=== PATIENT | female | born 1975 | race Two or more races ===

== ENCOUNTER → 2020-02-01 11:55 | Outpatient (BNVA) | payer MEDICAID, SELFPAY | PROVIDERS: PCP Internal Medicine; Referring Provider Internal Medicine; Visit Provider Internal Medicine | DX: Z76.89 Persons encountering health services in other specified circumstances (principal) ==

== ENCOUNTER 2020-04-05 08:50 | Outpatient (REF) | payer MEDICAID, SELFPAY ==
--- NOTE | 2020-04-05 11:15 | ECG_ITS ---
Test Reason : SOB Blood Pressure : / mmHG Vent. Rate : 084 BPM Atrial Rate : 084 BPM P-R Int : 128 ms QRS Dur : 084 ms QT Int : 362 ms P-R-T Axes : 035 043 059 degrees QTc Int : 427 ms Normal sinus rhythm Normal ECG No previous ECGs available Referred By: Karol Brandt Electronically Signed By:GISELE CONNELL
--- NOTE | 2020-04-05 11:30 | XR_ITS ---
EXAMINATION: XR CHEST CLINICAL INFORMATION: Shortness of breath. COMPARISON: None TECHNIQUE: 2 views of the chest were obtained. FINDINGS: No significant abnormality is noted involving the heart, lungs, mediastinum, bony thorax or soft tissues. XR/XR chest 2V IMPRESSION: No acute cardiopulmonary process.
[2020-04-05 12:08] LABS: MANUAL DIFF FLAG NO
[2020-04-05 12:22] LABS: Basophils Percent Auto 0.4 % (0-2); Eosinophils Absolute Auto 0.1 X10*3/uL (0.0-0.4); Hematocrit 40.4 % (37-47); Hemoglobin 13.6 g/dl (12.0-16.0); Imm Gran Abs Auto 0.03 X10*3/uL (0.00-0.03); Imm Gran Pct Auto 0.4 % (0.0-0.4); Lymphocytes Absolute Auto 2.4 X10*3/uL (1.2-4.9); Lymphocytes Percent Auto 33.7 % (20-40); Mean Corpuscular HGB Conc 33.7 g/dl (31.0-35.0); Mean Corpuscular Hemoglobin 29.3 pg (27.0-33.0); Mean Corpuscular Volume 87.1 fL (80-98); Mean Platelet Volume 11.6 fL (9.4-12.3); Monocytes Absolute Auto 0.6 X10*3/uL (0.1-1.2); Monocytes Percent Auto 8.5 % (2-11); Neutrophils Absolute Auto 3.9 X10*3/uL (2.0-8.3); Platelet Count 308 X10*3/uL (160-400); Red Blood Count 4.64 X10*6/uL (4.20-5.50); Red Cell Distribution Width 12.5 % (11.0-16.0)
[2020-04-05 12:50] LABS: Alanine Aminotransferase 23 U/L (0-31); Albumin Level 3.9 g/dL (3.5-5.0); Alkaline Phosphatase 208 U/L (39-117); Anion Gap 13 (12-20); Aspartate Amino Transferase 16 U/L (5-31); Bilirubin Total 0.2 mg/dL (0.0-1.0); Blood Urea Nitrogen 12 mg/dL (9-16); C Reactive Protein 1.91 mg/dL (< or = 0.50); Calcium 8.8 mg/dL (8.4-10.2); Carbon Dioxide 30 mmol/L (22-29); Chloride 96 mmol/L (96-108); Cholesterol 196 mg/dL; Estimated Glomerular Filt Rate > 60; Glucose Fasting 337 mg/dL (60-99); HDL Cholesterol 52 mg/dL; Iron 78 mcg/dL (30-160); LDL Cholesterol Calculated 109 mg/dl; Percent Iron Saturation 23 % (15-50); Potassium 4.4 mmol/L (3.3-5.1); Sodium 135 mmol/L (135-145); Total Iron Binding Capacity 338 mcg/dL (228-428); Total Protein 6.9 g/dL (6.5-8.0); Triglycerides 178 mg/dL; Unsaturated Iron Binding 260 ug/dL
[2020-04-05 13:01] LABS: Vitamin B12 295 pg/mL (200-900)
[2020-04-05 13:10] LABS: Vitamin D 25-OH Total 23.6 ng/mL (>30)
[2020-04-06 06:27] LABS: Thyroglobulin Antibodies <1 IU/mL (< or = 1); Thyroid Peroxidase Antibodies <1 IU/mL (<9); Triiodothyronine T3 Total 103 ng/dL (76-181)
[2020-04-06 12:02] LABS: H Pylori Breath Test NOT DETECTED (NOT DETECTED)
[2020-04-06 13:13] LABS: PTHI 69 pg/mL (14-64)
[2020-04-09 04:27] LABS: Zinc 77 mcg/dL (60-130)
[2020-04-09 16:13] LABS: Vitamin A 39 mcg/dL (38-98)
[2020-04-10 10:17] LABS: Vitamin B1 9 nmol/L (8-30)
== END 2020-04-05 08:51 | disposition home or self-care (01) ==
LOC: HO.LAB 08:50
PROVIDERS: Internal Medicine; PCP Internal Medicine; Visit Provider Surgery
DX: Z01.818 Encounter for other preprocedural examination (principal); E66.9 Obesity, unspecified; Z68.38 Body mass index [BMI] 38.0-38.9, adult; R06.02 Shortness of breath
CPT/HCPCS: 36415; 71046; 80053; 80061; 82306; 82607; 83013; 83540; 83970; 84425; 84439; 84443; 84480; 84590; 84630; 85025; 86140; 86376; 86800; 93005; 99202; 99211

== ENCOUNTER → 2020-04-19 08:09 | Outpatient (BNVA) | payer MEDICAID, SELFPAY | PROVIDERS: PCP Internal Medicine; Visit Provider Surgery ==

== ENCOUNTER → 2020-05-03 08:11 | Outpatient (BNVA) | payer MEDICAID, SELFPAY | PROVIDERS: PCP Internal Medicine; Visit Provider Dietitian, Registered ==

== ENCOUNTER 2020-07-28 08:07 | Outpatient (REF) | payer MEDICAID, SELFPAY ==
--- NOTE | ~2020-07-28 | MM_ITS ---
EXAMINATION: MM SCREENING DIGITAL BREAST TOMOSYNTHESIS, BILATERAL CLINICAL INFORMATION: Screening. Asymptomatic. The lifetime risk of breast cancer based on the Tyrer-Cuzick Model is 7%. COMPARISON: Mammography: 02/12/2018, 08/10/2017, 02/02/2017, 01/16/2017 TECHNIQUE: Digital breast tomosynthesis is performed in both the craniocaudal and mediolateral oblique views along with computer-aided detection (CAD). Synthesized 2D images are generated from the tomosynthesis. Additional left MLO view is provided. FINDINGS: There are scattered areas of fibroglandular density (ACR BI-RADS breast composition Category b). There are no significant masses, abnormal calcifications, or other abnormalities. Small smooth nodular asymmetry outer left breast is stable from prior exams. The axilla and skin contours are unremarkable. No significant changes. MM/MM tomosynthesis screening BI IMPRESSION: No mammographic evidence of malignancy. ASSESSMENT: BI-RADS 2: Benign RECOMMENDATION: Routine annual mammography screening. This patient's information was entered into a reminder system with a target due date for their next mammogram.
--- NOTE | ~2020-07-28 | XR_ITS ---
EXAMINATION: XR knee LT 4V, XR knee RT 4V CLINICAL INFORMATION: Reason for Exam PAIN IN LT KNEE COMPARISON: None available at the time of this dictation. TECHNIQUE: frontal, lateral, tunnel and patella sunrise views FINDINGS: BONES: No fracture or dislocation is present. There is mild lateral tilt of the patella especially the left. JOINTS: Narrowing of joint spaces and developed osteophytes from the edges of articular surfaces suggest degenerative osteoarthritis. SOFT TISSUE: Normal XR/XR knee RT 4V IMPRESSION: Moderate tricompartment degenerative osteoarthritis involving lateral more than medial compartments. No significant knee joint effusion. Mild lateral tilt of the patella left more than right.
--- NOTE | ~2020-07-28 | XR_ITS ---
EXAMINATION: XR knee LT 4V, XR knee RT 4V CLINICAL INFORMATION: Reason for Exam PAIN IN LT KNEE COMPARISON: None available at the time of this dictation. TECHNIQUE: frontal, lateral, tunnel and patella sunrise views FINDINGS: BONES: No fracture or dislocation is present. There is mild lateral tilt of the patella especially the left. JOINTS: Narrowing of joint spaces and developed osteophytes from the edges of articular surfaces suggest degenerative osteoarthritis. SOFT TISSUE: Normal XR/XR knee LT 4V IMPRESSION: Moderate tricompartment degenerative osteoarthritis involving lateral more than medial compartments. No significant knee joint effusion. Mild lateral tilt of the patella left more than right.
== END 2020-07-28 08:08 | disposition home or self-care (01) ==
LOC: HO.MAMMO 08:07
PROVIDERS: PCP Internal Medicine; Visit Provider Internal Medicine
DX: Z12.31 Encounter for screening mammogram for malignant neoplasm of breast (principal); M25.561 Pain in right knee; M25.562 Pain in left knee
CPT/HCPCS: 73564; 77063; 77067

== ENCOUNTER → 2020-10-05 13:47 | Outpatient (BNVA) | payer MEDICAID, SELFPAY | PROVIDERS: Visit Provider Physician Assistant | DX: M17.0 Bilateral primary osteoarthritis of knee (principal); M25.561 Pain in right knee | CPT/HCPCS: 20610; 99202; J1040 ==

== ENCOUNTER 2020-10-26 18:50 | Outpatient (REF) | payer MEDICAID, SELFPAY ==
--- NOTE | ~2020-10-26 | MR_ITS ---
EXAMINATION: MR CERVICAL SPINE WITHOUT CONTRAST CLINICAL INFORMATION: Spinal enthesopathy. COMPARISON: Cervical spine MRI October 23, 2018. TECHNIQUE: MRI of the cervical spine was performed using routine sequences without contrast. FINDINGS: The cervical vertebral bodies maintain normal heights and alignment. There is moderate to severe disc height loss at C5-C6 and moderate disc height loss at C4-C5. No marrow edema is seen. The cervical cord signal appears normal. The imaged portions of the intracranial contents appear normal. The extraspinal soft tissues appear normal. SPINAL LEVELS: C2-C3: No posterior disc abnormality. No spinal canal or neural foraminal stenosis. C3-C4: No posterior disc abnormality. No spinal canal or neural foraminal stenosis. C4-C5: Disc osteophyte complex with uncovertebral hypertrophy results in mild spinal canal stenosis without change. Stable mild right more than left neural foraminal stenosis. C5-C6: Disc osteophyte complex with left more than right uncovertebral hypertrophy resulting in mild spinal canal stenosis and severe left and mild right neural foraminal stenosis, unchanged from prior. C6-C7: No posterior disc abnormality. No spinal canal or neural foraminal stenosis. C7-T1: No posterior disc abnormality. No spinal canal or neural foraminal stenosis. MR/MR cervical spine wo con IMPRESSION: Stable exam compared with 2019. At C5-C6 there is unchanged mild spinal canal stenosis and severe left neural foraminal stenosis. At C4-C5 there is unchanged mild spinal canal stenosis and mild right more than left neural foraminal stenosis.
== END 2020-10-26 18:51 | disposition home or self-care (01) ==
LOC: HO.MRI 18:50
PROVIDERS: PCP Internal Medicine; Visit Provider Internal Medicine
DX: M48.02 Spinal stenosis, cervical region (principal)
CPT/HCPCS: 72141

== ENCOUNTER → 2020-11-15 13:05 | Outpatient (BNVA) | payer MEDICAID, SELFPAY | PROVIDERS: PCP Internal Medicine; Visit Provider Nurse Practitioner Family | DX: M79.7 Fibromyalgia (principal) | CPT/HCPCS: 99212 ==

== ENCOUNTER 2020-12-05 09:27 | Outpatient (REF) | payer MEDICAID, SELFPAY ==
--- NOTE | 2020-12-05 09:32 | EMG_ITS ---
This is a 45-year-old woman with history of bilateral upper extremity electrical sensation, tingling, and involuntary movements with the left side being worse than the right. She has a 10-year history of well-controlled type 2 diabetes. PHYSICAL EXAMINATION: On examination, she is alert and oriented with normal intellectual functions. Cranial nerves II through XII are normal. Muscle tone and strength are normal in all 4 extremities. No Tinel or Phalen sign. IMPRESSION: Rule out carpal tunnel syndrome, rule out neuropathy. Nerve conduction EMG study: Early carpal tunnel syndrome bilaterally, slightly worse on the right. Normal EMG of the left C5-T1 innervated muscles. MD ABEL Langford/[facility] / [id number]
[2020-12-05 10:59] LABS: Alanine Aminotransferase 13 U/L (0-31); Albumin Level 3.5 g/dL (3.5-5.0); Alkaline Phosphatase 127 U/L (39-117); Anion Gap 10 (12-20); Aspartate Amino Transferase 9 U/L (5-31); Bilirubin Total 0.4 mg/dL (0.0-1.0); Blood Urea Nitrogen 12 mg/dL (9-16); Calcium 8.5 mg/dL (8.4-10.2); Carbon Dioxide 27 mmol/L (22-29); Chloride 102 mmol/L (96-108); Estimated Glomerular Filt Rate > 60; Glucose Random 190 mg/dL (60-115); Potassium 4.7 mmol/L (3.3-5.1); Sodium 134 mmol/L (135-145); Total Protein 6.1 g/dL (6.5-8.0)
[2020-12-05 11:13] LABS: Thyroid Stimulating Hormone 1.94 uIU/mL (0.32-4.0); Vitamin D 25-OH Total 15.5 ng/mL (>30)
== END 2020-12-05 09:28 | disposition home or self-care (01) ==
LOC: HO.NEURO 09:27
PROVIDERS: Internal Medicine; PCP Internal Medicine; Visit Provider Internal Medicine
DX: M17.0 Bilateral primary osteoarthritis of knee (principal); E04.2 Nontoxic multinodular goiter; E55.9 Vitamin D deficiency, unspecified; G56.03 Carpal tunnel syndrome, bilateral upper limbs
CPT/HCPCS: 36415; 80053; 82306; 84443; 95885; 95913

== ENCOUNTER → 2020-12-19 08:08 | Outpatient (BNVA) | payer MEDICAID, SELFPAY | PROVIDERS: PCP Internal Medicine; Visit Provider Internal Medicine ==

== ENCOUNTER 2021-02-11 12:46 | Outpatient (REF) | payer MEDICAID, SELFPAY | END 2021-02-11 12:47 | disposition home or self-care (01) | LOC: HO.LAB 12:46 | PROVIDERS: Visit Provider Internal Medicine | DX: Z20.822 Contact with and (suspected) exposure to COVID-19 (principal) | CPT/HCPCS: C9803; U0003; U0005 ==

== ENCOUNTER 2021-02-14 16:13 | Emergency (ER) | payer OTHER, MEDICAID, SELFPAY ==
--- NOTE | ~2021-02-14 | XR_ITS ---
Indication: Pain EXAMINATION: Thoracic and lumbar spine. Findings; 3 views of the lumbar spine AP and lateral compared to previous dated 09/24/2018. No acute finding. No listhesis or compression injury. No significant degeneration. Sacralization of the inferior most vertebrae. There is some mild loss of disc height and mild spurring in the endplates. Cannot rule out some early degenerative changes in the posterior elements in the lower lumbar region. 2 views of the thoracic spine. Long scoliosis convex left apex at D8. There is no listhesis or compression injury. Some mild early degenerative changes in the lower thoracic region. XR/XR lumbar spine 2-3V IMPRESSION: No acute finding. Some mild degenerative changes and mild scoliosis as noted.
--- NOTE | ~2021-02-14 | XR_ITS ---
Indication: Pain EXAMINATION: Thoracic and lumbar spine. Findings; 3 views of the lumbar spine AP and lateral compared to previous dated 09/24/2018. No acute finding. No listhesis or compression injury. No significant degeneration. Sacralization of the inferior most vertebrae. There is some mild loss of disc height and mild spurring in the endplates. Cannot rule out some early degenerative changes in the posterior elements in the lower lumbar region. 2 views of the thoracic spine. Long scoliosis convex left apex at D8. There is no listhesis or compression injury. Some mild early degenerative changes in the lower thoracic region. XR/XR thoracic spine 3V IMPRESSION: No acute finding. Some mild degenerative changes and mild scoliosis as noted.
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
[2021-02-14 16:19] VITALS: BP 164/98; PULSE 120; RESP 20; TEMP 36.3; O2SAT 99; BMI 39.1
[2021-02-14 19:04] VITALS: BP 146/93; PULSE 120; RESP 18; TEMP 36.6; O2SAT 97
[2021-02-14] MEDS: Cyclobenzaprine HCl 10 MG TABLET PO (19:39)
[2021-02-14] MEDS: oxyCODONE HCl Immed Release 5 MG TABLET PO (19:39)
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
[2021-02-14] MEDS: Ketorolac Tromethamine 60 MG/2 ML VIAL IM (20:54)
[2021-02-14 21:37] VITALS: BP 131/87; PULSE 113; RESP 17; O2SAT 98
== END 2021-02-14 22:10 | disposition home or self-care (01) ==
PROVIDERS: Emergency Provider Emergency Medicine; PCP Internal Medicine
DX: S13.4XXA Sprain of ligaments of cervical spine, initial encounter (principal); V43.52XA Car driver injured in collision with other type car in traffic accident, initial encounter; M54.9 Dorsalgia, unspecified; R00.0 Tachycardia, unspecified; I10 Essential (primary) hypertension; E11.9 Type 2 diabetes mellitus without complications; E78.00 Pure hypercholesterolemia, unspecified; Y93.89 Activity, other specified; Y92.414 Local residential or business street as the place of occurrence of the external cause; Y99.9 Unspecified external cause status
CPT/HCPCS: 70450; 72072; 72100; 72125; 96372; 99284; J1885

== ENCOUNTER → 2021-02-15 14:30 | Outpatient (BNVA) | payer MEDICAID, SELFPAY | PROVIDERS: PCP Internal Medicine; Visit Provider Physician Assistant | DX: M17.0 Bilateral primary osteoarthritis of knee (principal) | CPT/HCPCS: 20610; 99212; J1040 ==

== ENCOUNTER 2021-02-17 09:50 | Emergency (ER) | payer MEDICAID, SELFPAY ==
--- NOTE | ~2021-02-17 | XR_ITS ---
EXAMINATION: XR CHEST CLINICAL INFORMATION: Tingling and numbness and difficulty speaking. COMPARISON: Chest x-ray 04/05/2020 TECHNIQUE: Frontal view of the chest was obtained. FINDINGS: No significant abnormality is noted involving the heart, lungs, mediastinum, bony thorax or soft tissues. XR/XR chest 1V IMPRESSION: Unremarkable chest examination.
--- NOTE | ~2021-02-17 | CT_ITS ---
EXAMINATION: CT HEAD WITHOUT CONTRAST CLINICAL INFORMATION: Numbness. Difficulty speaking. COMPARISON: None TECHNIQUE: Contiguous axial imaging was performed from the skull base to vertex without intravenous administration of contrast. Coronal and sagittal reformatted images are performed at CT scanner This CT examination was performed using dose optimization techniques as appropriate, variously including the following: *Automated exposure control *Adjustment of mA and/or kV according to patient size (this includes techniques or standardized protocols for targeted exams where dose is matched to indication/reason for exam; i.e. extremities or head) *Use of iterative reconstruction technique DLP: 799 mGy-cm FINDINGS: There is no evidence of acute intracranial hemorrhage or territorial infarction. No abnormal mass effect or midline shift is seen. [place] to white matter differentiation is well preserved. No extra-axial fluid collections are identified. The ventricles are normal in size. There is no abnormal attenuation within the brain parenchyma. The osseous structures and soft tissues are normal. The mastoid air cells and visualized portions of the paranasal sinuses are well aerated. CT/CT head/brain wo con IMPRESSION: No acute intracranial pathology.
--- NOTE | ~2021-02-17 | MR_ITS ---
EXAMINATION: MR BRAIN WITHOUT CONTRAST CLINICAL INFORMATION: Numbness and tingling with difficulty speaking. COMPARISON: Head CT dated 02/14/2021. TECHNIQUE: Multiplanar, multisequence imaging of the brain was performed without contrast. Limited study with motion artifacts. FINDINGS: No diffusion abnormalities are identified to suggest an acute or subacute infarct. The ventricles are normal in size. No mass effect or midline shift is seen. No brain parenchymal signal abnormality is noted. No extra-axial fluid collections are seen. The brainstem and cerebellum are normal. The gradient refocused acquisition demonstrates no pathologic magnetic susceptibility artifact to indicate underlying acute or chronic blood products. The craniovertebral junction, marrow signal, and midline structures are normal. The major intracranial flow-voids at the level of the [place] are preserved. The dural venous sinus flow-voids are maintained. The mastoid air cells and paranasal sinuses are well aerated. There is an incompletely visualized 1 x 2 cm soft tissue lesion within the central portion of the superficial lobe of the left parotid gland which is isointense to slightly hyperintense and homogeneous in signal on T2-weighted imaging. MR/MR head/brain wo con IMPRESSION: Normal limited MRI of the brain without contrast with motion artifacts. Incompletely characterized and nonspecific 1 x 2 cm soft tissue lesion in the left parotid gland. Recommend followup ENT evaluation.
[2021-02-17 10:24] VITALS: BP 123/71; PULSE 90; RESP 20; TEMP 35.9; O2SAT 99; BMI 24.1
--- NOTE | 2021-02-17 14:41 | ED_ITS ---
HPI - Neuro Symptoms/Deficit General Chief Complaint: Neuro Symptoms/Deficit <Greta Salazar MD - Last Filed: 02/17/21 14:51> Stated Complaint: HIGH BP BODY FEELS NUMB <Greta Salazar MD - Last Filed: 02/17/21 14:51> Time Seen by Provider: 02/17/21 14:36 <Greta Salazar MD - Last Filed: 02/17/21 14:51> Source: patient <Greta Salazar MD - Last Filed: 02/17/21 14:51> Mode of arrival: ambulatory <Greta Salazar MD - Last Filed: 02/17/21 14:51> Limitations: no limitations <Greta Salazar MD - Last Filed: 02/17/21 14:51> History of Present Illness HPI Narrative: 45-year-old female came in for evaluation of numbness and tingling with difficulty speaking. Patient's symptoms started yesterday after she took her blood pressure medication, patient felt numbness and tingling in her whole entire body but right side more than the left side, patient also felt that her tongue is numb with difficulty to speak, patient felt palpitation and her heart rate was going on in the 140s, daughter checked her blood pressure patient reported as high. Patient will come this morning okay, patient is known poorly controlled diabetes. Patient otherwise declines chest pain or difficulty breathing, no fever, no chills. <Greta Salazar MD - Last Filed: 02/17/21 14:51> Related Data Home Medications: Home Medications Medication Instructions Recorded Confirmed baclofen 20 mg tablet 20 mg PO QID 02/01/20 12/19/20 cyclobenzaprine 10 mg tablet 10 mg PO BEDTIME 02/01/20 12/19/20 gabapentin 600 mg tablet 600 mg PO BID 02/01/20 12/19/20 gabapentin 800 mg tablet 800 mg PO BEDTIME 02/01/20 12/19/20 metformin 1,000 mg tablet 1,000 mg PO BID 02/01/20 12/19/20 atenolol 50 mg tablet 50 mg PO DAILY 04/05/20 12/19/20 lisinopril 10 mg tablet 10 mg PO DAILY 04/05/20 12/19/20 tramadol 50 mg tablet 50 mg PO Q8H PRN 04/05/20 12/19/20 Previous Rx's Medication Instructions Recorded cholecalciferol (vitamin D3) 1,250 1,250 mcg PO QWEEK 56 Days #8 cap 12/19/20 mcg (50,000 unit) capsule cholecalciferol (vitamin D3) 50 50 mcg PO DAILY 30 Days #30 cap 12/19/20 mcg (2,000 unit) capsule duloxetine 60 mg capsule,delayed 60 mg PO DAILY #90 cap 01/28/21 release celecoxib 200 mg capsule 200 mg PO BID 30 Days #60 cap 02/08/21 cyclobenzaprine 10 mg tablet 10 mg PO TID PRN #18 tab 02/14/21 oxycodone-acetaminophen 5 mg-325 1 tab PO TID PRN #9 tab 02/14/21 mg tablet (Percocet) <Greta Salazar MD - Last Filed: 02/17/21 14:51> Allergies/Adverse Reactions: Allergies Allergy/AdvReac Type Severity Reaction Status Date / Time seasonal allergies Allergy Mild Sneezing, Uncoded 12/19/20 08:41 itchy all over <Greta Salazar MD - Last Filed: 02/17/21 14:51> Review of Systems Review of Systems: All other systems are reviewed and are negative Constitutional: Reports as per HPI and Reports no additional constitutional complaints Eyes: Reports as per HPI and Reports no additional eye complaints Reports system reviewed and no additional complaints, except as documented Cardiovascular: Reports as per HPI and Reports no additional cardiovascular complaints Respiratory: Reports as per HPI and Reports no additional respiratory complaints Gastrointestinal: Reports as per HPI and Reports no additional gastrointestinal complaints Genitourinary: Reports no additional female genitourinary complaints Musculoskeletal: Reports no additional musculoskeletal complaints Skin/Breast: Reports system reviewed and no additional complaints, except as docu Psychiatric: Reports no additional psychiatric complaints Endocrine: Reports no additional endocrine complaints Hematologic/Lymphatic: Reports no additional hematologic/lymphatic complaints Allergic/Immunologic: Reports no additional allergic/immunologic complaints Reports system reviewed and no additional complaints, except as documented and Reports Abnormal speech present <Greta Salazar MD - Last Filed: 02/17/21 14:51> PMFSH Past Medical History Medical History: Medical History Arthritis Asthma Back pain Cervicalgia Fibromyalgia Gout HTN (hypertension) Hypercholesterolemia Multinodular thyroid Neuropathy Type 2 diabetes mellitus Vitamin D deficiency <Greta Salazar MD - Last Filed: 02/17/21 14:51> Surgical History: Surgical History History of cryosurgery Hx of section Hx of neck surgery Hx of tonsillectomy <Greta Salazar MD - Last Filed: 02/17/21 14:51> Family History Family History: Family History Father HIV (human immunodeficiency virus infection) Mother Osteoarthritis Osteoporosis Herniated disc H/O Spinal surgery Degloving injury of plantar surface of foot Knee problem Family history of thyroid problem Daughter Mildly obese Asthma Cranial cerebrospinal fluid leak, spontaneous Daughter Mildly obese ADHD Asthma Son ADHD Asthma <Greta Salazar MD - Last Filed: 02/17/21 14:51> Social History Social History: Social History Alcohol intake: never Patient Tobacco Use Status: Former Tobacco user Cigarettes Per Day: 4 Advance Directives: No Advance Directives Information Provided: No Current occupational status: unemployed Current occupation: rt handed <Greta Salazar MD - Last Filed: 02/17/21 14:51> Physical Exam Vital Signs: Vital Signs: Last Vital Signs Temp 97.8 F 02/17/21 18:09 Pulse 74 02/17/21 18:09 Resp 16 02/17/21 18:09 BP 98/54 L 02/17/21 18:09 Pulse Ox 99 02/17/21 18:09 BMI result Body Mass Index 24.1 Vital signs have been reviewed as appeared to be correct. Blood pressure normal. Heart rate normal. Respiration rate normal. Temperature normal. Oxygen saturation normal. <Greta Salazar MD - Last Filed: 02/17/21 14:51> Vital Signs: Last Vital Signs Temp 97.8 F 02/17/21 18:09 Pulse 74 02/17/21 18:09 Resp 16 02/17/21 18:09 BP 98/54 L 02/17/21 18:09 Pulse Ox 99 02/17/21 18:09 BMI result Body Mass Index 24.1 <Deisy Sprague MD - Last Filed: 02/17/21 19:02> Appearance: Alert. Oriented X3. No acute distress. Head: Normal external exam. Normocephalic. Atraumatic. No Cooper signs noted. No raccoon eyes noted Eyes: PERRLA. EOMI. Conjunctiva and sclera normal. Eyelids normal. ENT: TM's Normal. Pharynx normal. Uvula midline. Moist mucous membranes. No trismus noted. No drooling noted. No muffled voice noted. Neck: Normal inspection. Neck supple. FROM. No adenopathy. Thyroid Normal. No meningeal signs. No neck mass noted. CVS: Normal heart rate and rhythm. Heart sound normal. No murmurs noted. Pulses normal throughout. Respiratory: No respiratory distress. Painless inspiration. Breath sounds normal. No wheezes/rales/rhonchi noted. Chest nontender. No accessory muscle usage noted or decreased air movement noted. Abdomen: Soft and nontender. Bowel sounds normal in all 4 quadrants. No distention noted. No organomegaly noted. No visible injury noted. Back: No CVA tenderness. Full range of motion noted. Skin: Skin warm and dry. Normal skin color. Normal skin turgor. No rashe s/lesions/lacerations noted. Extremities: No lower extremity edema. Extremities exhibit normal range of motion. Extremities nontender. Neuro: Oriented X 3. Cranial nerve exam: II-XII are grossly intact No motor deficit. No sensory deficit. Reflexes normal. <Greta Salazar MD - Last Filed: 02/17/21 14:51> Course Course Course Narrative: Assessment and plan. 45-year-old female came in for evaluation of generalized numbness and palpitation and others symptoms that may indicate anxiety, patient has a normal neurological exam, NIH score is 0, head CT/MRI head is unremarkable, labs are unremarkable except for hyperglycemia in patient is known diabetic. Vital signs stable will reassure and discharged to follow-up with PCP. <Greta Salazar MD - Last Filed: 02/17/21 14:51> Assessment and plan. 45-year-old female came in for evaluation of generalized numbness and palpitatio n and others symptoms that may indicate anxiety, patient has a normal neurological exam, NIH score is 0, head CT/MRI head is unremarkable, labs are unremarkable except for hyperglycemia in patient is known diabetic. Vital signs stable will reassure and discharged to follow-up with PCP. I received sign-out from Dr. Salazar. Patient's MRI is negative for any acute findings. Patient is ambulatory, denies any numbness tingling, all of her symptoms have resolved. <Deisy Sprague MD - Last Filed: 02/17/21 19:02> MDM - Neuro Symptoms/Deficit Lab Data Result diagrams: : 02/17/21 15:19 02/17/21 15:19 <Greta Salazar MD - Last Filed: 02/17/21 14:51> Labs: Lab Results 02/17/21 02/17/21 02/17/21 Range/Units 15:19 15:19 15:19 WBC 8.5 (4.8-10.8) X10*3/uL RBC 3.89 L (4.20-5.50) X10*6/uL Hgb 11.7 L (12.0-16.0) g/dl Hct 34.8 L (37.0-47.0) % MCV 89.5 (80.0-98.0) fL MCH 30.1 (27.0-33.0) pg MCHC 33.6 (31.0-35.0) g/dl RDW 12.2 (11.0-16.0) % Plt Count 241 (160-400) X10*3/uL MPV 10.8 (9.4-12.3) fL Immature Gran % (Auto) 0.8 H (0.0-0.4) % Neut % (Auto) 58.1 (45-73) % Lymph % (Auto) 32.5 (20-40) % [place] % (Auto) 7.7 (2-11) % Eos % (Auto) 0.7 (0-4) % Baso % (Auto) 0.2 (0-2) % Lymph # (Auto) 2.8 (1.2-4.9) X10*3/uL [place] # (Auto) 0.7 (0.1-1.2) X10*3/uL Eos # (Auto) 0.1 (0.0-0.4) X10*3/uL Baso # (Auto) 0.0 (0.0-0.2) X10*3/uL Abs Immat Gran (auto) 0.07 H (0.00-0.03) X10*3/uL Absolute Neuts (auto) 4.9 (2.0-8.3) x10*3/uL Absolute Nucleated RBC 0.000 (0.0-0.012) X10*3/uL Nucleated RBC % (auto) 0.0 (0.0-0.2) /100WBC Sodium 138 (135-145) mmol/L Potassium 4.3 (3.3-5.1) mmol/L Chloride 100 (96-108) mmol/L Carbon Dioxide 30 H (22-29) mmol/L Anion Gap 12 (12-20) BUN 35 H (9-16) mg/dL Creatinine 1.11 (0.5-1.4) mg/dL Estim Creat Clear Calc 58.1 Estimated GFR 53 Random Glucose 245 H (60-115) mg/dL Calcium 8.5 (8.4-10.2) mg/dL Total Bilirubin 0.5 (0.0-1.0) mg/dL Direct Bilirubin 0.2 (0.0-0.5) mg/dL AST 10 (5-31) U/L ALT 12 (0-31) U/L Alkaline Phosphatase 135 H (39-117) U/L Troponin I High Sens < 3.5 (<3.5-17.0) ng/L B-Natriuretic Peptide (<100) pg/mL Total Protein 5.9 L (6.5-8.0) g/dL Albumin 3.4 L (3.5-5.0) g/dL Lipase 30 (8-78) U/L COVID-19 (FIOR) (Negative) COVID-19 Clin Com 02/17/21 02/17/21 Range/Units 15:19 17:23 WBC (4.8-10.8) X10*3/uL RBC (4.20-5.50) X10*6/uL Hgb (12.0-16.0) g/dl Hct (37.0-47.0) % MCV (80.0-98.0) fL MCH (27.0-33.0) pg MCHC (31.0-35.0) g/dl RDW (11.0-16.0) % Plt Count (160-400) X10*3/uL MPV (9.4-12.3) fL Immature Gran % (Auto) (0.0-0.4) % Neut % (Auto) (45-73) % Lymph % (Auto) (20-40) % [place] % (Auto) (2-11) % Eos % (Auto) (0-4) % Baso % (Auto) (0-2) % Lymph # (Auto) (1.2-4.9) X10*3/uL [place] # (Auto) (0.1-1.2) X10*3/uL Eos # (Auto) (0.0-0.4) X10*3/uL Baso # (Auto) (0.0-0.2) X10*3/uL Abs Immat Gran (auto) (0.00-0.03) X10*3/uL Absolute Neuts (auto) (2.0-8.3) x10*3/uL Absolute Nucleated RBC (0.0-0.012) X10*3/uL Nucleated RBC % (auto) (0.0-0.2) /100WBC Sodium (135-145) mmol/L Potassium (3.3-5.1) mmol/L Chloride (96-108) mmol/L Carbon Dioxide (22-29) mmol/L Anion Gap (12-20) BUN (9-16) mg/dL Creatinine (0.5-1.4) mg/dL Estim Creat Clear Calc Estimated GFR Random Glucose (60-115) mg/dL Calcium (8.4-10.2) mg/dL Total Bilirubin (0.0-1.0) mg/dL Direct Bilirubin (0.0-0.5) mg/dL AST (5-31) U/L ALT (0-31) U/L Alkaline Phosphatase (39-117) U/L Troponin I High Sens (<3.5-17.0) ng/L B-Natriuretic Peptide < 10 (<100) pg/mL Total Protein (6.5-8.0) g/dL Albumin (3.5-5.0) g/dL Lipase (8-78) U/L COVID-19 (FIOR) Negative (Negative) COVID-19 Clin Com See Note <Greta Salazar MD - Last Filed: 02/17/21 14:51> Lab Results 02/17/21 02/17/21 02/17/21 Range/Units 15:19 15:19 15:19 WBC 8.5 (4.8-10.8) X10*3/uL RBC 3.89 L (4.20-5.50) X10*6/uL Hgb 11.7 L (12.0-16.0) g/dl Hct 34.8 L (37.0-47.0) % MCV 89.5 (80.0-98.0) fL MCH 30.1 (27.0-33.0) pg MCHC 33.6 (31.0-35.0) g/dl RDW 12.2 (11.0-16.0) % Plt Count 241 (160-400) X10*3/uL MPV 10.8 (9.4-12.3) fL Immature Gran % (Auto) 0.8 H (0.0-0.4) % Neut % (Auto) 58.1 (45-73) % Lymph % (Auto) 32.5 (20-40) % [place] % (Auto) 7.7 (2-11) % Eos % (Auto) 0.7 (0-4) % Baso % (Auto) 0.2 (0-2) % Lymph # (Auto) 2.8 (1.2-4.9) X10*3/uL [place] # (Auto) 0.7 (0.1-1.2) X10*3/uL Eos # (Auto) 0.1 (0.0-0.4) X10*3/uL Baso # (Auto) 0.0 (0.0-0.2) X10*3/uL Abs Immat Gran (auto) 0.07 H (0.00-0.03) X10*3/uL Absolute Neuts (auto) 4.9 (2.0-8.3) x10*3/uL Absolute Nucleated RBC 0.000 (0.0-0.012) X10*3/uL Nucleated RBC % (auto) 0.0 (0.0-0.2) /100WBC Sodium 138 (135-145) mmol/L Potassium 4.3 (3.3-5.1) mmol/L Chloride 100 (96-108) mmol/L Carbon Dioxide 30 H (22-29) mmol/L Anion Gap 12 (12-20) BUN 35 H (9-16) mg/dL Creatinine 1.11 (0.5-1.4) mg/dL Estim Creat Clear Calc 58.1 Estimated GFR 53 Random Glucose 245 H (60-115) mg/dL Calcium 8.5 (8.4-10.2) mg/dL Total Bilirubin 0.5 (0.0-1.0) mg/dL Direct Bilirubin 0.2 (0.0-0.5) mg/dL AST 10 (5-31) U/L ALT 12 (0-31) U/L Alkaline Phosphatase 135 H (39-117) U/L Troponin I High Sens < 3.5 (<3.5-17.0) ng/L B-Natriuretic Peptide (<100) pg/mL Total Protein 5.9 L (6.5-8.0) g/dL Albumin 3.4 L (3.5-5.0) g/dL Lipase 30 (8-78) U/L COVID-19 (FIOR) (Negative) COVID-19 Clin Com 02/17/21 02/17/21 Range/Units 15:19 17:23 WBC (4.8-10.8) X10*3/uL RBC (4.20-5.50) X10*6/uL Hgb (12.0-16.0) g/dl Hct (37.0-47.0) % MCV (80.0-98.0) fL MCH (27.0-33.0) pg MCHC (31.0-35.0) g/dl RDW (11.0-16.0) % Plt Count (160-400) X10*3/uL MPV (9.4-12.3) fL Immature Gran % (Auto) (0.0-0.4) % Neut % (Auto) (45-73) % Lymph % (Auto) (20-40) % [place] % (Auto) (2-11) % Eos % (Auto) (0-4) % Baso % (Auto) (0-2) % Lymph # (Auto) (1.2-4.9) X10*3/uL [place] # (Auto) (0.1-1.2) X10*3/uL Eos # (Auto) (0.0-0.4) X10*3/uL Baso # (Auto) (0.0-0.2) X10*3/uL Abs Immat Gran (auto) (0.00-0.03) X10*3/uL Absolute Neuts (auto) (2.0-8.3) x10*3/uL Absolute Nucleated RBC (0.0-0.012) X10*3/uL Nucleated RBC % (auto) (0.0-0.2) /100WBC Sodium (135-145) mmol/L Potassium (3.3-5.1) mmol/L Chloride (96-108) mmol/L Carbon Dioxide (22-29) mmol/L Anion Gap (12-20) BUN (9-16) mg/dL Creatinine (0.5-1.4) mg/dL Estim Creat Clear Calc Estimated GFR Random Glucose (60-115) mg/dL Calcium (8.4-10.2) mg/dL Total Bilirubin (0.0-1.0) mg/dL Direct Bilirubin (0.0-0.5) mg/dL AST (5-31) U/L ALT (0-31) U/L Alkaline Phosphatase (39-117) U/L Troponin I High Sens (<3.5-17.0) ng/L B-Natriuretic Peptide < 10 (<100) pg/mL Total Protein (6.5-8.0) g/dL Albumin (3.5-5.0) g/dL Lipase (8-78) U/L COVID-19 (FIOR) Negative (Negative) COVID-19 Clin Com See Note <Deisy Sprague MD - Last Filed: 02/17/21 19:02> Imaging Data MRI - head: Radiologist's impression: FINDINGS: No diffusion abnormalities are identified to suggest an acute or subacute infarct. The ventricles are normal in size. No mass effect or midline shift is seen. No brain parenchymal signal abnormality is noted. No extra-axial fluid collections are seen. The brainstem and cerebellum are normal. The gradient refocused acquisition demonstrates no pathologic magnetic susceptibility artifact to indicate underlying acute or chronic blood products. The craniovertebral junction, marrow signal, and midline structures are normal. The major intracranial flow-voids at the level of the [place] are preserved. The dural venous sinus flow-voids are maintained. The mastoid air cells and paranasal sinuses are well aerated. There is an incompletely visualized 1 x 2 cm soft tissue lesion within the central portion of the superficial lobe of the left parotid gland which is isointense to slightly hyperintense and homogeneous in signal on T2-weighted imaging. MR/MR head/brain wo con IMPRESSION: Normal limited MRI of the brain without contrast with motion artifacts. ? Incompletely characterized and nonspecific 1 x 2 cm soft tissue lesion in the left parotid gland. Recommend followup ENT evaluation. <Deisy Sprague MD - Last Filed: 02/17/21 19:02> NIH Stroke Scale Level of Consciousness: Alert <Greta Salazar MD - Last Filed: 02/17/21 14:51> Level of Consciousness Questions: Answers both questions correctly <Greta Salazar MD - Last Filed: 02/17/21 14:51> Level of Consciousness Commands: Performs both tasks correctly <Greta Salazar MD - Last Filed: 02/17/21 14:51> Best Gaze: Normal <Greta Salazar MD - Last Filed: 02/17/21 14:51> Visual: No visual loss <Greta Salazar MD - Last Filed: 02/17/21 14:51> Facial Palsy: Normal <Greta Salazar MD - Last Filed: 02/17/21 14:51> Motor Arm (Right): No drift <Greta Salazar MD - Last Filed: 02/17/21 14:51> Motor Arm (Left): No drift <Greta Salazar MD - Last Filed: 02/17/21 14:51> Motor Leg (Right): No drift <Greta Salazar MD - Last Filed: 02/17/21 14:51> Motor Leg (Left): No drift <Greta Salazar MD - Last Filed: 02/17/21 14:51> Limb Ataxia: Absent <Greta Salazar MD - Last Filed: 02/17/21 14:51> Sensory: Normal <Greta Salazar MD - Last Filed: 02/17/21 14:51> Best Language: No aphasia <Greta Salazar MD - Last Filed: 02/17/21 14:51> Dysarthia: Normal <Greta Salazar MD - Last Filed: 02/17/21 14:51> Extinction and Inattention: No abnormality <Greta Salazar MD - Last Filed: 02/17/21 14:51> Score: 0 <Greta Salazar MD - Last Filed: 02/17/21 14:51> 0 <Deisy Sprague MD - Last Filed: 02/17/21 19:02> Discharge Plan Discharge Clinical Impression: Fibromyalgia, Anxiety <Greta Salazar MD - Last Filed: 02/17/21 14:51> Patient Disposition: Home, Self-Care <Greta Salazar MD - Last Filed: 02/17/21 14:51> Instructions: Anxiety (ED) <Greta Salazar MD - Last Filed: 02/17/21 14:51> Additional Instructions: Please follow-up with your primary care physician tomorrow. If you have any worsening or new symptoms, please return to the emergency room or call 911 <Greta Salazar MD - Last Filed: 02/17/21 14:51> Prescriptions: No Action duloxetine 60 mg capsule,delayed release(DR/EC) 60 mg PO DAILY Qty: 90 RF: 1 celecoxib 200 mg capsule 200 mg PO BID 30 Days Qty: 60 RF: 0 cyclobenzaprine 10 mg tablet 10 mg PO TID PRN (Reason: pain) Qty: 18 RF: 0 oxycodone-acetaminophen [Percocet] 5-325 mg tablet 1 tab PO TID PRN (Reason: pain) Qty: 9 RF: 0 gabapentin 600 mg tablet 600 mg PO BID RF: 0 gabapentin 800 mg tablet 800 mg PO BEDTIME RF: 0 baclofen 20 mg tablet 20 mg PO QID RF: 0 cyclobenzaprine 10 mg tablet 10 mg PO BEDTIME RF: 0 metformin 1,000 mg tablet 1,000 mg PO BID RF: 0 tramadol 50 mg tablet 50 mg PO Q8H PRNRF: 0 lisinopril 10 mg tablet 10 mg PO DAILY RF: 0 atenolol 50 mg tablet 50 mg PO DAILY RF: 0 cholecalciferol (vitamin D3) 1,250 mcg (50,000 unit) capsule 1,250 mcg PO QWEEK 56 Days Qty: 8 RF: 0 cholecalciferol (vitamin D3) 50 mcg (2,000 unit) capsule 50 mcg PO DAILY 30 Days Qty: 30 RF: 11 <Greta Salazar MD - Last Filed: 02/17/21 14:51> Referrals: Saima Rae MD [Primary Care Provider] - 2 days <Greta Salazar MD - Last Filed: 02/17/21 14:51>
--- NOTE | 2021-02-17 15:24 | PC.NURSE ---
patient to MRI at this time
[2021-02-17] MEDS: 0.9 % Sodium Chloride 1,000 ML 999 ML IVCONT (15:35)
[2021-02-17 15:43] LABS: Alanine Aminotransferase 12 U/L (0-31); Albumin Level 3.4 g/dL (3.5-5.0); Alkaline Phosphatase 135 U/L (39-117); Anion Gap 12 (12-20); Aspartate Amino Transferase 10 U/L (5-31); Bilirubin Direct 0.2 mg/dL (0.0-0.5); Bilirubin Total 0.5 mg/dL (0.0-1.0); Blood Urea Nitrogen 35 mg/dL (9-16); Calcium 8.5 mg/dL (8.4-10.2); Carbon Dioxide 30 mmol/L (22-29); Chloride 100 mmol/L (96-108); Creatinine Clr Calc Pharmacy 58.1; Estimated Glomerular Filt Rate 53; Glucose Random 245 mg/dL (60-115); Lipase 30 U/L (8-78); Potassium 4.3 mmol/L (3.3-5.1); Sodium 138 mmol/L (135-145); Total Protein 5.9 g/dL (6.5-8.0)
[2021-02-17 15:49] LABS: Troponin-I High Sensitivity < 3.5 ng/L (<3.5-17.0)
[2021-02-17 15:50] LABS: B Type Natriuretic Peptide < 10 pg/mL (<100)
[2021-02-17 17:00] VITALS: BP 98/52; PULSE 72; RESP 18; O2SAT 99
[2021-02-17 17:33] LABS: MANUAL DIFF FLAG NO
[2021-02-17 17:36] LABS: Basophils Percent Auto 0.2 % (0-2); Eosinophils Absolute Auto 0.1 X10*3/uL (0.0-0.4); Eosinophils Percent Auto 0.7 % (0-4); Hematocrit 34.8 % (37.0-47.0); Hemoglobin 11.7 g/dl (12.0-16.0); Imm Gran Abs Auto 0.07 X10*3/uL (0.00-0.03); Imm Gran Pct Auto 0.8 % (0.0-0.4); Lymphocytes Absolute Auto 2.8 X10*3/uL (1.2-4.9); Lymphocytes Percent Auto 32.5 % (20-40); Mean Corpuscular HGB Conc 33.6 g/dl (31.0-35.0); Mean Corpuscular Hemoglobin 30.1 pg (27.0-33.0); Mean Corpuscular Volume 89.5 fL (80.0-98.0); Mean Platelet Volume 10.8 fL (9.4-12.3); Monocytes Absolute Auto 0.7 X10*3/uL (0.1-1.2); Monocytes Percent Auto 7.7 % (2-11); Neutrophils Absolute Auto 4.9 x10*3/uL (2.0-8.3); Neutrophils Percent Auto 58.1 % (45-73); Platelet Count 241 X10*3/uL (160-400); Red Blood Count 3.89 X10*6/uL (4.20-5.50); Red Cell Distribution Width 12.2 % (11.0-16.0); White Blood Count 8.5 X10*3/uL (4.8-10.8)
[2021-02-17 17:53] LABS: COVID-19 Test Negative (Negative)
[2021-02-17 18:09] VITALS: BP 98/54; PULSE 74; RESP 16; TEMP 36.6; O2SAT 99
== END 2021-02-17 19:05 | disposition home or self-care (01) ==
PROVIDERS: Emergency Medicine; Emergency Provider Emergency Medicine; PCP Internal Medicine
DX: M79.7 Fibromyalgia (principal); F41.9 Anxiety disorder, unspecified; R00.2 Palpitations; Z20.822 Contact with and (suspected) exposure to COVID-19; E11.9 Type 2 diabetes mellitus without complications; I10 Essential (primary) hypertension
CPT/HCPCS: 36415; 70450; 70551; 71045; 80048; 80076; 83690; 83880; 84484; 85025; 87635; 96360; 99284; 99285

== ENCOUNTER → 2021-03-12 19:48 | Outpatient (REF) | payer MEDICAID, SELFPAY | LOC: HO.SL 19:48 | PROVIDERS: Visit Provider Internal Medicine | DX: R06.83 Snoring (principal) | CPT/HCPCS: 95811 ==

== ENCOUNTER 2021-04-18 12:51 | Outpatient (REF) | payer MEDICAID, SELFPAY ==
--- NOTE | ~2021-04-18 | US_ITS ---
EXAMINATION: US THYROID CLINICAL INFORMATION: Nontoxic multinodular goiter. COMPARISON: Ultrasound thyroid 09/30/2018. TECHNIQUE: Linear transducer bahena-scale and color Doppler examination with attention to the region of the thyroid. FINDINGS: SIZE: Measurements of the thyroid lobes and nodules are given in sagittal, anteroposterior and transverse dimensions respectively. Right Thyroid Lobe: 5.8 x 2.0 x 2.5 cm, volume 14.9 mL. Previously 4.9 x 1.8 x 2.0 cm, volume 9.5 mL. Parenchyma: The gland echotexture is homogeneous. Thyroid vascularity is normal. Left Thyroid Lobe: 5.8 x 1.6 x 2.0 cm, volume 9.6 mL. Previously 4.5 x 1.6 x 1.9 cm, volume 7.2 mL. Parenchyma: The gland echotexture is homogeneous. Thyroid vascularity is normal. Isthmus: 0.4 cm in maximum AP dimension. Previously 0.6 cm. Estimated total number of nodules greater than or equal to 1 cm: 2. [employer] Layer Helper nodules are described as follows: 1. Location: Right mid lateral/superior. Size: 1.1 x 0.6 x 1.0 cm, volume 0.4 mL. Previously: 0.8 x 0.5 x 0.7 cm, volume 0.15 mL. Nodule characteristics: Composition: Solid (2). Echogenicity: Isoechoic (1). Shape: Not taller than wide (0). Margins: Ill-defined (0). Echogenic Foci: None (0). ACR TI-RADS total points: 3 ACR TI-RADS category: 3 Significant change in size (>/= 20% in 2 dimensions and minimal increase of 2 mm or 50% or greater increase in volume): None. Change in features: None. Change in ACR TI-RADS risk category: Not applicable. 2. Location: Right mid. Size: 0.7 x 0.5 x 0.7 cm, volume 0.14 mL. Previously: 0.4 x 0.5 x 0.4 cm, volume 0.04 mL. Nodule characteristics: Composition: Solid (2). Echogenicity: Isoechoic (1). Shape: Not taller than wide (0). Margins: Smooth (0). Echogenic Foci: Peripheral calcifications (2). ACR TI-RADS total points: 5 ACR TI-RADS category: 4 Significant change in size (>/= 20% in 2 dimensions and minimal increase of 2 mm or 50% or greater increase in volume): None. Change in features: None. Change in ACR TI-RADS risk category: Not applicable. 3. Location: Right inferior. Size: 0.4 x 0.3 x 0.4 cm, volume 0.012 mL. Previously: Not seen on the previous study. Nodule characteristics: Composition: Solid (2). Echogenicity: Hypoechoic (2). Shape: Not taller than wide (0). Margins: Smooth (0). Echogenic Foci: None (0). ACR TI-RADS total points: 4 ACR TI-RADS category: 4 4. Location: Left inferior. Size: 1.1 x 1.0 x 1.3 cm, volume 0.75 mL. Previously: 1.2 x 0.9 x 1.1 cm, volume 0.62 mL. Nodule characteristics: Composition: Solid (2). Echogenicity: Hypoechoic (2). Shape: Not taller than wide (0). Margins: Smooth (0). Echogenic Foci: None (0). ACR TI-RADS total points: 4 ACR TI-RADS category: 4 Significant change in size (>/= 20% in 2 dimensions and minimal increase of 2 mm or 50% or greater increase in volume): None. Change in features: None. Change in ACR TI-RADS risk category: Not applicable. 5. Location: Right mid. Size: Not seen today. Previously: 0.5 x 0.4 x 0.4 cm, volume 0.04 mL NODES: No lymphadenopathy is seen in the tissue surrounding the thyroid gland. US/US thyroid IMPRESSION: Enlarged right thyroid lobe. There are several solid nodules seen in the right and left lobe, the largest nodules measure 1.1 cm with stable size. Recommend continued ultrasound followup. ACR TI-RADS RECOMMENDATION REFERENCE: Ultrasound-guided fine-needle aspiration, followup ultrasound, no further follow up. * TR1 (0 point) and TR 2 (2 points): No FNA or follow up * TR3 (3 points): FNA if more than or equal to 2.5 cm in maximum dimension, followup ultrasound in 1, 3 and 5 years if 1.5 to 2.4 cm in maximum dimension. * TR4 (4-6 points): FNA if more than or equal to 1.5 cm in maximum dimension, followup ultrasound in 1, 2, 3 and 5 years if 1 to 1.4 cm in maximum dimension. * TR5 (more than or equal to 7 points): FNA if more than or equal to 1 cm in maximum dimension, followup ultrasound every year for 5 years if 0.5 to 0.9 cm in maximum dimension. * TR3, TR4 or TR5 nodules that are below the size threshold for follow up receive no follow up.
== END 2021-04-18 12:52 | disposition home or self-care (01) ==
LOC: HO.US 12:51
PROVIDERS: Visit Provider Internal Medicine
DX: E04.2 Nontoxic multinodular goiter (principal); E55.9 Vitamin D deficiency, unspecified
CPT/HCPCS: 36415; 76536; 82306; 84439; 84443

== ENCOUNTER 2021-04-18 13:39 | Outpatient (REF) | payer MEDICAID, SELFPAY ==
[2021-04-18 15:05] LABS: Free T4 (Free Thyroxine) 0.92 ng/dL (0.71-1.85); Thyroid Stimulating Hormone 1.17 uIU/mL (0.32-4.0); Vitamin D 25-OH Total 24.3 ng/mL (>30)
== END 2021-04-18 13:40 | disposition home or self-care (01) ==
LOC: HO.LAB 13:39
PROVIDERS: PCP Internal Medicine; Visit Provider Internal Medicine
DX: E55.9 Vitamin D deficiency, unspecified (principal); E04.2 Nontoxic multinodular goiter
CPT/HCPCS: 36415; 82306; 84439; 84443

== ENCOUNTER 2021-05-13 08:19 | Outpatient (REF) | payer MEDICAID, SELFPAY ==
[2021-05-13 10:24] LABS: Alanine Aminotransferase 13 U/L (0-31); Albumin Level 3.7 g/dL (3.5-5.0); Alkaline Phosphatase 128 U/L (39-117); Anion Gap 13 (12-20); Aspartate Amino Transferase 11 U/L (5-31); Bilirubin Total 0.3 mg/dL (0.0-1.0); Blood Urea Nitrogen 14 mg/dL (9-16); Calcium 9.5 mg/dL (8.4-10.2); Carbon Dioxide 27 mmol/L (22-29); Chloride 101 mmol/L (96-108); Estimated Glomerular Filt Rate > 60; Glucose Random 196 mg/dL (60-115); Potassium 5.1 mmol/L (3.3-5.1); Sodium 136 mmol/L (135-145); Total Protein 6.4 g/dL (6.5-8.0)
[2021-05-13 10:46] LABS: Free T4 (Free Thyroxine) 0.85 ng/dL (0.71-1.85); Thyroid Stimulating Hormone 1.42 uIU/mL (0.32-4.0); Vitamin D 25-OH Total 20.6 ng/mL (>30)
[2021-05-14 14:31] LABS: Calcium (PTHI) 9.3 mg/dL (8.6-10.2); PTHI 21 pg/mL (16-77)
== END 2021-05-13 08:20 | disposition home or self-care (01) ==
LOC: HO.LAB 08:19
PROVIDERS: PCP Internal Medicine; Visit Provider Internal Medicine
DX: E04.2 Nontoxic multinodular goiter (principal); E55.9 Vitamin D deficiency, unspecified
CPT/HCPCS: 36415; 80053; 82306; 83970; 84100; 84439; 84443; 99212

== ENCOUNTER → 2021-05-16 14:57 | Outpatient (BNVA) | payer MEDICAID, SELFPAY | PROVIDERS: PCP Internal Medicine; Visit Provider Physician Assistant | DX: M22.2X1 Patellofemoral disorders, right knee (principal); M22.2X2 Patellofemoral disorders, left knee | CPT/HCPCS: 99212 ==

== ENCOUNTER → 2021-05-23 12:53 | Outpatient (BNVA) | payer MEDICAID, SELFPAY | PROVIDERS: PCP Internal Medicine; Visit Provider Nurse Practitioner Family | DX: G47.33 Obstructive sleep apnea (adult) (pediatric) (principal); R40.0 Somnolence | CPT/HCPCS: 99202 ==

== ENCOUNTER → 2021-06-26 13:20 | Outpatient (BNVA) | payer MEDICAID, SELFPAY | PROVIDERS: PCP Internal Medicine; Visit Provider Physician Assistant | DX: M17.0 Bilateral primary osteoarthritis of knee (principal) | CPT/HCPCS: 20610; J7318 ==

== ENCOUNTER 2021-09-26 10:35 | Outpatient (REF) | payer MEDICAID, SELFPAY ==
--- NOTE | 2021-09-26 11:21 | PM.OP ---
Brief Operative Note Date of Service: 09/26/21 Pre-op diagnosis: Multinodular Thyroid Procedure: This is doctor Tamica Leyva. This is an ultrasound-guided fine-needle aspiration report. Date of Examination: 09/26/2021 Indication: Multinodular Thyroid Porcedure: Procedure was explained to the patient. Alternatives, the risk and benefits were discussed. Written consent was obtained. A time-out was also obtained. After sterile preparation, fine-needle aspiration of a left lower pole 1.3 cm thyroid nodule was performed using direct ultrasound guidance to confirm accurate needle placement. Four aspirations were made using 27 gauge needles. Samples were submitted for cytology. 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 Our attention was then turned to the right mid pole. Fine-needle aspiration of a right mid pole 1.1 cm thyroid nodule was performed using direct ultrasound guidance to confirm accurate needle placement. Six aspirations were made using 27 gauge needles. Samples were submitted for cytology. 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 The patient tolerated the procedure well. Aftercare instructions were provided. Impression: Uncomplicated fine needle aspiration biopsy of a left lower pole 1.3 cm thyroid nodule and a right mid pole 1.1 cm thyroid nodule under ultrasound guidance. Surgeon: Tamica Leyva, DO Was an Epilepsy Physician used for this Procedure?: No Estimated blood loss (mL): 0
[2021-09-26] MEDS: Lidocaine HCl 1 % 20 ML VIAL 5 ML SUBCUT (11:48)
== END 2021-09-26 10:36 | disposition home or self-care (01) ==
LOC: HO.US 10:35
PROVIDERS: Visit Provider Internal Medicine
DX: E04.2 Nontoxic multinodular goiter (principal)
CPT/HCPCS: 10005; 10006; 88172; 88173; 88177; 88305

== ENCOUNTER → 2021-10-10 12:19 | Outpatient (BNVA) | payer MEDICAID, SELFPAY | PROVIDERS: PCP Internal Medicine; Visit Provider Internal Medicine | DX: E04.2 Nontoxic multinodular goiter (principal); E55.9 Vitamin D deficiency, unspecified | CPT/HCPCS: 99212 ==

== ENCOUNTER → 2021-11-13 12:26 | Outpatient (BNVA) | payer MEDICAID, SELFPAY | PROVIDERS: PCP Internal Medicine; Visit Provider Nurse Practitioner Family | DX: M79.7 Fibromyalgia (principal); M17.0 Bilateral primary osteoarthritis of knee; M79.641 Pain in right hand; M79.642 Pain in left hand; M25.511 Pain in right shoulder; M54.50 Low back pain, unspecified | CPT/HCPCS: 99212 ==

== ENCOUNTER 2022-11-12 13:45 | Outpatient (AMB) | payer MEDICAID, SELFPAY ==
--- NOTE | 2022-11-12 13:50 | MHC.OFFVIS ---
Intake Vital Signs 11/12/22 14:14 Height 5 ft 5 in Weight 217 lb BMI 36.1 Intake Visit Reasons: OV- B/L durolane injection Intake Note: Vazquez a 46 year old female who presents today for bilateral knee durolane injection. Allergies No Known Allergies Allergy (Verified 11/12/22 14:00) HPI OV- B/L durolane injection HPI Details 46-year-old female who returns to the office today for bilateral knee durolane gel injection. She had her last durolane injection on 06/26/22. She would like to repeat the injection. FORMERLY [facility], [facility]1983 Medical History (Updated 11/12/22 @ 14:32 by Sofia Toscano PA-C) GERD (gastroesophageal reflux disease) Sleep apnea with use of continuous positive airway pressure (CPAP) Hypercholesterolemia HTN (hypertension) Neuropathy Type 2 diabetes mellitus Back pain Cervicalgia Arthritis Gout Asthma Fibromyalgia Vitamin D deficiency Multinodular thyroid Surgical History Hx of biopsy Hx of neck surgery History of cryosurgery Hx of tonsillectomy Hx of section Family History Father HIV (human immunodeficiency virus infection) Mother Osteoarthritis Osteoporosis Herniated disc H/O Spinal surgery Degloving injury of plantar surface of foot Knee problem Family history of thyroid problem Daughter Mildly obese Asthma Cranial cerebrospinal fluid leak, spontaneous Daughter Mildly obese ADHD Asthma Son ADHD Asthma Social History Alcohol intake: never Patient Tobacco Use Status: Former Tobacco user Cigarettes Per Day: 4 Current occupational status: unemployed Current occupation: rt handed Review of Systems Const All systems reviewed & are unremarkable except as noted in HPI and below Physical Exam Vital Signs: BMI result Body Mass Index 36.1 Extrem Other: bilat knee normal to inspection. Full ROM with crepitus, pain along the lateral aspect oft he patella. Calf supple non tender. Office Procedures Joint Injection/Drain Joint Injection/Drain Details: 11/12/22 13:50 Hyaluronate Sodium, Stabilized [Durolane] 60 mg INTRAARTIC .STK-MED ONE 11/12/22 14:07 Hyaluronate Sodium, Stabilized [Durolane] 60 mg INTRAARTIC .STK-MED ONE Primary Site: right knee Secondary Site: left knee Prep: site was prepped using aseptic technique, ethochloride spray was applied and injection warnings given Injected: in the joint Approach Used: anterolateral Procedure: The patient tolerated the procedure well Coding 90693 - Glenohumeral/Tronchanteric Bursa/Intraarticular Procedure code (CPT) selection complete Results Reviewed Results Reviewed: 11/12/22 13:50 Hyaluronate Sodium, Stabilized [Durolane] 60 mg INTRAARTIC .STK-MED ONE 11/12/22 14:07 Hyaluronate Sodium, Stabilized [Durolane] 60 mg INTRAARTIC .STK-MED ONE Assessment & Plan Assessment & Plan (1) Osteoarthritis of knees, bilateral: Code(s): M17.0 - Bilateral primary osteoarthritis of knee Qualifiers: Osteoarthritis type: primary Qualified Code(s): M17.0 - Bilateral primary osteoarthritis of knee Plan We discussed options today which include durolane gel injection. They did consent to move forward with the bilateral knee durolane injection, which was tolerated well. I recommended rest, ice and elevation and OTC anti-inflammatories PRN for discomfort. If symptoms persist or worsens over the next 6-8 weeks, patient will contact the office, otherwise follow-up as needed. Patient Instructions: Scribed for Sofia Toscano PA-C, by Vito Yap medical and scientific illustrator, on 11/12/2022 at 1:45 PM EST. ISofia PA-C, have personally reviewed and agree with the information entered by the scribe. Coding Level of Care Code Procedure Only Diagnoses Primary osteoarthritis of both knees M17.0 Osteoarthritis type: primary CPT Codes Coding - Joint 7: 36706 - Glenohumeral/Tronchanteric Bursa/Intraarticular ([id number])
[2022-11-12 14:14] VITALS: BMI 36.1
== END 2022-11-12 14:30 | disposition home or self-care (01) ==
PROVIDERS: PCP Internal Medicine; Visit Provider Physician Assistant
DX: M17.0 Bilateral primary osteoarthritis of knee (principal)
CPT/HCPCS: 20610

== ENCOUNTER → 2022-11-12 13:45 | Outpatient (BNVA) | payer MEDICAID, SELFPAY | PROVIDERS: PCP Internal Medicine; Visit Provider Physician Assistant | DX: M17.0 Bilateral primary osteoarthritis of knee (principal) | CPT/HCPCS: 20610; J7318 ==

== ENCOUNTER 2023-04-07 12:01 | Outpatient (REF) | payer MEDICAID, SELFPAY ==
[2023-04-07 14:14] LABS: HCG Quantitative < 2 mIU/mL
== END 2023-04-07 12:02 | disposition home or self-care (01) ==
LOC: HO.HHCL 12:01
PROVIDERS: Visit Provider Internal Medicine
DX: N92.6 Irregular menstruation, unspecified (principal)
CPT/HCPCS: 36415; 84702

== ENCOUNTER 2023-04-13 12:04 | Outpatient (REF) | payer MEDICAID, SELFPAY ==
--- NOTE | ~2023-04-13 | MM_ITS ---
EXAMINATION: MM SCREENING DIGITAL BREAST TOMOSYNTHESIS, BILATERAL CLINICAL INFORMATION: Screening. Asymptomatic. COMPARISON: Mammography: This study is compared with prior exams dating back to 2018. TECHNIQUE: Digital breast tomosynthesis is performed in both the craniocaudal and mediolateral oblique views along with computer-aided detection (CAD). Synthesized 2D images are generated from the tomosynthesis. FINDINGS: There are scattered areas of fibroglandular density (ACR BI-RADS breast composition Category b). There is an asymmetry in the superior aspect of the left breast at a middle depth. Additional mammographic and targeted sonographic evaluation of this finding is advised. In the right breast, there are no significant masses, abnormal calcifications, or other abnormalities. MM/MM tomosynthesis screening BI IMPRESSION: Asymmetry of the left breast warrants additional mammographic and targeted sonographic imaging. No mammographic signs of malignancy right breast. ASSESSMENT: BI-RADS BI-RADS 0 - Incomplete: Needs additional Imaging. RECOMMENDATION: 1. Additional views of the left breast 2. Targeted ultrasound if warranted after review of the additional views. 3. Radiology department staff will contact the patient for additional imaging. Additional Imaging required This examination should not preclude the clinical evaluation of a suspicious palpable abnormality. This patient's information was entered into a reminder system with a target due date for their next mammogram.
== END 2023-04-13 12:05 | disposition home or self-care (01) ==
LOC: HO.MAMMO 12:04
PROVIDERS: Visit Provider Internal Medicine
DX: Z12.31 Encounter for screening mammogram for malignant neoplasm of breast (principal)
CPT/HCPCS: 77063; 77067

== ENCOUNTER → 2023-04-13 12:30 | Outpatient (BNV) | payer MEDICAID, SELFPAY | PROVIDERS: Visit Provider Radiology Diagnostic Radiology | DX: Z12.31 Encounter for screening mammogram for malignant neoplasm of breast (principal) | CPT/HCPCS: 77063; 77067 ==

== ENCOUNTER 2023-05-07 08:01 | Outpatient (REF) | payer MEDICAID, SELFPAY ==
--- NOTE | ~2023-05-07 | MM_ITS ---
EXAMINATION: MM DIAGNOSTIC DIGITAL BREAST TOMOSYNTHESIS, LEFT CLINICAL INFORMATION: Follow-up for one view asymmetry seen central slightly upper left breast on MLO view only. No definite CC correlate. COMPARISON: Mammography: 04/13/2023, 07/28/2020, 02/12/2018, 08/10/2017, 01/16/2017. TECHNIQUE: Digital breast tomosynthesis is performed. 2D images are generated from the tomosynthesis. The following views are obtained: Full-field digital 3-D left mediolateral view, as well as spot compression 3-D left MLO and left cc views x2. FINDINGS: There are scattered areas of fibroglandular density (ACR BI-RADS breast composition Category b). Additional views show no significant mass, architectural abnormality, or abnormal calcifications. No persistent abnormality in the region of concern. No correlate on the CC views. A smooth small nodule in the upper left breast is unchanged from multiple prior exams and benign. MM/MM tomosynthesis added views L IMPRESSION: No persistent findings suspicious for malignancy. Recommend the patient return to routine annual screening. ASSESSMENT: BI-RADS BI-RADS 2 - Benign Findings RECOMMENDATION: 1 year F/U Results were provided to the patient at time of visit by the technologist. This patient's information was entered into a reminder system with a target due date for their next mammogram.
== END 2023-05-07 08:02 | disposition home or self-care (01) ==
LOC: HO.MAMMO 08:01
PROVIDERS: PCP Internal Medicine; Visit Provider Internal Medicine
DX: N64.89 Other specified disorders of breast (principal)
CPT/HCPCS: 77061; 77065

== ENCOUNTER → 2023-05-07 08:30 | Outpatient (BNV) | payer MEDICAID, SELFPAY | PROVIDERS: PCP Internal Medicine; Visit Provider Radiology Diagnostic Radiology | DX: R92.322 Mammographic fibroglandular density, left breast (principal) | CPT/HCPCS: 77061; 77065 ==

== ENCOUNTER 2023-05-13 14:23 | Outpatient (REF) | payer MEDICAID, SELFPAY ==
--- NOTE | ~2023-05-13 | XR_ITS ---
EXAMINATION: XR KNEE, RIGHT XR KNEE, LEFT XR KNEE STANDING, BILATERAL CLINICAL INFORMATION: Pain in left knee, pain in unspecified knee. COMPARISON: 07/28/2020 TECHNIQUE: AP standing, lateral and sunrise views of bilateral knees. FINDINGS: RIGHT KNEE: Trace joint effusion. Moderate narrowing of the lateral compartment. Prominent lateral and posterior patellar osteophytes. LEFT KNEE: Ntrn-gh-[id number] medial compartment space narrowing. Prominent lateral and posterior patellar osteophytes. Redemonstration of mild lateral tilt of the patella. There is a 9 mm ossicle superior to the patella on the left which appears separate from the superior aspect of patella, not previously identified as a separate ossicle, possibly related to trauma of indeterminate age. Trace left pleural effusion. Correlation with clinical exam recommended to determine further management. XR/XR knee LT 2V IMPRESSION: 1. Moderate degenerative changes bilateral knees. 2. There is a 9 mm ossicle superior to the patella on the left which appears separate from the superior aspect of patella, not previously identified as a separate ossicle, possibly related to trauma of indeterminate age. Trace left pleural effusion. Correlation with clinical exam recommended to determine further management.
--- NOTE | ~2023-05-13 | XR_ITS ---
EXAMINATION: XR KNEE, RIGHT XR KNEE, LEFT XR KNEE STANDING, BILATERAL CLINICAL INFORMATION: Pain in left knee, pain in unspecified knee. COMPARISON: 07/28/2020 TECHNIQUE: AP standing, lateral and sunrise views of bilateral knees. FINDINGS: RIGHT KNEE: Trace joint effusion. Moderate narrowing of the lateral compartment. Prominent lateral and posterior patellar osteophytes. LEFT KNEE: Eyuv-ie-dwstgqlp medial compartment space narrowing. Prominent lateral and posterior patellar osteophytes. Redemonstration of mild lateral tilt of the patella. There is a 9 mm ossicle superior to the patella on the left which appears separate from the superior aspect of patella, not previously identified as a separate ossicle, possibly related to trauma of indeterminate age. Trace left pleural effusion. Correlation with clinical exam recommended to determine further management. XR/XR knee RT 2V IMPRESSION: 1. Moderate degenerative changes bilateral knees. 2. There is a 9 mm ossicle superior to the patella on the left which appears separate from the superior aspect of patella, not previously identified as a separate ossicle, possibly related to trauma of indeterminate age. Trace left pleural effusion. Correlation with clinical exam recommended to determine further management.
--- NOTE | ~2023-05-13 | XR_ITS ---
EXAMINATION: XR KNEE, RIGHT XR KNEE, LEFT XR KNEE STANDING, BILATERAL CLINICAL INFORMATION: Pain in left knee, pain in unspecified knee. COMPARISON: 07/28/2020 TECHNIQUE: AP standing, lateral and sunrise views of bilateral knees. FINDINGS: RIGHT KNEE: Trace joint effusion. Moderate narrowing of the lateral compartment. Prominent lateral and posterior patellar osteophytes. LEFT KNEE: Cibo-tl-cswywgju medial compartment space narrowing. Prominent lateral and posterior patellar osteophytes. Redemonstration of mild lateral tilt of the patella. There is a 9 mm ossicle superior to the patella on the left which appears separate from the superior aspect of patella, not previously identified as a separate ossicle, possibly related to trauma of indeterminate age. Trace left pleural effusion. Correlation with clinical exam recommended to determine further management. XR/XR knee standing BI IMPRESSION: 1. Moderate degenerative changes bilateral knees. 2. There is a 9 mm ossicle superior to the patella on the left which appears separate from the superior aspect of patella, not previously identified as a separate ossicle, possibly related to trauma of indeterminate age. Trace left pleural effusion. Correlation with clinical exam recommended to determine further management.
== END 2023-05-13 14:24 | disposition home or self-care (01) ==
LOC: HO.HOSX 14:23
PROVIDERS: PCP Internal Medicine; Visit Provider Physician Assistant
DX: M17.0 Bilateral primary osteoarthritis of knee (principal)
CPT/HCPCS: 20610; 73560; 73565; 99212; J1020

== ENCOUNTER 2023-05-13 14:23 | Outpatient (AMB) | payer MEDICAID, SELFPAY ==
--- NOTE | 2023-05-13 15:06 | A.OFFVIS_ITS ---
Intake Intake Visit Reasons: ov- bilateral knee OA Intake Note: Vazquez is a 47 year old female who presents today for a follow up for her bilateral knee OA, last durolane gel inj 11/12/22. Patient reports her last gel injections gave her 3 months of relief. She states that she would like the cortisone injections since they last longer and work faster than the gel. Patient would like an x ray of her knee, due to feeling her knee pain getting worse. Allergies No Known Allergies Allergy (Verified 05/13/23 15:11) HPI ov- bilateral knee OA HPI Details 47-year-old female who [facility] for a follow-up of bilateral knee pain. She states she has pain in her bilateral knees which has been progressively getting worse. She feels a severe pain along the lateral side of the right knee . She had her last Durolane injection on 11/12/22 which provided her relief for about 3 months. She would like to have a cortisone injection today. She has a history of diabetes. Her sugar levels are well controlled. [facility] Medical History (Updated 11/12/22 @ 14:32 by Sofia Toscano PA-C) GERD (gastroesophageal reflux disease) Sleep apnea with use of continuous positive airway pressure (CPAP) Hypercholesterolemia HTN (hypertension) Neuropathy Type 2 diabetes mellitus Back pain Cervicalgia Arthritis Gout Asthma Fibromyalgia Vitamin D deficiency Multinodular thyroid Surgical History Hx of biopsy Hx of neck surgery History of cryosurgery Hx of tonsillectomy Hx of section Family History Father HIV (human immunodeficiency virus infection) Mother Osteoarthritis Osteoporosis Herniated disc H/O Spinal surgery Degloving injury of plantar surface of foot Knee problem Family history of thyroid problem Daughter Mildly obese Asthma Cranial cerebrospinal fluid leak, spontaneous Daughter Mildly obese ADHD Asthma Son ADHD Asthma Social History Alcohol intake: never Patient Tobacco Use Status: Former Tobacco user Cigarettes Per Day: 4 Current occupational status: unemployed Current occupation: rt handed Review of Systems Const All systems reviewed & are unremarkable except as noted in HPI and below Physical Exam Extrem Other: Bilateral knee: Skin intact, no erythema or joint effusion. Tenderness along the medial and lateral joint line. Full ROM with crepitus. Negative Jose Eduardo?s on t he right knee. Significant tenderness along the lateral joint line with positive steinmans on the left knee. No ligamentous laxity. NVI. Office Procedures Joint Injection/Drain Joint Injection/Drain Primary Site: right knee Secondary Site: left knee Prep: site was prepped using aseptic technique, ethochloride spray was applied and injection warnings given Injected: 40 mg of, DepoMedrol, with 8 mL of, 1% plain lidocaine and in the joint Approach Used: anterolateral Procedure: The patient tolerated the procedure well and there was some relief with the local anesthesia Coding - Glenohumeral/Tronchanteric Bursa/Intraarticular Procedure code (CPT) selection complete Results Reviewed Results Reviewed: Xrays were obtained in the office today and personally reviewed by me of both knees show severe PF oa Assessment & Plan Assessment & Plan (1) Osteoarthritis of knees, bilateral: Code(s): M17.0 - Bilateral primary osteoarthritis of knee Qualifiers: Osteoarthritis type: primary Qualified Code(s): M17.0 - Bilateral primary osteoarthritis of knee Plan We discussed options today which include steroid injection. They did consent to move forward with the bilateral knee injection, which was tolerated well. I lisbeth mmended rest, ice and elevation and OTC anti-inflammatories PRN for discomfort. An MRI of the bilateral knees was also ordered in the office today. We also discussed their diabetes and the effect the steroid can have on their blood glucose levels; therefore, they will continue to monitor these very closely over the next 72 hours. If there are any concerns, they should report to the ED immediately. Orders: Orders MR knee RT wo con Today M17.11 - Unilateral primary osteoarthritis, right knee XR knee standing BI Today M25.561 - Pain in right knee, M25.562 - Pain in left knee XR knee RT 2V Today M25.569 - Pain in unspecified knee XR knee LT 2V Today M25.562 - Pain in left knee MR knee LT wo con Today M17.12 - Unilateral primary osteoarthritis, left knee Patient Instructions: Scribed for Sofia Toscano PA-C, by Vito Yap medical records coordinator, on 05/13/2023 at 3:00 PM EST. Sofia Zeng PA-C, have personally reviewed and agree with the information entered by the scribe. Coding Level of Care Code Est Pt Level 3 (37312) Diagnoses Primary osteoarthritis of both knees M17.0 Osteoarthritis type: primary CPT Codes Coding - Joint 7: 04738 - Glenohumeral/Tronchanteric Bursa/Intraarticular ([id number])
== END 2023-05-13 16:18 | disposition home or self-care (01) ==
PROVIDERS: PCP Internal Medicine; Visit Provider Physician Assistant
DX: M17.0 Bilateral primary osteoarthritis of knee (principal)
CPT/HCPCS: 20610; 99213

== ENCOUNTER 2023-05-22 07:42 | Outpatient (REF) | payer MEDICAID, SELFPAY | END 2023-05-22 07:43 | disposition home or self-care (01) | LOC: HO.HOSX 07:42 | PROVIDERS: Visit Provider Physician Assistant | DX: Z13.89 Encounter for screening for other disorder (principal) ==

== ENCOUNTER 2023-07-15 10:26 | Outpatient (REF) | payer MEDICAID, SELFPAY ==
[2023-07-16 02:07] LABS: CT PCR NOT DETECTED (Not Detect.); NG PCR NOT DETECTED (Not Detect.)
[2023-07-16 11:50] LABS: Bacterial Vaginosis PCR NEGATIVE (Negative); Candida Group PCR NOT DETECTED (Not Detect); Candida glab krusei PCR NOT DETECTED (Not Detect); Trichomonas vaginalis PCR NOT DETECTED (Not Detect)
[2023-07-21 12:49] LABS: HPV mRNA E6/E7 rflx Not Detected (Not Detected)
== END 2023-07-15 10:27 | disposition home or self-care (01) ==
LOC: HO.LAB 10:26
PROVIDERS: PCP Internal Medicine; Visit Provider Advanced Practice Midwife
DX: Z01.419 Encounter for gynecological examination (general) (routine) without abnormal findings (principal); I10 Essential (primary) hypertension; E66.9 Obesity, unspecified; E11.9 Type 2 diabetes mellitus without complications; N95.1 Menopausal and female climacteric states; Z87.898 Personal history of other specified conditions; Z98.51 Tubal ligation status; Z20.2 Contact with and (suspected) exposure to infections with a predominantly sexual mode of transmission
CPT/HCPCS: 0352U; 0353U; 87624; 88142; 99386

== ENCOUNTER 2023-07-15 10:26 | Outpatient (AMB) | payer MEDICAID, SELFPAY ==
[2023-07-15 10:37] VITALS: BP 122/70; BMI 38.3
--- NOTE | 2023-07-15 10:37 | MHC.OFFVIS ---
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: Recycling Manager Present Allergies No Known Allergies Allergy (Verified 07/15/23 10:38) Medication List - Last Reconciled 07/15/23 by Rebecca Bales CNM albuterol sulfate 90 mcg/actuation (Ventolin HFA) 2 puffs inhalation Q4-6H PRN canagliflozin (Invokana) 100 mg PO QAM celecoxib 200 mg PO Q12H cholecalciferol (vitamin D3) 50 mcg PO DAILY 30 days CPAP As directed cyclobenzaprine 10 mg PO TID PRN diclofenac sodium 1% grams topical BID docusate sodium 100 mg PO BID dulaglutide (Trulicity) 1.5 mg subcut QWEEK duloxetine 60 mg PO DAILY fluticasone propionate 110 mcg/actuation (Flovent HFA) 2 puffs inhalation BID gabapentin 800 mg PO BEDTIME gabapentin 600 mg PO BID glipizide 5 mg PO DAILY lancets (FreeStyle Lancets) As directed lidocaine 5% (Lidoderm) 1 patch topical DAILY metformin 1,000 mg PO montelukast 10 mg PO QPM omeprazole 40 mg PO DAILY oxycodone 5 mg PO TID PRN oxycodone-acetaminophen 5-325 mg 2 tabs PO Q12H PRN trazodone 150 mg PO BEDTIME Is last menstrual period known: Yes Last menstrual period: 06/24/23 Do you need a note to return to daycare/school/sports/work: No HPI 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 She has occasionally skippedperiods, But she did get them the last 2-3 months she is now on Ozempic and is losing some weight with that she is on several different meds for her diabetes and sensory diabetes is well-controlled. She is interested in retrieving her eggs and pursuing possibly with her daughter as surrogate she has been with her partner for 6 years and everything is very good. 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 [facility] infertility services at [facility], but there would be risks associated with her age and increased risk of Down syndrome and other anomalies as eggs get older. If she were interested having a conversation learning more about this she should seek a referral from her primary care provider so she can be seen [facility]. She is getting regular mammograms. PENDING SALE TO [facility] Medical History (Updated 07/15/23 @ 12:35 by Rebecca Bales CNM) GERD (gastroesophageal reflux disease) Sleep apnea with use of continuous positive airway pressure (CPAP) Hypercholesterolemia HTN (hypertension) Neuropathy Type 2 diabetes mellitus Back pain Cervicalgia Arthritis Gout Asthma Fibromyalgia Vitamin D deficiency Multinodular thyroid Surgical History Hx of biopsy Hx of neck surgery History of cryosurgery Hx of tonsillectomy Hx of section Family History Father HIV (human immunodeficiency virus infection) Mother Osteoarthritis Osteoporosis Herniated disc H/O Spinal surgery Degloving injury of plantar surface of foot Knee problem Family history of thyroid problem Daughter Mildly obese Asthma Cranial cerebrospinal fluid leak, spontaneous Daughter Mildly obese ADHD Asthma Son ADHD Asthma Social History Alcohol intake: never Patient Tobacco Use Status: Former Tobacco user Cigarettes Per Day: 4 Current occupational status: unemployed Current occupation: rt handed Female Reproductive History Menstrual Age of Menarche: 13 Date of last menstrual period: 06/24/23 control method: none Total pregnancies: 4 Full term: 3 Date of last pap smear: 03/31/19 (negative ,per patient) History of abnormal pap smear: No (abn.pap,2001) Date of Mammogram: 05/07/23 (BI-RADS BI-RADS 2,bening finding) Physical Exam Vital Signs: Last Vital Signs BP 122/70 07/15/23 10:37 BMI result Body Mass Index 38.3 Const General: healthy appearing, comfortable, no acute distress, well developed and alert Nutritional Appearance: average body habitus Orientation/consciousness: patient oriented x3 Limitations: no limitations HEENT Head: Yes normocephalic Neck Neck: Yes normal visual inspection Chest Chest palpation & inspection: normal inspection of the chest Breast/axilla inspection: normal inspection of the breasts and normal inspection of the axillae Breast/axilla palpation: normal palpation of the breasts and normal palpation of the axillae Resp Effort & Inspection: normal respiratory effort GI Inspection: Yes normal to inspection, No Abdominal wall edema and No distended Palpation (GI): Soft to palpation and nontender Other: Evidence of longstanding recurrences of folliculitis at shaved areas on mons pubis and perineum, in various stages of healing some on the left side were dark pink evidence of recent inflammation. Vagina pink and moist cervix somewhat flattened against vaginal wall possible slight atrophic changes cervix tightly closed status post LEEP or other procedure. Challenging to feel all pelvic anatomy secondary to adipose nontender, good tone with Kegel. General: Yes bladder normal to palpation External Female Exam: normal external appearance and normal appearance of the urethra Speculum Exam - Vagina: normal appearance of the vagina, normal palpation and normal vaginal discharge Speculum Exam - Cervix: normal appearance of the cervix, normal palpation and nontender Bimanual exam- vagina & uterus: normal bimanual exam, normal palpation, uterine size normal, bladder normal to palpation, consistency normal, normal palpation, uterine mobility normal, uterine shape normal, No Cervical tenderness present, non-tender and no cervical motion tenderness Bimanual Exam- Adnexa, other: normal adnexae, no masses, normal and No adnexal tenderness Neuro General: patient oriented x3 Assessment & Plan Assessment & Plan (1) HTN (hypertension): Code(s): I10 - Essential (primary) hypertension Category: Medical (2) Obesity: Code(s): E66.9 - Obesity, unspecified Category: Medical (3) Type 2 diabetes mellitus: Code(s): E11.9 - Type 2 diabetes mellitus without complications Category: Medical (4) Well woman exam with routine gynecological exam: Code(s): Z01.419 - Encounter for gynecological examination (general) (routine) without abnormal findings Category: Medical (5) Perimenopause: Code(s): N95.1 - Menopausal and female climacteric states Category: Medical (6) History of abnormal Pap smear: Code(s): Z87.898 - Personal history of other specified conditions Category: Medical (7) Hx of tubal ligation: Code(s): Z98.51 - Tubal ligation status Category: Surgical Plan 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 She has occasionally skippedperiods, But she did get them the last 2-3 months she is now on Ozempic and is losing some weight with that she is on several different meds for her diabetes and sensory diabetes is well-controlled. She is interested in retrieving her eggs and pursuing possibly with her daughter as surrogate she has been with her partner for 6 years and everything is very good. 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 [facility] infertility services at [facility] [employer] [facility], but there would be risks associated with her age and increased risk of Down syndrome and other anomalies as eggs get older. If she were interested having a conversation learning more about this she should seek a referral from her primary care provider so she can be seen [facility]. She is getting regular mammogram Pap was done testing for STIs during exam was done patient to seek a referral from her primary care provider I did review some of the risks as above. Reviewed the relationship between episodes of amenorrhea and possible section 2 perimenopause and also possible connection to her being more overweight and now starting to lose weight now that she is on the Ozempic. Orders: Orders CT NG by PCR Today Z01.419 - Encounter for gynecological examination (general) (routine) without abnormal findings Bacterial Vaginosis Panel Today Z20.2 - Contact with and (suspected) exposure to infections with a predominantly sexual mode of transmission Pap Smear Today Z01.419 - Encounter for gynecological examination (general) (routine) without abnormal findings Coding Level of Care Code New Pt Prev Care 40-64y(51507) Diagnoses HTN (hypertension) I10 Obesity E66.9 Type 2 diabetes mellitus E11.9 Well woman exam with routine gynecological exam Z01.419 Perimenopause N95.1 History of abnormal Pap smear Z87.898 Hx of tubal ligation Z98.51
== END 2023-07-15 11:56 | disposition home or self-care (01) ==
PROVIDERS: PCP Internal Medicine; Visit Provider Advanced Practice Midwife
DX: I10 Essential (primary) hypertension (principal); E66.9 Obesity, unspecified; E11.9 Type 2 diabetes mellitus without complications; Z01.419 Encounter for gynecological examination (general) (routine) without abnormal findings; N95.1 Menopausal and female climacteric states; Z87.898 Personal history of other specified conditions; Z98.51 Tubal ligation status
CPT/HCPCS: 99386

== ENCOUNTER 2023-10-16 13:30 | Outpatient (AMB) | payer MEDICAID, SELFPAY ==
--- NOTE | 2023-10-16 13:41 | A.OFFVIS_ITS ---
Intake Visit Reasons: B/L knee injection - Last Inj 05/13/23 Intake Note: Vazquez is a 47 year old female who presents today for a follow up of her bilateral knee pain, Last injections done 05/13/23. Patient reports that these injections were helpful. In april Sofia had put in MRI orders for bilateral knees but patient was unable to get the scans done due to work. She is hoping to have a new order placed for bilateral knee MRIs. She describes difficulty working due to pain in her knees. Standing, stairs, climbing and walking are all making her daily life difficult. Allergies No Known Allergies Allergy (Verified 07/15/23 10:38) HPI HPI B/L knee injection - Last Inj 05/13/23: Details: Vazquez is a 47 year old female who presents today for a follow up of her bilateral knee pain, Last injections done 05/13/23. Patient reports that these injections were helpful. In april Sofia had put in MRI orders for bilateral knees but patient was unable to get the scans done due to work. She is hoping to have a new order placed for bilateral knee MRIs [facility] Medical History (Updated 10/17/23 @ 07:42 by Juliocesar Simeon MD) GERD (gastroesophageal reflux disease) Sleep apnea with use of continuous positive airway pressure (CPAP) Hypercholesterolemia HTN (hypertension) Neuropathy Type 2 diabetes mellitus Back pain Cervicalgia Arthritis Gout Asthma Fibromyalgia Vitamin D deficiency Multinodular thyroid Surgical History Hx of biopsy Hx of neck surgery History of cryosurgery Hx of tonsillectomy Hx of section Family History Father HIV (human immunodeficiency virus infection) Mother Osteoarthritis Osteoporosis Herniated disc H/O Spinal surgery Degloving injury of plantar surface of foot Knee problem Family history of thyroid problem Daughter Mildly obese Asthma Cranial cerebrospinal fluid leak, spontaneous Daughter Mildly obese ADHD Asthma Son ADHD Asthma Social History Alcohol intake: never Patient Tobacco Use Status: Former Tobacco user Cigarettes Per Day: 4 Current occupational status: unemployed Current occupation: rt handed Female Reproductive History Menstrual Age of Menarche: 13 Physical Exam Extrem Other: bilateral PF crepitus with ROM and + PF grind with effusion mild R>L Office Procedures Joint Injection/Aspiration Joint Injection/Aspiration Details: Injected 1 mL of Decadron and 3 mL 1% lidocaine and 3 mL of 0.25% Marcaine. Site was prepped using aseptic technique. Patient tolerated the procedure well. Primary Site: right knee Secondary Site: left knee Approach Used: anterolateral Coding 06052 - Large joint 02164 - Glenohumeral/Tronchanteric Bursa/Intraarticular Procedure code (CPT) selection complete Results Reviewed Results Reviewed: I personally reviewed relevant radiographs. Severe PF OA R>L Assessment & Plan Assessment & Plan (1) Osteoarthritis of patellofemoral joints of both knees: Code(s): M17.0 - Bilateral primary osteoarthritis of knee Category: Medical Plan: This is a 47 yo F with moderately severe bilateral PF OA. I injected both her knees and recommend gel injections. She has a difficult problem given her age and I recommend she continue her job and work on weight loss and strengthening. Coding Level of Care Code Est Pt Level 4 (47534) Diagnoses Osteoarthritis of patellofemoral joints of both knees M17.0 CPT Codes Coding - 95002 Large joint: 94527 - Large joint ([id number]) Coding - Joint 7: 42624 - Glenohumeral/Tronchanteric Bursa/Intraarticular ([id number])
== END 2023-10-16 14:37 | disposition home or self-care (01) ==
PROVIDERS: Absent Provider Orthopaedic Surgery; PCP Internal Medicine; Referring Provider Internal Medicine; Visit Provider Orthopaedic Surgery
DX: M17.0 Bilateral primary osteoarthritis of knee (principal)
CPT/HCPCS: 20610; 99214

== ENCOUNTER → 2023-10-16 13:30 | Outpatient (BNVA) | payer MEDICAID, SELFPAY | PROVIDERS: Absent Provider Orthopaedic Surgery; PCP Internal Medicine; Visit Provider Physician Assistant | DX: M17.0 Bilateral primary osteoarthritis of knee (principal) | CPT/HCPCS: 20610; 99212; J0665; J1100 ==

== ENCOUNTER 2023-11-26 09:12 | Outpatient (AMB) | payer MEDICAID, SELFPAY ==
--- NOTE | 2023-11-26 09:37 | MHC.OFFVIS ---
Intake Visit Reasons: Bilateral Knee Durolane Intake Note: Vazquez is a 48 year old female who presents today for Bilateral Knee Durolane Injections Allergies No Known Allergies Allergy (Verified 11/26/23 09:37) HPI HPI Bilateral Knee Durolane: Details: Here for bilateral Durolane PFSH Medical History (Updated 10/17/23 @ 07:42 by Juliocesar Simeon MD) GERD (gastroesophageal reflux disease) Sleep apnea with use of continuous positive airway pressure (CPAP) Hypercholesterolemia HTN (hypertension) Neuropathy Type 2 diabetes mellitus Back pain Cervicalgia Arthritis Gout Asthma Fibromyalgia Vitamin D deficiency Multinodular thyroid Surgical History Hx of biopsy Hx of neck surgery History of cryosurgery Hx of tonsillectomy Hx of section Family History Father HIV (human immunodeficiency virus infection) Mother Osteoarthritis Osteoporosis Herniated disc H/O Spinal surgery Degloving injury of plantar surface of foot Knee problem Family history of thyroid problem Daughter Mildly obese Asthma Cranial cerebrospinal fluid leak, spontaneous Daughter Mildly obese ADHD Asthma Son ADHD Asthma Social History Alcohol intake: never Patient Tobacco Use Status: Former Tobacco user Cigarettes Per Day: 4 Current occupational status: unemployed Current occupation: rt handed Female Reproductive History Menstrual Age of Menarche: 13 Physical Exam Extrem Other: Skin clean dry and intact Office Procedures Joint Injection/Aspiration Joint Injection/Aspiration Details: Injected Durolane. Site was prepped using aseptic technique. Patient tolerated the procedure well. Primary Site: right knee Secondary Site: left knee Approach Used: anterolateral Coding 72451 - Large joint 31749 - Glenohumeral/Tronchanteric Bursa/Intraarticular Procedure code (CPT) selection complete Assessment & Plan Assessment & Plan (1) Osteoarthritis of patellofemoral joints of both knees: Code(s): M17.0 - Bilateral primary osteoarthritis of knee Category: Medical Plan: Bilateral drilling injected without complication. Follow up 3 months. Coding Level of Care Code Est Pt Level 2 (31826) Diagnoses Osteoarthritis of patellofemoral joints of both knees M17.0 CPT Codes Coding - 48652 Large joint: 02439 - Large joint ([id number]) Coding - Joint 7: 00113 - Glenohumeral/Tronchanteric Bursa/Intraarticular ([id number])
== END 2023-11-26 11:48 | disposition home or self-care (01) ==
LOC: HO.HOS 09:12
PROVIDERS: PCP Internal Medicine; Visit Provider Orthopaedic Surgery
DX: M17.0 Bilateral primary osteoarthritis of knee (principal)
CPT/HCPCS: 20610

== ENCOUNTER → 2023-11-26 09:12 | Outpatient (BNVA) | payer MEDICAID, SELFPAY | PROVIDERS: PCP Internal Medicine; Visit Provider Orthopaedic Surgery | DX: M17.0 Bilateral primary osteoarthritis of knee (principal) | CPT/HCPCS: 20610; J7318 ==

== ENCOUNTER 2024-01-07 16:41 | Outpatient (REF) | payer MEDICAID, SELFPAY ==
--- NOTE | ~2024-01-07 | XR_ITS ---
EXAMINATION: XR KNEE, LEFT CLINICAL INFORMATION: s/p fall 12/19/22 at work COMPARISON: 05/13/2023. TECHNIQUE: Three views of the left knee. FINDINGS: No fracture, dislocation, or suspicious bone lesion. There is normal alignment. [id number]-xaipbbbc tricompartmental osteoarthrosis is present, most significant medial compartment. There are small marginal osteophytes, and there is spurring of the tibial spines. There is enthesopathy of the superior patella. There is no evidence of joint effusion. Soft tissues appear normal. XR/XR knee LT 3V IMPRESSION: 1. No acute findings left knee. 2. Mild to moderate tricompartmental osteoarthrosis. No change. Electronically signed by: Moe Rivers MD 02/04/2024 10:01 AM [facility]
--- NOTE | ~2024-01-07 | XR_ITS ---
EXAMINATION: XR KNEE, RIGHT CLINICAL INFORMATION: s/p fall 12/19/22 at work COMPARISON: 05/13/2023. TECHNIQUE: Three views of the right knee. FINDINGS: No fracture, dislocation, or suspicious bone lesion. Normal alignment. Moderate to severe lateral compartment, and mild to moderate medial and patellofemoral compartment joint space narrowing with prominent marginal osteophytic spurring most prominent laterally. This results in mild valgus angulation of the joint. There is mild enthesopathy of the superior patella. There is no evidence of joint effusion. Soft tissues appear normal. XR/XR knee RT 3V IMPRESSION: 1. No acute findings right knee. 2. Moderate to severe lateral compartment, and mild to moderate medial and patellofemoral compartment osteoarthritis. Findings appear unchanged. Electronically signed by: Moe Rivers MD 02/04/2024 09:59 AM [facility]
== END 2024-01-07 16:42 | disposition home or self-care (01) ==
LOC: HO.XRAY 16:41
PROVIDERS: PCP Internal Medicine; Visit Provider Family Medicine
DX: M25.561 Pain in right knee (principal); M25.562 Pain in left knee
CPT/HCPCS: 73562

== ENCOUNTER → 2024-01-07 16:45 | Outpatient (BNV) | payer MEDICAID, SELFPAY | PROVIDERS: PCP Internal Medicine; Visit Provider Radiology Diagnostic Radiology | DX: M25.561 Pain in right knee (principal); M25.562 Pain in left knee | CPT/HCPCS: 73562 ==

== ENCOUNTER 2024-02-29 11:08 | Outpatient (REF) | payer OTHER, SELFPAY ==
[2024-02-29 13:10] LABS: MANUAL DIFF FLAG NO
[2024-02-29 13:23] LABS: Basophils Percent Auto 0.4 % (0-2); Eosinophils Absolute Auto 0.1 X10*3/uL (0.0-0.4); Eosinophils Percent Auto 1.6 % (0-4); Hematocrit 42.1 % (37.0-47.0); Hemoglobin 14.7 g/dl (12.0-16.0); Imm Gran Abs Auto 0.04 X10*3/uL (0.00-0.03); Imm Gran Pct Auto 0.6 % (0.0-0.4); Lymphocytes Absolute Auto 2.1 X10*3/uL (1.2-4.9); Lymphocytes Percent Auto 29.9 % (20-40); Mean Corpuscular HGB Conc 34.9 g/dl (31.0-35.0); Mean Corpuscular Hemoglobin 30.2 pg (27.0-33.0); Mean Corpuscular Volume 86.6 fL (80.0-98.0); Mean Platelet Volume 11.4 fL (9.4-12.3); Monocytes Absolute Auto 0.5 X10*3/uL (0.1-1.2); Monocytes Percent Auto 7.3 % (2-11); Neutrophils Absolute Auto 4.1 x10*3/uL (2.0-8.3); Neutrophils Percent Auto 60.2 % (45-73); Platelet Count 268 X10*3/uL (160-400); Red Blood Count 4.86 X10*6/uL (4.20-5.50); Red Cell Distribution Width 11.9 % (11.0-16.0); White Blood Count 6.9 X10*3/uL (4.8-10.8)
[2024-02-29 13:33] LABS: Rheumatoid Factor < 13.0 IU/mL (<15.0)
[2024-02-29 13:40] LABS: Cholesterol 195 mg/dL (<200); HDL Cholesterol 59 mg/dL (>40); LDL Cholesterol Calculated 88 mg/dL (<100); Triglycerides 243 mg/dL (<150)
[2024-02-29 13:57] LABS: TSH reflex Free T4 2.18 uIU/mL (0.32-4.0)
[2024-02-29 14:04] LABS: Creatinine Urine 125.12 mg/dL; Microalbum/Creatinine Ratio Ur 4.7 ug/mg cr (<30)
[2024-03-03 12:13] LABS: Anti Nuclear Antibody Screen NEGATIVE (NEGATIVE)
[2024-03-03 20:13] LABS: Anti DNA DS Antibody <1 IU/mL; SM/Ribonucleoprotein Ab <1.0 NEG AI (<1.0 NEG); Smith Protein <1.0 NEG AI (<1.0 NEG)
== END 2024-02-29 11:09 | disposition home or self-care (01) ==
LOC: HO.HHCL 11:08
PROVIDERS: Visit Provider Nurse Practitioner Primary Care
DX: R21 Rash and other nonspecific skin eruption (principal); E11.65 Type 2 diabetes mellitus with hyperglycemia; M25.50 Pain in unspecified joint
CPT/HCPCS: 36415; 80061; 82043; 82570; 84443; 85025; 86038; 86160; 86225; 86235; 86431

== ENCOUNTER 2024-03-07 14:50 | Outpatient (AMB) | payer OTHER, SELFPAY ==
--- NOTE | 2024-03-07 14:51 | MHC.OFFVIS ---
Vital Signs 03/07/24 14:52 Height 5 ft 5 in Weight 230 lb BMI 38.3 Intake Visit Reasons: B/L knee dicuss alt treatment/repeat cortisone inj Intake Note: Vazquez is a 48 year old female who presents today for a follow up of her bilateral knee OA. Bilateral Knee Durolane injections 11/26/23, Cortisone 10/16/23. Patient reports that she only had about 2 weeks of relief s/p gel injections. She presents today to discuss alternative treatment options. Allergies No Known Allergies Allergy (Verified 11/26/23 09:37) HPI HPI B/L knee dicuss alt treatment/repeat cortisone inj: Details: Vazquez is a 48 year old female who presents today for a follow up of her bilateral knee OA. Bilateral Knee Durolane injections 11/26/23, Cortisone 10/16/23. Patient reports that she only had about 2 weeks of relief s/p gel injections. She presents today to discuss alternative treatment options. [facility] Medical History (Updated 10/17/23 @ 07:42 by Juliocesar Simeon MD) GERD (gastroesophageal reflux disease) Sleep apnea with use of continuous positive airway pressure (CPAP) Hypercholesterolemia HTN (hypertension) Neuropathy Type 2 diabetes mellitus Back pain Cervicalgia Arthritis Gout Asthma Fibromyalgia Vitamin D deficiency Multinodular thyroid Surgical History Hx of biopsy Hx of neck surgery History of cryosurgery Hx of tonsillectomy Hx of section Family History Father HIV (human immunodeficiency virus infection) Mother Osteoarthritis Osteoporosis Herniated disc H/O Spinal surgery Degloving injury of plantar surface of foot Knee problem Family history of thyroid problem Daughter Mildly obese Asthma Cranial cerebrospinal fluid leak, spontaneous Daughter Mildly obese ADHD Asthma Son ADHD Asthma Social History Alcohol intake: never Patient Tobacco Use Status: Former Tobacco user Cigarettes Per Day: 4 Current occupational status: unemployed Current occupation: rt handed Female Reproductive History Menstrual Age of Menarche: 13 Physical Exam Vital Signs: BMI result Body Mass Index 38.3 Extrem Other: Medial ttp left > right antalgic gait varus alignement Office Procedures Joint Inj/Aspir; Non-Pain Clin Joint Injection/Drain Details: Injected 1 mL of Decadron and 3 mL 1% lidocaine and 3 mL of 0.25% Marcaine. Site was prepped using aseptic technique. Patient tolerated the procedure well. Shoulders, Hips, Knees, Knee Large Joint Injection 01735: Bilateral Knee Coding Procedure code (CPT) selection complete Assessment & Plan Assessment & Plan (1) Osteoarthritis of knees, bilateral: Code(s): M17.0 - Bilateral primary osteoarthritis of knee Category: Medical Qualifiers: Osteoarthritis type: primary Qualified Code(s): M17.0 - Bilateral primary osteoarthritis of knee Plan: Injected bilateral knees. May repeat in 3-4 months but should try to avoid if possible, Coding Level of Care Code Est Pt Level 3 (12615) Diagnoses Primary osteoarthritis of both knees M17.0 Osteoarthritis type: primary CPT Codes Shoulders, Hips, Knees, - Knee Large Joint Injection : Bilateral Knee ([id number])
[2024-03-07 14:52] VITALS: BMI 38.3
== END 2024-03-07 15:21 | disposition home or self-care (01) ==
PROVIDERS: PCP Internal Medicine; Visit Provider Orthopaedic Surgery
DX: M17.0 Bilateral primary osteoarthritis of knee (principal)
CPT/HCPCS: 20610; 99213

== ENCOUNTER → 2024-03-07 14:50 | Outpatient (BNVA) | payer OTHER, SELFPAY | PROVIDERS: PCP Internal Medicine; Visit Provider Orthopaedic Surgery | DX: M17.0 Bilateral primary osteoarthritis of knee (principal) | CPT/HCPCS: 20610; 99212; J0665; J1100; J2003 ==

== ENCOUNTER → 2024-05-05 17:45 | Outpatient (BNV) | payer OTHER, SELFPAY | PROVIDERS: PCP Internal Medicine; Visit Provider Radiology Diagnostic Radiology | DX: M54.2 Cervicalgia (principal); M54.50 Low back pain, unspecified | CPT/HCPCS: 72141; 72148 ==

== ENCOUNTER 2024-05-05 17:57 | Outpatient (REF) | payer OTHER, SELFPAY ==
--- NOTE | ~2024-05-05 | MR_ITS ---
EXAMINATION: MR LUMBAR SPINE WITHOUT CONTRAST CLINICAL INFORMATION: Worsening low back pain. COMPARISON: October 23, 2008 100 TECHNIQUE: MRI of the lumbar spine was obtained using routine sequences without contrast. FINDINGS: Last rib-bearing vertebra labeled T12. Castellvi type II sacralization labeled S1. No bone marrow STIR signal abnormality. Normal alignment. Conus medullaris ends at pedicle of L1 with normal signal. T12-L1: No disc herniation. No neuroforamina stenosis. L1-2: Broad-based disc bulging. No compression upon neural elements. No neuroforamina stenosis. L2-3: Broad-based disc bulging. No central spinal canal or neuroforamina stenosis. L3-4: Broad-based disc bulging. Facet joint hypertrophy. Reduced AP diameter of the thecal sac and the right and to a lesser extent left neuroforamina. L4-5: Broad-based disc bulging. Facet joint and ligamentum flavum hypertrophy. Reduced AP diameter of the thecal sac and the neural foramina. L5-S1: Broad-based disc bulging. Facet joint and ligamentum flavum hypertrophy. Reduced AP diameter of the thecal sac and the neural foramina. Sacralized vertebral body. No compression upon neural elements. No prevertebral compartment hematoma, mass or fluid collection. MR/MR lumbar spine wo con IMPRESSION: Castellvi type II sacralization. Mild to moderate multilevel lumbar spondylosis L3-4 to L5-S1 more conspicuous at L5-S1 likely encroaching the exiting nerve roots. Electronically signed by: Hiren Tyler MD 05/06/2024 07:13 AM [facility]
--- NOTE | ~2024-05-05 | MR_ITS ---
EXAMINATION: MR CERVICAL SPINE WITHOUT CONTRAST CLINICAL INFORMATION: Worsening neck pain . COMPARISON: October 23, 2018. TECHNIQUE: MRI of the cervical spine was obtained using routine sequences without contrast. FINDINGS: Paramagnetic field distortion secondary to intervertebral body disc spacer at C5-6. Craniocervical junction is intact. No bone marrow STIR signal abnormality. Reverse curvature apex at C4-5. Disc desiccation, C3-4, C4-5 and C6-7 levels. The alignment is normal. The cervical spinal cord signal is normal. C2-3: No central spinal canal or neuroforamina stenosis. C3-4: Broad-based disc osteophyte complex formation abutting the cord. Bilateral neuroforamina narrowing on a degenerative basis. C4-5: Broad-based disc osteophyte complex formation resulting in ventral spinal cord deformity without cord signal abnormality. There is a CSF in the dorsal aspect of the thecal sac. Bilateral neuroforamina narrowing on a degenerative basis. C5-6: Post surgical changes. Reduced AP diameter of the thecal sac. No cord signal abnormality. Left neuroforamina narrowing on a degenerative basis. C6-7: No compression upon neural elements. C7-T1: No compression upon neural elements. No prevertebral compartment hematoma, mass or fluid collection. Flow-void signal within the main vessels is normal. Right vertebral artery is slightly dominant. MR/MR cervical spine wo con IMPRESSION: Multilevel cervical spondylosis C3-4 to C5-6 without cord compression, cord edema and or myelopathy. Electronically signed by: Hiren Tyler MD 05/06/2024 07:40 AM EST
--- OUTSIDE RECORDS SUMMARY | 2024-05-05 19:44 | XMS_ITS | Encounter Summary ---
Author Organization [employer] Address [address] [place] [address] Care Team Providers Care Freight Checker Name Role Phone Saima Rae MD Primary Care Provide r Reason for Visit * Reason Onset Date Comments Med Refill 04/07/2024 Encounter Details Date Type Department Care Team (Late st Contact Info) Description 04/07/2024 Refill [facility] [address], [place] [phone] Saima Rae MD [address] [place] [address] Other chronic pain Social History Tobacco Use Types Packs/Day Years Used Date Smoking Tobacco: Former Cigarettes 0.5 0.2 S tarted: 2024 Passive Smoke Exposure: Past Smokeless Tobacco: Current Alcohol Use Standard Drinks/Week Comments Never 0 (1 standard drink = 0.6 oz pur e alcohol) Alcohol Answer Date Recorded Frequency of Alcohol Consumption Not on file 02/19/2023 Average Number of Drinks Not on file 023 Frequency of Binge Drinking Not on file 01/31 Score 0 02/19/2023 Depression Answer Date Recorded Patient Health Questionnaire-9 Score 17 03/30/2024 Patient Health Questionnaire-9 Score 17 03/30/2024 Last PHQ-9: Questionnaire Data Not on file 0 03/30/2024 Housing Stability Answer Date Recorded What is your housing situation today? I do not have housing (Staying with others, in a hotel, in a longterm, living outside on the street, on a beach, in a car, or in a park 03/11/[address] you li ve. Do you have problems with any of the following? None of the above 03/11/2024 Food Insecurity Answer Date Recorded Within the past 12 months, y ou worried that your food would run out before you got money to buy more: Often true 03/11/2024 Within the past 12 months,th e food you bought just didn't last and you didn't have enough money to get more: Often true 11/2024 Transportation Answer Date Recorded In the past 12 months, has l ack of transportation kept you from medical appts, meetings, work or from getting things needed for daily living? No 02/19/2023 Utilities Answer Date Recorded In the past 12 months, has t he electric, gas, oil or water company threatened to shut off services in your home? No 02/19/2023 Depression Answer Date Recorded Patient Health Questionnaire-2 Score 6 03/30/2024 Internet Access Answer Date Recorded Internet Access Q1 Yes 03/11/2024 Internet Access Q2 Not on file 03/11/2024 Comments Unknown Sex and Gender Information Value Date Recorded Sex Assigned at Female 12/30/2021 10:32 AM EDT Legal Sex Female 10:32 AM EDT Gender Identity Female 12/30/2021 10:32 AM EDT Sexual Orientation Straight 12/30/2021 10 :32 AM EDT documented as of this encounter Miscellaneous Notes * Telephone Encounter - Jessica Horn - 04/07/2024 10:28 AM EST Tc from pt requesting a new script for oxyCODONE-acetaminophen (Percocet) 5-325 MG tablet. [id number] - [place], [place] - [address] [place] [address] documented in this encounter Plan of Treatment Upcoming Encounters Date Type Department Care Team (Late st Contact Info) Description 05/11/2024 2:00 PM EDT Office Visit [facility] [address] [place] [address] Saima Rae MD [address], [place] [phone] 05/24/2024 11:00 AM EDT Office Visit [facility] [address] [place] [address] documented as of this encounter Visit Diagnoses Diagnosis Other chronic pain documented in this encounter Additional Health Concerns Assessment Noted Time PHQ-9 Depression Total Score: 17 025 1:24 PM EST documented as of this encounter Care Teams Freight Checker Relationship Specialty Start Date End Date Saima Rae MD [address] [place] [address] PCP - General Family Medicine 08/26/18 documented as of this encounter
--- OUTSIDE RECORDS SUMMARY | 2024-05-05 19:44 | XMS_ITS | Encounter Summary ---
Author Organization [employer] Address 75 [facility] 7t [place] [address] Care Team Providers Care Career Development Engineer Name Role Phone Saima Rae MD Primary Care Provide r Reason for Visit * Reason Onset Date Comments Med Refill 09/15/2023 Encounter Details Date Type Department Care Team ([facility] st Contact Info) Description 09/15/2023 Telephone [facility] [address] [place], [place] [phone] Saima Rae MD [address] [place] [address] Med Refill Social History Tobacco Use Types Packs/Day Years Used Date Smoking Tobacco: Some Days Cigarettes Alcohol Answer Date Recorded Frequency of Alcohol Consumption Not on file 02/19/2023 Average Number of Drinks Not on file 023 Frequency of Binge Drinking Not on file 01/31 Score 0 02/19/2023 Depression Answer Date Recorded Patient Health Questionnaire-9 Score 15 02/19/2023 Patient Health Questionnaire-9 Score 15 02/19/2023 Last PHQ-9: Questionnaire Data Not on file 1 04/22/2022 Housing Stability Answer Date Recorded What is your housing situation today? I have nicholas andre 02/19/[address] you li ve. Do you have problems with any of the following? None of the above 02/19/2023 Food Insecurity Answer Date Recorded Within the past 12 months, y ou worried that your food would run out before you got money to buy more: Never True 02/19/2023 Within the past 12 months,th e food you bought just didn't last and you didn't have enough money to get more: Never True Transportation Answer Date Recorded In the past [...] Answer Date Recorded Patient Health Questionnaire-2 Score 5 02/19/2023 Comments Unknown Sex and Gender Information Value Date Recorded Sex Assigned at Female 12/30/2021 10:32 AM EDT Legal Sex Female 10:32 AM EDT Gender Identity Female 12/30/2021 10:32 AM EDT Sexual Orientation Straight 12/30/2021 10 :32 AM EDT documented as of this encounter Miscellaneous Notes * Telephone Encounter - Alana Galarza - 09/15/2023 10:54 AM EDT TC from pt requesting medication refill. Medications needing refill : cyclobenzaprine (Flexeril) 10 MG tablet cholecalciferol (Vitamin D-3) 50 MCG (1999) capsule lidocaine (Lidoderm) 5 % patch To be sent to: [facility]/pharmacy #[id number] - [id number] documented in this encounter Plan of Treatment Upcoming Encounters Date Type Department Care Team (Late st Contact Info) Description 05/11/2024 2:00 PM EDT Office Visit [facility] [address] [place] [phone] Saima Rae MD [address] [place] [address] 05/24/2024 11:00 AM EDT Office Visit [facility] [address] [place] [address] documented as of this encounter Visit Diagnoses Not on filedocumented in this encounter Additional Health Concerns Assessment Noted Time PHQ-9 Depression Total Score: 15 023 3:30 PM EST documented as of this encounter Care Teams Career Development Engineer Relationship Specialty Start Date End Date Saima Rae MD [address] [place] [address] PCP - General Family Medicine 08/26/18 documented as of this encounter
--- OUTSIDE RECORDS SUMMARY | 2024-05-05 19:44 | XMS_ITS | Encounter Summary ---
Author Organization [employer] Address 75 [facility] 7t [place] [address] Care Team Providers Care Security Installer Name Role Phone Saima Rae MD Primary Care Provide r Reason for Visit * Reason Onset Date Comments Med Refill 10/22/2023 Encounter Details Date Type Department Care Team ([facility] st Contact Info) Description 10/22/2023 Telephone [facility] MEDICINE [address] [place], [place] [phone] Saima Rae MD [address] [place] [address] Med Refill Social History Tobacco Use Types [...] encounter Miscellaneous Notes * Telephone Encounter - Patricia Tai LPN - 10/22/2023 12:44 PM EDT Medication pended to PCP. * Telephone Encounter - Alana Galarza - 10/22/2023 12:26 PM EDT TC from pt requesting medication refill. Medications needing refill : cyclobenzaprine (Flexeril) 10 MG tablet Please o be sent to: [facility]/pharmacy #[id number] - [id number] documented in this encounter Plan of Treatment Upcoming Encounters Date Type Department Care Team (Late st Contact Info) Description 05/11/2024 2:00 PM EDT Office Visit [facility] [address] [place] [address] Saima Rae MD [address] [place] [address] 05/24/2024 11:00 AM EDT Office Visit [facility] [address] [place] [address] documented as of this encounter Visit Diagnoses Not on filedocumented in this encounter Additional Health Concerns Assessment Noted Time PHQ-9 Depression Total Score: 15 023 3:30 PM EST documented as of this encounter Care Teams Security Installer Relationship Specialty Start Date End Date Saima Rae MD [address] [place] [address] PCP - General Family Medicine 08/26/18 documented as of this encounter
--- OUTSIDE RECORDS SUMMARY | 2024-05-05 19:44 | XMS_ITS | Encounter Summary ---
Author Organization [employer] Address [address] [facility] [address] 7t [place] [address] Care Team Providers Care Lacing Operator Name Role Phone Saima Rae MD Primary Care Provide r Reason for Visit * Reason Comments Med Refill Encounter Details Date Type Department Care Team ([facility] st Contact Info) Description 11/29/2023 Refill [facility] MEDICINE [address] [place], [place] [phone] Saima Rae MD 230 [place], [place] [phone] Muscle spasm Social History Tobacco Use Types Packs/Day Years [...] your housing situation today? I have nicholas jes 02/19/[address] you li [...] AM EDT documented as of this encounter Plan of Treatment Upcoming Encounters Date Type Department Care Team (Late st Contact Info) Description 05/11/2024 2:00 PM EDT Office Visit [address] [address] Saima Rae MD [address] [place] [address] 05/24/2024 11:00 AM EDT Office Visit [address] [address] documented as of this encounter Visit Diagnoses Diagnosis Muscle spasm Spasm of muscle documented in this encounter Additional Health Concerns Assessment Noted Time PHQ-9 Depression Total Score: 15 023 3:30 PM EST documented as of this encounter Care Teams Lacing Operator Relationship Specialty Start Date End Date Saima Rae MD [address] [place] [address] PCP - General Family Medicine 08/26/18 documented as of this encounter
--- OUTSIDE RECORDS SUMMARY | 2024-05-05 19:45 | XMS_ITS | Encounter Summary ---
Author Organization [employer] Address 75 [facility] 7t [place] [address] Care Team Providers Care Free Lance Model Name Role Phone Saima Rae MD Primary Care Provide r Reason for Visit * Reason Comments Med Refill Encounter Details Date Type Department Care Team ([facility] st Contact Info) Description 04/19/2024 Refill [facility] MED[facility]INE 230 [place], [place] [phone] Saima Rae MD [address] [place], [place] [phone] Fibromyalgia; Muscle spasm Social History Tobacco Use Types [...] with others, in a hotel, in a usp, living outside on the street, on a beach, in a car, or in a park 04/18/[address] you li ve. Do you have problems with any of the following? Not on file 04/18/2024 Food Insecurity Answer Date Recorded Within the [...] Description 05/11/2024 2:00 PM EDT Office Visit [facility]INE [address] [place] [phone] Saima Rae MD [address] [place] [address] 05/24/2024 11:00 AM EDT Office Visit [facility] [address] [place] [address] documented as of this encounter Visit Diagnoses Diagnosis Fibromyalgia Unspecified myalgia and myositis Muscle spasm Spasm of muscle documented in this encounter Additional Health Concerns Assessment Noted Time PHQ-9 Depression Total Score: 17 025 1:24 PM EST documented as of this encounter Care Teams Free Lance Model Relationship Specialty Start Date End Date Saima Rae MD [address] [place] [address] PCP - General Family Medicine 08/26/18 documented as of this encounter
--- OUTSIDE RECORDS SUMMARY | 2024-05-05 19:45 | XMS_ITS | Encounter Summary ---
Author Organization [employer] Address 75 [facility] 7t [place] [address] Care Team Providers Care Maintenance Services Dispatcher Name Role Phone Saima Rae MD Primary Care Provide r Reason for Visit * Reason Comments Med Refill Encounter Details Date Type Department Care Team ([facility] st Contact Info) Description 03/25/2024 Refill [facility] MED[facility]INE 230 [place], [place] [phone] Bhavna Martinez MD 230 [place] [address] Fibromyalgia Social History Tobacco Use Types Packs/Day Years [...] Answer Date Recorded Patient Health Questionnaire-9 Score 19 02/08/2024 Patient Health Questionnaire-9 Score 19 02/08/2024 Last PHQ-9: Questionnaire Data Not on file 1 04/10/2023 Housing Stability Answer Date Recorded What is your housing situation today? I do not have housing (Staying with others, in a hotel, in a group home, living outside on the street, on a [...] Date Recorded Patient Health Questionnaire-2 Score 6 02/08/2024 Internet Access Answer Date Recorded Internet Access [...] Description 05/11/2024 2:00 PM EDT Office Visit [facility] [address] [place] [address] Saima Rae MD [address] [place] [address] 05/24/2024 11:00 AM EDT Office Visit [facility] [address] [place] [address] documented as of this encounter Visit Diagnoses Diagnosis Fibromyalgia Unspecified myalgia and myositis documented in this encounter Additional Health Concerns Assessment Noted Time PHQ-9 Depression Total Score: 19 024 2:18 PM EST documented as of this encounter Care Teams Maintenance Services Dispatcher Relationship Specialty Start Date End Date Saima aRe MD [address] [place] [address] [place] [address] PCP - General Family Medicine 08/26/18 documented as of this encounter
--- OUTSIDE RECORDS SUMMARY | 2024-05-05 19:45 | XMS_ITS | Encounter Summary ---
Author Organization [employer] Address [address] [facility] [address] 7t [place] [address] Care Team Providers Care Freight Car Builder Name Role Phone Saima Rae MD Primary Care Provide r Reason for Visit * Reason Comments Med Refill Encounter Details Date Type Department Care Team ([facility] st Contact Info) Description 08/04/2023 Refill [facility] MEDICINE 230 [place], [place] [phone] Saima Rae MD 230 [place], [place] [phone] Primary insomnia Social History Tobacco Use Types Packs/Day Years [...] is your housing situation today? I have nicholasalberto andre 02/19/[address] you [...] Description 05/11/2024 2:00 PM EDT Office Visit [facility] MED[facility]INE [address] [place] [address] Saima Rae MD [address] [place] [address] 05/24/2024 11:00 AM EDT Office Visit [address] [address] documented as of this encounter Visit Diagnoses Diagnosis Primary insomnia Persistent disorder of initiating or maintaining sleep documented in this encounter Additional Health Concerns Assessment Noted Time PHQ-9 Depression Total Score: 15 023 3:30 PM EST documented as of this encounter Care Teams Freight Car Builder Relationship Specialty Start Date End Date Saima Rae MD [address] [place] [address] PCP - General Family Medicine 08/26/18 documented as of this encounter
--- OUTSIDE RECORDS SUMMARY | 2024-05-05 19:45 | XMS_ITS | Encounter Summary ---
Author Organization [employer] Address 75 [facility] 7t [place] [address] Care Team Providers Care Stitching Department Supervisor Name Role Phone Saima Rae MD Primary Care Provide r Reason for Visit * Reason Onset Date Comments Appointment Request 03/12/2022 Encounter Details Date Type Department Care Team ([facility] Contact Info) Description 03/12/2022 Telephone [facility] [address] [place] [address] [phone] Saima Rae MD [address] [place] [address] Appointment Request Social History Tobacco Use Types Packs/Day Years Used Date Smoking Tobacco: Never Assessed Comments Unknown Sex and Gender Information Value Date Recorded Sex Assigned at Female 12/30/2021 10:32 AM EDT Legal Sex Female 10:32 AM EDT Gender Identity Female 12/30/2021 10:32 AM EDT Sexual Orientation Straight 12/30/2021 10 :32 AM EDT documented as of this encounter Miscellaneous Notes * Telephone Encounter - Jordy Messer - 03/12/2022 9:08 AM EST Tc from pt requesting a call from nurse regarding appt 02/19/22 11:30 Please contact pt at [phone] documented in this encounter Plan of Treatment Upcoming Encounters Date Type Department Care Team ([facility] Contact Info) Description 05/11/2024 2:00 PM EDT Office Visit [facility] [address] [place] [address] Saima Rae MD 230 [place] [address] 05/24/2024 11:00 AM EDT Office Visit [facility] [address] [place] [address] documented as of this encounter Visit Diagnoses Not on filedocumented in this encounter Care Teams Stitching Department Supervisor Relationship Specialty Start Date End Date Saima Rae MD [address] [place] [address] PCP - General Family Medicine 08/26/18 documented as of this encounter
--- OUTSIDE RECORDS SUMMARY | 2024-05-05 19:45 | XMS_ITS | Encounter Summary ---
Author Organization [employer] [facility] Address 75 [facility] 7t [place] [address] Care Team Providers Care Care Aide Name Role Phone Saima Rae MD Primary Care Provide r Reason for Visit * Reason Comments Med Refill Encounter Details Date Type Department Care Team (Late st Contact Info) Description 02/14/2023 Refill [facility] MEDICINE [address] [place] [phone] Ania Balderas MD [address] [place] [address] [phone] Muscle spasm Social History Tobacco Use Types [...] Description 05/11/2024 2:00 PM EDT Office Visit [facility] MEDICINE [address] [place] [address] [phone] Saima Rae MD 230 [place], [place] [phone] 05/24/2024 11:00 AM EDT Office Visit [facility] MEDICINE [address] [place] [address] [phone] documented as of this encounter Visit Diagnoses Diagnosis Muscle spasm Spasm of muscle documented in this encounter Care Teams Care Aide Relationship Specialty Start Date End Date Saima Rae MD [address] [place] [address] PCP - General Family Medicine 08/26/18 documented as of this encounter
--- OUTSIDE RECORDS SUMMARY | 2024-05-05 19:45 | XMS_ITS | Encounter Summary ---
Author Organization [employer] Address 75 [facility] 7t [place] [address] Care Team Providers Care Pharmacy General Manager Name Role Phone Saima Rae MD Primary Care Provide r Reason for Visit * Reason Onset Date Comments returning 03/13/2022 Encounter Details Date Type Department Care Team (Late st Contact Info) Description 03/13/2022 Telephone [facility] MEDICINE [address] [place] [address] [phone] Saima Rae MD [address] [place], [place] [phone] returning Social History Tobacco Use Types Packs/Day Years [...] * Telephone Encounter - Jordy Messer - 03/13/2022 12:10 PM EST Tc from pt returning call. Requesting a call back and stated if can be called around 12;30 due to being at work Please contact pt at [phone] documented in this encounter Plan of Treatment Upcoming Encounters Date Type Department Care Team (Late Contact Info) Description 05/11/2024 2:00 PM EDT Office Visit [facility] MED[facility]INE [address] [place] [address] Saima Rae MD 230 [place] [address] 05/24/2024 11:00 AM EDT Office Visit [address] [address] documented as of this encounter Visit Diagnoses Not on filedocumented in this encounter Care Teams Pharmacy General Manager Relationship Specialty Start Date End Date Saima Rae MD [address] [place] [address] PCP - General Family Medicine 08/26/18 documented as of this encounter
--- OUTSIDE RECORDS SUMMARY | 2024-05-05 19:45 | XMS_ITS | Encounter Summary ---
Author Organization [employer] Address 75 [facility] 7t [place] [address] Care Team Providers Care Rubber Curer Name Role Phone Saima Rae MD Primary Care Provide r Reason for Visit * Reason Onset Date Comments Med Refill 03/25/2024 Encounter Details Date Type Department Care Team (Late st Contact Info) Description 03/25/2024 Refill [facility] MEDICINE 230 [place], [place] [phone] Saima Rae MD 230 [place] [address] Fibromyalgia Social History Tobacco Use Types Packs/Day [...] with others, in a hotel, in a nursing home, living outside on the street, on [...] Telephone Encounter - Patricia Tai LPN - 03/25/2024 10:25 AM EST Next appointment 05/11/24. * Telephone Encounter - Memo Garrido - 03/25/2024 10:17 AM EST TC from pt requesting medication refill. Medications needing refill : DULoxetine (Cymbalta) [address] capsule To be sent to: [facility] - [place], [place] - [address] documented in this encounter Plan of Treatment Upcoming Encounters Date Type Department Care Team (Late st Contact Info) Description 05/11/2024 2:00 PM EDT Office Visit [facility] [place] [address] Saima Rae MD [address] [place] [address] 05/24/2024 11:00 AM EDT Office Visit [facility] [place] [address] documented as of this encounter Visit Diagnoses Diagnosis Fibromyalgia Unspecified myalgia and myositis documented in this encounter Additional Health Concerns Assessment Noted Time PHQ-9 Depression Total Score: 19 024 2:18 PM EST documented as of this encounter Care Teams Rubber Curer Relationship Specialty Start Date End Date [place] [address] PCP - General Family Medicine 08/26/18 documented as of this encounter
--- OUTSIDE RECORDS SUMMARY | 2024-05-05 19:45 | XMS_ITS | Encounter Summary ---
Author Organization [employer] Address 75 [facility] 7t [place] [address] Care Team Providers Care Electrophysiologist Name Role Phone Saima Rae MD Primary Care Provide r Reason for Visit * Reason Comments Pre-visit Planning (Unable to reach for PVP screening, LVM) Encounter Details Date Type Department Care Team ([facility] st Contact Info) Description 05/04/2024 Patient Outreach [facility] 230 [place], [place] [phone] Saima Rae MD [address] [place] [address] Pre-visit Planning ((Unable to reach for PVP screening, LVM)) Social History Tobacco Use Types Packs/Day Years [...] with others, in a hotel, in a retirement, living outside on the street, on a [...] AM EDT documented as of this encounter Progress Notes * Becki Kaufman - 05/04/2024 10:08 AM EST CC Becki. Placed outbound call to patient to complete pre-visit planning. No answer at this time. Patient name and were not confirmed. CC left voicemail requesting return call. Direct contact information provided. documented in this encounter Plan of Treatment Upcoming Encounters Date Type Department Care Team ([facility] st Contact Info) Description 05/11/2024 2:00 PM EDT Office Visit [facility] MED[facility]INE [address] [place] [address] Saima Rae MD [address] [place], [place] [phone] 05/24/2024 11:00 AM EDT Office Visit [facility] MED[facility] [address] [place] [address] documented as of this encounter Visit Diagnoses Not on filedocumented in this encounter Additional Health Concerns Assessment Noted Time PHQ-9 Depression Total Score: 17 025 1:24 PM EST documented as of this encounter Care Teams Electrophysiologist Relationship Specialty Start Date End Date Saima Rae MD [address] [place] [address] PCP - General Family Medicine 08/26/18 documented as of this encounter
--- OUTSIDE RECORDS SUMMARY | 2024-05-05 19:45 | XMS_ITS | Encounter Summary ---
Author Organization [employer] Address 75 [facility] 7t [place] [address] Care Team Providers Care Export Traffic Department Manager Name Role Phone Saima Rae MD Primary Care Provide r Reason for Visit * Reason Comments finish rct #30 Encounter Details Date Type Department Care Team ([facility] st Contact Info) Description 05/02/2024 3:30 PM EST Office Visit [facility] [address] [place] [address] Tae Ball, DMD [address] [place] [address] Dental caries (Primary Dx) Social History Tobacco Use Types Packs/Day Years [...] with others, in a hotel, in a fdc, living outside on the street, on a [...] as of this encounter Progress Notes * Tae Ball DMD - 05/02/2024 3:30 PM EST Patient is here for a rct # 30 Internal referral Rct was initiated by Dr. Maradiaga on exam # 30 has temp. Filling Inflamed gingival tissue Probing depths wnl Confirmed profound anesthesia. Septocaine 1 carpule LAYLA blockgiven. Isolation: Rubber Dam Found 3 canals Wl: mb and ml-20 mm and D-20.5mm naocl and edta irrigation used. Cleaning and shaping done with F2 Cone fit x-ray taken Obturation done with bc sealer Cotton pellet and ketac placed POI given NV: core build up # 30 documented in this encounter Plan of Treatment Upcoming Encounters Date Type Department Care Team (Late st Contact Info) Description 05/11/2024 2:00 PM EDT Office Visit [facility] MED[facility]INE [address] [place] [address] Saima Rae MD [address] [place] [address] 05/24/2024 11:00 AM EDT Office Visit [address] [address] documented as of this encounter Procedures Procedure Name Priority Date/Time Associated Diagnosis Comments 30 ENDODONTIC THERAPY, MOLAR TOOTH Routine 05/02/2024 3:30 PM EST CASE PRESENTATION, DETAILED AND EXTENSIVE TREATMENT PLANNING Routine 05/02/2024 3:30 PM EST documented in this encounter Visit Diagnoses Diagnosis Dental caries- Primary Unspecified dental caries documented in this encounter Additional Health Concerns Assessment Noted Time PHQ-9 Depression Total Score: 17 025 1:24 PM EST documented as of this encounter Care Teams Export Traffic Department Manager Relationship Specialty Start Date End Date Saima Rae MD [address] [place] [address] PCP - General Family Medicine 08/26/18 documented as of this encounter
--- OUTSIDE RECORDS SUMMARY | 2024-05-05 19:45 | XMS_ITS | Encounter Summary ---
Author Organization [employer] Address [address] [facility] [address] [place] [address] Care Team Providers Care Portal Administrator Name Role Phone Saima Rae MD Primary Care Provide r Reason for Visit * Reason Onset Date Comments Med Refill 04/20/2024 Encounter Details Date Type Department Care Team (Late st Contact Info) Description 04/20/2024 Telephone [facility] [address] [place], [place] [phone] Saima Rae MD [address] [place] [phone] Med Refill Social History Tobacco Use Types [...] with others, in a hotel, in a long term, living outside on the street, on a [...] encounter Miscellaneous Notes * Telephone Encounter - Mattie Buckley LPN - 04/20/2024 4:08 PM EST Medication requested should have a refill left * Telephone Encounter - Bharat Davis - 04/20/2024 4:00 PM EST TC from pt requesting medication refill. Medications needing refill : cyclobenzaprine (Flexeril) 10 MG tablet To be sent to: [facility]/pharmacy #[id number] - [place], [address] documented in this encounter Plan of Treatment Upcoming Encounters Date Type Department Care Team (Late st Contact Info) Description 05/11/2024 2:00 PM EDT Office Visit [facility] [address] [place] [phone] Saima Rae MD [address] [place] [phone] 05/24/2024 11:00 AM EDT Office Visit [address] [phone] documented as of this encounter Visit Diagnoses Not on filedocumented in this encounter Additional Health Concerns Assessment Noted Time PHQ-9 Depression Total Score: 17 025 1:24 PM EST documented as of this encounter Care Teams Portal Administrator Relationship Specialty Start Date End Date Saima Rae MD [address] [place] [phone] PCP - General Family Medicine 08/26/18 documented as of this encounter
--- OUTSIDE RECORDS SUMMARY | 2024-05-05 19:45 | XMS_ITS | Encounter Summary ---
Author Organization [employer] Address [address] [place] [address] Care Team Providers Care Tactical Intelligence Officer Name Role Phone Saima Rae MD Primary Care Provide r Reason for Visit * Reason Onset Date Comments BPI scoring, [facility] 04/07/2023 Encounter Details Date Type Department Care Team (Late st Contact Info) Description 04/07/2023 Refill [facility] MED[facility]INE [address] [place], [place] [phone] Patricia Haas DO [address] [place] [phone] Social History Tobacco Use Types Packs/Day Years [...] encounter Miscellaneous Notes * Telephone Encounter - Jacqueline Schumacher RN - 04/16/2023 1:51 PM EST 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 Pain severity score of 8.8, activity interference score of 8.4. Previous BPI completed 01/12/23 with pain severity score of 9.5, activity interference score of 8.1. Pt excited to be scheduled to attend [facility] 04/28/23 documented in this encounter Plan of Treatment Upcoming Encounters Date Type Department Care Team (Late st Contact Info) Description 05/11/2024 2:00 PM EDT Office Visit [facility] MEDICINE [address] [place] [phone] Saima Rae MD [address] [place] [address] 05/24/2024 11:00 AM EDT Office Visit [facility] [address] [place] [phone] documented as of this encounter Visit Diagnoses Not on filedocumented in this encounter Additional Health Concerns Assessment Noted Time PHQ-9 Depression Total Score: 15 023 3:30 PM EST documented as of this encounter Care Teams Tactical Intelligence Officer Relationship Specialty Start Date End Date Saima Rae MD [address] [place] [phone] PCP - General Family Medicine 08/26/18 documented as of this encounter
--- OUTSIDE RECORDS SUMMARY | 2024-05-05 19:46 | XMS_ITS | Clinical Summary ---
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 diclofenac (Voltaren) 75 MG EC tablet Take 1 tablet by mouth in the morning and 1 tablet in the evening. 09/04/19 22 Active montelukast (Singulair) 10 MG tablet Take 1 tablet by mouth at bed time. 04/08/19 22 Active neomycin-bacitr acin-polymyxin (Neosporin) ointment apply to skin two times daily 12/21/19 21 Active naloxone (Narcan) 4 mg/0.1 mL nasal spray Administer 1 spray (4 mg) into affected nostril(s) if needed for opioid reversal. 2 each 2 01/13/20 23 Active traZODone (Desyrel) 150 MG tabletIndicatio ns:Primary insomnia TAKE 1 TABLET BY MOUTH AT BEDTIME 30 tablet 3 04/07/19 24 Active Mometasone Furoate (Asmanex HFA) 100 MCG/ACT aerosol INHALE 2 PUFFS BY MOUTH EVERY 12 HOURS 13 g 1 04/07/19 24 Active cholecalciferol VITAMIN D (Vitamin D-3) 50 MCG (1999) capsule TAKE 1 CAPSULE BY MOUTH EVERY MORNING 90 capsule 1 09/15/19 24 Active FREESTYLE LITE test stripIndication s:Type 2 diabetes mellitus with hyperglycemia, without long-term current use of insulin (CMS/[facility]) CHECK BY FINGERSTICK ROUTE 2 TIMES EVERY DAY 100 strip 5 10/28/19 24 Active celecoxib (CeleBREX) 200 MG capsule TOME 1 C PSULA POR V A ORAL DOS VECES AL D A 08/14/19 24 Active docusate sodium (Colace) 100 MG capsuleIndicati ons:Constipatio n, unspecified TAKE 1 CAPSULE BY MOUTH TWICE A DAY 180 capsule 1 12/07/19 24 Active gabapentin (Neurontin) 800 MG tabletIndicatio ns:Fibromyalgia TAKE 1 TABLET BY MOUTH AT BEDTIME 30 tablet 3 12/07/19 24 Active budesonide (Pulmicort Flexhaler) 180 MCG/ACT inhalerIndicati ons:Mild intermittent asthma, unspecified whether complicated INHALE 1 PUFF IN THE MORNING AND AT BEDTIME. RINSE MOUTH WITH WATER AFTER USE TO REDUCE AFTERTASTE AND INCIDENCE OF CANDIDIASIS. DO NOT SWALLOW. FOR 2 MONTHS 1 each 01/06/20 24 Active Diclofenac Sodium 1 % gelIndications: Fibromyalgia APPLY 2 GRAMS TOPICALLY TO THE AFFECTED AREA(S) TWICE A DAY 100 g 1 01/14/20 24 Active semaglutide (Ozempic) 2 MG/1.5ML solution pen-injectorInd ications:Type 2 diabetes mellitus with hyperglycemia, without long-term current use of insulin (CMS/[facility]) Inject 1 mg under the skin 1 (one) time per week. 2 each 3 03/23/19 25 Active cyclobenzaprine (Flexeril) 10 MG tabletIndicatio ns:Muscle spasm TAKE 1 TABLET BY MOUTH IN THE MORNING, AT NOON AND AT BEDTIME IF NEEDED 90 tablet 1 03/23/19 25 Active lisinopril 20 MG tabletIndicatio ns:Essential hypertension Take 1 tablet (20 mg) by mouth Once per day. 90 tablet 03/23/19 25 Active glipiZIDE (Glucotrol) 5 MG tabletIndicatio ns:Type 2 diabetes mellitus with hyperglycemia, without long-term current use of insulin (CMS/HCC) Take 1 tablet (5 mg) by mouth before breakfast and before evening meal. 60 tablet 2 03/23/19 25 Active empagliflozin (Jardiance) 10 MGIndications:T ype 2 diabetes mellitus with hyperglycemia, without long-term current use of insulin (CMS/HCC) Take 1 tablet (10 mg) by mouth Once per day. 30 tablet 11 03/23/19 25 2025 Active atenolol (Tenormin) 25 MG tabletIndicatio ns:Essential hypertension Take 1 tablet (25 mg) by mouth Once per day. 90 tablet 1 03/23/19 25 Active albuterol (ProAir HFA) 108 (90 Base) MCG/ACT inhalerIndicati ons:Mild intermittent asthma, unspecified whether complicated Inhale 2 puffs every 4 (four) hours if needed for wheezing or shortness of breath. 18 g 1 03/23/19 25 Active DULoxetine (Cymbalta) [address] capsuleIndicati ons:Fibromyalgi a TAKE 1 CAPSULE BY MOUTH EVERY DAY 30 capsule 03/25/19 25 Active oxyCODONE-aceta minophen (Percocet) 5-325 MG tabletIndicatio ns:Other chronic pain Take 2 tablets by mouth every 12 (twelve) hours if needed for severe pain for up to 28 days. Do not start before April 08, 2024. 112 tablet 04/08/19 25 2024 Active lidocaine (Lidoderm) 5 % patchIndication s:Fibromyalgia APPLY 1 PATCH TOPICALLY IN THE MORNING 30 patch 3 04/19/19 25 Active omeprazole (PriLOSEC) [address] capsule TAKE 1 CAPSULE BY MOUTH EVERY DAY 90 capsule 3 04/19/19 25 Active omeprazole (PriLOSEC) [address] capsule TOME JEANCARLOS CAPSULA TODOS [place] FERNANDEZ BEFORE A MEAL 90 capsule 3 01/20/20 23 2024 Discontinued lidocaine (Lidoderm) 5 % patchIndication s:Fibromyalgia APPLY 1 PATCH TOPICALLY IN THE MORNING 30 patch 3 09/15/19 24 2024 Discontinued oxyCODONE-aceta minophen (Percocet) 5-325 MG tabletIndicatio ns:Other chronic pain Take 2 tablets by mouth every 12 (twelve) hours if needed for severe pain for up to 28 days. Do not start before March 31, 2024. 112 tablet 03/31/19 25 2024 Discontinued(R eorder (will not trigger notification to Pharmacy)) Active Problems Problem Noted Date Diagnosed Date Adjustment disorder with depressed mood 03/28/19 25 Assessment & Plan (03/30/2024 1:46 PM EST): During IBH Consult Aidelisse presenting with depressed mood, Tearful, crying spells , hopelessness, irritable mood, loss of interests/pleasure , sense of isolation/loneliness , isolating, change in appetite or weight overeating, changes in sleep difficulty falling asleep and difficulty staying asleep , psychomotor retardation, fatigue/loss of energy, worthlessness, inappropriate/excessive guilt , difficulty concentrating, indecisiveness; for a period of 0-6 mo, for most or all symptoms in the context of financial concern and illness or family illness. Pt presented depressive sxs associated with the loss of her job (three months ago) and her medical condition worsening due to a fall she had (same timeframe). She's currently staying with her adult children due to lack of secure housing. Her mother four years ago, pt reports her loss was significant and is also associated with symptoms. However, it's not affecting her occupational or interpersonal relationships. Pt used to see a psychiatrist but lost care. clinician engaged patient with active/reflective listening. Validated and empathized with patient's emotions. Provided a safe space for patients to share her feelings. Explored coping strategies that she can incorporate into her daily routine and highlighted importance of connecting with services. Pt will be referred for OP therapy and psychiatry services. clinician will provide follow-up appointment to provide additional support. Bereavement 03/28/2024 Cervicalgia 03/25/2024 Pain in both knees 01/05/2024 Assessment & Plan (01/05/2024 4:14 PM EST): Had fall at work 12/23/23. Has had workers comp. Still having pain. -ordered XRs 01/05/24 -referred to PT 01/05/24 -encouraged to f/u with PCP about medications. -ER precautions discussed. Chronic bilateral low back pain 01/05/2024 Assessment & Plan (01/05/2024 4:14 PM EST): Follows with Orthopedics for steroid injections monthly. Encouraged to follow- up. 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 Agreement: 02/02/24 Tier II (PUNCHER AND FASTENER visits Q3 months - as of Jan 2024) Assessment & Plan (10/27/2023 5:34 PM EDT): -Good engagement and participation with Group Medical Visit model -Encouraged multifactorial approach to pain control including pharm and non- pharm modalities -UTOX and Pill count as expected Cervical stenosis of spinal canal 09/08/2023 Colon cancer screening 02/19/2023 Screening mammogram for breast cancer 02/19/2023 Constipation 02/19/2023 Assessment & Plan (02/19/2023 4:48 PM EST): Increase water and fiber on diet Walking every day Colace 100mg BID Class 2 severe obesity due t o excess calories with serious comorbidity in adult 02/19/2023 Assessment & Plan (02/19/2023 4:51 PM EST): Today extensive discussion was done about life style modifications I advise healthy diet (low calorie) and cardiovascular exercise Pap test, as part of routine gynecological exami nation 11/07/2022 Fibromyalgia 02/08/2022 Assessment & Plan (04/05/2024 3:12 PM EST): -Good engagement and participation with Group Medical Visit model -Encouraged multifactorial approach to pain control including pharm and non- pharm modalities -UTOX as expected, pill count 6 off due to additional use s/p fall. See pulp cooker Assessment & Plan (09/08/2023 5:25 PM EDT): -Good engagement and participation with Group Medical Visit model, today was first visit. -Encouraged multifactorial approach to pain control including pharm and non- pharm modalities -UTOX and Pill count as expected Mixed anxiety and depressive disorder 02/08/2022 Moderate persistent asthma without complication 02/08/2022 Snoring 02/08/2022 Sensorineural hearing loss, bilateral 02/12/2018 Carpal tunnel syndrome 11/25/2017 Gastroesophageal reflux disease without esophagi tis 11/25/2017 Hearing loss 11/25/2017 Mild intermittent asthma 11/25/2017 Assessment & Plan (03/23/2024 3:12 PM EST): Stable continue with albuterol as needed Mood disorder 11/25/2017 Opioid dependence 11/25/2017 Seasonal allergies 11/25/2017 Type 2 diabetes mellitus wit h hyperglycemia, without long-term current use of insulin 11/25/2017 Assessment & Plan (03/23/2024 3:11 PM EST): Diabetes is: not controlled - Lab Results Component Value Date HGBA1C 10.4 (A) 03/23/2024 HGBA1C 7.6 (A) 02/19/2023 HGBA1C 8.0 (H) 12/05/2020 - Lab Results Component Value Date MICROALBUR 6.0 02/29/2024 CREATININE 0.82 05/13/2021 CREATININE 0.82 05/13/2021 -Changes: Today I increase her Ozempic to 1 mg weekly, I also switch her Invokana to Jardiance, continue with her other medications - Diabetic eye exam: Up-to-date - Diabetic foot exam: Pending - Continue lifestyle modifications - Follow up: 3 months Assessment & Plan (05/01/2023 5:11 PM EST): Diabetes is: almost at goal - Lab Results Component Value Date HGBA1C 7.6 (A) 02/19/2023 HGBA1C 8.0 (H) 12/05/2020 HGBA1C 9.7 (H) 06/01/2020 - Lab Results Component Value Date MICROALBUR 0.4 12/05/2020 CREATININE 0.82 05/13/2021 CREATININE 0.82 05/13/2021 -Changes: Patient has not receive yet her ozempic due to insurance problems, for this reason I prescribed again trulicity - Diabetic eye exam:pending - Diabetic foot exam:pending - Continue lifestyle modifications - Continue current medications - Follow up: 3 months Assessment & Plan (02/19/2023 4:50 PM EST): - Lab Results Component Value Date HGBA1C 7.6 (A) 02/19/2023 HGBA1C 8.0 (H) 12/05/2020 HGBA1C 9.7 (H) 06/01/2020 - Lab Results Component Value Date MICROALBUR 0.4 12/05/2020 CREATININE 0.82 05/13/2021 CREATININE 0.82 05/13/2021 - - Diabetic eye exam:referrla done - Diabetic foot exam:pending - Continue lifestyle modifications -c/w glipizide, metformin and invokana, Will discontinue Trulicity and instead start ozempic, its my medical opinion patient will benefit to avoid surgical intervention for weigh reduction which is christiansen to target A1c Essential hypertension 01/16/2017 Assessment & Plan (03/23/2024 3:12 PM EST): Patient ran out off her blood pressure medications today I put a refill on her medications I advise low-sodium diet and weight reduction I advised to take her medications every day without missing any dose Assessment & Plan (05/01/2023 5:10 PM EST): - Aerobic exercise to reduce BP. Initial goal of 30 min walk 3-5x/week. Increase as tolerated. - low-sodium diet (goal: <2g/day) and heart healthy diet such as DASH to reduce BP and prevent ASCVD. - Home BP monitoring 1-2 x day with goal of <140/90. - Seek immediate medical attention for chest pain, palpitations, SOB, syncope, or sudden changes in mental status. - Do not change or discontinue current prescriptions without first consulting health care provider Assessment & Plan (02/19/2023 4:46 PM EST): - Aerobic exercise to reduce BP. Initial goal of 30 min walk 3-5x/week. Increase as tolerated. - low-sodium diet (goal: <2g/day) and heart healthy diet such as DASH to reduce BP and prevent ASCVD. - Home BP monitoring 1-2 x day with goal of <140/90. - Seek immediate medical attention for chest pain, palpitations, SOB, syncope, or sudden changes in mental status. - Do not change or discontinue current prescriptions without first consulting health care provider Encounters * This document contains information received from the source organization and may not represent a complete record from that organization. Date Type Department Care Team Description 05/04/2024 Patient Outreach [facility] MED[facility] [address] [place] [phone] Saima Rae MD Pre-visit Planning ((Unable to reach for PVP screening, LVM)) 05/02/2024 3:30 PM EST Office Visit [facility] [address] [place] [address] Kandru, Tae, DMD Dental caries (Primary Dx) 04/20/[address] [address] Saima Rae MD Med Refill 04/19/[address] [address] Saima Rae MD Fibromyalgia; Muscle spasm 04/07/[address] [phone] Saima Rae MD Other chronic pain 04/04/2024 2:30 PM EST Office Visit [facility] [address] [place] [phone] GregoryPauAna, DDS 04/01/[address] [address] Saima Rae MD Med Refill 03/30/2024 [facility] Health Information Management [address] [place] [phone] Saima Rae MD MRI ORDERS 03/29/2024 11:00 AM EST Office Visit [address] [address] Palmira Alejandro, WASHHOUSE WORKER Cervical stenosis of spinal canal (Primary Dx); Fibromyalgia; Long-term current use of opiate analgesic 03/29/[address] [address] Jacqueline Schumacher, JESUS Percocet count 03/29/2024 Travel 03/28/[address] [address] Saima Rae MD Other chronic pain 03/25/2024 1:00 PM EST Office Visit [facility]ULT [facility] [address] [place] [address] JoshuamartinezEdmond, DMD 03/25/2024 11:00 AM EST Office Visit [address] [address] Saima Rae MD Chronic bilateral low back pain with bilateral sciatica (Primary Dx); Cervicalgia 03/25/2024 Refill [facility] [address] [place] [address] Arin Martinez MD Fibromyalgia 03/25/[address], JESUS Fibromyalgia 03/25/2024 Travel 03/25/[address] [address] Saima Rae MD Fibromyalgia 03/23/2024 10:15 AM EST Office Visit [address] [address] Saima Rae MD Essential hypertension (Primary Dx); Type 2 diabetes mellitus with hyperglycemia, without long-term current use of insulin ([facility]); Muscle spasm; Mild intermittent asthma, unspecified whether complicated 03/23/[address], RN Worker's Compensation 03/15/[address] [address] Saima Rae MD 03/11/2024 Patient Outreach [address] [address] Saima Rae MD Care Coordination (CHW outreach for SDOH housing search-LVM ) 03/11/2024 Patient Outreach [address] [phone] Saima Rae MD Pre-visit Planning ((SDOH screening positive tobacco screening tobacco) 03/04/[address] [address] Saima Rae MD 03/04/[address] [address] Saima Rae MD Results 02/29/[address] [address] Saima Rae MD Other chronic pain 02/26/[address] [address] Saima Rae MD Muscle spasm; Fibromyalgia 02/08/2024 1:30 PM EST Office Visit [address] [address] Magda Ortiz ANP Type 2 diabetes mellitus with hyperglycemia, without long-term current use of insulin ([facility]) (Primary Dx); Essential hypertension; Malar rash; Polyarthralgia; Bilateral carpal tunnel syndrome; Stress 02/08/[address] [address] Rosa Elena Ramos, JESUS Nurse Triage 02/08/2024 Travel 02/05/[address] [address] Saima Rae MD Appointment Request from Last 3 Months Immunizations Name Administration Dates Next Due Hep B, adult 11/25/2017,12/16/2016,11/05/2016 Influenza injectable quadriv alent IIV4 with preservative 11/25/2017,02/16/2017 Influenza injectable quadriv alent preservative free 01/03/2022 Influenza, seasonal, injecta ble, preservative free 01/12/2024 Moderna Covid-19 Vaccine 12+ 04/01/2020,03/04/19 21 Pfizer Covid-19 Vaccine 12+ 01/03/2022 Pfizer Covid-19 Vaccine 12+ Bivalent 01/03/2022 Pneumococcal Polysaccharide PPSV23 02/16/2017 Tdap 12/17/2017 Social History Tobacco Use Types Packs/Day Years Used Date Smoking Tobacco: Former Cigarettes 0.5 0.2 S tarted: 2024 Passive Smoke Exposure: Past Smokeless Tobacco: Current Tobacco Cessation:Ready to Q uit: No; Counseling Given: Not Answered Alcohol Use Standard Drinks/Week Comments Never 0 [...] Orientation Straight 12/30/2021 10 :32 AM EDT Last Filed Vital Signs Vital Sign Reading Time Taken Comments Blood Pressure 137/84 03/25/2024 10:56 AM EST Pulse 93 03/25/2024 10:56 AM EST Temperature 35.3 ??C (95.6 ??F) 03/25/2024 10:[address] Respiratory Rate 14 03/25/2024 10:56 AM EST Oxygen Saturation 99% 03/25/2024 10:56 AM EST Inhaled Oxygen Concentration - - Weight 100 kg (220 lb 6.4 oz) 03/25/2024 10:56 A M EST Height 165.1 cm (5' 5 ) 03/25/2024 10:56 AM EST Body Mass Index 36.68 03/25/2024 10:56 AM EST Plan of Treatment Upcoming Encounters Date Type Department Care Team (Late st Contact Info) Description 05/11/2024 2:00 PM EDT Office Visit [facility] MEDICINE [address] [place] [phone] Saima Rae MD [address] [place] [phone] 05/24/2024 11:00 AM EDT Office Visit [address] [address] Health Maintenance Due Date Last Done Comments CT Colonography 1976 Colonoscopy 1976 Colorectal Cancer Screening 1976 FIT DNA/Cologuard 1976 FIT 1976 FOBT 1976 HIV Screening 1976 Sigmoidoscopy 1976 Diabetes: Foot Exam 1986 Alcohol/Substance Use Screening 1988 Family Planning (PISQ) 11/17/1991 Hepatitis C Screening 1994 Pneumococcal Vaccine: Pediatrics (0 to 5 Years) and At-Risk Patients (6 to 49) Years) (2 of 2 - PCV) 02/16/2018 02/16/2017 Dental Prophylaxis 04/19/2018 10/16/2017 Dental X-Ray: Bitewings 04/23/2020 04/22/2019, 03/09 Dental Oral Exam 01/14/2021 07/13/2020, , 03/09/2017 Dental X-Ray: Full Mouth 07/15/2023 07/13/2020, 09/2017 COVID-19 Vaccine ( season) 2023 03/05/2023, 01/03/2022, 01/03/2022, Additional history exists Mammogram 04/13/2024 04/13/2023, 07/01, 02/12/2018, Additional history exists SDOH Screening 04/17/2024 04/17/2023 Diabetes: Hemoglobin A1C 06/21/2024 025, 02/19/2023, 12/05/2020, Additional history exists Depression Monitoring (PHQ-9) 09/27/2024 03/30/2024, 03/30/2024 Diabetes: Urine Protein Screening 02/28/2025 02/29/2024, 12/05/2020 Lipid Panel 02/28/2025 02/29/2024, 12/05/2020 Depression Screening 03/30/2025 03/30/2024, 03/30/19 25 Tobacco Screening 05/02/2025 05/02/2024 Eye Exam 11/09/2025 11/10/2023, 10/31, 11/10/2023, Additional history exists Zoster Vaccines (1 of 2) 2026 DTaP/Tdap/Td Vaccines (2 - Td or Tdap) 12/18/2027 12/17/2017 Cervical Cancer Screening 07/14/2028 HPV/Cotest 07/14/2028 01/16/2017 Pap Smear 07/14/2028 07/15/2023 RSV Patients and Patients Aged 60 years or older (1 - 1-dose 75+ series) 11/17/2051 Hepatitis B Vaccines Completed 11/25/2017, 12/16/2016, 11/05/2016 Influenza Vaccine Completed 01/12/2024, , 11/25/2017, Additional history exists HIB Vaccines Aged Out No longer eligi ble based on patient's age to complete this topic HPV Vaccines Aged Out No longer eligi ble based on patient's age to complete this topic Hepatitis A Vaccines Aged Out No long er eligible based on patient's age to complete this topic IPV Vaccines Aged Out No longer eligi ble based on patient's age to complete this topic Meningococcal Vaccine Aged Out No mitchell fransisco eligible based on patient's age to complete this topic RSV under 20 months Aged Out No longe r eligible based on patient's age to complete this topic Rotavirus Vaccines Aged Out No longer eligible based on patient's age to complete this topic Procedures Procedure Name Priority Date/Time Associated Diagnosis Comments CASE PRESENTATION, DETAILED AND EXTENSIVE TREATMENT PLANNING Routine 05/02/2024 3:30 PM EST 30 ENDODONTIC THERAPY, MOLAR TOOTH Routine 05/02/2024 3:30 PM EST 30 ENDO - CLEAN AND SHAPE Routine 04/04/2024 2:30 PM EST POCT RIKKI-14 URINE DRUG SCREEN Routine 03/29/2024 2:12 PM EST Cervical stenosis of spinal canal Fibromyalgia CASE PRESENTATION, DETAILED AND EXTENSIVE TREATMENT PLANNING Routine 03/25/2024 1:00 PM EST INTRAORAL - PERIAPICAL EACH ADDITIONAL RADIOGRAPHIC IMAGE Routine 03/25/2024 1:00 PM EST INTRAORAL - PERIAPICAL FIRST RADIOGRAPHIC IMAGE Routine 03/25/2024 1:00 PM EST PALLIATIVE (EMERGENCY) TREATMENT OF DENTAL PAIN - MINOR PROCEDURE Routine 03/25/2024 1:00 PM EST POCT GLYCATED HEMOGLOBIN, TOTAL Routine 03/23/2024 11:36 AM EST Type 2 diabetes mellitus with hyperglycemia, without long-term current use of insulin ([facility]/HCC) POCT GLUCOSE Routine 03/23/2024 10:40 AM EST Type 2 diabetes mellitus with hyperglycemia, without long-term current use of insulin ([facility]) LIPID PANEL, STANDARD Routine 02/29/2024 11:14 AM EST Type 2 diabetes mellitus with hyperglycemia, without long-term current use of insulin (CMS/HCC) TSH W/REFLEX TO FT4 Routine 02/29/2024 1 1:14 AM EST Polyarthralgia RHEUMATOID FACTOR Routine 02/29/2024 11: 14 AM EST Malar rash ALBUMIN, RANDOM URINE W/CREATININE Routine 02/29/2024 11:14 AM EST Malar rash CBC WITH AUTO DIFFERENTIAL Routine 02/29/2024 11:14 AM EST Malar rash COMPLEMENT COMPONENT C4C Routine 02/29/2024 11:14 AM EST Malar rash SM AND SM/FOAM TANK LAMINATOR ANTIBODIES Routine 02/29/2024 11:14 AM EST Malar rash DNA (DS) ANTIBODY Routine 02/29/2024 11: 14 AM EST Malar rash ARIN SCREEN, IFA, W/REFL TITER AND PATTERN Routine 02/29/2024 11:14 AM EST Malar rash PAP SMEAR Routine 07/15/2023 12:11 PM EDT BI MAMMOGRAM SCREENING TOMOSYNTHESIS BILATERAL Routine 04/13/2023 12:45 PM EST PANORAMIC RADIOGRAPHIC IMAGE Routine 07/13/2020 12:00 AM EDT PERIODIC ORAL EVALUATION - ESTABLISHED PATIENT Routine 07/13/2020 12:00 AM EDT BITEWINGS - 4 RADIOGRAPHIC IMAGES Routine 04/22/2019 12:00 AM EST PROPHYLAXIS - ADULT Routine 10/16/2017 1 2:00 AM EDT ZZZ HISTORICAL HPV E6/E7 RFLX TRACIE 16 18/45 Routine 01/16/2017 12:20 PM EST from Last 3 Months or Most Recently Relevant to Health Maintenance Results * POCT RIKKI-14 Urine Drug Screen (03/29/2024 2:12 PM EST) TCA, Urine Positive Oxycodone Screen, Urine Positive Urine Urine specimen obtained by clean catch procedure / Unknown 03/29/2024 2:12 PM EST Jacqueline Bahena RN - 03/29/2024 2:12 PM EST UTOX cup Lot#[id number] Exp. 11/24/25 Internal Pass Control Palmira NAGEL POINT OF CARE TEST ENTER/EDIT ORDERABLES Final Result * (ABNORMAL) POCT HGB A1C (03/23/2024 11:36 AM EST) [facility] Hemoglobin A1C 10.4(A) 4.0 - 6.0 % QC Media Lot # [id number] Lot# Expiration Date Blood 03/23/2024 11:3 6 AM EST Saima Colbert MD POINT OF CARE TEST EN TER/EDIT ORDERABLES Final Result * (ABNORMAL) POCT Glucose (03/23/2024 10:40 AM EST) [facility] Glucose Blood, POC 289(A) 60 - 200 mg/dL QC Media Lot # [id number] Lot# Expiration Date Blood Capillary blood specimen / Unknown 03/23/2024 10:40 AM EST Result [facility] Saima Colbert MD POINT OF CARE TEST EN TER/EDIT ORDERABLES Final Result * Sm and Sm/FOAM TANK LAMINATOR Antibodies (02/29/2024 11:14 AM EST) [facility] SM Antibody <1.0 NEG <1.0 NEG [facility] SM/FOAM TANK LAMINATOR Antibody <1.0 NEG <1.0 NEG [facility] Comment:THIS TEST WAS PERFOR MED AT:[facility] [address] [id number] MONTANEZ MD 02/29/2024 11:1 4 AM EST 02/29/2024 1:06 PM EST Magda GUZMÁN LAB BLOOD ORDERABLES Final Resul t [facility] [address] [place] [phone] * TSH W/Reflex to FT4 (02/29/2024 11:14 AM EST) TSH reflex Free T4 2.18 0.32 - 4.0 uIU/mL [facility] LABS Blood Venous blood specimen / Unknown 02/29/2024 11:14 AM EST 02/29/2024 1:06 PM EST Magda Ortiz ANP LAB BLOOD ORDERABLES Final Resul t Performing Organization Address [facility] de Phone Number [facility] [address] [place] [phone] * Albumin, Random Urine W/Creatinine (02/29/2024 11:14 AM EST) Pathologist [facility] Creatinine, Urine 125.12 mg/dL [facility] Microalbumin Urine 6.0 mg/L [facility] Microalbum Creatinine Ratio Ur 4.7 <30 ug/mg cr [facility] Comment:Albumin/Creatinine R atio Reference Ranges: Normal: < 30 ug/mg creatinine Microalbuminuria: 30 - 300 ug/mg creatinineClinical Albuminuria: > 300 ug/mg creatinine Urine (Urine, Random) 02/29/2024 11:14 AM EST 02/29/2024 1:18 PM EST Magda Ortiz [facility] LAB URINE ORDERABLES Final Resul t Performing Organization Address [facility] de Phone Number [facility] [address] [place] [address] [phone] * (ABNORMAL) CBC auto differential (02/29/2024 11:14 AM EST) Pathologist [facility] White Blood Count 6.9 4.8 - 10.8 X10*3/uL [facility] Red Blood Count 4.86 4.20 - 5.50 X10*6/uL [facility] Hemoglobin 14.7 12.0 - 16.0 g/dl [facility] Hematocrit 42.1 37.0 - 47.0 % [facility] Mean Corpuscular Volume 86.6 80.0 - 98.0 fL [facility] Mean Corpuscular Hemoglobin 30.2 27.0 - 33.0 pg [facility] Mean Corpuscular HGB Conc 34.9 31.0 - 35.0 g/dl [facility] Red Cell Distribution Width 11.9 11.0 - 16.0 % [facility] Platelet Count 268 160 - 400 X10*3/uL [facility] Mean Platelet Volume 11.4 9.4 - 12.3 fL [facility] Neutrophils Percent Auto 60.2 45 - 73 % [facility] Imm Gran Pct Auto 0.6(H) 0.0 - 0.4 % [facility] Lymphocytes Percent Auto 29.9 20 - 40 % [facility] Monocytes Percent Auto 7.3 2 - 11 % [facility] Eosinophils Percent Auto 1.6 0 - 4 % [facility] Basophils Percent Auto 0.4 0 - 2 % [facility] NRBC Pct Auto 0.0 0.0 - 0.2 /100WBC [facility] Neutrophils Absolute Auto 4.1 2.0 - 8.3 x10*3/uL [facility] Imm Gran Abs Auto 0.04(H) 0.00 - 0.03 X10*3/uL [facility] Lymphocytes Absolute Auto 2.1 1.2 - 4.9 X10*3/uL [facility] Monocytes Absolute Auto 0.5 0.1 - 1.2 X10*3/uL [facility] Eosinophils Absolute Auto 0.1 0.0 - 0.4 X10*3/uL [facility] Basophils Absolute Auto 0.0 0.0 - 0.2 X10*3/uL [facility] NRBC Abs Auto 0.000 0.0 - 0.012 X10*3/uL [facility] Blood Venous blood specimen / Unknown 02/29/2024 11:14 AM EST 02/29/2024 1:06 PM EST Magda Ortiz [facility] LAB BLOOD ORDERABLES Final Resul t [facility] [address] [place] [phone] * DNA (ds) Antibody (02/29/2024 11:14 AM EST) Anti DNA DS Antibody <1 IU/mL [facility] Comment:IU/mL Interpretation < or = 4 Negative 5-9 Indeterminate > or = 10 PositiveTHIS TEST WAS PERFORMED AT:[facility] [address] [phone] MONTANEZ MD Blood Venous blood specimen / Unknown 02/29/2024 11:14 AM EST 02/29/2024 1:06 PM EST us Magda Ortiz ANP LAB BLOOD ORDERABLES Final Resul t Performing Organization Address [facility]/ZIP Co de Phone Number [facility] [address] [place] [phone] * Rheumatoid Factor (02/29/2024 11:14 AM EST) Pathologist [facility] Rheumatoid Factor <13.0 <15.0 IU/mL [facility] Blood Venous blood specimen / Unknown 02/29/2024 11:14 AM EST 02/29/2024 1:06 PM EST us Magda Ortiz ANP LAB BLOOD ORDERABLES Final Resul t Performing Organization Address City/[facility]/ZIP Co de Phone Number [facility] [address] [place] [phone] * Complement Component C4c (02/29/2024 11:14 AM EST) Pathologist [facility] Complement C4 34 15 - 57 mg/dL [facility] Comment:THIS TEST WAS PERFOR MED AT:[facility] [address] [phone] MONTANEZ MD Blood Venous blood specimen / Unknown 02/29/2024 11:14 AM EST 02/29/2024 1:06 PM EST us Magda Ortiz ANP LAB BLOOD ORDERABLES Final Resul t Performing Organization Address [facility]/ZIP Co de Phone Number [facility] [address] [place] [phone] * ARIN Screen,IFA, with Reflex to Titer and Pattern (02/29/2024 11:14 AM EST) Anti Nuclear Antibody Screen NEGATIVE NEGATIVE [facility] Comment:ARIN IFA is a first l ine screen for detecting thepresence of up to approximately 150 autoantibodies invarious autoimmune diseases. A negative ARIN IFA resultsuggests an ARIN-associated autoimmune disease is notpresent at this time, but is not definitive. If thereis high clinical suspicion for Sjogren's syndrome,testing for anti-SS-A/Ro antibody should be considered.Anti-Becky-1 antibody should be considered for clinicallysuspected inflammatory myopathies.AC-0: NegativeInternational Consensus on ARIN Patterns(https://doi.org/10.1515/frao-5358-3918)For additional information, please refer tohttp://education.[employer]/faq/TCZ152(This link is being provided for informational/educational purposes only.)THIS TEST WAS PERFORMED AT:[facility] [place] [phone] MONTANEZ MD ARIN Titer [facility] ARIN Pattern [facility] ARIN TITER 2 (REF LAB) [facility] ARIN Pattern 2 [facility] ARIN TITER 3 [facility] ARIN PATTERN 3 [facility] Blood Venous blood specimen / Unknown 02/29/2024 11:14 AM EST 02/29/2024 1:06 PM EST Magda Ortiz ANP LAB BLOOD ORDERABLES Final Resul t Performing Organization Address [facility]/ZIP Co de Phone Number [facility] [address] [place] [phone] * (ABNORMAL) Lipid Panel, Standard (02/29/2024 11:14 AM EST) Triglycerides 243(H) <150 mg/dL [facility] Comment:Desirable Triglyceri de: less than 150 mg/dLBorderline High Triglyceride 150-199 mg/dLHigh Triglyceride: 200-499 mg/dLVery High Triglyceride: greater than or equal to 5OO mg/dL Cholesterol 195 <200 mg/dL [facility] Comment:Desirable Cholestero l: less than 200 mg/dLBorderline High Cholesterol: 200-239 mg/dLHigh Cholesterol: greater than 239 mg/dL LDL Cholesterol Calculated 88 <100 mg/dL [facility] Comment:Desirable LDL: less than 100 mg/dLNear Optimal/Above Optimal LDL: 110- 129 mg/dLBorderline High LDL: 130-159 mg/dLHigh LDL: 160-189 mg/dLVery High LDL: greater than or equal to 190 mg/dL HDL Cholesterol 59 >40 mg/dL [facility] Comment:Desirable HDL: great er than 40 mg/dL Note: This HDL assay may give artificially low results in patients with liver disease. Blood Venous blood specimen / Unknown 02/29/2024 11:14 AM EST 02/29/2024 1:06 PM EST Magda Ortiz [facility] LAB BLOOD ORDERABLES Final Resul t [facility] [address] [place] [phone] * Pap Smear (07/15/2023 12:11 PM EDT) 07/15/2023 12:1 1 PM EDT 07/16/2023 10:15 AM EDT Narrative [facility] - 08/03/2023 11:58 AM EDT ----- ------- Name: Vazquez Anderson ?Age/Sex: 47/F ? : 1975 Unit#: [id number] ?? Attend Dr: Rebecca Bales CNM ?Re07/15/23 ?Status: DEP REF ? Location: HO.LAB ?Disch: ? ----- ------- SPEC : [id number] ? RECD: 07/16/23-1015 ? STATUS: ??SOUT ? REQ NUM: [id number] ? ELINA: 07/15/23-1211 ? SUBM DR: Rebecca Bales CNM ? ENTERED: ??07/16/23-7 ?SP TYPE: Pap Smr ?OTHR DR: Saima Rae MD ? ORDERED: ??Pap Smear ? Interpretation ?? Satisfactory for evaluation. ?? Negative for intraepithelial lesion or malignancy. ? HPV mRNA E6/E7: ?NOT DETECTED ? This assay detects E6/E7 viral messenger RNA (mRNA) from 14 high-risk HPV types (16, 18, ?? 31, 33, 35, 39, 45, 51, 52, 56, 58, 59, 66, 68) ? HPV testing performed by [facility], [place], [place]. ??See reference laboratory ?? portion of the EMR for entire report. ?Clinical Information LMP:06/24/23 Previous PAP test:2019 WNL ? Material Received ?? ThinPrep-Vaginal/Cervical Copies To: ?? Saima Rae MD ?? [address] [facility] ?? [place] [address] ?? [phone] ?? Rebecca Bales CNM ?? [address] [place] [address] [facility] ?? [place] [address] ?? [phone] ----- ------- Signed (signature on file) Griselda Miranda Vic 08/03/23 1158 ? ----- ------- ? END OF REPORT ? us Generic External Data Provider LAB CYTOLOGY SHARMILA ZAMBRANO Final Result [facility] [address] [place] [phone] * BI Mammogram Screening Tomosynthesis Bilateral (04/13/2023 12:45 PM EST) Anatomical Region Laterality Modality Breast Bilateral Mammography 04/13/2023 12:4 5 PM EST Narrative 04/30/2023 9:21 PM EST ? [facility] ? [address] ?[place] [address] ? Mammography Report ? Signed ? Patient: Jose Luis Will,Aidelisse ?MR ?? #: [id number] ? : 1975 ?Acct:[id number] ? Age/Sex: 47 / F ?ADM Date: 04/13/23 ? Loc: HO.MAMMO ? Attending Dr: Saima Colbert MD ? Ordering Physician: Saima Rae MD ?Results: 0Incomplete: Needs Additional Imaging ?? Evaluation ? Date of Service: 04/13/23 ?Follow Up: Additional Imagi ?? ng ? Procedure(s): MM tomosynthesis screening BI ?? Accession Number(s): [id number] ? cc: Saima Rae MD ? EXAMINATION: ?? MM SCREENING DIGITAL BREAST TOMOSYNTHESIS, BILATERAL ? CLINICAL INFORMATION: ? Screening. Asymptomatic. ? COMPARISON: ?? Mammography: This study is compared with prior exams dating back to ?? 2017. ? TECHNIQUE: ?? Digital breast tomosynthesis is performed in both the craniocaudal and ?? mediolateral oblique views along with computer-aided detection (CAD). ?? Synthesized 2D images are generated from the tomosynthesis. ? FINDINGS: ?? There are scattered areas of fibroglandular density (ACR BI-RADS breast ?? composition Category b). ? There is an asymmetry in the superior aspect of the left breast at a ?? middle depth. Additional mammographic and targeted sonographic ?? evaluation of this finding is advised. ? In the right breast, there are no significant masses, abnormal ?? calcifications, or other abnormalities. ? MM/MM tomosynthesis screening BI ?? IMPRESSION: ?? Asymmetry of the left breast warrants additional mammographic and ?? targeted sonographic imaging. ?? No mammographic signs of malignancy right breast. ? ASSESSMENT: ? BI-RADS BI-RADS 0 - Incomplete: Needs additional Imaging. ? RECOMMENDATION: ?? 1. Additional views of the left breast ?? 2. Targeted ultrasound if warranted after review of the additional ?? views. ?? 3. Radiology department staff will contact the patient for additional ?? imaging. ? Additional Imaging required ? This examination should not preclude the clinical evaluation of a ?? suspicious palpable abnormality. ? This patient's information was entered into a reminder system with a ?? target due date for their next mammogram. ? Dictated By: ?Candice Ty MD ? Signed By: ?<Electronically signed by Candice Ty MD in OV> ? 04/30/232116 ? DD/ 44 ? TD/TT: ? Marine Service Manager: ? Procedure Note Donotuseinterpreter, Image - 04/30/2023 [facility] [address] [place], [place] [address] Mammography Report Signed Patient: Cristhian AndersoneMR #: [id number] : 1975Acct:[id number] Age/Sex: 47 / FADM Date: 04/13/23 Loc: HO.MAMMO Attending Dr: Saima Colbert MD Ordering Physician: Saima Rae MD Results: 0Incomplete: Needs Additional Imaging Evaluation Date of Service: 04/13/23Follow Up: Additional Imagi ng Procedure(s): MM tomosynthesis screening BI Accession Number(s): [id number] cc: Saima Rae MD EXAMINATION: MM SCREENING DIGITAL BREAST TOMOSYNTHESIS, BILATERAL CLINICAL INFORMATION: Screening. Asymptomatic. COMPARISON: Mammography: This study is compared with prior exams dating back to 2018. TECHNIQUE: Digital breast tomosynthesis is performed in both the craniocaudal and mediolateral oblique views along with computer-aided detection (CAD). Synthesized 2D images are generated from the tomosynthesis. FINDINGS: There are scattered areas of fibroglandular density (ACR BI-RADS breast composition Category b). There is an asymmetry in the superior aspect of the left breast at a middle depth. Additional mammographic and targeted sonographic evaluation of this finding is advised. In the right breast, there are no significant masses, abnormal calcifications, or other abnormalities. MM/MM tomosynthesis screening BI IMPRESSION: Asymmetry of the left breast warrants additional mammographic and targeted sonographic imaging. No mammographic signs of malignancy right breast. ASSESSMENT: BI-RADS BI-RADS 0 - Incomplete: Needs additional Imaging. RECOMMENDATION: 1. Additional views of the left breast 2. Targeted ultrasound if warranted after review of the additional views. 3. Radiology department staff will contact the patient for additional imaging. Additional Imaging required This examination should not preclude the clinical evaluation of a suspicious palpable abnormality. This patient's information was entered into a reminder system with a target due date for their next mammogram. Dictated By: Candice Ty MD Signed By: <Electronically signed by Candice Ty MD in OV> 04/30/232116 DD/ 1245 TD/TT: Marine Service Manager: us Saima Colbert MD IMG BI PROCEDURES Fin al Result * HPV E6/E7 RFLX TRACIE 16 18/45 (01/16/2017 12:20 PM EST) HPV mRNA E6/E7 Not Detected NOT DETECTED [facility] Comment: This test was performed using the APTIMA(R) HPV Assay ([employer] This assay detects E6/E7 viral messenger RNA (mRNA) from 14 high-risk HPV types (16,18,31,33,35,39,45,51, 52,56,58,59,66,68). For additional information please refer to: http://education.[employer]/faq/NBU168s7 (This link is being provided for informational/ educational purposes only.) Please note: ??Effective 11/12/2015, HPV testing will be performed using [employer]'s APTIMA test which targets mRNA. Detecting mRNA instead of DNA, as in older methods, offers significant improvements in specificity. ADDITIONAL TESTING Not indicated () [facility] Comment: Test Performed by [facility], [facility], [address] [place] [address] J Carlos Macedo M.D., Ph.D., Director of Laboratories , [facility] [id number] HPV 16 RNA Test not performed [facility] HPV 18/45 RNA Test not performed [facility] 01/16/2017 12:2 0 PM EST us Nicola White MD HISTORICAL/NON ORDERA BLE LABS Final Result [facility] [address] from Last 3 Months or Most Recently Relevant to Health Maintenance Insurance HSN PARTIAL [facility] D[facility] MEDICAID STAND ADULT Care Teams Starch Factory Laborer Relationship Specialty Start Date End Date Saima Rae MD [address] [place] [phone] PCP - General Family Medicine 08/26/18
--- OUTSIDE RECORDS SUMMARY | 2024-05-05 19:46 | XMS_ITS | Encounter Summary ---
Author Organization [employer] Address [address] [facility] [address] [place] [address] Care Team Providers Care Clinical Business Manager Name Role Phone Saima Rae MD Primary Care Provide r Reason for Visit * Reason Onset Date Comments Nurse Triage 02/02/2024 Encounter Details Date Type Department Care Team ([facility] st Contact Info) Description 02/02/2024 Telephone [facility] [address] [place], [place] [phone] Saima Rae MD [address] [place] [address] Nurse Triage Social History Tobacco Use Types Packs/Day Years [...] encounter Miscellaneous Notes * Telephone Encounter - Sena St RN - 02/02/2024 12:39 PM EST TC placed to pt [phone] in regards to below message. Pt was in the clinic on the red team for a visit with TRACING LATHE SET UP OPERATOR. RN went to TRACING LATHE SET UP OPERATOR room and spoke to patient in person. Patient is requesting an urgent appointment with Dr. Maicol ARZOLA. Patient reports she used to live in [place] and tested positive forlupus >10 years ago. Patient reports she moved here and was tested for lupus and it was negative. Patient does not believe results are accurate. Patient reports she saw [facility] rheumatology and was informed she has fibromyalgia. Patient feels something more is going on. Patient reports all over body pain which she takes pain medication for however she does NOT want to live on pain medication. Patient reports the medication Rx'd by [facility] rheumatology she does not like because if she skips a dose she hears ringing in her ear. Patient reports she informed [facility] rheumatology of concern with medication and believes they will change it at her next appointment. Patient reports she sees [facility] rheumatology once a year. Patient reports she has changed her diet and her job and nothing is helping her. Patient also reporting a rash that comes and goes on her face. Patient also has c/o numbness in her hands and bilateral legs until her toes. Patient feels this is an emergency and is requesting to speak to PCP ONLY. Patient reports she has 3 kids and wants to live to see her kids grow up. Patient reports I know something is wrong with me . RN advised patient she can be seen in the walk in center as PCP does not currently have any openings however patient REFUSED. Patient reports she is aware howdoctor offices work and we are supposed to have emergency appointments ' available and patient is requesting one. RN advised again, PCP does not have any appointments available and patient can call daily to check for cancellations or go to [facility]. Patient continues to REFUSE any solution besides talking to PCP directly. RN advised patient, RN would send message to PCP for PCP to review and advise when able. Patient verbalized understanding and inquired on RN's name, patient provided with this writers name. Please advise. * Telephone Encounter - Jamila Armas RN - 02/02/2024 12:00 PM EST Triage call Pt reports many problems and concerns, and is requesting an emergency apt today from PCP, Dr. Milian. Pt declines to go to [facility] to be seen and is requesting apt only with PCP. Advised will send this request to team nurses for Dr. Milian to see if there is any availability. Pt agrees with this plan. Protocol Used: Information Only Call - No Triage (Adult) Protocol-Based Disposition: See in Office or Video Visit within 2 Weeks Positive Triage Question: * Requesting regular office appointment and adult stable (no new symptoms, not getting worse) * All higher-acuity triage questions were negative Care Advice Discussed: * Reasons To Call Back - New symptoms develop - You have more questions - You become worse * Telephone Encounter - Olaf Murrell - 02/02/2024 11:38 AM EST Symptoms: Menstrual Periods Absent or Missed, Chills, Fall Outcome: Transfer to a nurse or provider NOW! Reason: Trouble walking that started after the fall The caller accepted this outcome. Contact pt at [phone] (Telugu) documented in this encounter Plan of Treatment Upcoming Encounters Date Type Department Care Team (Late st Contact Info) Description 05/11/2024 2:00 PM EDT Office Visit [facility] [address] [place] [address] Saima Rae MD [address] [place] [address] 05/24/2024 11:00 AM EDT Office Visit [facility] [address] [place] [address] documented as of this encounter Visit Diagnoses Not on filedocumented in this encounter Additional Health Concerns Assessment Noted Time PHQ-9 Depression Total Score: 15 023 3:30 PM EST documented as of this encounter Care Teams Clinical Business Manager Relationship Specialty Start Date End Date Saima Rae MD [address] [place] [phone] PCP - General Family Medicine 08/26/18 documented as of this encounter
--- OUTSIDE RECORDS SUMMARY | 2024-05-05 19:46 | XMS_ITS | Encounter Summary ---
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 ([facility]) Social History Tobacco Use Types Packs/Day Years [...] Description 05/11/2024 2:00 PM EDT Office Visit [facility] [address] [place] [phone] Saima Rae MD [address] [place] [phone] 05/24/2024 11:00 AM EDT Office Visit [facility] [address] [place] [phone] documented as of this encounter Visit Diagnoses Diagnosis Type 2 diabetes mellitus without complication, unspecified whether longterm insulin use ([facility]) documented in this encounter Additional Health Concerns Assessment Noted Time PHQ-9 Depression Total Score: 15 023 3:30 PM EST documented as of this encounter Care Teams Veneer Taper Relationship Specialty Start Date End Date Saima Rae MD [address] [place] [phone] PCP - General Family Medicine 08/26/18 documented as of this encounter
--- OUTSIDE RECORDS SUMMARY | 2024-05-05 19:46 | XMS_ITS | Encounter Summary ---
Author Organization [employer] Address [address] [facility] 7t [place] [address] Care Team Providers Care Team Sports Sales Associate Name Role Phone Saima Rae MD Primary Care Provide r Reason for Visit * Reason Onset Date Comments Nurse Triage 01/05/2024 Encounter Details Date Type Department Care Team ([facility] st Contact Info) Description 01/05/2024 Telephone [facility] MEDICINE [address] [place], [place] [phone] Saima Rae MD 230 [place] [address] Nurse Triage Social History Tobacco Use Types [...] encounter Miscellaneous Notes * Telephone Encounter - Jamila Armas RN - 01/05/2024 10:05 AM EST Triage call Pt reports continued pain in both knees and low back due to injury at work 12/22/23. Pthas been on workMayvenn comp since that time. Pt reports is required to return to work tomorrow but, feels is not able to due to the pain in knees. Pt did have refill of percocet 12/30/23 which was a 10day supply. Pt is requesting to see PCP today or tomorrow but, no available apts at this time. Nextavailable apt with PCP Dr. Milian isn't till 01/25/24. Pt is advised to come to [facility] to be seen byprovider and to request written note for extension of leave from work. Pt agrees with this advice, home care already implemented. Pt agrees with disposition and will come to [facility] which is open till 8pm today. Insurance is verified as active. Protocol Used: Knee Pain (Adult) Protocol-Based Disposition: See in Office or Video Visit within 3 Days Video visit not offered Positive Triage Questions: * Moderate pain (e.g., symptoms interfere with work or school, limping) and present > 3 days * Patient wants to be seen * All higher-acuity triage questions were negative Care Advice Discussed: * Reassurance and Education - Knee Pain * Pain Medicines * Pain Medicines - Extra Notes and Warnings * Using Heat for Pain * Reasons To Call Back - Moderate pain (interferes with normal activities, limping) lasts over 3 days - Mild pain lasts over 7 days - Signs of infection occur (spreading redness, warmth, fever) - You become worse * Telephone Encounter - Rachel Kaufman - 01/05/2024 9:13 AM EST Symptom: Knee Pain and back pain due to a fall last week- Not From Injury Outcome: Schedule an appointment to be seen within 24 hours Reason: Caller denied all higher acuity questions The caller accepted this outcome. documented in this encounter Plan of Treatment Upcoming Encounters Date Type Department Care Team (Late st Contact Info) Description 05/11/2024 2:00 PM EDT Office Visit [address] [address] Saima Rae MD [address] [place] [address] 05/24/2024 11:00 AM EDT Office Visit [address] [address] documented as of this encounter Visit Diagnoses Not on filedocumented in this encounter Additional Health Concerns Assessment Noted Time PHQ-9 Depression Total Score: 15 023 3:30 PM EST documented as of this encounter Care Teams Team Sports Sales Associate Relationship Specialty Start Date End Date Saima Rae MD [address] [place] [phone] PCP - General Family Medicine 08/26/18 documented as of this encounter
--- OUTSIDE RECORDS SUMMARY | 2024-05-05 19:46 | XMS_ITS | Encounter Summary ---
Author Organization [employer] Address [address] [facility] [address] 7t [place] [address] Care Team Providers Care Jumbo Operator Name Role Phone Saima Rae MD Primary Care Provide r Encounter Details Date Type Department Care Team ([facility] st Contact Info) Description 02/02/2024 Orders Only [facility] MEDICINE 230 [place], [place] [phone] Saima Rae MD 230 [place], [place] [phone] Social History Tobacco Use Types Packs/Day Years [...] Description 05/11/2024 2:00 PM EDT Office Visit [facility] MEDICINE [address] [place] [address] Saima Rae MD [address] [place] [address] 05/24/2024 11:00 AM EDT Office Visit [address] [address] documented as of this encounter Visit Diagnoses Not on filedocumented in this encounter Additional Health Concerns Assessment Noted Time PHQ-9 Depression Total Score: 15 023 3:30 PM EST documented as of this encounter Care Teams Jumbo Operator Relationship Specialty Start Date End Date Saima Rae MD [address] [place] [address] PCP - General Family Medicine 08/26/18 documented as of this encounter
--- OUTSIDE RECORDS SUMMARY | 2024-05-05 19:46 | XMS_ITS | Encounter Summary ---
Author Organization [employer] Address [address] [facility] 7t [place] [address] Care Team Providers Care Behavior Support Specialist Name Role Phone Saima Rae MD Primary Care Provide r Reason for Visit * Reason Onset Date Comments Results 01/12/2024 Encounter Details Date Type Department Care Team ([facility] Contact Info) Description 01/12/2024 Telephone [facility] MEDICINE 230 [place], [place] [phone] Saima Rae MD 230 [place] [address] Results Social History Tobacco Use Types Packs/Day Years [...] encounter Miscellaneous Notes * Telephone Encounter - Rachel Kaufman - 01/12/2024 10:08 AM EST TC from pt requesting call back regarding Results. Type of results: Xray Date when done: 01/07/24 Facility: [facility] documented in this encounter Plan of Treatment Upcoming Encounters Date Type Department Care Team (Late st Contact Info) Description 05/11/2024 2:00 PM EDT Office Visit [facility] MEDICINE [address] [place] [address] Saima Rae MD [address] [place] [address] 05/24/2024 11:00 AM EDT Office Visit [facility] MED[facility]INE [address] [place] [address] documented as of this encounter Visit Diagnoses Not on filedocumented in this encounter Additional Health Concerns Assessment Noted Time PHQ-9 Depression Total Score: 15 023 3:30 PM EST documented as of this encounter Care Teams Behavior Support Specialist Relationship Specialty Start Date End Date Saima Rae MD [address] [place] [address] PCP - General Family Medicine 08/26/18 documented as of this encounter
--- OUTSIDE RECORDS SUMMARY | 2024-05-05 19:46 | XMS_ITS | Encounter Summary ---
Author Organization [employer] [facility] Address [address] [facility] 7t [place] [address] Care Team Providers Care Roving Hauler Name Role Phone Saima Rae MD Primary Care Provide r Reason for Visit * Reason Comments Med Refill Encounter Details Date Type Department Care Team (Late st Contact Info) Description 12/16/2022 Refill [facility] MEDICINE [address] [place] [address] [phone] Marcia Valdes MD [address] [place] [address] [phone] Fibromyalgia Social History Tobacco Use Types Packs/Day [...] Description 05/11/2024 2:00 PM EDT Office Visit [facility] MEDICINE [address] [place] [address] [phone] Saima Rae MD 230 [place], [place] [phone] 05/24/2024 11:00 AM EDT Office Visit [facility] MEDICINE [address] [place] [address] [phone] documented as of this encounter Visit Diagnoses Diagnosis Fibromyalgia Unspecified myalgia and myositis documented in this encounter Care Teams Roving Hauler Relationship Specialty Start Date End Date Saima Rae MD [address] [place] [address] PCP - General Family Medicine 08/26/18 documented as of this encounter
--- OUTSIDE RECORDS SUMMARY | 2024-05-05 19:46 | XMS_ITS | Encounter Summary ---
Author Organization [employer] Address [address] [facility] 7t [place] [address] Care Team Providers Care Tanning Salon Attendant Name Role Phone Saima Rae MD Primary Care Provide r Reason for Visit * Reason Onset Date Comments Nurse Triage 12/24/2023 Encounter Details Date Type Department Care Team ([facility] st Contact Info) Description 12/24/2023 Telephone [facility] MEDICINE 230 [place], [place] [phone] Saima Rae MD 230 [place] [address] Nurse Triage Social History Tobacco Use Types [...] encounter Miscellaneous Notes * Telephone Encounter - Gricelda Rodriguez RN - 12/24/2023 12:48 PM EDT Called pt. She states she fell at work 2 days ago 12/22/23 and has a workman's comp case opened from day of injury. Pt. Did go to the work connection at [facility] on 12/23/23. Pt has scrape and swelling onher right knee which she was given a medication for . The medication pt. Was put on is Prednisone for swelling on right knee. Pt. Is going back to work connection on 12/28/23 for follow up. Pt. States she does have pain on her back and on bilateral knees. Pt is going to be bringing in FMLA paperwork tomorrow 12/25/23. Pt. Is looking for continuous leave starting 12/23/23 since she worked on the when she had her accident at work and is not sure until her follow as to end date yet. Pt. Also wants intermittent leave section filled as she may miss work occasionally due to her injury. Pt. Requesting phone call to begin the paperwork process but will know better details about return date to work from the continuous leave section after her follow up on 12/28/23. Pt. Wants PCP to know about her injury but, I let her know that we have a forms specialist that will be calling and I will forward this message to forms specialist as well. Pt. States understanding. * Telephone Encounter - Bharat Davis - 12/24/2023 12:43 PM EDT Symptom: Knee Injury Outcome: Schedule an urgent appointment (within 4 hours) or talk to a nurse or provider soon Reason: Happened within the past 24 hours The caller accepted this outcome. documented in this encounter Plan of Treatment Upcoming Encounters Date Type Department Care Team (Late st Contact Info) Description 05/11/2024 2:00 PM EDT Office Visit [facility] MEDICINE [address] [place] [address] Saima Rae MD [address] [place] [address] 05/24/2024 11:00 AM EDT Office Visit [facility] MEDICINE [address] [place] [address] documented as of this encounter Visit Diagnoses Not on filedocumented in this encounter Additional Health Concerns Assessment Noted Time PHQ-9 Depression Total Score: 15 023 3:30 PM EST documented as of this encounter Care Teams Tanning Salon Attendant Relationship Specialty Start Date End Date Saima Rae MD [address] [place] [phone] PCP - General Family Medicine 08/26/18 documented as of this encounter
== END 2024-05-05 17:58 | disposition home or self-care (01) ==
LOC: HO.MRI 17:57
PROVIDERS: PCP Internal Medicine; Visit Provider Internal Medicine
DX: M54.2 Cervicalgia (principal); M54.42 Lumbago with sciatica, left side; M54.41 Lumbago with sciatica, right side; G89.29 Other chronic pain
CPT/HCPCS: 72141; 72148

== ENCOUNTER 2024-07-19 07:58 | Outpatient (REF) | payer MEDICAID, SELFPAY ==
--- NOTE | 2024-07-19 08:01 | EMG_ITS ---
Bilateral median and ulnar motor and sensory studies were performed. Bilateral radial sensory studies were performed. Bilateral median and lateral antecubital brachial sensory studies were performed and paraspinal muscles were tested with a needle. IMPRESSION: 1. 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 2. Mild bilateral ulnar neuropathy across cubital tunnel. MD MARTHA Zarco/[place] / [id number]
--- OUTSIDE RECORDS SUMMARY | 2024-07-19 08:02 | XMS_ITS | Encounter Summary ---
Author Organization [employer] Address 75 [facility] 7t [place] [address] Care Team Providers Care Transportation Project Manager Name Role Phone Saima Rae MD Primary Care Provide r Reason for Visit * Reason Onset Date Comments Med Refill 09/15/2023 Encounter Details Date Type Department Care Team ([facility] st Contact Info) Description 09/15/2023 Telephone [facility] MEDICINE 230 [place], [place] [phone] Saima Rae MD 230 [place] [address] Med Refill Social History Tobacco Use Types [...] 5 % patch To be sent to: [facility]/pharmacy #[id number] - [id number] documented in this encounter Plan of Treatment Upcoming Encounters Date Type Department Care Team (Late st Contact Info) Description 07/26/2024 11:00 AM EDT Office Visit [facility] MEDICINE [address] [place] [address] 07/26/2024 3:00 PM EDT Medication Management [facility] [address] [place] [address] Pastor Zhou, PharmD [address] [place] [address] 10/13/2024 2:30 PM EDT Office Visit [facility] MED[facility]INE [address] [place] [address] Saima Rae MD 230 [place] [address] documented as of this encounter Visit Diagnoses Not on filedocumented in this encounter Additional Health Concerns Assessment Noted Time PHQ-9 Depression Total Score: 15 023 3:30 PM EST documented as of this encounter Care Teams Transportation Project Manager Relationship Specialty Start Date End Date Saima Rae MD 230 [place] [address] PCP - General Family Medicine 08/26/18 documented as of this encounter
--- OUTSIDE RECORDS SUMMARY | 2024-07-19 08:02 | XMS_ITS | Encounter Summary ---
Author Organization [employer] Address [address] [facility] 7t [place] [address] Care Team Providers Care Inside Tester Name Role Phone Saima Rae MD Primary Care Provide r Reason for Visit * Reason Comments Med Refill Encounter Details Date Type Department Care Team ([facility] st Contact Info) Description 06/27/2024 Refill [facility] MEDICINE 230 [place], [place] [phone] Saima Rae MD 230 [place], [place] [phone] Fibromyalgia Social History Tobacco Use Types Packs/Day Years Used Date Smoking Tobacco: Former Cigarettes 0.5 0.4 S tarted: 2024 Passive Smoke Exposure: Past [...] with others, in a hotel, in a jail, living outside on the street, on a [...] Description 07/26/2024 11:00 AM EDT Office Visit [address] [address] 07/26/2024 3:00 PM EDT Medication Management [address] [address] Pastor Zhou, PharmD [address] [place] [address] 10/13/2024 2:30 PM EDT Office Visit [address] [address] Saima Rae MD [address] [place] [address] documented as of this encounter Visit Diagnoses Diagnosis Fibromyalgia Unspecified myalgia and myositis documented in this encounter Additional Health Concerns Assessment Noted Time PHQ-9 Depression Total Score: 17 025 1:24 PM EST documented as of this encounter Care Teams Inside Tester Relationship Specialty Start Date End Date Saima Rae MD 230 [place] [address] PCP - General Family Medicine 08/26/18 documented as of this encounter
--- OUTSIDE RECORDS SUMMARY | 2024-07-19 08:02 | XMS_ITS | Encounter Summary ---
Author Organization [employer] Address [address] [facility] 7t [place] [address] Care Team Providers Care Noodle Press Operator Name Role Phone Saima Rae MD Primary Care Provide r Reason for Visit * Reason Onset Date Comments BPI scoring, [facility] 04/07/2023 Encounter Details Date Type Department Care Team (Late st Contact Info) Description 04/07/2023 Refill [facility] MEDICINE 230 [place], [place] [phone] Patricia Haas DO 230 [place] [address] Social History Tobacco Use Types Packs/Day Years [...] - 04/16/2023 1:51 PM EST Pt had WEEKEND RECEPTIONIST RV today BPI updated today. Pain severity [...] Description 07/26/2024 11:00 AM EDT Office Visit [facility] MEDICINE [address] [place] [address] 07/26/2024 3:00 PM EDT Medication Management [facility] MEDICINE [address] [place] [address] Pastor Zhou, PharmD [address] [place] [address] 10/13/2024 2:30 PM EDT Office Visit [address] [address] Saima Rae MD 230 [place] [address] documented as of this encounter Visit Diagnoses Not on filedocumented in this encounter Additional Health Concerns Assessment Noted Time PHQ-9 Depression Total Score: 15 02/19/ 023 3:30 PM EST documented as of this encounter Care Teams Noodle Press Operator Relationship Specialty Start Date End Date Saima Rae MD 230 [place] [address] PCP - General Family Medicine 08/26/18 documented as of this encounter
--- OUTSIDE RECORDS SUMMARY | 2024-07-19 08:02 | XMS_ITS | Encounter Summary ---
Author Organization [employer] Address 75 [facility] 7t [place] [address] Care Team Providers Care Housecleaner Floor Name Role Phone Saima Rae MD Primary Care Provide r Reason for Visit * Reason Comments Med Refill Encounter Details Date Type Department Care Team (Late st Contact Info) Description 02/14/2023 Refill [facility] MEDICINE [address] [place] [place] [address] Ania Balderas MD 230 [place] [address] Muscle spasm Social History Tobacco Use Types [...] Description 07/26/2024 11:00 AM EDT Office Visit [facility] MEDICINE [address] [place] [place] [address] 07/26/2024 3:00 PM EDT Medication Management [facility] MEDICINE [address] [place] [place] [address] Pastor Zhou, PharmD 230 [place] [address] 10/13/2024 2:30 PM EDT Office Visit [facility] MEDICINE [address] [place] [address] Saima Rae MD 230 [place] [address] documented as of this encounter Visit Diagnoses Diagnosis Muscle spasm Spasm of muscle documented in this encounter Care Teams Housecleaner Floor Relationship Specialty Start Date End Date Saima Rae MD [address] [place] [address] PCP - General Family Medicine 08/26/18 documented as of this encounter
--- OUTSIDE RECORDS SUMMARY | 2024-07-19 08:02 | XMS_ITS | Clinical Summary ---
Author Organization [address] [facility] Address [address] [place] [address] Phone Care Team Providers Care Paint Pourer Name Role Phone Saima Rae MD Primary Care Provide r Encounters Date Type Department Care Team Description 06/23/2024 Telephone [facility] [address] [facility] [address] [place] [address] Rosina Ho [place] Appointment (New Referral scanned into Epic. ) from Last 3 Months Social History Tobacco Use Types Packs/Day Years Used Date Smoking Tobacco: Never Assessed Comments Unknown Sex and Gender Information Value Date Recorded Sex Assigned at Not on file Legal Sex Female 10:23 AM EDT Gender Identity Not on file Sexual Orientation Not on file Plan of Treatment Health Maintenance Due Date Last Done Comments Breast Cancer Screening 1976 Diabetes: Annual GFR (Glomer ular Filtration Rate) 1976 Diabetes: Annual Foot Exam 1986 Diabetes: Annual Retina Eye Exam 1986 DTaP,Tdap,and Td Vaccines (1 - Tdap) 11/17/1995 Hepatitis B Vaccines (1 of 3 - 19+ 3-dose series) 11/17/1995 Pneumococcal Vaccine: Pediat rics (0 to 5 Years) and At-Risk Patients (6 to 64 Years) (1 of 2 - PCV) 11/17/1995 Cervical Cancer Screening: P ap Smear 1997 COVID-19 Vaccine (2023-2 5 season) 2023 Cholesterol Screening (Lipid Panel) 05/23/2024 Colorectal Cancer Screening: Colonoscopy 05/23/2024 Depression Screening 05/23/2024 HIV Screening 05/23/2024 Hepatitis C Screening 05/23/2024 Social Influencers of Health Screening 05/23/2024 Diabetes: Annual Urine Albumin-Creatinine Ratio (uACR) 07/18/2024 Diabetes: Blood Sugar Contro l Test (HGBA1C) 07/18/2024 Influenza Vaccine (Season Ended) 2024 HIB Vaccines Aged Out No longer eligi [...] on patient's age to complete this topic MMR Vaccines Aged Out No longer eligi ble based on patient's age to complete this topic Meningococcal ACWY Vaccine Aged Out N o longer eligible based on patient's age to complete this topic Meningococcal B Vaccine Aged Out No l onger eligible based on patient's age to complete this topic RSV Immunization Patients Un erin 20 months Aged Out No longer eligible b ased on patient's age to complete this topic Varicella Vaccines Aged Out No longer eligible based on patient's age to complete this topic Insurance [facility] [employer] MEDICAID - [place] Care Teams Paint Pourer Relationship Specialty Start Date End Date Saima Rae MD [address] [place] [phone] PCP - General Internal Medicine 05/23/24
--- OUTSIDE RECORDS SUMMARY | 2024-07-19 08:02 | XMS_ITS | Encounter Summary ---
Author Organization [employer] Address 75 [facility] 7 [place] [address] Care Team Providers Care Director Hedis Name Role Phone Saima Rae MD Primary Care Provide r Reason for Visit * Reason Onset Date Comments Error (VOID this visit) 07/15/2024 Encounter Details Date Type Department Care Team ([facility] st Contact Info) Description 07/15/2024 Telephone [facility] MEDICINE [address] [place] [address] Saima Rae MD [address] [place] [address] Error (VOID this visit) Social History Tobacco Use Types Packs/Day Years Used Date Smoking Tobacco: Every Day Cigarettes 0.5 0.4 Started: 2024 Passive Smoke Exposure: Past Smokeless Tobacco: Current Alcohol Use Standard Drinks/Week Comments Never 0 (1 standard drink = 0.6 oz pur e alcohol) Alcohol Answer Date Recorded Frequency of Alcohol Consumption Not on file 02/19/2023 Average Number of Drinks Not on file 023 Frequency of Binge Drinking Not on file 01/31 Score 0 02/19/2023 Depression Answer Date Recorded Patient Health Questionnaire-9 Score 22 07/12/2024 Patient Health Questionnaire-9 Score 22 07/12/2024 Last PHQ-9: Questionnaire Data Not on file 0 07/12/2024 Housing Stability Answer Date Recorded What is your housing situation today? I do not have housing (Staying with others, in a hotel, in a long-term, living outside on the street, on a beach, in a car, or in a park 07/07/[address] you li ve. Do you have problems with any of the following? Pests such as bugs, ants, or mice 07/07/2024 Food Insecurity Answer Date Recorded Within the [...] from getting things needed for daily living? Yes, it has kept me from non-medical meetings, work, or getting things that I need 07/07/2024 Utilities Answer Date Recorded In the past 12 months, has t he electric, gas, oil or water company threatened to shut off services in your home? Yes 07/07/2024 Depression Answer Date Recorded Patient Health Questionnaire-2 Score 6 07/12/2024 Internet Access Answer Date Recorded Internet Access Q1 No 07/07/2024 Internet Access Q2 Not on file 07/07/2024 Comments No Sex and Gender Information Value Date Recorded Sex Assigned at Female 12/30/2021 10:32 AM EDT Legal Sex Female 10:32 AM EDT Gender Identity Female 12/30/2021 10:32 AM EDT Sexual Orientation Straight 12/30/2021 10 :32 AM EDT documented as of this encounter Plan of Treatment Upcoming Encounters Date Type Department Care Team (Late st Contact Info) Description 07/26/2024 11:00 AM EDT Office Visit [facility] [address] [place] [address] 07/26/2024 3:00 PM EDT Medication Management [facility] [address] [place] [address] Pasotr Zhou, PharmD [address] [place] [address] 10/13/2024 2:30 PM EDT Office Visit [address] [address] Saima Rae MD [address] [place] [address] documented as of this encounter Visit Diagnoses Not on filedocumented in this encounter Additional Health Concerns Assessment Noted Time PHQ-9 Depression Total Score: 22 07/12/ 025 2:33 PM EDT documented as of this encounter Care Teams Director Hedis Relationship Specialty Start Date End Date Saima Rae MD [address] [place] [address] PCP - General Family Medicine 08/26/18 documented as of this encounter
--- OUTSIDE RECORDS SUMMARY | 2024-07-19 08:02 | XMS_ITS | Encounter Summary ---
Author Organization [employer] Address 75 [facility] 7 [place] [address] Care Team Providers Care Hot Roll Inspector Name Role Phone Saima Rae MD Primary Care Provide r Reason for Visit * Reason Onset Date Comments Med Refill 03/25/2024 Encounter Details Date Type Department Care Team (Late st Contact Info) Description 03/25/2024 Refill [facility] MEDICINE 230 [place] [address] Saima Rae MD 230 [place] [address] Fibromyalgia Social History Tobacco Use Types Packs/Day [...] with others, in a hotel, in a mcc, living outside on the street, on a [...] MG DR capsule To be sent to: [facility] - [place], [place] - [address] documented in this encounter Plan of Treatment Upcoming Encounters Date Type Department Care Team (Late st Contact Info) Description 07/26/2024 11:00 AM EDT Office Visit [facility] MEDICINE [address] [place] [address] 07/26/2024 3:00 PM EDT Medication Management [address] [address] Pastor Zhou, PharmD [address] [place] [address] 10/13/2024 2:30 PM EDT Office Visit [address] [address] Saima Rae MD [address] [place] [address] documented as of this encounter Visit Diagnoses Diagnosis Fibromyalgia Unspecified myalgia and myositis documented in this encounter Additional Health Concerns Assessment Noted Time PHQ-9 Depression Total Score: 19 024 2:18 PM EST documented as of this encounter Care Teams Hot Roll Inspector Relationship Specialty Start Date End Date Saima Rae MD [address] [place] [phone] PCP - General Family Medicine 08/26/18 documented as of this encounter
--- OUTSIDE RECORDS SUMMARY | 2024-07-19 08:02 | XMS_ITS | Encounter Summary ---
Author Organization [employer] Address 75 [facility] 7t [place] [address] Care Team Providers Care Rougher Machine Operator Name Role Phone Saima Rae MD Primary Care Provide r Reason for Visit * Reason Comments Med Refill Encounter Details Date Type Department Care Team ([facility] st Contact Info) Description 11/29/2023 Refill [facility] MEDICINE 230 [place], [place] [phone] Saima Rae MD 230 [place], [place] [phone] Muscle spasm Social History Tobacco Use Types [...] Description 07/26/2024 11:00 AM EDT Office Visit [address] [address] 07/26/2024 3:00 PM EDT Medication Management [address] [address] Pastor Zhou, PharmD [address] [place] [address] 10/13/2024 2:30 PM EDT Office Visit [address] [address] Saima Rae MD [address] [place] [address] documented as of this encounter Visit Diagnoses Diagnosis Muscle spasm Spasm of muscle documented in this encounter Additional Health Concerns Assessment Noted Time PHQ-9 Depression Total Score: 15 023 3:30 PM EST documented as of this encounter Care Teams Rougher Machine Operator Relationship Specialty Start Date End Date Saima Rae MD [address] [place] [address] PCP - General Family Medicine 08/26/18 documented as of this encounter
--- OUTSIDE RECORDS SUMMARY | 2024-07-19 08:02 | XMS_ITS | Encounter Summary ---
Author Organization [employer] Address 75 [facility] 7t [place] [address] Care Team Providers Care Optics Engineer Name Role Phone Saima Rae MD Primary Care Provide r Reason for Visit * Reason Comments Med Refill Encounter Details Date Type Department Care Team ([facility] st Contact Info) Description 03/25/[address] [facility] MEDICINE [address] [place], [place] [phone] Bhavna Martinez MD 230 [place] [address] Fibromyalgia Social History Tobacco Use Types Packs/Day [...] with others, in a hotel, in a assisted, living outside on the street, on a [...] Description 07/26/2024 11:00 AM EDT Office Visit [address] [address] 07/26/2024 3:00 PM EDT Medication Management [address] [address] Pastor Zhou, PharmD [address] [place] [address] 10/13/2024 2:30 PM EDT Office Visit [address] [address] Saima Rae MD [address] [place] [address] documented as of this encounter Visit Diagnoses Diagnosis Fibromyalgia Unspecified myalgia and myositis documented in this encounter Additional Health Concerns Assessment Noted Time PHQ-9 Depression Total Score: 19 024 2:18 PM EST documented as of this encounter Care Teams Optics Engineer Relationship Specialty Start Date End Date Saima Rae MD 230 [place] [address] PCP - General Family Medicine 08/26/18 documented as of this encounter
--- OUTSIDE RECORDS SUMMARY | 2024-07-19 08:02 | XMS_ITS | Encounter Summary ---
Author Organization [employer] Address 75 [facility] 7t [place] [address] Care Team Providers Care Emergency Dispatcher Name Role Phone Saima Rae MD Primary Care Provide r Reason for Visit * Reason Onset Date Comments returning 03/13/2022 Encounter Details Date Type Department Care Team (Late st Contact Info) Description 03/13/2022 Telephone [facility] MEDICINE [address] [place] [address] Saima Rae MD [address] [place] [phone] returning Social History Tobacco Use Types Packs/Day [...] being at work Please contact pt at [phone] documented in this encounter Plan of Treatment Upcoming Encounters Date Type Department Care Team (Late Contact Info) Description 07/26/2024 11:00 AM EDT Office Visit [address] [address] 07/26/2024 3:00 PM EDT Medication Management [address] [address] Pastor Zhou, PharmD [address] [place] [address] 10/13/2024 2:30 PM EDT Office Visit [address] [address] Saima Rae MD [address] [place] [address] documented as of this encounter Visit Diagnoses Not on filedocumented in this encounter Care Teams Emergency Dispatcher Relationship Specialty Start Date End Date Saima Rae MD [address] [place] [address] [phone] PCP - General Family Medicine 08/26/18 documented as of this encounter
--- OUTSIDE RECORDS SUMMARY | 2024-07-19 08:02 | XMS_ITS | Encounter Summary ---
Author Organization [employer] Address 75 [facility] 7t [place] [address] Care Team Providers Care Rolled Gold Plater Name Role Phone Saima Rae MD Primary Care Provide r Reason for Visit * Reason Onset Date Comments Med Refill 10/22/2023 Encounter Details Date Type Department Care Team ([facility] st Contact Info) Description 10/22/2023 Telephone [facility] MEDICINE 230 [place], [place] [phone] Saima Rae MD [address] [place] [address] Med Refill Social History Tobacco Use Types [...] tablet Please o be sent to: [facility][id number] - [place] [address] documented in this encounter Plan of Treatment Upcoming Encounters Date Type Department Care Team (Late st Contact Info) Description 07/26/2024 11:00 AM EDT Office Visit [facility] MEDICINE [address] [place] [address] [phone] 07/26/2024 3:00 PM EDT Medication Management [facility] [address] [place] [address] [phone] Pastor Zhou, PharmD [address] [place], [place] [phone] 10/13/2024 2:30 PM EDT Office Visit [facility] MEDICINE [address] [place], [place] [phone] Saima Rae MD [address] [place], [place] [phone] documented as of this encounter Visit Diagnoses Not on filedocumented in this encounter Additional Health Concerns Assessment Noted Time PHQ-9 Depression Total Score: 15 023 3:30 PM EST documented as of this encounter Care Teams Rolled Gold Plater Relationship Specialty Start Date End Date Saima Rae MD [address] [place] [address] [phone] PCP - General Family Medicine 08/26/18 documented as of this encounter
--- OUTSIDE RECORDS SUMMARY | 2024-07-19 08:02 | XMS_ITS | Encounter Summary ---
Author Organization [employer] Address 75 [facility] 7 [place] [address] Care Team Providers Care Smash Hand Name Role Phone Saima Rae MD Primary Care Provide r Reason for Visit * Reason Onset Date Comments CGJacquie LEON 07/12/2024 Encounter Details Date Type Department Care Team (Late st Contact Info) Description 07/12/2024 Refill [facility] MEDICINE 230 [place], [place] [phone] Saima Rae MD 230 [place] [address] Type 2 diabetes mellitus with hyperglycemia, without long-term current use of insulin ([facility]) Social History Tobacco Use Types Packs/Day Years [...] with others, in a hotel, in a prison, living outside on the street, on a [...] AM EDT documented as of this encounter Functional Status * Over the past 2 weeks, how often have you been bothered by any of the following problems? Question Answer Date of Assessment Author Patient Health Questionnaire-2 Score 6 07/12/2024 2:33 PM EDT Yanelis Mcconnell MA * Little interest or pleasure in doing things Answer Date of Assessment Author Nearly every day 07/12/2024 2:33 PM EDT Yanelis Ponce MA * Feeling down, depressed, or hopeless Answer Date of Assessment Author Nearly every day 07/12/2024 2:33 PM EDT Yanelis Ponce MA * Trouble falling or staying asleep, or sleeping too much Answer Date of Assessment Author Nearly every day 07/12/2024 2:33 PM EDT Yanelis Ponce MA * Feeling tired or having little energy Answer Date of Assessment Author Nearly every day 07/12/2024 2:33 PM EDT Yanelis Ponce MA * Poor appetite or overeating Answer Date of Assessment Author More than half the days 07/12/2024 2:33 PM EDT Yanelis Navarrete MA * Feeling bad about yourself - or that you are a failure or have let yourself or your family down Answer Date of Assessment Author Nearly every day 07/12/2024 2:33 PM EDT Yanelis Ponce MA * Trouble concentrating on things, such as reading the newspaper or watching television Answer Date of Assessment Author Nearly every day 07/12/2024 2:33 PM EDT Yanelis Ponce MA * Moving or speaking so slowly that other people could have noticed? Or the opposite - being so fidgety or restless that you have been moving around a lot more than usual. Answer Date of Assessment Author More than half the days 07/12/2024 2:33 PM EDT Yanelis Navarrete MA * Thoughts that you would be better off or hurting yourself in some way Answer Date of Assessment Author Not at all 07/12/2024 2:33 PM ANSLEYT Yanelis Finnegan MA * Patient Health Questionnaire-9 Score Answer Date of Assessment Author 07/12/2024 2:33 PM EDT Yanelis Finnegan MA * Over the last 2 weeks, how often have you been bothered by any of the following problems? Question Answer Date of Assessment Author Feeling nervous, anxious, or on edge 3 07/12/2024 2:34 PM EDT Yanelis Mcconnell MA Not being able to stop or control worrying 3 07/12/2024 2:34 PM EDT Yanelis Mcconnell MA Worrying too much about different things 3 07/12/2024 2:34 PM EDT Yanelis Mcconnell MA Being so restless that it is hard to sit still 2 07/12/2024 2:34 PM EDT Yanelis Mcconnell MA Becoming easily annoyed or irritable 3 07/12/2024 2:34 PM EDT Yanelis Mcconnell MA Feeling afraid as if something awful might happen 2 07/12/2024 2:34 PM EDT Yanelis Ponce MA documented as of this encounter Miscellaneous Notes * Addendum Note - Basil St RN - 07/15/2024 4:29 PM EDTAddended by: BASIL ST on: 07/15/2024 04:29 PM Modules accepted: Orders * Telephone Encounter - Basil St RN - 07/15/2024 4:16 PM EDT PA for CGM was denied d/t patient not being on insulin. TC placed to patient [phone] to informpatient the CGM PA was denied d/t patient not being on insulin. Patient verbalized understanding and is requesting a regular glucometer to check BS. Patient is interested in starting insulin in orderto have CGM improved. Patient has an appointment with Pastor on 07/28 for HISTORICAL ARCHEOLOGIST DM and was advised to discuss interest to start insulin at appointment. Patient verbalized understanding. Patient to f/u PRN. * Telephone Encounter - Basil St RN - 07/12/2024 11:42 AM EDT Continuous Glucose Monitor Prior Authorization Documentation: CGM PA initiated for: [employer] D[employer] 3 reader, sensors and kathie test strips Insurance: [employer] PA form completed and faxed to [phone]. Patient's preferred pharmacy: [facility] - [place], [place] - [address] [facility] [address] [facility] [phone] [id number] [place] - [address] [place] [address] CGM PA should be approved by: 07/19/2024 Vazquez Will will be scheduled with red team nurses for CGM placement/teaching once Ryanne approved. Pharmacy team aware of PA initiation and visit date for placement. documented in this encounter Plan of Treatment Upcoming Encounters Date Type Department Care Team (Late st Contact Info) Description 07/26/2024 11:00 AM EDT Office Visit [address] [address] 07/26/2024 3:00 PM EDT Medication Management [address] [address] Pastor Zhou, PharmD [address] [place] [address] 10/13/2024 2:30 PM EDT Office Visit [address] [address] Saima Rae MD [address] [place] [address] documented as of this encounter Visit Diagnoses Diagnosis Type 2 diabetes mellitus with hyperglycemia, without long-term current use of insulin ([facility]) documented in this encounter Additional Health Concerns Assessment Noted Time PHQ-9 Depression Total Score: 22 025 2:33 PM EDT documented as of this encounter Care Teams Smash Hand Relationship Specialty Start Date End Date Saima Rae MD [address] [place] [address] PCP - General Family Medicine 08/26/18 documented as of this encounter
--- OUTSIDE RECORDS SUMMARY | 2024-07-19 08:02 | XMS_ITS | Encounter Summary ---
Author Organization [employer] Address [address] [place] [address] 7 [place] [address] Care Team Providers Care Electrical Intern Name Role Phone Saima Rae MD Primary Care Provide r Reason for Visit * Reason Onset Date Comments Appointment Request 03/12/2022 Encounter Details Date Type Department Care Team (Late Contact Info) Description 03/12/2022 Telephone [facility] MEDICINE [address] [place] [address] Saima Rae MD [address] [place] [address] Appointment Request Social History Tobacco Use Types [...] appt 02/19/22 11:30 Please contact pt at [phone] documented in this encounter Plan of Treatment Upcoming Encounters Date Type Department Care Team (Late Contact Info) Description 07/26/2024 11:00 AM EDT Office Visit [facility] MEDICINE [address] [place] [address] 07/26/2024 3:00 PM EDT Medication Management [address] [address] Pastor Zhou, PharmD [address] [place] [address] 10/13/2024 2:30 PM EDT Office Visit [address] [address] Saima Rae MD [address] [place] [address] documented as of this encounter Visit Diagnoses Not on filedocumented in this encounter Care Teams Electrical Intern Relationship Specialty Start Date End Date Saima Rae MD [address] [place] [phone] PCP - General Family Medicine 08/26/18 documented as of this encounter
--- OUTSIDE RECORDS SUMMARY | 2024-07-19 08:02 | XMS_ITS | Encounter Summary ---
Author Organization [employer] Address 75 [facility] 7t [place] [address] Care Team Providers Care Salt Refiner Name Role Phone Saima Rae MD Primary Care Provide r Reason for Visit * Reason Comments Med Refill Encounter Details Date Type Department Care Team ([facility] st Contact Info) Description 08/04/2023 Refill [facility] MEDICINE 230 [place], [place] [phone] Saima Rae MD 230 [place], [place] [phone] Primary insomnia Social History Tobacco Use Types [...] Description 07/26/2024 11:00 AM EDT Office Visit [address] [address] 07/26/2024 3:00 PM EDT Medication Management [address] [address] Pastor Zhou, PharmD [address] [place] [address] 10/13/2024 2:30 PM EDT Office Visit [address] [address] Saima Rae MD [address] [place] [address] documented as of this encounter Visit Diagnoses Diagnosis Primary insomnia Persistent disorder of initiating or maintaining sleep documented in this encounter Additional Health Concerns Assessment Noted Time PHQ-9 Depression Total Score: 15 023 3:30 PM EST documented as of this encounter Care Teams Salt Refiner Relationship Specialty Start Date End Date Saima Rae MD [address] [place] [address] PCP - General Family Medicine 08/26/18 documented as of this encounter
--- OUTSIDE RECORDS SUMMARY | 2024-07-19 08:03 | XMS_ITS | Encounter Summary ---
Author Organization [employer] Address 75 [facility] 7t [place] [address] Care Team Providers Care Linoleum Layer Apprentice Name Role Phone Saima Rae MD Primary Care Provide r Reason for Visit * Reason Onset Date Comments Results 01/12/2024 Encounter Details Date Type Department Care Team ([facility] Contact Info) Description 01/12/2024 Telephone [facility] MEDICINE 230 [place], [place] [phone] Saima Rae MD 230 [place] [address] Results Social History Tobacco Use Types Packs/Day [...] results: Xray Date when done: 01/07/24 Facility: [facility] [place] documented in this encounter Plan of Treatment Upcoming Encounters Date Type Department Care Team (Late st Contact Info) Description 07/26/2024 11:00 AM EDT Office Visit [address] [address] 07/26/2024 3:00 PM EDT Medication Management [address] [address] Pastor Zhou, PharmD [address] [place] [address] 10/13/2024 2:30 PM EDT Office Visit [address] [address] Saima Rae MD [address] [place] [address] documented as of this encounter Visit Diagnoses Not on filedocumented in this encounter Additional Health Concerns Assessment Noted Time PHQ-9 Depression Total Score: 15 02/19/ 023 3:30 PM EST documented as of this encounter Care Teams Linoleum Layer Apprentice Relationship Specialty Start Date End Date Saima Rae MD [address] [place] [address] PCP - General Family Medicine 08/26/18 documented as of this encounter"
--- OUTSIDE RECORDS SUMMARY | 2024-07-19 08:03 | XMS_ITS | Encounter Summary ---
Author Organization [employer] Address 75 [facility] 7t [place] [address] Care Team Providers Care Translator Deaf Name Role Phone Saima Rae MD Primary Care Provide r Reason for Visit * Reason Comments Med Change Request Encounter Details Date Type Department Care Team ([facility] Contact Info) Description 01/20/2024 Refill [facility] MEDICINE 230 [place], [place] [phone] Saima Rae MD 230 [place] [address] Type 2 diabetes mellitus without complication, unspecified whether half-way insulin use ([facility]) Social History Tobacco Use Types Packs/Day [...] Description 07/26/2024 11:00 AM EDT Office Visit [address] [address] 07/26/2024 3:00 PM EDT Medication Management [address] [address] Pastor Zhou, PharmD [address] [place] [address] 10/13/2024 2:30 PM EDT Office Visit [address] [address] Saima Rae MD [address] [place] [address] documented as of this encounter Visit Diagnoses Diagnosis Type 2 diabetes mellitus without complication, unspecified whether extermination supervisor insulin use ([facility]) documented in this encounter Additional Health Concerns Assessment Noted Time PHQ-9 Depression Total Score: 15 023 3:30 PM EST documented as of this encounter Care Teams Translator Deaf Relationship Specialty Start Date End Date Saima Rae MD [address] [place] [address] PCP - General Family Medicine 08/26/18 documented as of this encounter
--- OUTSIDE RECORDS SUMMARY | 2024-07-19 08:03 | XMS_ITS | Encounter Summary ---
Author Organization [employer] Address [address] [facility] [address] [place] [address] Care Team Providers Care Corporate Accountant Name Role Phone Saima Rae MD Primary Care Provide r Reason for Visit * Reason Onset Date Comments Nurse Triage 02/02/2024 Encounter Details Date Type Department Care Team ([facility] st Contact Info) Description 02/02/2024 Telephone [facility] [address] [place], [place] [phone] Saima Rae MD [address] [place] [address] Nurse Triage Social History Tobacco Use Types [...] 12:39 PM EST TC placed to pt [phone] in regards to below message. Pt was in the clinic on the red team for a visit with CERTIFIED ADAPTIVE PHYSICAL EDUCATOR. RN went to CERTIFIED ADAPTIVE PHYSICAL EDUCATOR room and spoke to patient in person. Patient is requesting an urgent appointment with Dr. Maicol ARZOLA. Patient reports she used to live in [place] and tested positive forlupus >10 years ago. Patient reports she moved here and was tested for lupus and it was negative. Patient does not believe results are accurate. Patient reports she saw [facility] and was informed she has fibromyalgia. Patient feels something more is going on. Patient reports all over body pain which she takes pain medication for however she does NOT want to live on pain medication. Patient reports the medication Rx'd by [facility] she does not like because if she skips a dose she hears ringing in her ear. Patient reports she informed [facility] of concern with medication and believes they will change it at her next appointment. Patient reports she sees [facility] once a year. Patient reports she [...] to check for cancellations or go to [facility]. Patient continues to REFUSE any solution besides [...] Dr. Milian. Pt declines to go to [facility] to be seen and is requesting apt [...] caller accepted this outcome. Contact pt at [phone] (Icelandic) documented in this encounter Plan of Treatment Upcoming Encounters Date Type Department Care Team (Late st Contact Info) Description 07/26/2024 11:00 AM EDT Office Visit [address] [address] 07/26/2024 3:00 PM EDT Medication Management [address] [address] Pastor Zhou, PharmD [address] [place] [id number] 10/13/2024 2:30 PM EDT Office Visit [address] [address] Saima Rae MD [address] [place] [phone] documented as of this encounter Visit Diagnoses Not on filedocumented in this encounter Additional Health Concerns Assessment Noted Time PHQ-9 Depression Total Score: 15 023 3:30 PM EST documented as of this encounter Care Teams Corporate Accountant Relationship Specialty Start Date End Date Saima Rae MD [address] [place] [phone] PCP - General Family Medicine 08/26/18 documented as of this encounter
--- OUTSIDE RECORDS SUMMARY | 2024-07-19 08:03 | XMS_ITS | Clinical Summary ---
Author Organization [employer] Address [address] [facility] [address] [place] [address] Care Team Providers Care Manufacturing Engineer Paint Name Role Phone Saima Rae MD Primary [...] reversal. 2 each 2 01/13/20 23 Active Mometasone Furoate (Asmanex HFA) 100 MCG/ACT aerosol INHALE 2 PUFFS BY MOUTH EVERY 12 HOURS 13 g 1 04/07/19 24 Active cholecalciferol VITAMIN D (Vitamin D-3) 50 MCG (1999 UT) capsule TAKE 1 CAPSULE BY MOUTH EVERY MORNING 90 capsule 1 09/15/19 24 Active celecoxib (CeleBREX) 200 MG capsule [...] DAY 100 g 1 01/14/20 24 Active lisinopril 20 MG tabletIndicatio ns:Essential hypertension Take 1 tablet (20 mg) by mouth Once per day. 90 tablet 03/23/19 25 Active atenolol (Tenormin) 25 MG tabletIndicatio ns:Essential hypertension Take 1 tablet (25 mg) by mouth Once per day. 90 tablet 1 03/23/19 25 Active lidocaine (Lidoderm) 5 % patchIndication s:Fibromyalgia APPLY 1 PATCH TOPICALLY IN THE MORNING 30 patch 3 04/19/19 25 Active omeprazole (PriLOSEC) [address] capsule TAKE 1 CAPSULE BY MOUTH EVERY DAY 90 capsule 3 04/19/19 25 Active cyclobenzaprine (Flexeril) 10 MG tabletIndicatio ns:Muscle spasm TAKE 1 TABLET BY MOUTH THREE TIMES DAILY IN THE MORNING, AT NOON, AND AT BEDTIME NEEDED 90 tablet 1 05/27/19 25 Active glipiZIDE (Glucotrol) 5 MG tabletIndicatio ns:Type 2 diabetes mellitus with hyperglycemia, without long-term current use of insulin ([facility]) TAKE 1 TABLET BY MOUTH TWICE DAILY BEFORE BREAKFAST AND BEFORE SUPPER 60 tablet 2 06/16/19 25 Active oxyCODONE-aceta minophen (Percocet) 5-325 MG tabletIndicatio ns:Other chronic pain Take 2 tablets by mouth every 12 (twelve) hours if needed for severe pain for up to 28 days. 112 tablet 07/01/19 25 2024 Active Ventolin HFA 108 (90 Base) MCG/ACT inhalerIndicati ons:Mild intermittent asthma, unspecified whether complicated INHALE 2 PUFFS BY MOUTH EVERY 4 HOURS NEEDED FOR WHEEZING OR SHORTNESS OF BREATH 18 g 1 07/08/19 25 Active Semaglutide, 2 MG/DOSE, (Ozempic, 2 MG/DOSE,) 8 MG/3ML solution pen-injectorInd ications:Type 2 diabetes mellitus with hyperglycemia, without long-term current use of insulin (CMS/HCC) Inject 0.75 mL (2 mg) under the skin 1 (one) time per week. 3 mL 2 07/08/19 Active Continuous Glucose Warehouse Analyst (FreeStyle Dary 3 [place]) deviceIndicatio ns:Type 2 diabetes mellitus with hyperglycemia, without long-term current use of insulin (CMS/HCC) 1 each Once per day. Use as directed for CGM 1 each 07/08/19 Active Continuous Glucose Sensor (FreeStyle Dary 3 Plus Sensor) miscIndications :Type 2 diabetes mellitus with hyperglycemia, without long-term current use of insulin (CMS/HCC) 1 each every 15 days. Apply 1 every 15 days as directed for CGM 2 each 07/08/19 Active glucose blood (FreeStyle Precision Moi Test) test stripIndication s:Type 2 diabetes mellitus with hyperglycemia, without long-term current use of insulin (CMS/HCC) Use to test blood sugar 3 times daily in case of CGM failure or extremes of BG 100 each 07/08/192025 Active empagliflozin (Jardiance) 25 MGIndications:T ype 2 diabetes mellitus with hyperglycemia, without long-term current use of insulin (CMS/HCC) Take 1 tablet (25 mg) by mouth Once per day. 30 tablet 07/13/19 25 2025 Active sertraline (Zoloft) 25 MG tabletIndicatio ns:Mixed anxiety and depressive disorder Take 1 tablet (25 mg) by mouth in the morning. 30 tablet 07/13/19 25 2024 Active traZODone (Desyrel) 150 MG tabletIndicatio ns:Primary insomnia Take 1 tablet (150 mg) by mouth if needed at bedtime for sleep. 30 tablet 1 07/13/19 25 2024 Active Blood Glucose Monitoring Suppl (FreeStyle Lite) w/Device kit 1 each Use as directed. 1 kit 07/16/19 Active FREESTYLE LITE test strip Use to check BS BID as directed 100 each 11 07/16/19 25 2025 Active glucose blood (FREESTYLE LITE) test stripIndication s:Type 2 diabetes mellitus with hyperglycemia, without long-term current use of insulin ([facility]) 1 each by Other route 3 times daily. 100 strip 5 07/16/19 25 Active Lancets 33G misc Use to check BS BID as directed 100 each 07/16/19 25 Active FREESTYLE LITE test stripIndication s:Type 2 diabetes mellitus with hyperglycemia, without long-term current use of insulin ([facility]) CHECK BY FINGERSTICK ROUTE 2 TIMES EVERY DAY 100 strip 5 10/28/19 24 2024 Discontinued(R eorder (will not trigger notification to Pharmacy)) semaglutide (Ozempic) 2 MG/1.5ML solution pen-injectorInd ications:Type 2 diabetes mellitus with hyperglycemia, without long-term current use of insulin ([facility]) Inject 1 mg under the skin 1 (one) time per week. 2 each 3 03/23/19 25 2024 Discontinued empagliflozin (Jardiance) 10 MGIndications:T ype 2 diabetes mellitus with hyperglycemia, without long-term current use of insulin ([facility]) Take 1 tablet (10 mg) by mouth Once per day. 30 tablet 11 03/23/192024 Discontinued albuterol (ProAir HFA) 108 (90 Base) MCG/ACT inhalerIndicati ons:Mild intermittent asthma, unspecified whether complicated Inhale 2 puffs every 4 (four) hours if needed for wheezing or shortness of breath. 18 g 1 03/23/19 25 2024 Discontinued DULoxetine (Cymbalta) [address] capsuleIndicati ons:Fibromyalgi a TOME 1 CAPSULA POR VIA ORAL TODOS LOS FERNANDEZ 30 capsule 3 05/24/19 25 2024 Discontinued(R eorder (will not trigger notification to Pharmacy)) traZODone (Desyrel) 150 MG tabletIndicatio ns:Primary insomnia Take 1 tablet (150 mg) by mouth if needed at bedtime for sleep. 30 tablet 1 05/31/19 25 2024 Discontinued(R eorder (will not trigger notification to Pharmacy)) oxyCODONE-aceta minophen (Percocet) 5-325 MG tabletIndicatio ns:Other chronic pain Take 2 tablets by mouth every 12 (twelve) hours if needed for severe pain for up to 28 days. 112 tablet 06/02/19 25 2024 Discontinued(R eorder (will not trigger notification to Pharmacy)) DULoxetine (Cymbalta) 60 MG capsuleIndicati ons:Fibromyalgi a TOME 1 CAPSULA POR VIA ORAL TODOS LOS FERNANDEZ 30 capsule 3 06/28/19 25 2024 Discontinued Active Problems Problem Noted Date Diagnosed Date Primary insomnia 07/12/2024 Assessment & Plan (07/12/2024 1:12 PM EDT): Continue with trazodone 150 mg at bedtime Encounter for screening mamm ogram for malignant neoplasm of breast 07/07/2024 Neuropathy 07/07/2024 Severe major depression without psychotic featur es 07/06/2024 Assessment & Plan (07/12/2024 1:12 PM EDT): Patient self discontinued duloxetine, she tells me she wishes not to restart it because she felt her body was used to the medication, I advised for her to follow-up with psych. Provider regarding decision of restarting the medication or not and to continue with trazodone 150 mg daily Continue to follow-up with therapist Lumbar radiculopathy 05/11/2024 Assessment & Plan (05/11/2024 4:35 PM EDT): Due to the fact that patient cannot stay on one position for a prolonged time (she cannot sit down for a long or stand up on for a long period of time) it is my opinion patient is not ready to go back to work at this time I advised to apply heat on affected area and take her pain meds as prescribed I advised to follow-up with pain management and I refer her today also to neurosurgery to see if she qualifies for a surgical procedure MRI is in the chart and I also printed a physical copy for her Adjustment disorder with depressed mood 03/28/19 Assessment & Plan (03/30/2024 1:46 PM EST): [...] provide additional support. Bereavement 03/28/2024 Cervicalgia 03/25/2024 Assessment & Plan (07/07/2024 1:51 PM EDT): Continue to follow with neurosurgery, procedure is pending Assessment & Plan (05/11/2024 4:35 PM EDT): Due to the fact that the patient's movements are restrained and she is in a lot of pain, it is my opinion that patient is not ready to go back to work even with accommodations at this time Patient referred back to neurosurgery for evaluation for possible interventions I advised patient also to follow-up with pain management Pain in both knees 01/05/2024 Assessment & [...] fibromyalgia, cervical stenosis of spinal cord Last COUNSELING PSYCHOLOGIST Agreement: 02/02/24 Tier II (COUNSELING PSYCHOLOGIST visits Q3 months - as of Jan 2024) Assessment & Plan (05/25/2024 6:58 AM EDT): Timeline: - 05/24/24: Group - utox/pill count as expected Assessment & Plan (10/27/2023 5:34 PM EDT): -Good engagement and participation with Group Medical Visit model -Encouraged multifactorial approach to pain control including pharm and non- pharm modalities -UTOX and Pill count as expected Cervical stenosis of spinal canal 09/08/2023 Assessment & Plan (05/25/2024 6:57 AM EDT): - Follow up with specialists as scheduled - Good engagement and participation with Group Medical Visit model - Encouraged multifactorial approach to pain control including pharm and non- pharm modalities - UTOX and Pill count as expected Colon cancer screening 02/19/2023 Screening mammogram for [...] due to additional use s/p fall. See veneer taping machine offbearer Assessment & Plan (09/08/2023 5:25 PM EDT): -Good engagement and participation with Group Medical Visit model, today was first visit. -Encouraged multifactorial approach to pain control including pharm and non- pharm modalities -UTOX and Pill count as expected Mixed anxiety and depressive disorder 02/08/2022 Assessment & Plan (07/07/2024 1:56 PM EDT): Patient tells me she discontinue her duloxetine because she ran out of this medications and was feeling terribly, she decided she does not want her body to be used to this medication, reports no changes in her anxiety or depression after this Patient has small dog who is her emotional training engineer, she is today requesting a better for her to keep her dog Moderate persistent asthma without complication 02/08/2022 Snoring 02/08/2022 Sensorineural hearing loss, bilateral 02/12/2018 Carpal tunnel syndrome 11/25/2017 Assessment & Plan (07/07/2024 1:51 PM EDT): I will order her nerve conduction study and EMG so this information will be available for a specialist Gastroesophageal reflux disease without esophagi tis 11/25/2017 Hearing loss 11/25/2017 Mild intermittent asthma 11/25/2017 Assessment & Plan (03/23/2024 3:12 PM EST): Stable continue with albuterol as needed Mood disorder 11/25/2017 Opioid dependence 11/25/2017 Seasonal allergies 11/25/2017 Type 2 diabetes mellitus wit h hyperglycemia, without long-term current use of insulin 11/25/2017 Assessment & Plan (07/12/2024 1:11 PM EDT): Extensive counseling about the diet, and to increase physical activity done today Last appointment I went up on her Ozempic dose but PA is still in progress Today I decided to go up on her Jardiance from 10 mg to 25 mg I advised to follow-up with [facility] pharmacy, continue glucose monitor is also in process for PA Assessment & Plan (07/07/2024 1:55 PM EDT): Diabetes is: not controlled - Lab Results Component Value Date HGBA1C 10.8 (A) 07/07/2024 HGBA1C 10.4 (A) 03/23/2024 HGBA1C 7.6 (A) 02/19/2023 - Lab Results Component Value Date MICROALBUR 6.0 02/29/2024 CREATININE 0.82 05/13/2021 CREATININE 0.82 05/13/2021 -Changes: I went up on ozempic to 2mg, c/w other meds I will refer her to pharmacy [facility] - Diabetic eye exam: Up-to-date - Diabetic foot exam: Referral done today - Continue lifestyle modifications - Continue current medications - Follow up: 3 months Assessment & Plan (05/11/2024 4:32 PM EDT): Patient reports her glucose readings are much better she is taking medications as prescribed and reports adherence to diabetic diet Assessment & Plan (03/23/2024 3:11 PM EST): [...] A1c Essential hypertension 01/16/2017 Assessment & Plan (05/11/2024 4:32 PM EDT): Blood pressure today slightly elevated, she forgot to take her blood pressure medication, I advised for her to take her medications every day without missing any dose and low-sodium diet Assessment & Plan (03/23/2024 3:12 PM EST): [...] organization. Date Type Department Care Team Description 07/15/2024 Telephone [facility] [address] [place] [phone] Saima Rae MD Error (VOID this visit) 07/13/2024 Telephone [facility] [address] [place] [address] Saima Rae MD Medication Question 07/12/2024 11:00 AM EDT Office Visit [address] [address] Saima Rae MD Severe major depression without psychotic features (CMS/HCC) (Primary Dx); Type 2 diabetes mellitus with hyperglycemia, without long-term current use of insulin (CMS/HCC); Primary insomnia 07/12/2024 Refill [facility] [address] [place] [address] Saima Rae MD Type 2 diabetes mellitus with hyperglycemia, without long-term current use of insulin (CMS/HCC) 07/12/2024 Travel 07/11/2024 Telephone [facility] [address] [place] [phone] Saima Rae MD Chart Prep 07/11/2024 Telephone [facility] [address] [place] [phone] Saima Rae MD Chart Prep 07/07/2024 11:15 AM EDT Office Visit [facility] [address] [place] [address] Saima Rae MD Cervicalgia (Primary Dx); Type 2 diabetes mellitus with hyperglycemia, without long-term current use of insulin (CMS/[facility]); Encounter for screening mammogram for malignant neoplasm of breast; Neuropathy; Bilateral carpal tunnel syndrome; Mixed anxiety and depressive disorder 07/07/2024 Travel 07/07/2024 Refill [facility] [address] [place] [phone] Saima Rae MD Mild intermittent asthma, unspecified whether complicated 07/06/2024 Telephone [facility] [address] [place] [phone] Saima Rae MD Chart Prep 07/05/2024 Telephone [facility] [address] [place] [phone] Saima Rae MD Prior Authorization ( PA Request: Naomi) 06/29/2024 Telephone [facility] [address] [place] [phone] Saima Rae MD Care Coordination 06/27/2024 Refill [facility] [address] [place] [address] Saima Rae MD Fibromyalgia 06/27/2024 Population Health Risk Score [facility] ([facility]) Department [address] [place] [phone] Provider, Population Health Generic 06/27/2024 Refill [facility] [address] [place] [address] Saima Rae MD Other chronic pain 06/27/2024 Refill [facility] [address] [facility] [place] [address] Saima Rae MD Fibromyalgia 06/24/2024 Telephone [facility] [address] [facility] [place] [address] Saima Rae MD Referral 06/14/2024 Refill [facility] [address] [facility] [place] [address] Saima Rae MD Type 2 diabetes mellitus with hyperglycemia, without long-term current use of insulin ([facility]) 06/10/2024 Telephone [facility] [address] [facility] [place] [address] Saima Rae MD call back requested 06/01/2024 Refill [facility] [address] [facility] [place] [address] Saima Rae MD Other chronic pain 05/26/2024 Refill [facility] [address] [facility] [place] [address] Saima Rae MD Muscle spasm 05/25/2024 Travel 05/24/2024 11:00 AM EDT Office Visit [facility] [address] [facility] [place] [address] Palmira Alejandro, COMMUNITY DEVELOPMENT COORDINATOR Cervical stenosis of spinal canal (Primary Dx); Lumbar radiculopathy; Long-term current use of opiate analgesic 05/24/2024 Travel 05/21/2024 Refill [facility] [address] [facility] [place] [address] Saima Rae MD Fibromyalgia 05/20/2024 Telephone [facility] [address] [facility] [place] [address] Saima Rae MD Prior Authorization ([facility] PA Request: Lidocaine 5% Patch) 05/18/2024 Refill [facility] [address] [facility] [place] [address] Saima Rae MD Muscle spasm 05/11/2024 2:00 PM EDT Office Visit [address] [phone] Saima Rae MD Lumbar radiculopathy (Primary Dx); Type 2 diabetes mellitus with hyperglycemia, without long-term current use of insulin ([facility]); Cervicalgia; Essential hypertension 05/10/[address] [address] Saima Rae MD Chart Prep 05/06/[address] [address] Saima Rae MD Chart Prep 05/06/[address] [address] Saima Rae MD Other chronic pain 05/04/2024 Patient Outreach [address] [phone] Saima Rae MD Pre-visit Planning ((Unable to reach for PVP screening, LVM)) 05/02/2024 3:30 PM EST Office Visit [facility] [address] [place] [address] Tae Ball, IBRAHIMA Dental caries (Primary Dx) from Last 3 Months Immunizations Immunization Administration Dates Next Due Hep B, adult [...] Tobacco: Current Tobacco Cessation:Ready to Q uit: Not Asked; Counseling Given: Not Answered Alcohol Use Standard [...] with others, in a hotel, in a custodial, living outside on the street, on a [...] t he electric, gas, oil or water [employer] threatened to shut off services in your [...] Sign Reading Time Taken Comments Blood Pressure 126/86 07/12/2024 10:58 AM EDT Pulse 92 07/12/2024 10:58 AM EDT Temperature 36.4 ??C (97.5 ??F) 07/12/2024 10:58 AM E DT Respiratory Rate 20 07/12/2024 10:58 AM EDT Oxygen Saturation 98% 07/12/2024 10:58 AM EDT Inhaled Oxygen Concentration - - Weight 105 kg (232 lb) 07/12/2024 10:58 AM EDT Height 165.1 cm (5' 5 ) 07/12/2024 10:58 AM EDT Body Mass Index 38.61 07/12/2024 10:58 AM EDT Plan of Treatment Upcoming Encounters Date Type Department Care Team (Late st Contact Info) Description 07/26/2024 11:00 AM EDT Office Visit [address] [phone] 07/26/2024 3:00 PM EDT Medication Management [address] [address] Pastor Zhou, PharmD [address] [place] [phone] 10/13/2024 2:30 PM EDT Office Visit [address] [address] Saima Rae MD [address] [place] [phone] Health Maintenance Due Date Last Done Comments CT Colonography 1976 Colonoscopy 1976 Colorectal Cancer Screening 1976 FIT DNA/Cologuard 1976 FIT 1976 FOBT 1975 HIV Screening 1975 Sigmoidoscopy 1976 Diabetes: Foot Exam 1986 Family Planning (PISQ) 11/17/1991 Hepatitis C Screening 1994 Pneumococcal Vaccine: Pediatrics (0 to 5 Years) and At-Risk Patients (6 to 49) Years) (2 of 2 - PCV) 02/16/2018 02/16/2017 Dental Prophylaxis 04/19/2018 10/16/2017 Dental X-Ray: Bitewings 04/23/2020 04/22/2019, 03/09 Dental Oral Exam 01/14/2021 07/13/2020, , 03/09/2017 Dental X-Ray: Full Mouth 07/15/2023 07/13/2020, 09/2017 COVID-19 Vaccine (2023- season) 2023 03/05/2023, 01/03/2022, 01/03/2022, Additional history exists Mammogram 04/13/2024 04/13/2023, 07/01, 02/12/2018, Additional history exists Diabetes: Hemoglobin A1C 10/07/2024 025, 03/23/2024, 02/19/2023, Additional history exists Diabetes: Urine Protein Screening 02/28/2025 02/29/2024, 12/05/2020 Lipid Panel 02/28/2025 02/29/2024, 12/05/2020 Alcohol/Substance Use Screening 07/07/2025 07/07/2024 Disability Screening 07/07/2025 07/07/2024 SDOH Screening 07/07/2025 07/07/2024 Depression Screening 07/12/2025 07/12/2024, 07/13/19 25 Tobacco Screening 07/12/2025 07/12/2024 Eye Exam 11/09/2025 11/10/2023, 10/31, 11/10/2023, Additional [...] Procedure Name Priority Date/Time Associated Diagnosis Comments POCT GLUCOSE Routine 07/12/2024 11:08 AM EDT Type 2 diabetes mellitus with hyperglycemia, without long-term current use of insulin (CMS/HCC) POCT GLYCATED HEMOGLOBIN, TOTAL Routine 07/07/2024 11:40 AM EDT Type 2 diabetes mellitus with hyperglycemia, without long-term current use of insulin (CMS/HCC) POCT GLUCOSE Routine 07/07/2024 11:39 AM EDT Type 2 diabetes mellitus with hyperglycemia, without long-term current use of insulin (CMS/HCC) AMB REFERRAL TO NEUROSURGERY Routine 06/24/2024 Lumbar radiculopathy Cervicalgia POCT RIKKI-14 URINE DRUG SCREEN Routine 05/24/2024 1:51 PM EDT Cervical stenosis of spinal canal Lumbar radiculopathy Long-term current use of opiate analgesic POCT GLUCOSE Routine 05/11/2024 2:27 PM EDT Type 2 diabetes mellitus with hyperglycemia, without long-term current use of insulin (CMS/HCC) MR LUMBAR SPINE WO CONTRAST Routine 05/05/2024 6:34 PM EST Chronic bilateral low back pain with bilateral sciatica MR CERVICAL SPINE WO CONTRAST Routine 05/05/2024 5:45 PM EST Cervicalgia CASE PRESENTATION, DETAILED AND EXTENSIVE TREATMENT PLANNING Routine 05/02/2024 3:30 PM EST 30 ENDODONTIC THERAPY, MOLAR TOOTH Routine 05/02/2024 3:30 PM EST ALBUMIN, RANDOM URINE W/CREATININE Routine 02/29/2024 11:14 AM EST Malar rash LIPID PANEL, STANDARD Routine 02/29/2024 11:14 AM EST Type 2 diabetes mellitus with hyperglycemia, without long-term current use of insulin ([facility]) PAP SMEAR Routine 07/15/2023 12:11 PM EDT [...] Recently Relevant to Health Maintenance Results * (ABNORMAL) POCT Glucose (07/12/2024 11:08 AM EDT) Only the most recent of3 resultswithin the time period is included. Glucose Blood, POC 223(A) 60 - 200 mg/dL QC Media Lot # [id number] Lot# Expiration Date Blood Capillary blood specimen / Unknown 07/12/2024 11:08 AM EDT Saima Colbert MD POINT OF CARE TEST EN TER/EDIT ORDERABLES Final Result * (ABNORMAL) POCT HGB A1C (07/07/2024 11:40 AM EDT) Hemoglobin A1C 10.8(A) 4.0 - 6.0 % QC Media Lot # [id number] Lot# Expiration Date ,234 Blood 07/07/2024 11:4 0 AM EDT Saima Colbert MD POINT OF CARE TEST EN TER/EDIT ORDERABLES Final Result * Referral to Neurosurgery (06/24/2024) Saima Colbert MD OUTPATIENT REFERRAL O RDERABLES Final Result * POCT RIKKI-14 Urine Drug Screen (05/24/2024 1:51 PM EDT) THC Negative Cocaine Screen, Urine Negative Opiate Screen, Urine Negative Methamphetamine Screen Urine Negative Amphetamine Screen, Urine Negative Benzodiazepines Screen, Urine Negative Barbiturate Screen, Urine Negative Methadone Screen, Urine Negative Buprenophine Screen, Urine Negative TCA, Urine Positive MDMA Urine Negative ng/mL Oxycodone Screen, Urine Positive Phencyclidine (PCP), Urine Negative Propoxyphene, Urine Negative Fentanyl, Urine Negative Urine Urine specimen obtained by clean catch procedure / Unknown 05/24/2024 1:51 PM EDT Narrative Aissatou Lassiter MA - 05/24/2024 1:52 PM EDT Lot:[id number] Exp: 10/20/2027 Palmira Alejandro COMMUNITY DEVELOPMENT COORDINATOR POINT OF CARE TEST ENTER/EDIT ORDERABLES Final Result * MR Lumbar Spine w/o Contrast (05/05/2024 6:34 PM EST) Anatomical Region Laterality Modality Spine, L-spine Magnetic Resonan ce 05/05/2024 6:34 PM EST Narrative 05/06/2024 7:16 AM EST ? [facility] ?[address] ?[place] [address] ? Magnetic Resonance Report ? Signed ? Patient: Amaya Suman,Aidelisse ?MR ?? #: [id number] ? : 1975 ?Acct:[id number] ? Age/Sex: 48 / F ?ADM Date: 05/05/24 ? Loc: HO.MRI ? Attending Dr: Saima Colbert MD ? Ordering Physician: Saima Rae MD ?? Date of Service: 05/05/24 ?? Procedure(s): MR lumbar spine wo con ?? Accession Number(s): [id number] ? cc: Saima Rae MD ? EXAMINATION: ?? MR LUMBAR SPINE WITHOUT CONTRAST ? CLINICAL INFORMATION: ?? Worsening low back pain. ? COMPARISON: ?? October 23, 2008 100 ? TECHNIQUE: ?? MRI of the lumbar spine was obtained using routine sequences without ?? contrast. ? FINDINGS: ?? Last rib-bearing vertebra labeled T12. ?? Castellvi type II sacralization labeled S1. ?? No bone marrow STIR signal abnormality. ?? Normal alignment. ? Conus medullaris ends at pedicle of L1 with normal signal. ? T12-L1: ?? No disc herniation. No neuroforamina stenosis. ? L1-2: ?? Broad-based disc bulging. No compression upon neural elements. No ?? neuroforamina stenosis. ? L2-3: ?? Broad-based disc bulging. No central spinal canal or neuroforamina ?? stenosis. ? L3-4: ?? Broad-based disc bulging. Facet joint hypertrophy. Reduced AP diameter ?? of the thecal sac and the right and to a lesser extent left ?? neuroforamina. ? L4-5: ?? Broad-based disc bulging. Facet joint and ligamentum flavum ?? hypertrophy. Reduced AP diameter of the thecal sac and the neural ?? foramina. ? L5-S1: ?? Broad-based disc bulging. Facet joint and ligamentum flavum ?? hypertrophy. Reduced AP diameter of the thecal sac and the neural ?? foramina. ? Sacralized vertebral body. No compression upon neural elements. ? No prevertebral compartment hematoma, mass or fluid collection. ? MR/MR lumbar spine wo con ?? IMPRESSION: ?? Castellvi type II sacralization. ?? Mild to moderate multilevel lumbar spondylosis L3-4 to L5-S1 more ?? conspicuous at L5-S1 likely encroaching the exiting nerve roots. ? Electronically signed by: ??Hiren Tyler MD ??05/06/2024 07:13 AM ?? EST RP ? Dictated By: ?Hiren Graves MD ? Signed By: ?<Electronically signed by Hiren Ho MD in OV> ? 05/06/24712 ? DD/ 1834 ? TD/TT: 05/05/24 1855 ? Diagnostic Medical Sonographer: ? Procedure Note Doncorrineter, Image - 05/06/2024 [place] [address] Magnetic Resonance Report Signed Patient: Malina Anderson #: [id number] : 1975Acct:[id number] Age/Sex: 48 / FADM Date: 05/05/24 Loc: HO.MRI Attending Dr: Saima Colbert MD Ordering Physician: Saima Rae MD Date of Service: 05/05/24 Procedure(s): MR lumbar spine wo con Accession Number(s): [id number] cc: Saima Rae MD EXAMINATION: MR LUMBAR SPINE WITHOUT CONTRAST CLINICAL INFORMATION: Worsening low back pain. COMPARISON: October 23, 2008 100 TECHNIQUE: MRI of the lumbar spine was obtained using routine sequences without contrast. FINDINGS: Last rib-bearing vertebra labeled T12. Castellvi type II sacralization labeled S1. No bone marrow STIR signal abnormality. Normal alignment. Conus medullaris ends at pedicle of L1 with normal signal. T12-L1: No disc herniation. No neuroforamina stenosis. L1-2: Broad-based disc bulging. No compression upon neural elements. No neuroforamina stenosis. L2-3: Broad-based disc bulging. No central spinal canal or neuroforamina stenosis. L3-4: Broad-based disc bulging. Facet joint hypertrophy. Reduced AP diameter of the thecal sac and the right and to a lesser extent left neuroforamina. L4-5: Broad-based disc bulging. Facet joint and ligamentum flavum hypertrophy. Reduced AP diameter of the thecal sac and the neural foramina. L5-S1: Broad-based disc bulging. Facet joint and ligamentum flavum hypertrophy. Reduced AP diameter of the thecal sac and the neural foramina. Sacralized vertebral body. No compression upon neural elements. No prevertebral compartment hematoma, mass or fluid collection. MR/MR lumbar spine wo con IMPRESSION: Castellvi type II sacralization. Mild to moderate multilevel lumbar spondylosis L3-4 to L5-S1 more conspicuous at L5-S1 likely encroaching the exiting nerve roots. Electronically signed by: Hiren Tyler MD 05/06/2024 07:13 AM EST RP Dictated By: Hiren Graves MD Signed By: <Electronically signed by Hiren Ho MDin OV> 05/06/24 0713 DD/ 1834 TD/TT: 05/05/24 1855 Diagnostic Medical Sonographer: us Saima Colbert MD IMG MRI PROCEDURES Fi nal Result * MR Cervical Spine w/o Contrast (05/05/2024 5:45 PM EST) Anatomical Region Laterality Modality Spine, C-spine Magnetic Resonan ce 05/05/2024 5:45 PM EST Narrative 05/06/2024 7:42 AM EST ? [facility] ?[address] ?[place] [address] ? Magnetic Resonance Report ? Signed ? Patient: Amaya Suman,Aidelisse ?MR ?? #: [id number] ? : 1975 ?Acct:[id number] ? Age/Sex: 48 / F ?ADM Date: //25 ? Loc: HO.MRI ? Attending Dr: Saima Colbert MD ? Ordering Physician: Saima Rae MD ?? Date of Service: 05/05/24 ?? Procedure(s): MR cervical spine wo con ?? Accession Number(s): [id number] ? cc: Saima Rae MD ? EXAMINATION: ?? MR CERVICAL SPINE WITHOUT CONTRAST ? CLINICAL INFORMATION: ?? Worsening neck pain ?? . ? COMPARISON: ?? October 23, 2018. ? TECHNIQUE: ?? MRI of the cervical spine was obtained using routine sequences without ?? contrast. ? FINDINGS: ?? Paramagnetic field distortion secondary to intervertebral body disc ?? spacer at C5-6. ?? Craniocervical junction is intact. ?? No bone marrow STIR signal abnormality. ?? Reverse curvature apex at C4-5. ?? Disc desiccation, C3-4, C4-5 and C6-7 levels. ?? The alignment is normal. ?? The cervical spinal cord signal is normal. ? C2-3: ?? No central spinal canal or neuroforamina stenosis. ? C3-4: ?? Broad-based disc osteophyte complex formation abutting the cord. ?? Bilateral neuroforamina narrowing on a degenerative basis. ? C4-5: ?? Broad-based disc osteophyte complex formation resulting in ventral ?? spinal cord deformity without cord signal abnormality. There is a CSF ?? in the dorsal aspect of the thecal sac. ?? Bilateral neuroforamina narrowing on a degenerative basis. ? C5-6: ?? Post surgical changes. Reduced AP diameter of the thecal sac. No cord ?? signal abnormality. Left neuroforamina narrowing on a degenerative ?? basis. ? C6-7: ?? No compression upon neural elements. ? C7-T1: ?? No compression upon neural elements. ? No prevertebral compartment hematoma, mass or fluid collection. ?? Flow-void signal within the main vessels is normal. ?? Right vertebral artery is slightly dominant. ? MR/MR cervical spine wo con ?? IMPRESSION: ?? Multilevel cervical spondylosis C3-4 to C5-6 without cord compression, ?? cord edema and or myelopathy. ? Electronically signed by: ??Hiren Tyler MD ??05/06/2024 07:40 AM ?? EST RP ? Dictated By: ?Hiren Graves MD ? Signed By: ?<Electronically signed by Hiren Ho MD in OV> ? 05/06/24 0740 ? DD/ 1745 ? TD/TT: 05/05/24 1838 ? Diagnostic Medical Sonographer: ? Procedure Note Michell, Image - 05/06/[address] [address] Magnetic Resonance Report Signed Patient: Cristhian AndersoneMR #: [id number] : 1975Acct:[id number] Age/Sex: 48 / FADM Date: 05/05/24 Loc: HO.MRI Attending Dr: Saima Colbert MD Ordering Physician: Saima Rae MD Date of Service: 05/05/24 Procedure(s): MR cervical spine wo con Accession Number(s): [id number] cc: Saima Rae MD EXAMINATION: MR CERVICAL SPINE WITHOUT CONTRAST CLINICAL INFORMATION: Worsening neck pain . COMPARISON: October 23, 2018. TECHNIQUE: MRI of the cervical spine was obtained using routine sequences without contrast. FINDINGS: Paramagnetic field distortion secondary to intervertebral body disc spacer at C5-6. Craniocervical junction is intact. No bone marrow STIR signal abnormality. Reverse curvature apex at C4-5. Disc desiccation, C3-4, C4-5 and C6-7 levels. The alignment is normal. The cervical spinal cord signal is normal. C2-3: No central spinal canal or neuroforamina stenosis. C3-4: Broad-based disc osteophyte complex formation abutting the cord. Bilateral neuroforamina narrowing on a degenerative basis. C4-5: Broad-based disc osteophyte complex formation resulting in ventral spinal cord deformity without cord signal abnormality. There is a CSF in the dorsal aspect of the thecal sac. Bilateral neuroforamina narrowing on a degenerative basis. C5-6: Post surgical changes. Reduced AP diameter of the thecal sac. No cord signal abnormality. Left neuroforamina narrowing on a degenerative basis. C6-7: No compression upon neural elements. C7-T1: No compression upon neural elements. No prevertebral compartment hematoma, mass or fluid collection. Flow-void signal within the main vessels is normal. Right vertebral artery is slightly dominant. MR/MR cervical spine wo con IMPRESSION: Multilevel cervical spondylosis C3-4 to C5-6 without cord compression, cord edema and or myelopathy. Electronically signed by: Hiren Tyler MD 05/06/2024 07:40 AM EST RP Dictated By: Hiren Graves MD Signed By: <Electronically signed by Hiren Ho MDin OV> 05/06/24 0740 DD/ 1745 TD/TT: 05/05/24 1838 Diagnostic Medical Sonographer: us Saima Colbert MD IMG MRI PROCEDURES Fi nal Result * Albumin, Random Urine W/Creatinine (02/29/2024 11:14 AM EST) Creatinine, Urine 125.12 mg/dL [facility] Microalbumin Urine 6.0 mg/L [facility] Microalbum Creatinine Ratio Ur 4.7 <30 ug/mg cr [facility] Comment:Albumin/Creatinine R atio Reference Ranges: Normal: < 30 ug/mg creatinine Microalbuminuria: 30 - 300 ug/mg creatinineClinical Albuminuria: > 300 ug/mg creatinine Urine (Urine, Random) 02/29/2024 11:14 AM EST 02/29/2024 1:18 PM EST us Jn [facility] URINE ORDERABLES Final Resul t Performing Organization Address City/State/[facility] Co de Phone Number [facility] [address] [place] [phone] * (ABNORMAL) Lipid Panel, Standard (02/29/2024 11:14 AM EST) Triglycerides 243(H) <150 mg/dL [facility] Comment:Desirable Triglyceri de: less than 150 mg/dLBorderline High Triglyceride 150-199 mg/dLHigh Triglyceride: 200-499 mg/dLVery High Triglyceride: greater than or equal to 5OO mg/dL Cholesterol 195 <200 mg/dL [facility] Comment:Desirable Cholestero l: less than 200 mg/dLBorderline High Cholesterol: 200-239 mg/dLHigh Cholesterol: greater than 239 mg/dL LDL Cholesterol Calculated 88 <100 mg/dL [facility] Comment:Desirable LDL: less than 100 mg/dLNear Optimal/Above Optimal LDL: 110- 129 mg/dLBorderline High LDL: 130-159 mg/dLHigh LDL: 160-189 mg/dLVery High LDL: greater than or equal to 190 mg/dL HDL Cholesterol 59 >40 mg/dL [facility] Comment:Desirable HDL: great er than 40 mg/dL Note: This HDL assay may give artificially low results in patients with liver disease. Blood Venous blood specimen / Unknown 02/29/2024 11:14 AM EST 02/29/2024 1:06 PM EST us Jn Ortiz [facility] BLOOD ORDERABLES Final Resul t [facility] [address] [place] [phone] * Pap Smear (07/15/2023 12:11 PM EDT) 07/15/2023 12:1 1 PM EDT 07/16/2023 10:15 AM EDT Narrative [facility] - 08/03/2023 11:58 AM EDT ----- ------- Name: Vazquez Anderson ?Age/Sex: 47/F ? : 1975 Unit#: [id number] ?? Attend Dr: Rebecca Bales CNM ?Re07/15/23 ?Status: DEP REF ? Location: .LAB ?Disch: ? ----- ------- SPEC : [id number] ? RECD: 07/16/23-5 ? STATUS: ??SOUT ? REQ NUM: [id number] ? ELINA: 07/15/23-1 ? SUBM DR: Rebecca Bales CNM ? ENTERED: ??07/16/23-7 ?SP TYPE: Pap Smr ?OTHR : Saima Rae MD ? ORDERED: ??Pap Smear ? Interpretation ?? Satisfactory for evaluation. ?? Negative for intraepithelial lesion or malignancy. ? HPV mRNA E6/E7: ?NOT DETECTED ? This assay detects E6/E7 viral messenger RNA (mRNA) from 14 high-risk HPV types (16, 18, ?? 31, 33, 35, 39, 45, 51, 52, 56, 58, 59, 66, 68) ? HPV testing performed by [employer], [place], [place]. ??See reference laboratory ?? portion of the EMR for entire report. ?Clinical Information LMP:06/24/23 Previous PAP test:2019 WNL ? Material Received ?? ThinPrep-Vaginal/Cervical Copies To: ?? Saima aRe MD ?? [address] [facility] ?? [place] [address] ?? [phone] ?? Rebecca Bales CNM ?? [address] [place] [facility] ?? [place] [address] ?? [phone] ----- ------- Signed (signature on file) Griselda Miranda Vic 08/03/23 1158 ? ----- ------- ? END OF REPORT ? us Generic External Data Provider LAB CYTOLOGY SHARMILA ZAMBRANO Final Result [facility] [address] [place] [address] [phone] * BI Mammogram Screening Tomosynthesis Bilateral (04/13/2023 12:45 PM EST) Anatomical Region Laterality Modality Breast Bilateral Mammography 04/13/2023 12:4 5 PM EST Narrative 04/30/2023 9:21 PM EST ? [facility] ? [address] ?[place] [address] ? Mammography Report ? Signed ? Patient: Amaya Suman,Aidelisse ?MR ?? #: [id number] ? : 1975 ?Acct:[id number] ? Age/Sex: 47 / F ?ADM Date: 04/13/23 ? Loc: HO.MAMMO ? Attending Dr: Saima Colbert MD ? Ordering Physician: Saima Rae MD ?Results: 0Incomplete: Needs Additional Imaging ?? Evaluation ? Date of Service: 04/13/23 ?Follow Up: Additional Imagi ?? ng ? Procedure(s): MM tomosynthesis screening BI ?? Accession Number(s): [id number] ? cc: Barciona Colbert,Saima MD ? EXAMINATION: ?? MM SCREENING DIGITAL BREAST TOMOSYNTHESIS, BILATERAL ? CLINICAL INFORMATION: ? Screening. Asymptomatic. ? COMPARISON: ?? Mammography: This study is compared with prior exams dating back to ?? 2018. ? TECHNIQUE: ?? Digital breast tomosynthesis is [...] MD in OV> ? 04/30/232116 ? DD/ 1245 ? TD/TT: ? Diagnostic Medical Sonographer: ? Procedure Note Harshiljudeallyivoneter, Image - 04/30/2023 [facility] [address] [place] [address] Dr. [place], [place] [address] Mammography Report Signed Patient: Malina Anderson #: [id number] : 1975Acct:[id number] Age/Sex: 47 / FADM Date: 04/13/23 Loc: JAC Attending Dr: Saima Colbert MD Ordering Physician: Saima Rae MD Results: 0Incomplete: Needs Additional Imaging Evaluation Date of Service: 04/13/23Follow Up: Additional Imagi ng Procedure(s): MM tomosynthesis screening BI Accession Number(s): [id number] cc: Saima Rae MD EXAMINATION: MM SCREENING [...] signed by Candice Ty MD in OV> 04/30/235 DD/ 1245 TD/TT: Diagnostic Medical Sonographer: us Saima Colbert MD IMG BI PROCEDURES Fin al Result * HPV E6/E7 RFLX TRACIE 16 18/45 (01/16/2017 12:20 PM EST) HPV mRNA E6/E7 Not Detected NOT DETECTED [facility] Comment: This test was performed using the APTIMA(R) HPV Assay ([employer] This assay detects E6/E7 viral messenger RNA (mRNA) from 14 high-risk HPV types (16,18,31,33,35,39,45,51, 52,56,58,59,66,68). For additional information please refer to: http://education.[employer]/faq/PEL809v5 (This link is being provided for informational/ educational purposes only.) Please note: ??Effective 11/12/2015, HPV testing will be performed using [employer]'s APTIMA test which targets mRNA. Detecting mRNA instead of DNA, as in older methods, offers significant improvements in specificity. ADDITIONAL TESTING Not indicated () [facility] Comment: Test Performed by [employer], [facility], [address] [place] [address] J Carlos Macedo M.D., Ph.D., Director of Laboratories , [place] [id number] HPV 16 RNA Test not performed [facility] HPV 18/45 RNA Test not performed [facility] 01/16/2017 12:2 0 PM EST us Nicola White MD HISTORICAL/NON ORDERA BLE LABS Final Result [facility] [address] from Last 3 Months or Most Recently Relevant to Health Maintenance Insurance [facility] C3 HSN PARTIAL AFLAC DENTAL - HSN PARTIAL (MEDICAID) Care Teams Manufacturing Engineer Paint Relationship Specialty Start Date End Date Saima Rae MD [address] [place] [phone] PCP - General Family Medicine 08/26/18
--- OUTSIDE RECORDS SUMMARY | 2024-07-19 08:03 | XMS_ITS | Encounter Summary ---
Author Organization [employer] Address [address] [place] [address] Care Team Providers Care Office Administrator Name Role Phone Saima Rae MD Primary Care Provide r Encounter Details Date Type Department Care Team ([facility] st Contact Info) Description 02/02/2024 Orders Only [facility] MEDICINE [address] [place], [place] [phone] Saima Rae MD [address] [place] [address] Social History Tobacco Use Types Packs/Day Years [...] Description 07/26/2024 11:00 AM EDT Office Visit [address] [address] 07/26/2024 3:00 PM EDT Medication Management [address] [address] Pastor Zhou, PharmD [address] [place] [address] 10/13/2024 2:30 PM EDT Office Visit [address] [address] Saima Rae MD [address] [place] [address] documented as of this encounter Visit Diagnoses Not on filedocumented in this encounter Additional Health Concerns Assessment Noted Time PHQ-9 Depression Total Score: 15 023 3:30 PM EST documented as of this encounter Care Teams Office Administrator Relationship Specialty Start Date End Date Saima Rae MD [address] [place] [phone] PCP - General Family Medicine 08/26/18 documented as of this encounter
--- OUTSIDE RECORDS SUMMARY | 2024-07-19 08:03 | XMS_ITS | Encounter Summary ---
Author Organization [employer] Address [address] [facility] [address]t [place] [address] Care Team Providers Care Portal Architect Name Role Phone Saima Rae MD Primary Care Provide r Reason for Visit * Reason Onset Date Comments Nurse Triage 01/05/2024 Encounter Details Date Type Department Care Team ([facility] st Contact Info) Description 01/05/2024 Telephone [facility] MEDICINE [address] [place], [place] [phone] Saima Rae MD [address] [place] [address] Nurse Triage Social History Tobacco Use Types [...] injury at work 12/22/23. Pthas been on workPockit comp since that time. Pt reports is [...] 01/25/24. Pt is advised to come to [facility] to be seen byprovider and to request written note for extension of leave from work. Pt agrees with this advice, home care already implemented. Pt agrees with disposition and will come to [facility] which is open till 8pm today. [...] Description 07/26/2024 11:00 AM EDT Office Visit [address] [address] 07/26/2024 3:00 PM EDT Medication Management [address] [address] Pastor Zhou, PharmD [address] [place] [address] 10/13/2024 2:30 PM EDT Office Visit [address] [address] Saima Rae MD [address] [place] [address] documented as of this encounter Visit Diagnoses Not on filedocumented in this encounter Additional Health Concerns Assessment Noted Time PHQ-9 Depression Total Score: 15 023 3:30 PM EST documented as of this encounter Care Teams Portal Architect Relationship Specialty Start Date End Date Saima Rae MD [address] [place] [phone] PCP - General Family Medicine 08/26/18 documented as of this encounter
--- OUTSIDE RECORDS SUMMARY | 2024-07-19 08:03 | XMS_ITS | Encounter Summary ---
Author Organization [employer] Address [address] [facility] [address] [place] [address] Care Team Providers Care Accounting Instructor Name Role Phone Saima Rae MD Primary Care Provide r Reason for Visit * Reason Onset Date Comments Nurse Triage 12/24/2023 Encounter Details Date Type Department Care Team ([facility] st Contact Info) Description 12/24/2023 Telephone [facility] MEDICINE [address] [place], [place] [phone] Saima Rae MD [address] [place] [address] Nurse Triage Social History Tobacco Use Types [...] Did go to the work connection at [facility] on 12/23/23. Pt has scrape and swelling onher right knee which she was given a medication for . The medication pt. Was put on is Prednisone for swelling on right knee. Pt. Is going back to work connection on 12/28/23 for follow up. Pt. States she does have pain on her back and on bilateral knees. Pt is going to be bringing in [place] paperwork tomorrow 12/25/23. Pt. Is looking for [...] 07/26/2024 11:00 AM EDT Office Visit [address] [address] 07/26/2024 3:00 PM EDT Medication Management [address] [address] Pastor Zhou, PharmD [address] [place] [address] 10/13/2024 2:30 PM EDT Office Visit [address] [address] Saima Rae MD [address] [place] [phone] documented as of this encounter Visit Diagnoses Not on filedocumented in this encounter Additional Health Concerns Assessment Noted Time PHQ-9 Depression Total Score: 15 023 3:30 PM EST documented as of this encounter Care Teams Accounting Instructor Relationship Specialty Start Date End Date Saima Rae MD [address] [place] [phone] PCP - General Family Medicine 08/26/18 documented as of this encounter
--- OUTSIDE RECORDS SUMMARY | 2024-07-19 08:03 | XMS_ITS | Encounter Summary ---
Author Organization [employer] Address [address] [facility] [address] [place] [address] Care Team Providers Care Collision Technician Name Role Phone Saima Rae MD Primary Care Provide r Reason for Visit * Reason Comments Med Refill Encounter Details Date Type Department Care Team (Late st Contact Info) Description 12/16/2022 Refill [facility] MEDICINE [address] [place] [phone] Marcia Valdes MD [address] [place] [address] Fibromyalgia Social History Tobacco Use Types Packs/Day [...] Description 07/26/2024 11:00 AM EDT Office Visit [facility] MEDICINE [address] [place] [address] 07/26/2024 3:00 PM EDT Medication Management [facility] MEDICINE [address] [place] [address] Pastor Zhou, PharmD [address] [place] [address] 10/13/2024 2:30 PM EDT Office Visit [facility] MEDICINE [address] [place] [address] Saima Rae MD [address] [place] [address] documented as of this encounter Visit Diagnoses Diagnosis Fibromyalgia Unspecified myalgia and myositis documented in this encounter Care Teams Collision Technician Relationship Specialty Start Date End Date Saima Rae MD [address] [place] [address] PCP - General Family Medicine 08/26/18 documented as of this encounter
[2024-07-19 10:35] LABS: Amphetamine Screen Urine Not Detected (Not Detect); Barbiturates, Urine Not Detected (Not Detect); Benzodiazepines Screen Urine Not Detected (Not Detect); Buprenorphine Scr Not Detected (Not Detect); Cannabinoid Screen Urine Not Detected (Not Detect); Cocaine Screen Urine Not Detected (Not Detect); Fentanyl, urine Not Detected (Not Detect); Methadone Screen, Urine Not Detected (Not Detect); Opiate Screen Urine Not Detected (Not Detect); Oxycodone Screen Urine Positive (Not Detect); Phencyclidine Screen Urine Not Detected (Not Detect)
[2024-07-19 10:40] LABS: Alanine Aminotransferase 27 U/L (0-31); Albumin Level 3.9 g/dL (3.5-5.0); Alkaline Phosphatase 206 U/L (39-117); Anion Gap 14 (12-20); Aspartate Amino Transferase 22 U/L (5-31); Bilirubin Total 0.5 mg/dL (0.0-1.0); Blood Urea Nitrogen 11 mg/dL (9-16); Calcium 9.2 mg/dL (8.4-10.2); Carbon Dioxide 24 mmol/L (22-29); Chloride 102 mmol/L (96-108); Estimated Glomerular Filt Rate > 60; Glucose Random 358 mg/dL (60-115); Potassium 4.5 mmol/L (3.3-5.1); Sodium 135 mmol/L (135-145); Total Protein 7.2 g/dL (6.5-8.0)
[2024-07-19 11:28] LABS: Creatinine Urine 34.74 mg/dL; Microalbumin Urine < 5.0 mg/L
== END 2024-07-19 07:59 | disposition home or self-care (01) ==
LOC: HO.NEURO 07:58
PROVIDERS: Registered Nurse; PCP Internal Medicine; Visit Provider Internal Medicine
DX: E11.65 Type 2 diabetes mellitus with hyperglycemia (principal); F41.8 Other specified anxiety disorders
CPT/HCPCS: 36415; 80053; 80307; 82043; 82570; 95886; 95913

== ENCOUNTER 2024-07-22 08:34 | Outpatient (AMB) | payer MEDICAID, SELFPAY ==
--- NOTE | 2024-07-22 13:01 | MHC.OFFVISWM ---
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 38.3 Allergies No Known Allergies Allergy (Verified 07/22/24 13:03) Medication List - Last Reconciled 07/22/24 by Oswald Dawkins MD albuterol sulfate 90 mcg/actuation (Ventolin HFA) 2 puffs inhalation Q4-6H PRN canagliflozin (Invokana) 100 mg PO QAM cholecalciferol (vitamin D3) 50 mcg PO DAILY 30 days CPAP As directed cyclobenzaprine 10 mg PO TID PRN diclofenac sodium 1% grams topical BID docusate sodium 100 mg PO BID fluticasone propionate 110 mcg/actuation (Flovent HFA) 2 puffs inhalation BID lancets (FreeStyle Lancets) As directed lidocaine 5% (Lidoderm) 1 patch topical DAILY omeprazole 40 mg PO DAILY oxycodone-acetaminophen 5-325 mg 2 tabs PO Q12H PRN trazodone 150 mg PO BEDTIME HPI HPI 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 38.3: Details: Start time: 1.30pm, End time: 2.30pm ?I spent 55 minutes speaking with the patient on the phone plus an additional 5 minutes reviewing and updating records for a total of 60 minutes HPI Comments Details: Previous weight loss efforts: Prescription pills Wakes up: 7am, Sleeps: 9pm Breakfast: skips Lunch: skips Dinner: 3-4pm (fish, salad, fruits) Snacks: 12pm (nutribar, fruit), 9pm (grapes) Exercise: walking outside Fluids: coffee 1 cup/day, tea: none, soda: regular Sprite, juice: orange juice, ETOH: none PFSH Medical History (Updated 07/22/24 @ 13:03 by Oswald Dawkins MD) GERD (gastroesophageal reflux disease) Sleep apnea with use of continuous positive airway pressure (CPAP) Hypercholesterolemia HTN (hypertension) Neuropathy Type 2 diabetes mellitus Back pain Cervicalgia Arthritis Gout Asthma Fibromyalgia Vitamin D deficiency Multinodular thyroid Surgical History Hx of biopsy Hx of neck surgery History of cryosurgery Hx of tonsillectomy Hx of section Family History Father HIV (human immunodeficiency virus infection) Mother Osteoarthritis Osteoporosis Herniated disc H/O Spinal surgery Degloving injury of plantar surface of foot Knee problem Family history of thyroid problem Daughter Mildly obese Asthma Cranial cerebrospinal fluid leak, spontaneous Daughter Mildly obese ADHD Asthma Son ADHD Asthma Social History Alcohol intake: never Patient Tobacco Use Status: Former Tobacco user Cigarettes Per Day: 4 Current occupational status: unemployed Current occupation: rt handed Female Reproductive History Menstrual Age of Menarche: 13 Telehealth Telehealth Telehealth Platform: Telephone Location of provider rendering services: practice address Location of patient: address on file Patient Identification confirmed using: Name, : Yes Telehealth method: voice only Patient verbally consented to treatment: Yes Patient verbally consented to billing insurance company: Yes Patient informed of any privacy concerns related to visit: Yes Minutes spent on Phone/Video with Pt.: 60 Assessment & Plan Assessment & Plan (1) Obesity: Code(s): E66.9 - Obesity, unspecified Category: Medical Qualifiers: Body mass index: BMI 38.0-38.9 Obesity classification: adult class 2 (BMI 35 - 39.9) Obesity type: due to excess calories Serious obesity comorbidity presence: with serious comorbidity Qualified Code(s): E66.812 - Obesity, class 2; E66.01 - Morbid (severe) obesity due to excess calories; Z68.38 - Body mass index [BMI] 38.0-38.9, adult Plan: 1.? Plan for lap sleeve gastrectomy. If diaphragmatic or ventral hernias are present at time of surgery, these will be repaired laparoscopically as well. Risks and complications were discussed in detail including possible conversion to an open procedure, anastomotic leak, bleeding requiring transfusion, small bowel obstruction, , DVT and pulmonary embolism, cardiac, or pulmonary complications, as skilled nursing complications such as anastomotic ulcer, insufficient weight loss and vitamin deficiencies. I emphasized the importance of close follow-up, adherence to instructions and good communication. 2. Nutritional counseling. Start with 2 plant-based organic Orgain protein (buy at [employer], [employer], [employer], [employer]) shakes (1 scoop in 8oz low fat unsweetened almond milk each) at 8am-10am and 11am-1pm, 1 protein bar (Zone Perfect protein bars, buy at [facility], ?[employer], [facility], or [employer]) at 2pm-4pm, dinner at 5pm (8 forks of protein and 8 forks of salad/vegetables) and one more protein bar after dinner at 7pm-9pm. Meal to include lean meat (beef, fish, pork, turkey, chicken), or irish yogurt, or egg whites, or beans with a salad with olive oil and fruits (berries, pears, apples, kiwi). Avoid salt, breads, potatoes, rice, pasta, desserts. 3. Each shake would be drunk slowly, like coffee in a period of 2 hours. 4. Cut each bar in 4 pieces and eat each piece in 30min ?to make each bar last 2 hours. 5. I emphasized the importance of measuring accurately the food portion and measure it when serving the food in plate 6. The meal portions include 8 full-size forks of meat and 8 full-size forks of salad. You always eat the meat portion but you can replace up to 4 forks for salad/vegetables with rice, potatoes or pasta, or a fruit ?if you like. The less you do it the better weight loss will be. 7. One full-size fork is what it can be scooped on the fork without falling aside and not what can be bit with the fork. Use regular forks like those you find in a typical restaurant. 8.? Please send me weight measurements as soon as possible and then once a week. Always include your diet and exercise plan. 9. Start treadmill with an incline of 2.0 and speed of 3.0. Increase incline by 1 every 3 min to a max incline of 8.0, stay 3min at 8.0 and then return to 2.0 and repeat same steps until at least 300 calories are burned, 5 times per week. Goal is to burn 2000 calories per week on exercise. Start also weight exercises with 20-30lbs for chest/shoulders/abdomen and 40-50lbs for thighs doing 2 sets of 15 repetitions each. 10.?It is important of avoiding and for at least 18 months postoperatively and has been discussed at the infosession. 11. Goal is to lose at least 1.5-2lbs per week 12. Goal to lose 10% of your weight before surgery, which is about 21lbs. Ultimate weight goal: 196lbs before surgery Orders: Orders Insulin Today E11.9 - Type 2 diabetes mellitus without complications, E66.01 - Morbid (severe) obesity due to excess calories, E66.812 - Obesity, class 2, I10 - Essential (primary) hypertension, K21.9 - Gastro-esophageal reflux disease without esophagitis, Z68.38 - Body mass index [BMI] 38.0-38.9, adult H Pylori Breath Test Today E11.9 - Type 2 diabetes mellitus without complications, E66.01 - Morbid (severe) obesity due to excess calories, E66.812 - Obesity, class 2, I10 - Essential (primary) hypertension, K21.9 - Gastro-esophageal reflux disease without esophagitis, Z68.38 - Body mass index [BMI] 38.0-38.9, adult Complete Blood Count Auto Diff Today E11.9 - Type 2 diabetes mellitus without complications, E66.01 - Morbid (severe) obesity due to excess calories, E66.812 - Obesity, class 2, I10 - Essential (primary) hypertension, K21.9 - Gastro-esophageal reflux disease without esophagitis, Z68.38 - Body mass index [BMI] 38.0-38.9, adult Lipid Panel Today E11.9 - Type 2 diabetes mellitus without complications, E66.01 - Morbid (severe) obesity due to excess calories, E66.812 - Obesity, class 2, I10 - Essential (primary) hypertension, K21.9 - Gastro-esophageal reflux disease without esophagitis, Z68.38 - Body mass index [BMI] 38.0-38.9, adult Comprehensive Met. Panel Today E11.9 - Type 2 diabetes mellitus without complications, E66.01 - Morbid (severe) obesity due to excess calories, E66.812 - Obesity, class 2, I10 - Essential (primary) hypertension, K21.9 - Gastro-esophageal reflux disease without esophagitis, Z68.38 - Body mass index [BMI] 38.0-38.9, adult Vitamin B12 and Folate Today E11.9 - Type 2 diabetes mellitus without complications, E66.01 - Morbid (severe) obesity due to excess calories, E66.812 - Obesity, class 2, I10 - Essential (primary) hypertension, K21.9 - Gastro-esophageal reflux disease without esophagitis, Z68.38 - Body mass index [BMI] 38.0-38.9, adult C Reactive Protein Today E11.9 - Type 2 diabetes mellitus without complications, E66.01 - Morbid (severe) obesity due to excess calories, E66.812 - Obesity, class 2, I10 - Essential (primary) hypertension, K21.9 - Gastro-esophageal reflux disease without esophagitis, Z68.38 - Body mass index [BMI] 38.0-38.9, adult Vitamin B1 Today E11.9 - Type 2 diabetes mellitus without complications, E66.01 - Morbid (severe) obesity due to excess calories, E66.812 - Obesity, class 2, I10 - Essential (primary) hypertension, K21.9 - Gastro-esophageal reflux disease without esophagitis, Z68.38 - Body mass index [BMI] 38.0-38.9, adult Ferritin Today E11.9 - Type 2 diabetes mellitus without complications, E66.01 - Morbid (severe) obesity due to excess calories, E66.812 - Obesity, class 2, I10 - Essential (primary) hypertension, K21.9 - Gastro-esophageal reflux disease without esophagitis, Z68.38 - Body mass index [BMI] 38.0-38.9, adult US abdomen comp w elastography Today E11.9 - Type 2 diabetes mellitus without complications, E66.01 - Morbid (severe) obesity due to excess calories, E66.812 - Obesity, class 2, I10 - Essential (primary) hypertension, K21.9 - Gastro-esophageal reflux disease without esophagitis, Z68.38 - Body mass index [BMI] 38.0-38.9, adult XR chest 2V Today E11.9 - Type 2 diabetes mellitus without complications, E66.01 - Morbid (severe) obesity due to excess calories, E66.812 - Obesity, class 2, I10 - Essential (primary) hypertension, K21.9 - Gastro-esophageal reflux disease without esophagitis, Z68.38 - Body mass index [BMI] 38.0-38.9, adult ECG 12 lead EKG Today E11.9 - Type 2 diabetes mellitus without complications, E66.01 - Morbid (severe) obesity due to excess calories, E66.812 - Obesity, class 2, I10 - Essential (primary) hypertension, K21.9 - Gastro-esophageal reflux disease without esophagitis, Z68.38 - Body mass index [BMI] 38.0-38.9, adult FL upper GI w air Today E11.9 - Type 2 diabetes mellitus without complications, E66.01 - Morbid (severe) obesity due to excess calories, E66.812 - Obesity, class 2, I10 - Essential (primary) hypertension, K21.9 - Gastro-esophageal reflux disease without esophagitis, Z68.38 - Body mass index [BMI] 38.0-38.9, adult Hemoglobin A1c Today E11.9 - Type 2 diabetes mellitus without complications, E66.01 - Morbid (severe) obesity due to excess calories, E66.812 - Obesity, class 2, I10 - Essential (primary) hypertension, K21.9 - Gastro-esophageal reflux disease without esophagitis, Z68.38 - Body mass index [BMI] 38.0-38.9, adult IRON PROFILE Today E11.9 - Type 2 diabetes mellitus without complications, E66.01 - Morbid (severe) obesity due to excess calories, E66.812 - Obesity, class 2, I10 - Essential (primary) hypertension, K21.9 - Gastro-esophageal reflux disease without esophagitis, Z68.38 - Body mass index [BMI] 38.0-38.9, adult Zinc Today E11.9 - Type 2 diabetes mellitus without complications, E66.01 - Morbid (severe) obesity due to excess calories, E66.812 - Obesity, class 2, I10 - Essential (primary) hypertension, K21.9 - Gastro-esophageal reflux disease without esophagitis, Z68.38 - Body mass index [BMI] 38.0-38.9, adult Vitamin A Today E11.9 - Type 2 diabetes mellitus without complications, E66.01 - Morbid (severe) obesity due to excess calories, E66.812 - Obesity, class 2, I10 - Essential (primary) hypertension, K21.9 - Gastro-esophageal reflux disease without esophagitis, Z68.38 - Body mass index [BMI] 38.0-38.9, adult TSH reflex Free T4 Today E11.9 - Type 2 diabetes mellitus without complications, E66.01 - Morbid (severe) obesity due to excess calories, E66.812 - Obesity, class 2, I10 - Essential (primary) hypertension, K21.9 - Gastro-esophageal reflux disease without esophagitis, Z68.38 - Body mass index [BMI] 38.0-38.9, adult Vitamin D 25-OH Total Today E11.9 - Type 2 diabetes mellitus without complications, E66.01 - Morbid (severe) obesity due to excess calories, E66.812 - Obesity, class 2, I10 - Essential (primary) hypertension, K21.9 - Gastro-esophageal reflux disease without esophagitis, Z68.38 - Body mass index [BMI] 38.0-38.9, adult Referrals Nutrition/Dietitian Referral E11.9 - Type 2 diabetes mellitus without complications, E66.01 - Morbid (severe) obesity due to excess calories, E66.812 - Obesity, class 2, I10 - Essential (primary) hypertension, K21.9 - Gastro-esophageal reflux disease without esophagitis, Z68.38 - Body mass index [BMI] 38.0-38.9, adult Behavioral Health Referral E11.9 - Type 2 diabetes mellitus without complications, E66.01 - Morbid (severe) obesity due to excess calories, E66.812 - Obesity, class 2, I10 - Essential (primary) hypertension, K21.9 - Gastro-esophageal reflux disease without esophagitis, Z68.38 - Body mass index [BMI] 38.0-38.9, adult
[2024-07-22 16:33] VITALS: BMI 38.3
== END 2024-07-22 20:16 | disposition home or self-care (01) ==
LOC: HO.HBS 08:34
PROVIDERS: PCP Internal Medicine; Visit Provider Surgery
DX: E66.812 Obesity, class 2 (principal); E66.01 Morbid (severe) obesity due to excess calories; Z68.38 Body mass index [BMI] 38.0-38.9, adult
CPT/HCPCS: 99215

== ENCOUNTER → 2024-07-22 08:34 | Outpatient (BNVA) | payer MEDICAID, SELFPAY | PROVIDERS: PCP Internal Medicine; Visit Provider Surgery | DX: E66.01 Morbid (severe) obesity due to excess calories (principal); Z68.38 Body mass index [BMI] 38.0-38.9, adult; M17.0 Bilateral primary osteoarthritis of knee | CPT/HCPCS: 20610; 99212; J0665; J1100; J2003 ==

== ENCOUNTER 2024-07-22 12:42 | Outpatient (AMB) | payer MEDICAID, SELFPAY ==
--- NOTE | 2024-07-22 13:00 | MHC.OFFVIS ---
Intake Visit Reasons: Inj-B/L knee inj- last 03/07/24 Intake Note: Vazquez is a 48 year old female who presents to the office today for B/L knee injections. Patient last injections on 03/07/24. Allergies No Known Allergies Allergy (Verified 07/22/24 13:03) HPI HPI Inj-B/L knee inj- last 03/07/24: Details: A 8-year-old female returns to the office today for a follow-up bilateral knee pain. She was last seen by Dr. Simeon in March of 2024 where he injected both her knees or steroid and she had good results. She had a history of gel injections which she states was quite painful for her and she did not feel any benefits. [facility] Medical History (Updated 07/22/24 @ 13:03 by Oswald Dawkins MD) GERD (gastroesophageal reflux disease) Sleep apnea with use of continuous positive airway pressure (CPAP) Hypercholesterolemia HTN (hypertension) Neuropathy Type 2 diabetes mellitus Back pain Cervicalgia Arthritis Gout Asthma Fibromyalgia Vitamin D deficiency Multinodular thyroid Surgical History Hx of biopsy Hx of neck surgery History of cryosurgery Hx of tonsillectomy Hx of section Family History Father HIV (human immunodeficiency virus infection) Mother Osteoarthritis Osteoporosis Herniated disc H/O Spinal surgery Degloving injury of plantar surface of foot Knee problem Family history of thyroid problem Daughter Mildly obese Asthma Cranial cerebrospinal fluid leak, spontaneous Daughter Mildly obese ADHD Asthma Son ADHD Asthma Social History Alcohol intake: never Patient Tobacco Use Status: Former Tobacco user Cigarettes Per Day: 4 Current occupational status: unemployed Current occupation: rt handed Female Reproductive History Menstrual Age of Menarche: 13 Review of Systems Const All systems reviewed & are unremarkable except as noted in HPI and below Physical Exam Extrem Other: Bilateral knee: Skin intact, no erythema or joint effusion. Tenderness along the medial and lateral joint line. Full ROM with crepitus. Negative Jose Eduardo?s on the right knee. Significant tenderness along the lateral joint line with positive steinmans on the left knee. No ligamentous laxity. NVI. Results Reviewed Results Reviewed: Office Procedures Joint Inj/Aspir; Non-Pain Clin Joint Injection/Drain Details: Injected 1 mL of Decadron and 3 mL 1% lidocaine and 3 mL of 0.25% Marcaine. Site was prepped using aseptic technique. Patient tolerated the procedure well. Shoulders, Hips, Knees, Knee Large Joint Injection : Bilateral Knee Coding Procedure code (CPT) selection complete Assessment & Plan Assessment & Plan (1) Osteoarthritis of patellofemoral joints of both knees: Code(s): M17.0 - Bilateral primary osteoarthritis of knee Category: Medical Plan: We discussed options today, which include steroid injection. The patient did consent to move forward with bilat knee injection, which was tolerated well.? I recommended rest, ice and elevation and OTC antiinflammatories prn for discomfort. If symptoms persist over the next 6-8 weeks, they will contact our office, otherwise, prn We also discussed their diabetes and the effect the steroid can have on thier blood glucose levels; therefore, they will continue to monitor these very closely over the next 72 hours Coding Level of Care Code Est Pt Level 3 (43336) Complex EM visit Add On G2211 Diagnoses Osteoarthritis of patellofemoral joints of both knees M17.0
== END 2024-07-22 13:26 | disposition home or self-care (01) ==
LOC: HO.HOS 12:43
PROVIDERS: Visit Provider Physician Assistant
DX: M17.0 Bilateral primary osteoarthritis of knee (principal)
CPT/HCPCS: 20610; 99213

== ENCOUNTER 2024-08-17 11:37 | Outpatient (REF) | payer MEDICAID, SELFPAY ==
--- NOTE | ~2024-08-17 | XR_ITS ---
EXAMINATION: XR CHEST CLINICAL INFORMATION: E66.812 - Obesity, class 2 COMPARISON: 02/17/2021. TECHNIQUE: 2 views of the chest were obtained. FINDINGS: The cardiac, hilar, and mediastinal contours are normal. The lungs are clear bilaterally. There is no pneumothorax or pleural effusion. There is no focal osseous or soft tissue abnormality. XR/XR chest 2V IMPRESSION: Normal chest. Electronically signed by: Moe Rivers MD 08/17/2024 12:20 PM EDT
--- NOTE | 2024-08-17 11:42 | ECG_ITS ---
Test Reason : OBESITY Blood Pressure : */* mmHG Vent. Rate : 98 BPM Atrial Rate : 98 BPM P-R Int : 124 ms QRS Dur : 70 ms QT Int : 350 ms P-R-T Axes : 34 25 58 degrees QTcB Int : 446 ms Normal sinus rhythm Normal ECG When compared with ECG of 05-Apr-2020 11:24, No significant change was found Referred By: Oswald Dawkins Electronically Signed By: Fer Renee
[2024-08-17 11:57] LABS: MANUAL DIFF FLAG NO
[2024-08-17 12:39] LABS: Basophils Percent Auto 0.5 % (0-2); Eosinophils Absolute Auto 0.1 X10*3/uL (0.0-0.4); Eosinophils Percent Auto 1.3 % (0-4); Hematocrit 41.1 % (37.0-47.0); Hemoglobin 14.1 g/dl (12.0-16.0); Imm Gran Abs Auto 0.03 X10*3/uL (0.00-0.03); Imm Gran Pct Auto 0.4 % (0.0-0.4); Lymphocytes Absolute Auto 2.1 X10*3/uL (1.2-4.9); Lymphocytes Percent Auto 26.1 % (20-40); Mean Corpuscular HGB Conc 34.3 g/dl (31.0-35.0); Mean Corpuscular Hemoglobin 29.7 pg (27.0-33.0); Mean Corpuscular Volume 86.7 fL (80.0-98.0); Mean Platelet Volume 10.7 fL (9.4-12.3); Monocytes Absolute Auto 0.6 X10*3/uL (0.1-1.2); Neutrophils Absolute Auto 5.2 x10*3/uL (2.0-8.3); Neutrophils Percent Auto 64.7 % (45-73); Platelet Count 305 X10*3/uL (160-400); Red Blood Count 4.74 X10*6/uL (4.20-5.50); Red Cell Distribution Width 11.5 % (11.0-16.0)
[2024-08-17 12:52] LABS: Estimated Average Glucose 217 mg/dL; Hemoglobin A1c % 9.2 % (<6.0); Total Hemoglobin (HGBA1C) 3766.5175 umol/L
[2024-08-17 13:07] LABS: Alanine Aminotransferase 17 U/L (0-31); Albumin Level 3.7 g/dL (3.5-5.0); Alkaline Phosphatase 144 U/L (39-117); Anion Gap 11 (12-20); Aspartate Amino Transferase 16 U/L (5-31); Bilirubin Total 0.5 mg/dL (0.0-1.0); Blood Urea Nitrogen 7 mg/dL (9-16); C Reactive Protein 0.64 mg/dL (< or = 0.50); Calcium 8.7 mg/dL (8.4-10.2); Carbon Dioxide 28 mmol/L (22-29); Chloride 104 mmol/L (96-108); Cholesterol 178 mg/dL (<200); Estimated Glomerular Filt Rate > 60; Glucose Random 156 mg/dL (60-115); HDL Cholesterol 52 mg/dL (>40); Iron 122 mcg/dL (30-160); LDL Cholesterol Calculated 90 mg/dL (<100); Percent Iron Saturation 47 % (15-50); Sodium 139 mmol/L (135-145); Total Iron Binding Capacity 262 mcg/dL (228-428); Total Protein 6.4 g/dL (6.5-8.0); Triglycerides 181 mg/dL (<150); Unsaturated Iron Binding 140 ug/dL
[2024-08-17 13:24] LABS: Ferritin 114 ng/mL (10-250); Insulin 25 uU/mL (2-29); TSH reflex Free T4 1.75 uIU/mL (0.32-4.0); Vitamin D 25-OH Total 28.5 ng/mL (>30)
[2024-08-17 13:34] LABS: Folate 9.3 ng/mL (> or = 4.0); Vitamin B12 302 pg/mL (200-900)
--- OUTSIDE RECORDS SUMMARY | 2024-08-17 13:38 | XMS_ITS | Encounter Summary ---
Author Organization [employer] Address [address] [facility] [address] [place] [address] Care Team Providers Care Sorter Packer Name Role Phone Saima Rae MD Primary Care Provide r Pastor Zhou PharmD Unavailable [phone] Reason for Visit * Reason Comments Med Refill Encounter Details Date Type Department Care Team (Late st Contact Info) Description 11/29/2023 Refill [facility] [address] [place], [place] [phone] Saima Rae MD [address] [place], [place] [phone] Muscle spasm Social History Tobacco Use Types [...] Care Team (Late st Contact Info) Description 08/30/2024 3:30 PM EDT Medication Management [address] [address] Pastor Zhou, PharmD [address] [place] [phone] 09/20/2024 11:00 AM EDT Office Visit [address] [address] 10/13/2024 2:30 PM EDT Office Visit [address] [address] Saima Rae MD [address] [place] [phone] documented as of this encounter Visit Diagnoses Diagnosis Muscle spasm Spasm of muscle documented in this encounter Additional Health Concerns Assessment Noted Time PHQ-9 Depression Total Score: 15 023 3:30 PM EST documented as of this encounter Care Teams Sorter Packer Relationship Specialty Start Date End Date Saima Rae MD [address] [place] [phone] PCP - General Family Medicine 08/26/18 Pastor Zhou, PharmD [address] [place] [phone] Pharmacist Internal Medicine 08/11/24 documented as of this encounter
[2024-08-20 17:49] LABS: Vitamin A 49 mcg/dL (38-98)
[2024-08-21 13:38] LABS: Vitamin B1 9 nmol/L (8-30)
[2024-08-21 21:39] LABS: Zinc 67 mcg/dL (60-130)
== END 2024-08-17 11:38 | disposition home or self-care (01) ==
LOC: HO.XRAY 11:37
PROVIDERS: Visit Provider Surgery
DX: E11.9 Type 2 diabetes mellitus without complications (principal); Z68.38 Body mass index [BMI] 38.0-38.9, adult; K21.9 Gastro-esophageal reflux disease without esophagitis; E66.01 Morbid (severe) obesity due to excess calories; E66.812 Obesity, class 2; I10 Essential (primary) hypertension
CPT/HCPCS: 36415; 71046; 80053; 80061; 82306; 82607; 82728; 82746; 83036; 83525; 83540; 84425; 84443; 84590; 84630; 85025; 86140; 93005

== ENCOUNTER → 2024-08-17 11:42 | Outpatient (BNV) | payer MEDICAID, SELFPAY | PROVIDERS: Visit Provider Internal Medicine Cardiovascular Disease | DX: E66.9 Obesity, unspecified (principal) | CPT/HCPCS: 93010 ==

== ENCOUNTER → 2024-08-17 12:02 | Outpatient (BNV) | payer MEDICAID, SELFPAY | PROVIDERS: Visit Provider Radiology Diagnostic Radiology | DX: E66.812 Obesity, class 2 (principal) | CPT/HCPCS: 71046 ==

== ENCOUNTER 2024-09-15 10:36 | Outpatient (REF) | payer MEDICAID, SELFPAY ==
--- NOTE | ~2024-09-15 | US_ITS ---
EXAMINATION: US ABDOMEN COMPLETE WITH LIVER ELASTOGRAPHY HISTORY: E66.812 - Obesity, class 2 TECHNIQUE: Real-time grayscale ultrasound imaging of the abdomen was performed and images were reviewed. COMPARISON: There are no prior studies available for comparison. FINDINGS: Liver: The right lobe of the liver measures 16.0 cm in size. The left lobe of the liver measures 8.1 cm in size. The liver demonstrates increased echotexture, consistent with steatosis. No focal mass or intrahepatic biliary ductal dilatation is identified. There is normal hepatopedal flow in the portal vein. Ultrasound elastography of the liver was performed with 10 separate measurements of the liver parenchyma with the patient in the supine position. Measurements were obtained approximately 2 cm below Nona's capsule and perpendicular to the capsule. The median shear wave velocity is 1.61 m/s. The interquartile range/median (IQR/median) is 0.03. Gallbladder and biliary tree: The gallbladder is unremarkable, without evidence of calculi, wall thickening, or pericholecystic fluid. There is no sonographic Sands sign. The common bile duct is normal in caliber measuring 6 mm. Kidneys: The right kidney measures 11.9 cm in length. The left kidney measures 10.5 cm in length. The kidneys are unremarkable, without evidence of masses, hydronephrosis, or calculi. Pancreas: The pancreatic head, neck, and body are unremarkable. The pancreatic tail is obscured by bowel gas. Spleen: The spleen is normal in size and contour, measuring 11.3 cm in length. Abdominal aorta and inferior vena cava: The visualized portions of the abdominal aorta and inferior vena cava are normal in caliber. There is no free fluid in the abdomen. US/US abdomen comp w elastography IMPRESSION: Hepatic steatosis. The median shear wave velocity in the liver is 1.61 m/s, corresponding to a median liver stiffness of 8.16 kPa. The IQR/median value is 0.03. This is indicative of a quality data set. Findings are indicative of a low elastography value which rules out advanced chronic liver disease in asymptomatic patients. REFERENCE: Society of Radiologists in Ultrasound Liver Stiffness Thresholds (2020): LIVER STIFFNESS THRESHOLDS: *Shear wave velocity less than 1.3 m/s (Liver Stiffness equal or less than 5 kPa): High probability of being normal. *Shear wave velocity less than 1.7 m/s (Liver Stiffness less than 9 kPa): In the absence of other known clinical signs, rules out compensated advanced chronic liver disease. *Shear wave velocity between 1.7-2.1 m/s (Liver Stiffness 9-13 kPa): Suggestive of compensated advanced chronic liver disease but need further test for confirmation. *Shear wave velocity between 2.1-2.4 m/s (Liver Stiffness 13-17 kPa): Rules in compensated advanced chronic liver disease. *Shear wave velocity greater than 2.4 m/s (Liver Stiffness over 17 kPa): Suggestive of clinically significant portal hypertension. QUALITY OF DATA SET: *IQR/Median value equal or less than 0.15 implies a quality data set. *IQR/Median value over 0.15 implies a poor quality data set. SIGNIFICANT CHANGE FROM PRIOR EXAM: Significant change if liver stiffness measurement is 10% or greater from prior exam. OTHER CONSIDERATIONS: The stage of liver fibrosis may be overestimated in the setting of acute hepatitis, liver inflammation, elevated liver function tests, hepatic vascular congestion, obstructive cholestasis, non-fasting state, and infiltrative diseases such as amyloidosis and lymphoma. In some patients with NAFLD, the liver stiffness thresholds for compensated advanced chronic liver disease may be lower. In causes other than viral hepatitis and NAFLD, liver stiffness thresholds are not well established. Electronically signed by: Romario Corea MD 09/15/2024 11:56 AM EDT
--- OUTSIDE RECORDS SUMMARY | 2024-09-15 11:09 | XMS_ITS | Clinical Summary ---
Author Organization [address] [facility] Address [address] [place] [address] Phone Care Team Providers Care Dried Fruit Washer Name Role Phone Saima Rae MD Primary Care Provide r Encounters Date Type Department Care Team Description 06/23/[address] [facility] [address] [phone] Rosina Ho [place] Appointment (New Referral scanned into Epic. ) from Last 3 Months Social History Tobacco Use Types Packs/Day Years Used Date Smoking Tobacco: Never Assessed Comments Unknown Sex and Gender Information Value Date Recorded Sex Assigned at Not on file Legal Sex Female 10:23 AM EDT Gender Identity Not on file Sexual Orientation Not on file Plan of Treatment Upcoming Encounters Date Type Department Care Team ([facility] Contact Info) Description 10/11/2024 3:00 PM EDT Consult Orthopedic Surgery [facility] [address] [phone] Evangelista Norman DPJacquie [address] [address] Health Maintenance Due Date Last Done Comments Breast Cancer Screening 1976 Diabetes: Annual GFR (Glomer ular Filtration Rate) 1976 Diabetes: Annual Foot Exam 1986 Diabetes: Annual Retina Eye Exam 1986 DTaP,Tdap,and Td Vaccines (1 - Tdap) 11/17/1995 Hepatitis B Vaccines (1 of 3 - 19+ 3-dose series) 11/17/1995 Pneumococcal Vaccine: Pediat rics (0 to 5 Years) and At-Risk Patients (6 to 49 Years) (1 of 2 - PCV) 11/17/1995 Cervical Cancer Screening: P ap Smear 1997 COVID-19 Vaccine (2023-2 5 season) 2023 Cholesterol Screening (Lipid Panel) 05/23/2024 Colorectal Cancer Screening: Colonoscopy 05/23/2024 Depression Screening 05/23/2024 HIV Screening 05/23/2024 Hepatitis C Screening 05/23/2024 Social Influencers of Health Screening 05/23/2024 Diabetes: Annual Urine Albumin-Creatinine Ratio (uACR) 07/18/2024 Diabetes: Blood Sugar Contro l Test (HGBA1C) 07/18/2024 Influenza Vaccine (#1) 2024 HIB Vaccines Aged Out No longer [...] patient's age to complete this topic Insurance [facility] PUBLIC PLANS MEDICAID - [place] Care Teams Dried Fruit Washer Relationship Specialty Start Date End Date Saima Rae MD [address] [place] [phone] PCP - General Internal Medicine 05/23/24
--- OUTSIDE RECORDS SUMMARY | 2024-09-15 11:09 | XMS_ITS | Encounter Summary ---
Author Organization [employer] Address [address] [place] [address] [address] [place] [address] Care Team Providers Care Commercial Hvac Technician Name Role Phone Saima Rae MD Primary Care Provide r Pastor Zhou PharmD Unavailable [phone] Reason for Visit * Reason Comments Med Refill Encounter Details Date Type Department Care Team (Late st Contact Info) Description 11/29/2023 Refill [facility] [address] [place], [place] [phone] Saima Rae MD [address] [place], [place] [phone] Muscle spasm Social History Tobacco Use Types [...] Care Team (Late st Contact Info) Description 09/16/2024 3:00 PM EDT Medication Management [facility] [address] [place] [address] Pastor Zhou, PharmD [address] [place] [address] 09/20/2024 11:00 AM EDT Office Visit [facility] [address] [place] [phone] 10/13/2024 2:30 PM EDT Office Visit [facility] [address] [place] [address] Saima Rae MD [address] [place] [address] 12/27/2024 2:30 PM EDT Office Visit [facility] [address] [place] [address] Tamiko Gu, OD [address] [place] [address] documented as of this encounter Visit Diagnoses Diagnosis Muscle spasm Spasm of muscle documented in this encounter Additional Health Concerns Assessment Noted Time PHQ-9 Depression Total Score: 15 023 3:30 PM EST documented as of this encounter Care Teams Commercial Hvac Technician Relationship Specialty Start Date End Date Saima Rae MD [address] [place] [address] PCP - General Family Medicine 08/26/18 Pastor Zhou, LeighannD [address] [place] [address] Pharmacist Internal Medicine 08/11/24 documented as of this encounter
== END 2024-09-15 10:37 | disposition home or self-care (01) ==
LOC: HO.US 10:36
PROVIDERS: Visit Provider Surgery
DX: K21.9 Gastro-esophageal reflux disease without esophagitis (principal); E66.812 Obesity, class 2; E66.01 Morbid (severe) obesity due to excess calories; Z68.38 Body mass index [BMI] 38.0-38.9, adult; E11.9 Type 2 diabetes mellitus without complications; I10 Essential (primary) hypertension
CPT/HCPCS: 76700; 76981

== ENCOUNTER → 2024-09-15 10:38 | Outpatient (BNV) | payer MEDICAID, SELFPAY | PROVIDERS: Visit Provider Radiology Diagnostic Radiology | DX: K76.0 Fatty (change of) liver, not elsewhere classified (principal) | CPT/HCPCS: 76700 ==

== ENCOUNTER 2024-09-19 13:18 | Outpatient (AMB) | payer OTHER, SELFPAY ==
--- NOTE | 2024-09-19 13:05 | MHC.WMTHER ---
Intake Intake Visit Reasons: TV BH Intake Allergies No Known Allergies Allergy (Verified 10/18/24 23:06) [facility] Medical History (Updated 10/24/24 @ 08:57 by Pattie Camacho RN) Multiple falls Constipation Depression GERD (gastroesophageal reflux disease) Sleep apnea with use of continuous positive airway pressure (CPAP) Hypercholesterolemia HTN (hypertension) Neuropathy Type 2 diabetes mellitus Back pain Cervicalgia Arthritis Gout Asthma Fibromyalgia Vitamin D deficiency Multinodular thyroid Surgical History (Updated 10/24/24 @ 08:49 by Pattie Camacho RN) Hx of tubal ligation Hx of biopsy Hx of neck surgery History of cryosurgery Hx of tonsillectomy Hx of section Family History Father HIV (human immunodeficiency virus infection) Mother Osteoarthritis Osteoporosis Herniated disc H/O Spinal surgery Degloving injury of plantar surface of foot Knee problem Family history of thyroid problem Daughter Mildly obese Asthma Cranial cerebrospinal fluid leak, spontaneous Daughter Mildly obese ADHD Asthma Son ADHD Asthma Social History Are you a primary senior care specialist to a significant other at home: No Do you presently have visiting nurse or other home services: No Alcohol intake: never Patient Tobacco Use Status: Former Tobacco user Cigarettes Per Day: 4 Current occupational status: unemployed Current occupation: rt handed Female Reproductive History Menstrual Age of Menarche: 13 Behavioral Health Assessment Weight Management Therapy Therapy Notes Details PT is a 48 years old female, who presents for initial visit to start BH assessment as part of surgical weight loss program. Presenting Concerns Referral Source [facility] Provider Reason for referral Completion of behavioral health assessment as part of process for weight-loss surgery. Precipitating Event Obesity Living Situation Current Living Situation Relative's/Guardian's Yosef and Temporary Housing Satisfied with current living situation? No Comments Since December she is homeless, she stays with her children days at the time. Food/Weight/Diet History/Relationship with dieting [facility] program in 2020 and 2021. Social History Family history and relationship 6 years ago. PT has 3 adult children. Parents are , she has 1 sister who lives in [place]. She doesn't have Family in the area. 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 Social support children, sister (over the phone), some people from social media. Community support PCP, therapist. Baptist/Spirituality Raised as Anabaptist. Currently attends [employer]. Cultural/Ethnic information . Born in [place], Lives in [place] 10 years ago, prior to that moved from [place] to [place] in 2007. Legal Involvement and History Current or historical involvement with the legal system? Workers compensation case. Education Highest grade completed HS. Some college. Preferred learning style Visual Currently enrolled in educational program? No Interested in further educational program? 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 No Meaningful activities writing, walking, reading. Financial Situation Describe current financial situation Financial struggles are a major source of stress Financial assistance? [employer] and [employer]AF[employer] Service Service? No Mental Health and Addiction Treatment Psychiatric history Attends counseling every 2 weeks [facility] clinic in [place], [place] Diagnosed with depression, anxiety. A prescriber in the same facility sees her every month and prescribed her with: Trazodone 150mg, Sertraline 25mg Denies ever been hospitalized for mental health. PT denies any safety concerns arounf SI/SA or any plan, also denies self-harming behavior or other-harm concerns. Questionnaires PHQ-9 Over the last 2 weeks, how often have you been bothered by any of the following problems? 1. Little interest or pleasure in doing things: nearly every day 2. Feeling down, depressed, or hopeless: nearly every day 3. Trouble falling or staying asleep, or sleeping too much: nearly every day 4. Feeling tired or having little energy: nearly every day 5. Poor appetite or overeating: nearly every day 6. Feeling bad about yourself - or that you are a failure or have let yourself or your family down: nearly every day 7. Trouble concentrating on things, such as reading the newspaper or watching television: nearly every day 8. Moving or speaking so slowly that other people could have noticed. Or the opposite - being so fidgety or restless that you have been moving around a lot more than usual: several days 9. Thoughts that you would be better off or of hurting yourself in some way: not at all Total score: 22 Depression Screening Interpretation: Positive (From new Pt pack completed on 07/13/2024. New one will be administered at next visit. ) Depression Screening Done: Yes Source: Developed by Drs. Romario Chakraborty, Rebeka Jones, Maxi Metzger and colleagues, with an educational john from [employer]. Binge Eating Scale Group 1 A. I don't feel self-conscious about my wt. or body size when I'm with others. B. I feel concerned about how I look to others, but it normally does not make me fell disappointed with myself C. I do get self-conscious about my appearance and wt. which makes me feel disappointed in myself. D. I feel very self-conscious about my wt. and frequently I feel intense shame and disgust for myself. I try to avoid social contacts because of my self-consciousness. Response Group 1: C Group 2 A. I don't have any difficulty eating slowly in the proper manner. B. Although I seem to gobble down foods, I don't end up feeling stuffed because of eating to much. C. At times, I tend to eat quickly and then, I feel uncomfortably full afterwards. D. I have the habit of bolting down my food, without really chewing it. When this happens I usually feel uncomfortably stuffed because I've eaten to much. Response Group 2: C Group 3 A. I feel capable to control my eating urges when I want to. B. I feel like I have failed to control my eating more than the average person. C. I feel utterly helpless when it comes to feeling in control of my eating urges. D. Because I feel so helpless about controlling my eating I have become very desperate about trying to get control. Response Group 3: D Group 4 A. I don't have the habit of eating when I'm bored. B. I sometimes eat when I'm bored, but often I'm able to get busy and get my mind off food. C. I have a regular habit of eating when I'm bored, but occasionally, I can use some other activity to get my mind off eating. D. I have a strong habit of eating when I'm bored. Nothing seems to help me breath the habit. Response Group 4: C Group 5 A. I'm usually physically hungry when I eat something. B. Occasionally, I eat something on impulse even though I really am not hungry. C. I have the regular habit of eating foods, that I might not really enjoy, to satisfy a hungry feeling even though physically, I don't need the food. D. Although I'm not physically hungry, I get a hungry feeling in my mouth that only seems to be satisfied when I eat a food, like sandwich, that fills my mouth. Sometimes, when I eat the food to satisfy my mouth hunger, I then spit the food out so I won't gain weight. Response Group 5: A Group 6 A. I don't feel any guilt or self-hate after I overeat. B. After I overeat, occasionally I feel guilt or self-hate. C. Almost all the time I experience strong guilt or self-hate after I overeat. Response Group 6: B Group 7 A. I don't lose total control of my eating when dieting even after periods when I overeat. B. Sometimes when I eat a forbidden food on a diet, I feel like I blew it and eat even more. C. Frequently, I have the habit of saying to myself, I've blown it now, why not go all the way, when I overeat on a diet. When that happens I eat more. D. I have a regular habit of starting a strict diets for myself but I break the diets by going on an eating binge. My life seems to be either a feast or famine. Response Group 7: A Group 8 A. I rarely eat so much food that I feel uncomfortably stuffed afterwards. B. Usually about once a month, I each such a quantity of food, I end up feeling very stuffed. C. I have regular periods during the month when I eat large amounts of food, either at mealtime or at snacks. D. I eat so much food that I regularly feel quite uncomfortable after eating and sometimes a bit nauseous. Response Group 8: C Group 9 A. My level of calorie intake does not go up very high or go down very low on a regular basis. B. Sometimes after I overeat, I will try to reduce my caloric intake to almost nothing to compensate for the excess calories I've eaten. C. I have a regular habit of overeating during the night. It seems that my routine is not to be hungry in the morning but overeat in the evening. D. In my adult years, I have had week-long periods where I practically starve myself. This follows periods when I overeat. It seems I live a life of either feast or famine. Response Group 9: B Group 10 A. I usually am able to stop eating when I want to. I know when enough is enough. B. Every so often, I experience a compulsion to eat which I can't seem to control. C. Frequently, I experience strong urges to eat which I seem unable to control, but at other times I can control my eating urges. D. I feel incapable of controlling urges to eat. I have a fear of not being able to stop eating voluntarily. Response Group 10: B Group 11 A. I don't have any problem stopping eating when I feel full. B. I usually can stop eating when I feel full but occasionally overeat leaving me feeling uncomfortably stuffed. C. I have a problem stopping eating once I start and usually I feel uncomfortably stuffed after I eat a meal. D. Because I have a problem not being able to stop eating when I want, I sometimes have to induce vomiting to relieve my stuffed feeling. Response Group 11: B Group 12 A. I seem to eat just as much when I'm with others, Family social gatherings as when I'm by myself. B. Sometimes, when I'm with other persons, I don't eat as much as I want to eat because I'm self-conscious about my eating. C. Frequently, I eat only a small amount of food when others are present, because I'm very embarrassed about my eating. D. I feel so ashamed about overeating that I pick times to overeat when I know no one will see me. I feel like a closet eater. Response Group 12: B Group 13 A. I eat three meals a day with only an occasional between meal snack. B. I eat 3 meals a day, but I also normally snack between meals. C. When I am snacking heavily, I get in the habit of skipping regular meals. D. There are regular periods when I seem to be continually eating, with no planned meals. Response Group 13: C Group 14 A. I don't think much about trying to control unwanted eating urges. B. At least some of the time, I feel my thoughts are pre-occupied with trying to control my eating urges. C. I feel that frequently I spend much time thinking about how much I ate or about trying not to eat anymore. D. It seems to me that most of my waking hours are pre-occupied by thoughts about eating or not eating. I feel like I'm constantly struggling not to eat. Response Group 14: B Group 15 A. I don't think about food a great deal. B. I have strong craving for food but they last only for brief periods of time. C. I have days when I can't seem to think about anything else but food. D. Most of my days seem to be pre-occupied with thoughts about food. I feel like I live to eat. Response Group 15: B Group 16 A. I usually know whether or not I'm physically hungry. I take the right portion of food to satisfy me. B. Occasionally, I feel uncertain about knowing whether or not I'm physically hungry. A these times it's hard to know how much food I should take to satisfy me. C. Even though I might know how many calories I should eat, I don't have any idea what is a normal amount of food for me. Response Group 16: B Binge Eating Score: 21 Score less than 17 Minimal Risk Score between 18-26 Moderate Risk Score between 27-46 High Risk Assessment & Plan Assessment & Plan (1) Anxiety disorder: Code(s): F41.9 - Anxiety disorder, unspecified Qualifiers: Anxiety disorder type: unspecified anxiety disorder Qualified Code(s): F41.9 - Anxiety disorder, unspecified (2) Depression, unspecified: Code(s): F32.A - Depression, unspecified Qualifiers: Depression Type: unspecified Qualified Code(s): F32.A - Depression, unspecified (3) Pre-bariatric surgery psychological evaluation: Code(s): Z71.89 - Other specified counseling Plan The patient was not cleared today as the assessment was not completed. The patient will return in 2-4 weeks to continue the evaluation. Telehealth Telehealth Telehealth Platform: [facility] Location of provider rendering services: other (Home office. [place], [place]) Location of patient: address on file Patient Identification confirmed using: Name, : Yes Telehealth method: voice only Patient verbally consented to treatment: Yes Patient verbally consented to billing insurance company: Yes Patient informed of any privacy concerns related to visit: Yes Minutes spent on Phone/Video with Pt.: 60 Coding Level of Care Code New Pt Tele Psy Diag Dominique ([id number]) Patient Type New Diagnoses Anxiety disorder, unspecified type F41.9 Anxiety disorder type: unspecified anxiety disorder Depression, unspecified depression type F32.A Depression Type: unspecified Pre-bariatric surgery psychological evaluation Z71.89 Time Spent (min) 60
--- OUTSIDE RECORDS SUMMARY | 2024-09-19 14:00 | XMS_ITS | Clinical Summary ---
Author Organization [address] [facility] Address [address] [place] [address] Phone Care Team Providers Care Sales And Service Consultant Name Role Phone Saima Rae MD Primary Care Provide r Encounters Date Type Department Care Team Description 06/23/2024 Telephone Neurosurgery [facility] [address] [phone] Rosina Ho [place] Appointment (New [...] Upcoming Encounters Date Type Department Care Team ([facility] Contact Info) Description 10/11/2024 3:00 PM EDT Consult Orthopedic Surgery [facility] [address] [phone] Evangelista Norman DPJacquie [address] [address] Health Maintenance Due Date Last Done Comments [...] Screening: P ap Smear 1997 COVID-19 Vaccine ( - 2023-2 5 season) 2023 Depression Screening 03/02/2024 Cholesterol Screening (Lipid Panel) 05/23/2024 Colorectal Cancer Screening: Colonoscopy 05/23/2024 HIV Screening 05/23/2024 Hepatitis C Screening [...] patient's age to complete this topic Insurance [facility] PUBLIC PLANS MEDICAID - [place] Care Teams Sales And Service Consultant Relationship Specialty Start Date End Date Saima Rae MD [address] [place] [phone] PCP - General Internal Medicine 05/23/24
--- OUTSIDE RECORDS SUMMARY | 2024-09-19 14:00 | XMS_ITS | Encounter Summary ---
Author Organization [employer] Address [address] [place] [address] [address] [place] [address] Care Team Providers Care Insurance Sales Representative Name Role Phone Saima Rae MD Primary Care Provide r Pastor Zhou PharmD Unavailable [phone] Reason for Visit * Reason Comments Med Refill Encounter Details Date Type Department Care Team (Late st Contact Info) Description 11/29/2023 Refill [facility] [address] [place], [place] [phone] Saima Rae MD [address] [place], [place] [phone] Muscle spasm Social History Tobacco Use Types [...] Care Team (Late st Contact Info) Description 09/20/2024 11:00 AM EDT Office Visit [facility] [address] [place] [address] 10/13/2024 2:30 PM EDT Office Visit [facility] [address] [place] [address] Saima Rae MD [address] [place] [address] 12/27/2024 2:30 PM EDT Office Visit [facility] [address] [place] [address] Riccardo, Tamiko, OD [address] [place] [address] documented as of this encounter Visit Diagnoses Diagnosis Muscle spasm Spasm of muscle documented in this encounter Additional Health Concerns Assessment Noted Time PHQ-9 Depression Total Score: 15 023 3:30 PM EST documented as of this encounter Care Teams Insurance Sales Representative Relationship Specialty Start Date End Date Saima Rae MD [address] [place] [address] PCP - General Family Medicine 08/26/18 Pastor Zhou, LeighannD [address] [place] [address] Pharmacist Internal Medicine 08/11/24 documented as of this encounter
== END 2024-09-19 14:07 | disposition home or self-care (01) ==
LOC: HO.HBST 13:18
PROVIDERS: Visit Provider Counselor Mental Health
DX: F41.9 Anxiety disorder, unspecified (principal); F32.A Depression, unspecified; Z71.89 Other specified counseling
CPT/HCPCS: 90791

== ENCOUNTER → 2024-09-19 13:18 | Outpatient (BNVA) | payer OTHER, SELFPAY | PROVIDERS: Visit Provider Counselor Mental Health | DX: Z71.89 Other specified counseling (principal); F41.9 Anxiety disorder, unspecified; F32.A Depression, unspecified | CPT/HCPCS: 90791 ==

== ENCOUNTER 2024-10-06 08:12 | Outpatient (AMB) | payer OTHER, SELFPAY ==
--- NOTE | 2024-10-06 08:05 | MHC.WMTHER ---
Intake Intake Visit Reasons: TV BH F/U Allergies No Known Allergies Allergy (Verified 10/18/24 23:06) [facility] Medical History (Updated 10/24/24 @ 08:57 by Pattie Camacho RN) Multiple falls Constipation Depression GERD (gastroesophageal reflux disease) Sleep apnea with use of continuous positive airway pressure (CPAP) Hypercholesterolemia HTN (hypertension) Neuropathy Type 2 diabetes mellitus Back pain Cervicalgia Arthritis Gout Asthma Fibromyalgia Vitamin D deficiency Multinodular thyroid Surgical History (Updated 10/24/24 @ 08:49 by Pattie Camacho RN) Hx of tubal ligation Hx of biopsy Hx of neck surgery History of cryosurgery Hx of tonsillectomy Hx of section Family History Father HIV (human immunodeficiency virus infection) Mother Osteoarthritis Osteoporosis Herniated disc H/O Spinal surgery Degloving injury of plantar surface of foot Knee problem Family history of thyroid problem Daughter Mildly obese Asthma Cranial cerebrospinal fluid leak, spontaneous Daughter Mildly obese ADHD Asthma Son ADHD Asthma Social History Are you a primary career representative to a significant other at home: No Do you presently have visiting nurse or other home services: No Alcohol intake: never Patient Tobacco Use Status: Former Tobacco user Cigarettes Per Day: 4 Current occupational status: unemployed Current occupation: rt handed Female Reproductive History Menstrual Age of Menarche: 13 Behavioral Health Assessment Weight Management Therapy Therapy Notes Details PT is a 48 years old female, who presents for a second visit to complete BH assessment as part of surgical weight loss program. PT started this program 2 times in the Presenting Concerns Referral Source WMP Provider Reason for referral Completion of behavioral health assessment as part of process for weight-loss surgery. Precipitating Event Obesity Living Situation Current Living Situation Relative's/Guardian's Yosef and Temporary Housing Satisfied with current living situation? No Comments Since December she is homeless, she stays with her children days at the time. Food/Weight/Diet Expectations of change PT started the program on 07/22/2024 at 226Lbs and the initial goal is to lose 10% of her weight before surgery, which is about 21lbs. Ultimate weight goal: 196lbs before surgery Recent weight was 206Lbs as of 10/02/2024 The patient would like to weigh 140 lbs post-op, continue building a healthier relationship with food, and be an active person. PT is implementing the following: Current meal plan: a combination of shakes, bars and 1 meal at day. PT reports are not always followed due to financial constraints. Exercise plan: multiple, starts with stretching in bed, Outdoor walks 30-45min 5 days a week, and recently started the stationary bike 1 weeks ago she plans to do the bike Scale: yes. Communication w/ Provider: Saturdays. History/Relationship with food PT reports before starting the program she didn't know how to stop when started to eat, if she like what she cook then she would eat until no food was left. Growing up she had food insecurities, which she feels is related to her issues with food. As an adult most of activities were food oriented, for example eating out for celebrations. At times would use food to either uplift her mood or compensate after a good/bad day. She notices not engaging in these behaviors in recent years as her therapy is effective and the meal plan is fulfilling hunger cues. Example of meals before starting the program: Breakfast: skips most days. If had breakfast would be pancakes, breakfast sandwich, eggs with sausage. Lunch: 2 Ham and chesse sandwich with letter and tomatoes Dinner: 3-4pm (Rice, beans, pork chops or red meat and fried plantains or yellow plantains) night snack: oatmeal. Snacks: 12pm (nutribar, fruit), 9pm (grapes) Drinks/Liquids: coffee 1 cup/day, tea: none, soda: regular Sprite, juice: orange juice, ETOH: none History/Relationship with weight The patient denies being overweight or obese during childhood and recalls weighing approximately 130 lbs as a teenager. She reports that weight gain began after the age of 20. She does not recall the last time her weight was under 200 lbs, estimating that it has been over 20 years?likely prior to marriage. Over the past 10 years, her weight has ranged from a low of 213 lbs to a high of 225 lbs. History/Relationship with dieting Prescription pills, teas, WL patch. Intermittent fasting - Lost 20Lbs. WMP program in 2020 and 2021. Binge Eating Do you frequently eat large amounts of food in short periods of time, not feeling physically hungry? No Do you feel out of control when you eat a large amount of food in a short period of time? No Do you eat large amounts of food rapidly and typically alone? No Social History Family history and relationship 6 years ago. PT has 3 adult children. Parents are , she has 1 sister who lives in [place]. She doesn't have Family in the area. Parental/Familial testing projects administrator obligations 19 y/o daughter. 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 Social support children, sister (over the phone), some people from social media. Community support PCP, therapist. Episcopal/Spirituality Raised as Rastafarian. Currently attends Taoism anabaptism. Cultural/Ethnic information . Born in [place], Lives in [place] 10 years ago, prior to that moved from [place] to [place] in 2007. Legal Involvement and History Current or historical involvement with the legal system? Workers compensation case. Education Highest grade completed HS. Some college. Preferred learning style Visual Currently enrolled in educational program? No Interested in further educational program? 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 No Meaningful activities writing, walking, reading. Financial Situation Describe current financial situation Financial struggles are a major source of stress Financial assistance? Food [place] and TAF[employer] Service Service? No Mental Health and Addiction Treatment Current/Past substance abuse? No Comments Alcohol: None Cigarettes/Tobacco: None. Cannabis/Edibles: None. Current/Past addictive behavior concerns? No Psychiatric history Attends counseling every 2 weeks [facility] in [place], [place] Diagnosed with depression, anxiety. she started family counseling about 6 years ago when moved from [place] to [place], then individual counseling after her mother 5 years ago. A prescriber in the same facility sees her every month and prescribed her with: Trazodone 150mg, Sertraline 25mg. Denies ever been hospitalized for mental health or in a crisis. PT denies any safety concerns around SI/SA or any plan, also denies self-harming behavior or other-harm concerns. Medical and Physical Health Summary Additional Medical History not covered in history None additional. Sexual History concerns None reported. Physical exam in the last year? Yes Pain Screening Current pain? Yes Pain in the last few months? Yes Comments Generalized body pain and aches. She has multiple pain-related conditions, currently neck and lower back bother hers the most. Medications Is the patient compliant with medications? Yes Does the patient have [place] Guardian in place? Not applicable Trauma/Abuse History History of trauma? No (CONNIE score: 1.) Questionnaires PHQ-9 Over the last 2 weeks, how often have you been bothered by any of the following problems? 1. Little interest or pleasure in doing things: several days (due to high pain) 2. Feeling down, depressed, or hopeless: several days 3. Trouble falling or staying asleep, or sleeping too much: not at all 4. Feeling tired or having little energy: more than half the days (due to pain) 5. Poor appetite or overeating: not at all 6. Feeling bad about yourself - or that you are a failure or have let yourself or your family down: not at all 7. Trouble concentrating on things, such as reading the newspaper or watching television: several days 8. Moving or speaking so slowly that other people could have noticed. Or the opposite - being so fidgety or restless that you have been moving around a lot more than usual: not at all 9. Thoughts that you would be better off or of hurting yourself in some way: not at all Total score: 5 Depression Screening Interpretation: Positive (Sx explained by increased pain levels not due to an active depressive episode. ) Depression Screening Done: Yes 91790 - PHQ-9 Billing: Yes Source: Developed by Drs. Romario Chakraborty, Rebeka Jones, Maxi Metzger and colleagues, with an educational john from [employer]. Binge Eating Scale Group 1 A. I don't feel self-conscious about my wt. or body size when I'm with others. B. I feel concerned about how I look to others, but it normally does not make me fell disappointed with myself C. I do get self-conscious about my appearance and wt. which makes me feel disappointed in myself. D. I feel very self-conscious about my wt. and frequently I feel intense shame and disgust for myself. I try to avoid social contacts because of my self-consciousness. Response Group 1: C Group 2 A. I don't have any difficulty eating slowly in the proper manner. B. Although I seem to gobble down foods, I don't end up feeling stuffed because of eating to much. C. At times, I tend to eat quickly and then, I feel uncomfortably full afterwards. D. I have the habit of bolting down my food, without really chewing it. When this happens I usually feel uncomfortably stuffed because I've eaten to much. Response Group 2: C Group 3 A. I feel capable to control my eating urges when I want to. B. I feel like I have failed to control my eating more than the average person. C. I feel utterly helpless when it comes to feeling in control of my eating urges. D. Because I feel so helpless about controlling my eating I have become very desperate about trying to get control. Response Group 3: D Group 4 A. I don't have the habit of eating when I'm bored. B. I sometimes eat when I'm bored, but often I'm able to get busy and get my mind off food. C. I have a regular habit of eating when I'm bored, but occasionally, I can use some other activity to get my mind off eating. D. I have a strong habit of eating when I'm bored. Nothing seems to help me breath the habit. Response Group 4: C Group 5 A. I'm usually physically hungry when I eat something. B. Occasionally, I eat something on impulse even though I really am not hungry. C. I have the regular habit of eating foods, that I might not really enjoy, to satisfy a hungry feeling even though physically, I don't need the food. D. Although I'm not physically hungry, I get a hungry feeling in my mouth that only seems to be satisfied when I eat a food, like sandwich, that fills my mouth. Sometimes, when I eat the food to satisfy my mouth hunger, I then spit the food out so I won't gain weight. Response Group 5: A Group 6 A. I don't feel any guilt or self-hate after I overeat. B. After I overeat, occasionally I feel guilt or self-hate. C. Almost all the time I experience strong guilt or self-hate after I overeat. Response Group 6: B Group 7 A. I don't lose total control of my eating when dieting even after periods when I overeat. B. Sometimes when I eat a forbidden food on a diet, I feel like I blew it and eat even more. C. Frequently, I have the habit of saying to myself, I've blown it now, why not go all the way, when I overeat on a diet. When that happens I eat more. D. I have a regular habit of starting a strict diets for myself but I break the diets by going on an eating binge. My life seems to be either a feast or famine. Response Group 7: A Group 8 A. I rarely eat so much food that I feel uncomfortably stuffed afterwards. B. Usually about once a month, I each such a quantity of food, I end up feeling very stuffed. C. I have regular periods during the month when I eat large amounts of food, either at mealtime or at snacks. D. I eat so much food that I regularly feel quite uncomfortable after eating and sometimes a bit nauseous. Response Group 8: C Group 9 A. My level of calorie intake does not go up very high or go down very low on a regular basis. B. Sometimes after I overeat, I will try to reduce my caloric intake to almost nothing to compensate for the excess calories I've eaten. C. I have a regular habit of overeating during the night. It seems that my routine is not to be hungry in the morning but overeat in the evening. D. In my adult years, I have had week-long periods where I practically starve myself. This follows periods when I overeat. It seems I live a life of either feast or famine. Response Group 9: B Group 10 A. I usually am able to stop eating when I want to. I know when enough is enough. B. Every so often, I experience a compulsion to eat which I can't seem to control. C. Frequently, I experience strong urges to eat which I seem unable to control, but at other times I can control my eating urges. D. I feel incapable of controlling urges to eat. I have a fear of not being able to stop eating voluntarily. Response Group 10: B Group 11 A. I don't have any problem stopping eating when I feel full. B. I usually can stop eating when I feel full but occasionally overeat leaving me feeling uncomfortably stuffed. C. I have a problem stopping eating once I start and usually I feel uncomfortably stuffed after I eat a meal. D. Because I have a problem not being able to stop eating when I want, I sometimes have to induce vomiting to relieve my stuffed feeling. Response Group 11: B Group 12 A. I seem to eat just as much when I'm with others, Family social gatherings as when I'm by myself. B. Sometimes, when I'm with other persons, I don't eat as much as I want to eat because I'm self-conscious about my eating. C. Frequently, I eat only a small amount of food when others are present, because I'm very embarrassed about my eating. D. I feel so ashamed about overeating that I pick times to overeat when I know no one will see me. I feel like a closet eater. Response Group 12: B Group 13 A. I eat three meals a day with only an occasional between meal snack. B. I eat 3 meals a day, but I also normally snack between meals. C. When I am snacking heavily, I get in the habit of skipping regular meals. D. There are regular periods when I seem to be continually eating, with no planned meals. Response Group 13: C Group 14 A. I don't think much about trying to control unwanted eating urges. B. At least some of the time, I feel my thoughts are pre-occupied with trying to control my eating urges. C. I feel that frequently I spend much time thinking about how much I ate or about trying not to eat anymore. D. It seems to me that most of my waking hours are pre-occupied by thoughts about eating or not eating. I feel like I'm constantly struggling not to eat. Response Group 14: B Group 15 A. I don't think about food a great deal. B. I have strong craving for food but they last only for brief periods of time. C. I have days when I can't seem to think about anything else but food. D. Most of my days seem to be pre-occupied with thoughts about food. I feel like I live to eat. Response Group 15: B Group 16 A. I usually know whether or not I'm physically hungry. I take the right portion of food to satisfy me. B. Occasionally, I feel uncertain about knowing whether or not I'm physically hungry. A these times it's hard to know how much food I should take to satisfy me. C. Even though I might know how many calories I should eat, I don't have any idea what is a normal amount of food for me. Response Group 16: B Binge Eating Score: 21 Score less than 17 Minimal Risk Score between 18-26 Moderate Risk Score between 27-46 High Risk Assessment & Plan Assessment & Plan (1) Anxiety disorder: Code(s): F41.9 - Anxiety disorder, unspecified (2) Depression, unspecified: Code(s): F32.A - Depression, unspecified (3) Pre-bariatric surgery psychological evaluation: Code(s): Z71.89 - Other specified counseling Plan Following a comprehensive behavioral health assessment?including review of the Binge Eating Scale, PHQ-9, mental status evaluation, and patient self-report?there are currently no behavioral health contraindications to proceeding with bariatric surgery. The patient demonstrates appropriate insight, motivation, and psychological readiness for the procedure. No active psychiatric symptoms or maladaptive eating behaviors were identified that would impede surgical outcomes at this time. The patient is cleared from a behavioral health perspective to proceed with bariatric surgery and documentation can be submitted for insurance approval as indicated. PT will return for a follow-up behavioral health visit 1?4 weeks postoperatively to monitor psychological adjustment, reinforce coping strategies, and screen for any emerging concerns such as mood changes, adjustment difficulties, or disordered eating patterns. Additional behavioral health support will be provided as needed based on postoperative assessment. Next anitha: 1-4 weeks PO. Telehealth Telehealth Telehealth Platform: Doximity Location of provider rendering services: other (Home office. [place], [place]) Location of patient: address on file Patient Identification confirmed using: Name, : Yes Telehealth method: voice only Patient verbally consented to treatment: Yes Patient verbally consented to billing insurance company: Yes Patient informed of any privacy concerns related to visit: Yes Minutes spent on Phone/Video with Pt.: 60 Coding Level of Care Code Established Pt Tele Psytx >53 mins (12706) Patient Type Established Diagnoses Anxiety disorder F41.9 Depression, unspecified F32.A Pre-bariatric surgery psychological evaluation Z71.89 Additional Codes PHQ-9 - 14648 - PHQ-9 Billing: Yes ([id number]) Time Spent (min) 60
--- OUTSIDE RECORDS SUMMARY | 2024-10-06 08:16 | XMS_ITS | Encounter Summary ---
Author Organization [employer] Address [address] [place] [address] [address] [place] [address] Care Team Providers Care Durable Medical Equipment Repairer Name Role Phone Saima aRe MD Primary Care Provide r Pastor Zhou PharmD Unavailable [phone] Reason for Visit * Reason Comments Med Refill Encounter Details Date Type Department Care Team (Late st Contact Info) Description 11/29/2023 Refill [facility] [address] [place], [place] [phone] Saima Rae MD [address] [place], [place] [phone] Muscle spasm Social History Tobacco Use Types [...] Care Team (Late st Contact Info) Description 10/07/2024 3:00 PM EDT Medication Management [facility] [address] [place] [address] Pastor Zhou, PharmD [address] [place] [address] 10/13/2024 2:30 PM EDT Office Visit [facility] [address] [place] [address] Saima Rae MD [address] [place] [address] 12/27/2024 2:30 PM EDT Office Visit [facility] [address] [place], [place] [phone] Tamiko Gu, [facility] [address] [place] [address] documented as of this encounter Visit Diagnoses Diagnosis Muscle spasm Spasm of muscle documented in this encounter Additional Health Concerns Assessment Noted Time PHQ-9 Depression Total Score: 15 023 3:30 PM EST documented as of this encounter Care Teams Durable Medical Equipment Repairer Relationship Specialty Start Date End Date Saima Rae MD [address] [place], [place] [phone] PCP - General Family Medicine 08/26/18 Pastor Zhou, Yordy [address] [place] [address] Pharmacist Internal Medicine 08/11/24 documented as of this encounter
--- OUTSIDE RECORDS SUMMARY | 2024-10-06 08:16 | XMS_ITS | Clinical Summary ---
Author Organization [address] [facility] Address [address] [place] [address] Phone Care Team Providers Care Police Stenographer Name Role Phone Saima Rae MD Primary Care Provide r Social History Tobacco Use Types Packs/Day Years Used Date Smoking Tobacco: Never Assessed Comments Unknown Sex and Gender Information Value Date Recorded Sex Assigned at Not on file Legal Sex Female 10:23 AM EDT Gender Identity Not on file Sexual Orientation Not on file Plan of Treatment Upcoming Encounters Date Type Department Care Team ([facility] Contact Info) Description 10/11/2024 3:00 PM EDT Consult Orthopedic Surgery - [facility] [address] [phone] Evangelista Norman, DPM [address] [address] Health Maintenance Due Date Last Done Comments [...] 1996 COVID-19 Vaccine (2023-2 5 season) 2023 Depression Screening 03/02/2024 Cholesterol [...] patient's age to complete this topic Insurance [facility] [employer] PLANS MEDICAID - [place] Care Teams Police Stenographer Relationship Specialty Start Date End Date Saima Rae MD [address] [phone] PCP - General Internal Medicine 05/23/24
== END 2024-10-06 09:11 | disposition home or self-care (01) ==
LOC: HO.HBST 08:12
PROVIDERS: PCP Internal Medicine; Visit Provider Counselor Mental Health
DX: F32.1 Major depressive disorder, single episode, moderate (principal); F41.9 Anxiety disorder, unspecified; Z71.89 Other specified counseling
CPT/HCPCS: 90837

== ENCOUNTER 2024-10-19 08:22 | Outpatient (AMB) | payer MEDICAID, SELFPAY ==
[2024-10-18 23:04] VITALS: BMI 34.9
--- NOTE | 2024-10-18 23:04 | A.OFFVIS_ITS ---
VS Expanded 10/18/24 23:04 Height 5 ft 4.5 in Weight 206 lb 7 oz BMI 34.9 Body Fat % 43.9 Fat Free Mass 115.9 Visceral Fat Rating 17 Body Water % 43.9 Basal Metabolic Rate/Score 1,616 Intake Visit Reasons: TV Pre Op LSG 10/27/24 Allergies No Known Allergies Allergy (Verified 10/18/24 23:06) Medication List - Last Reconciled 10/18/24 by Oswald Dawkins MD albuterol sulfate 90 mcg/actuation (Ventolin HFA) 2 puffs inhalation Q4-6H PRN canagliflozin (Invokana) 100 mg PO QAM cholecalciferol (vitamin D3) 50 mcg PO DAILY 30 days CPAP As directed cyclobenzaprine 10 mg PO TID PRN diclofenac sodium 1% 1 ea topical BID docusate sodium 100 mg PO BID fluticasone propionate 110 mcg/actuation (Flovent HFA) 2 puffs inhalation BID lancets (FreeStyle Lancets) As directed lidocaine 5% (Lidoderm) 1 patch topical DAILY omeprazole 40 mg PO DAILY ondansetron 4 mg PO Q12H oxycodone-acetaminophen 5-325 mg 2 tabs PO Q12H PRN pantoprazole 40 mg PO DAILY polyethylene glycol 3350 17 grams PO DAILY sucralfate 10 mL PO BID trazodone 150 mg PO BEDTIME HPI HPI TV Pre Op LSG 10/27/24: Details: Start time: 7.45pm, End time: 8.15pm I spent 25 minutes speaking with the patient on the phone plus an additional 5 minutes reviewing and updating records for a total of 30 minutes HPI Comments Details: Overall weight loss: 19.9lbs, or 8.8% TBWL PFSH Medical History (Updated 07/22/24 @ 13:03 by Oswald Dawkins MD) GERD (gastroesophageal reflux disease) Sleep apnea with use of continuous positive airway pressure (CPAP) Hypercholesterolemia HTN (hypertension) Neuropathy Type 2 diabetes mellitus Back pain Cervicalgia Arthritis Gout Asthma Fibromyalgia Vitamin D deficiency Multinodular thyroid Surgical History (Updated 10/10/24 @ 15:05 by Rosie Martinez NP) Hx of tubal ligation Hx of biopsy Hx of neck surgery History of cryosurgery Hx of tonsillectomy Hx of section Family History Father HIV (human immunodeficiency virus infection) Mother Osteoarthritis Osteoporosis Herniated disc H/O Spinal surgery Degloving injury of plantar surface of foot Knee problem Family history of thyroid problem Daughter Mildly obese Asthma Cranial cerebrospinal fluid leak, spontaneous Daughter Mildly obese ADHD Asthma Son ADHD Asthma Social History Alcohol intake: never Patient Tobacco Use Status: Former Tobacco user Cigarettes Per Day: 4 Current occupational status: unemployed Current occupation: rt handed Female Reproductive History Menstrual Age of Menarche: 13 Physical Exam Vital Signs: BMI result Body Mass Index 34.9 Telehealth Telehealth Telehealth Platform: Telephone Location of provider rendering services: practice address Location of patient: address on file Patient Identification confirmed using: Name, : Yes Telehealth method: voice only Patient verbally consented to treatment: Yes Patient verbally consented to billing insurance company: Yes Patient informed of any privacy concerns related to visit: Yes Minutes spent on Phone/Video with Pt.: 30 Assessment & Plan Assessment & Plan (1) Obesity: Code(s): E66.9 - Obesity, unspecified Category: Medical Qualifiers: Body mass index: BMI 38.0-38.9 Obesity classification: adult class 2 (BMI 35 - 39.9) Obesity type: due to excess calories Serious obesity comorbidity presence: with serious comorbidity Qualified Code(s): E66.812 - Obesity, class 2; E66.01 - Morbid (severe) obesity due to excess calories; Z68.38 - Body mass index [BMI] 38.0-38.9, adult Plan: 1. Plan for lap sleeve gastrectomy including upper GI endoscopy. All tests has been completed and reviewed and the patient is cleared for the surgery. If diaphragmatic or ventral hernias are present at time of surgery, these will be repaired laparoscopically as well. The surgery does not replace the need to change your lifestlyle which is the cause of the obesity problem. The surgery provides the motivation to try again to change your lifestyle, it reduces the appetite and make the transition to a better lifestyle easier and doubles the amount of weight you would lose compared to doing the lifestyle change without the surgery. You will need to be on a liquid diet with protein shakes for 2 weeks before surgery to maximize weight loss and boost your nutritional status to recover better from surgery and also for the first two weeks after surgery to let the stomach heal before we introduce other foods. After the first 2 weeks we will introduce protein bars and soft foods like scrambled eggs, cottage cheese and yogurt and after the 6th week will introduce meat, fish and cooked vegetables in small amounts. Over time you should be able to eat everything in small amounts. Side effects like nausea, vomiting, heartburn or abdominal pain are not common in the practice unless you are not following in the practice. This operation requires lifetime commitment to following in our practice and communication with me. You will much less weight and experience side effects if you don?t communicate or not following in the practice. Complications are rare and in our practice is about 1/10 of the national average. However, you can develop bleeding that may require transfusion (hasn?t happened for year in the practice), you may from complications (we did not have any deaths in the practice) and infections. Infections are usually a result of breakdown in communication or not understanding or following directions correctly. They are difficult to treat, they can happen during the first 6 weeks, they may require to be in the hospital for weeks or even months, not being able to eat by mouth and you may have drains and surgeries to try and correct the issue. Other risks and complications include possible conversion to an open procedure, leaks, small bowel obstruction, blood clots, cardiac, or pulmonary complications, as retirement complications such as ulcers, insufficient weight loss and vitamin deficiencies. So far she has proven to be an excellent communicator and very compliant with all our directions accomplishing a great weight loss. I believe that she is an excellent candidate and she is ready. 2. Preop prescriptions were provided and explained the purpose of each one. Need to be purchased preop. Start Pantoprazole now as you get it from the pharmacy, 1 pill per day. Sucralfate and Zofran are for after surgery as needed. 3. Bowel prep: please do 7 packets of Miralax mixing each one with a an 8oz glass of water, crystal light, gatorade zero, or propel on and the same amount on 10/26/24. The Miralax you begin with one packet at a time in 8oz water or crystal light, gatorade zero, or propel as early in the day as you can and you do them back to back until you finish them. Continue the protein shakes during the bowel prep. 4. Needs to purchase 1oz medicine cups . 5. Needs to purchase Children's liquid Tylenol for postop pain control. 6. She needs to stop the Invokana and Cyclobenzaprine as of today 10/19/24. Avoid aspirin, motrin, Advil, Aleve, Ibuprofen, Naproxyn. Tylenol is OK. 7. She needs to purchase the Celebrate multivitamins from the hospital's gift shop. 8. Will do basic preop blood work-up any day between Thursday10/19/24 and Thursday10/21/24 fasting for 12 hours and is scheduled to see the Anesthesiologist prior to the day of surgery. 9. Importance of adherence to postop folllow-up and recommendations was underscored and she understands that. 10. Stop food and bars as of tomorrow 10/19/24 and continue with 3 Orgain protein shakes (ONE scoop EACH in 8oz almond milk) at 8am-10am, 11am-1pm and 2pm-4pm, and TWO more Orgain protein shakes with TWO scoops EACH in 8oz of almond milk at 5pm-7pm and 8pm-10pm 11. No soups, broths or V8 12. The patient's medical history has been reviewed and they are considered low risk for post op DVT and therefore DVT prophylaxis is not considered necessary. Travel after surgery was reviewed. The patient has not disclosed any travel plans during the first 30 days after surgery and they have been advised that within the first 30 days after surgery any bus, plane, train or car travel over 2 hours in duration is contraindicated due to the possibility of developing blood clots from immobility. Any travel, needs to include periods of ambulation of 10 minutes in duration every 2 hours. Patient was instructed to discuss any plans for travel during this period with their bariatric surgeon. 13. Use your CPAP daily and bring it to the hospital with your mask 14. Please take at the day of surgery the following medications: NONE 15. Stop any control pills and don't use them for one month after surgery 16. Absolutely no smoking or vaping, or marijuana until the surgery and for at least the first 4 weeks. Only nicotine patches are allowed. 17. Send me weight measurements on Thursday07/06/24, Thursday07/10/24 and then on Thursday07/12/24, the day of surgery before you go to the hospital. 18. Avoid any steroids by mouth for any reason. Let me know if someone prescribes them to you 19. These instructions supersede anything else you read in the handbook, anythin g you watched in videos or classes or you were told by any other provider. If there is any conflict, you follow the above instructions and nothing else. Orders: Orders Insulin 10/18/24 E11.9 - Type 2 diabetes mellitus without complications, E66.01 - Morbid (severe) obesity due to excess calories, E66.812 - Obesity, class 2, I10 - Essential (primary) hypertension, Z68.38 - Body mass index [BMI] 38.0- 38.9, adult C Reactive Protein 10/18/24 E11.9 - Type 2 diabetes mellitus without complications, E66.01 - Morbid (severe) obesity due to excess calories, E66.812 - Obesity, class 2, I10 - Essential (primary) hypertension, Z68.38 - Body mass index [BMI] 38.0-38.9, adult Type and Screen 10/18/24 E11.9 - Type 2 diabetes mellitus without complications, E66.01 - Morbid (severe) obesity due to excess calories, E66.812 - Obesity, class 2, I10 - Essential (primary) hypertension, Z68.38 - Body mass index [BMI] 38.0-38.9, adult Prothrombin Time INR 10/18/24 E11.9 - Type 2 diabetes mellitus without complications, E66.01 - Morbid (severe) obesity due to excess calories, E66.812 - Obesity, class 2, I10 - Essential (primary) hypertension, Z68.38 - Body mass index [BMI] 38.0-38.9, adult TSH reflex Free T4 10/18/24 E11.9 - Type 2 diabetes mellitus without complications, E66.01 - Morbid (severe) obesity due to excess calories, E66.812 - Obesity, class 2, I10 - Essential (primary) hypertension, Z68.38 - Body mass index [BMI] 38.0-38.9, adult Complete Blood Count Auto Diff 10/18/24 E11.9 - Type 2 diabetes mellitus without complications, E66.01 - Morbid (severe) obesity due to excess calories, E66.812 - Obesity, class 2, I10 - Essential (primary) hypertension, Z68.38 - Body mass index [BMI] 38.0-38.9, adult Lipid Panel 10/18/24 E11.9 - Type 2 diabetes mellitus without complications, E66.01 - Morbid (severe) obesity due to excess calories, E66.812 - Obesity, class 2, I10 - Essential (primary) hypertension, Z68.38 - Body mass index [BMI] 38.0-38.9, adult Hemoglobin A1c 10/18/24 E11.9 - Type 2 diabetes mellitus without complications, E66.01 - Morbid (severe) obesity due to excess calories, E66.812 - Obesity, class 2, I10 - Essential (primary) hypertension, Z68.38 - Body mass index [BMI] 38.0-38.9, adult Comprehensive Met. Panel 10/18/24 E11.9 - Type 2 diabetes mellitus without complications, E66.01 - Morbid (severe) obesity due to excess calories, E66.812 - Obesity, class 2, I10 - Essential (primary) hypertension, Z68.38 - Body mass index [BMI] 38.0-38.9, adult Partial Thromboplastin Time 10/18/24 E11.9 - Type 2 diabetes mellitus without complications, E66.01 - Morbid (severe) obesity due to excess calories, E66.812 - Obesity, class 2, I10 - Essential (primary) hypertension, Z68.38 - Body mass index [BMI] 38.0-38.9, adult Medications: New pantoprazole 40 mg PO DAILY 90 tabs 0RF K21.9 - Gastro-esophageal reflux disease without esophagitis ondansetron Only take one every 12 hours as needed if you have nausea 4 mg PO Q12H 20 tabs 0RF nausea and vomiting R11.0 - Nausea polyethylene glycol 3350 Mix each measuring cup with 8oz of water, Crystal light, or Gatorade zero, or Propel and do 7 measuring cups on 10/25/24 and another 7 measuring cups on 10/26/24 17 grams PO DAILY 238 grams 0RF Z01.818 - Encounter for other preprocedural examination sucralfate 10 mL PO BID 600 mL 2RF K21.9 - Gastro-esophageal reflux disease without esophagitis
--- OUTSIDE RECORDS SUMMARY | 2024-10-19 09:01 | XMS_ITS | Encounter Summary ---
Author Organization [employer] [facility] Address [address] [place] [address] 7 [place] [address] Care Team Providers Care Camelid Fiber Sorter Name Role Phone Saima Rae MD Primary Care Provide r Pastor Zhou PharmD Unavailable Reason for Visit * Reason Comments Med Refill Encounter Details Date Type Department Care Team (Late st Contact Info) Description 11/29/2023 Refill [facility] MEDICINE [address] [place], [place] [phone] Saima Rae MD [address] [place], [place] [phone] Muscle spasm Social History Tobacco Use Types [...] Care Team (Late st Contact Info) Description 10/25/2024 11:00 AM EDT Office Visit [facility] MEDICINE [address] [place] [address] 11/25/2024 3:00 PM EDT Medication Management [facility] MEDICINE [address] [place] [address] Pastor Zhou, PharmD [address] [place] [address] 12/27/2024 2:30 PM EDT Office Visit [facility] OPTOMETRY [address] [place] [address] Tamiko Gu, OD [address] [place] [address] documented as of this encounter Visit Diagnoses Diagnosis Muscle spasm Spasm of muscle documented in this encounter Additional Health Concerns Assessment Noted Time PHQ-9 Depression Total Score: 15 023 3:30 PM EST documented as of this encounter Care Teams Camelid Fiber Sorter Relationship Specialty Start Date End Date Saima Rae MD [address] [place] [address] PCP - General Family Medicine 08/26/18 Pastor Zhou, PharmD [address] [place] [address] [place] [address] Pharmacist Internal Medicine 08/11/24 documented as of this encounter
--- OUTSIDE RECORDS SUMMARY | 2024-10-19 09:01 | XMS_ITS | Clinical Summary ---
Author Organization [facility] Address [address] [place] [address] Phone Care Team Providers Care Heavy Equipment Mechanic Name Role Phone Saima Rae MD Primary [...] Last Done Comments Breast Cancer Screening 1976 DTaP,Tdap,and Td Vaccines (1 - Tdap) 11/17/1995 Hepatitis B Vaccines (1 of 3 - 19+ 3-dose series) 11/17/1995 Pneumococcal Vaccine: Pediat rics (0 to 5 Years) and At-Risk Patients (6 to 49 Years) (1 of 2 - PCV) 11/17/1995 Cervical Cancer Screening: P ap Smear 1997 COVID-19 Vaccine (2023-2 5 season) 2023 Depression Screening 03/02/2024 Colorectal Cancer Screening: Colonoscopy 05/23/2024 HIV Screening 05/23/2024 Hepatitis C Screening 05/23/2024 Social Influencers of Health Screening 05/23/2024 Influenza Vaccine (#1) 2024 HIB Vaccines Aged [...] patient's age to complete this topic Insurance [facility] [employer] PLANS MEDICAID - [place] Care Teams Heavy Equipment Mechanic Relationship Specialty Start Date End Date Saima Rae MD [address] [place] [phone] PCP - General Internal Medicine 05/23/24
== END 2024-10-20 20:25 | disposition home or self-care (01) ==
LOC: HO.HBS 08:22
PROVIDERS: PCP Internal Medicine; Visit Provider Surgery
DX: E66.9 Obesity, unspecified (principal); Z68.34 Body mass index [BMI] 34.0-34.9, adult
CPT/HCPCS: 99214

== ENCOUNTER 2024-10-20 14:09 | Outpatient (REF) | payer MEDICAID, SELFPAY ==
--- NOTE | ~2024-10-20 | XR_ITS ---
EXAMINATION: XR CHEST CLINICAL INFORMATION: persistent cough COMPARISON: August 17, 2024 TECHNIQUE: 2 views of the chest were obtained. FINDINGS: Lungs are clear. Heart size is normal. There is gastric distention with gas and fluid. There is no pleural effusion. XR/XR chest 2V IMPRESSION: No acute disease Electronically signed by: Deangelo Mejias MD 10/20/2024 02:38 PM EDT
--- OUTSIDE RECORDS SUMMARY | 2024-10-20 14:18 | XMS_ITS | Encounter Summary ---
Author Organization [employer] Address [address] [place] [address] [address] [place] [address] Care Team Providers Care Supervisor Doping Name Role Phone Saima Rae MD Primary Care Provide r Pastor Zhou PharmD Unavailable [phone] Reason for Visit * Reason Comments Med Refill Encounter Details Date Type Department Care Team (Late st Contact Info) Description 11/29/2023 Refill [facility] MEDICINE [address] [place], [place] [phone] Saima Rae MD [address] [place], [place] [phone] Muscle spasm Social History Tobacco Use Types [...] Description 10/25/2024 11:00 AM EDT Office Visit [facility] MEDICINE [address] [place] [address] 11/25/2024 3:00 PM EDT Medication Management [facility] MEDICINE [address] [place] [address] Pastor Zhou, PharmD [address] [place] [address] 12/27/2024 2:30 PM EDT Office Visit [facility] OPTOMETRY [address] [place] [address] Tamiko Gu, OD [address] [place] [address] documented as of this encounter Visit Diagnoses Diagnosis Muscle spasm Spasm of muscle documented in this encounter Additional Health Concerns Assessment Noted Time PHQ-9 Depression Total Score: 15 023 3:30 PM EST documented as of this encounter Care Teams Supervisor Doping Relationship Specialty Start Date End Date Saima Rae MD [address] [place] [address] PCP - General Family Medicine 08/26/18 Pastor Zhou, PharmD [address] [place] [address] [place] [address] Pharmacist Internal Medicine 08/11/24 documented as of this encounter
--- OUTSIDE RECORDS SUMMARY | 2024-10-20 14:18 | XMS_ITS | Clinical Summary ---
Author Organization [facility] Address [address] [place] [address] Phone Care Team Providers Care Door Glass Installer Name Role Phone Saima Rae MD [...] complete this topic RSV Immunization Patients Un erni 20 months Aged Out No longer eligible b ased on patient's age to complete this topic Varicella Vaccines Aged Out No longer eligible based on patient's age to complete this topic Insurance [facility] [employer] PLANS MEDICAID - [place] Care Teams Door Glass Installer Relationship Specialty Start Date End Date Saima Rae MD [address] [place] [phone] PCP - General Internal Medicine 05/23/24
== END 2024-10-20 14:10 | disposition home or self-care (01) ==
LOC: HO.HHCX 14:09
PROVIDERS: PCP Internal Medicine; Visit Provider Nurse Practitioner
DX: R05.1 Acute cough (principal)
CPT/HCPCS: 71046

== ENCOUNTER → 2024-10-20 14:15 | Outpatient (BNV) | payer MEDICAID, SELFPAY | PROVIDERS: PCP Internal Medicine; Visit Provider Radiology Diagnostic Radiology | DX: R05.3 Chronic cough (principal) | CPT/HCPCS: 71046 ==

== ENCOUNTER 2024-10-21 09:48 | Outpatient (REF) | payer MEDICAID, SELFPAY ==
[2024-10-21 10:38] LABS: MANUAL DIFF FLAG NO
[2024-10-21 10:43] LABS: Hematocrit 37.1 % (37.0-47.0); Hemoglobin 13.0 g/dl (12.0-16.0); Imm Gran Abs Auto 0.06 X10*3/uL (0.00-0.03); Imm Gran Pct Auto 0.7 % (0.0-0.4); Lymphocytes Absolute Auto 1.6 X10*3/uL (1.2-4.9); Mean Corpuscular HGB Conc 35.0 g/dl (31.0-35.0); Mean Corpuscular Hemoglobin 30.2 pg (27.0-33.0); Mean Corpuscular Volume 86.3 fL (80.0-98.0); NRBC Abs Auto 0.000 X10*3/uL (0.0-0.012); NRBC Pct Auto 0.0 /100WBC (0.0-0.2); Platelet Count 315 X10*3/uL (160-400); Red Blood Count 4.30 X10*6/uL (4.20-5.50); White Blood Count 8.8 X10*3/uL (4.8-10.8)
[2024-10-21 10:48] LABS: INTERNATIONAL NORM RATIO 1.3 (0.9-1.1); Prothrombin Time 14.5 SEC (10.9-12.4)
[2024-10-21 10:51] LABS: Partial Thromboplastin Time 27.5 SEC (26.7-34.1)
[2024-10-21 10:56] LABS: Hemoglobin A1C 185.5946 umol/L; Total Hemoglobin (HGBA1C) 3427.2234 umol/L
[2024-10-21 11:38] LABS: Alanine Aminotransferase 10 U/L (0-31); Albumin Level 3.6 g/dL (3.5-5.0); Alkaline Phosphatase 125 U/L (39-117); Anion Gap 11 (12-20); Aspartate Amino Transferase 20 U/L (5-31); Blood Urea Nitrogen 7 mg/dL (9-16); Calcium 8.5 mg/dL (8.4-10.2); Carbon Dioxide 23 mmol/L (22-29); Chloride 108 mmol/L (96-108); Cholesterol 165 mg/dL (<200); Estimated Glomerular Filt Rate > 60; HDL Cholesterol 46 mg/dL (>40); Potassium 3.9 mmol/L (3.3-5.1); Sodium 138 mmol/L (135-145); Total Protein 6.5 g/dL (6.5-8.0); Triglycerides 128 mg/dL (<150)
== END 2024-10-21 09:49 | disposition home or self-care (01) ==
LOC: HO.LAB 09:48
PROVIDERS: Surgery; PCP Internal Medicine; Visit Provider Physician Assistant Surgical
DX: E66.812 Obesity, class 2 (principal); Z68.38 Body mass index [BMI] 38.0-38.9, adult; E11.9 Type 2 diabetes mellitus without complications; I10 Essential (primary) hypertension
CPT/HCPCS: 36415; 80053; 80061; 83036; 83525; 84443; 85025; 85610; 85730; 86140

== ENCOUNTER 2024-10-27 | Outpatient (REF) | payer MEDICAID, SELFPAY ==
[2024-10-24 09:18] VITALS: BMI 34.6
--- NOTE | 2024-10-25 15:27 | HO.ANESPROP2 ---
HPI - Anesthesia Eval Consult details Narrative: 48yo F for Gastrectomy Sleeve,EGD,possible Diaphragmatic Hernia,possible Ventral Hernia,possible Open PMFSH Active Problems Active Problems: All Active Problems Osteoarthritis of patellofemoral joints of both knees (Acute) History of abnormal Pap smear (Acute) Perimenopause (Acute) Well woman exam with routine gynecological exam (Acute) BMI 36.0-36.9,adult (Acute) Daytime sleepiness (Acute) Obstructive sleep apnea (adult) (pediatric) (Acute) Patellofemoral arthralgia of both knees (Acute) Osteoarthritis of knees, bilateral (Acute) Preoperative examination (Acute) Obesity (Acute) BMI 38.0-38.9,adult (Acute) Shortness of breath (Acute) GERD (gastroesophageal reflux disease) (Acute) Sleep apnea with use of continuous positive airway pressure (CPAP) (Acute) Arthritis (Acute) Asthma (Acute) HTN (hypertension) (Acute) Type 2 diabetes mellitus (Acute) Fibromyalgia (Acute) Vitamin D deficiency (Acute) Multinodular thyroid (Acute) Past Medical History Medical History (Updated 10/24/24 @ 08:57 by Pattie Camacho RN) Multiple falls Constipation Depression GERD (gastroesophageal reflux disease) Sleep apnea with use of continuous positive airway pressure (CPAP) Hypercholesterolemia HTN (hypertension) Neuropathy Type 2 diabetes mellitus Back pain Cervicalgia Arthritis Gout Asthma Fibromyalgia Vitamin D deficiency Multinodular thyroid Family History Family History Father HIV (human immunodeficiency virus infection) Mother Osteoarthritis Osteoporosis Herniated disc H/O Spinal surgery Degloving injury of plantar surface of foot Knee problem Family history of thyroid problem Daughter Mildly obese Asthma Cranial cerebrospinal fluid leak, spontaneous Daughter Mildly obese ADHD Asthma Son ADHD Asthma Surgical History Surgical History (Updated 10/24/24 @ 08:49 by Pattie Camacho RN) Hx of tubal ligation Hx of biopsy Hx of neck surgery History of cryosurgery Hx of tonsillectomy Hx of section Social History Social History Are you a primary behavioral health care manager to a significant other at home: No Do you presently have visiting nurse or other home services: No Alcohol intake: never Patient Tobacco Use Status: Former Tobacco user Cigarettes Per Day: 4 Current occupational status: unemployed Current occupation: rt handed Meds Allergies Allergy/AdvReac Type Severity Reaction Status Date / Time No Known Allergies Allergy Verified 10/18/24 23:06 Home Medications ?Medication ?Instructions ?Recorded ?Confirmed ?Last Taken ?Type docusate sodium 100 mg capsule 100 mg PO BID 05/23/21 10/24/24 Unknown History CPAP 01/10/22 07/22/24 Unknown History albuterol sulfate 90 mcg/actuation 2 puff inhalation Q4-6H PRN 01/10/22 10/24/24 Unknown History aerosol inhaler (Ventolin HFA) Shortness Of Breath Or Wheezing lancets 28 gauge (FreeStyle #100 ea 01/10/22 07/15/23 Unknown History Lancets) lidocaine 5 % topical patch 1 patch topical DAILY PRN Pain 01/10/22 10/24/24 Unknown History (Lidoderm) diclofenac sodium 1 % topical gel 1 ea topical BID PRN Pain 11/20/22 10/24/24 Unknown History oxycodone-acetaminophen 5 mg-325 2 tab PO Q12H PRN severe pain 11/20/22 10/24/24 Unknown History mg tablet trazodone 150 mg tablet 150 mg PO BEDTIME 11/20/22 10/24/24 Unknown History gabapentin 800 mg tablet 800 mg PO TID 10/24/24 10/24/24 Unknown History Exam Height,Weight and Vital Signs: Height 5 ft 5 in Weight 94.347 kg Pertinent Lab Results Pertinent Lab Results: Laboratory Tests 10/21/24 10:33 Blood Type B Positive Antibody Screen NEGATIVE Laboratory Tests 10/21/24 10:37 WBC 8.8 Hgb 13.0 Hct 37.1 Plt Count 315 Sodium 138 Potassium 3.9 Chloride 108 Carbon Dioxide 23 BUN 7 L Creatinine 0.64 Laboratory Tests 10/21/24 10:37 PT 14.5 H INR 1.3 H APTT 27.5 Hemoglobin A1c % 7.1 H Narrative Narrative: EKG 07/2024 Vent. Rate : 98 BPM Atrial Rate : 98 BPM P-R Int : 124 ms QRS Dur : 70 ms QT Int : 350 ms P-R-T Axes : 34 25 58 degrees QTcB Int : 446 ms Normal sinus rhythm Normal ECG When compared with ECG of 05-Apr-2020 11:24, No significant change was found Assessment and Plan Assessment Anesthesia Assessment: Chart Reviewed
--- OUTSIDE RECORDS SUMMARY | 2024-12-12 09:17 | XMS_ITS | Encounter Summary ---
Author Organization [employer] Address [address] [place] [address] 7 [place] [address] Care Team Providers Care Inhalation Therapy Teacher Name Role Phone Saima Rae MD Primary Care Provide r Pastor Zhou PharmD Unavailable [phone] Reason for Visit * Reason Comments Med Refill Encounter Details Date Type Department Care Team (Late st Contact Info) Description 12/11/2024 Refill [facility] MEDICINE [address] [place], [place] [phone] Saima Rae MD [address] [place], [place] [phone] Muscle spasm; Fibromyalgia Social History Tobacco Use Types Packs/Day Years Used Date Smoking Tobacco: Former Cigarettes 0.5 0.8 S tarted: 2024 Passive Smoke Exposure: Past [...] Care Team (Late st Contact Info) Description 12/13/2024 11:00 AM EDT Office Visit [facility] MEDICINE [address] [place] [address] 12/15/2024 10:30 AM EDT Medication Management [facility] MEDICINE [address] [place] [address] Pastor Zhou, PharmD [address] [place] [address] 12/15/2024 2:30 PM EDT Office Visit [facility] ADULT DENTAL [address] [place] [address] Edmond Kimble, DMD 230 [place] [address] 12/16/2024 3:00 PM EDT Office Visit [facility] ADULT DENTAL [address] [facility] [place] [address] Jorge Pham 12/21/2024 1:30 PM EDT Office Visit [facility] ADULT DENTAL 230 [place] [address] Edmond Kimble, DMD 230 [place] [address] 12/26/2024 3:00 PM EDT Office Visit [facility] ADULT DENTAL 230 [place] [address] Edmond Kimble, DMD 230 [place] [address] 12/27/2024 2:30 PM EDT Office Visit [facility] OPTOMETRY [address] [facility] [place] [address] Riccardo, Tamiko, OD 230 [place] [address] 01/13/2025 3:30 PM EST Office Visit [facility] MEDICINE [address] [place] [address] Saima Rae MD [address] [place] [address] documented as of this encounter Visit Diagnoses Diagnosis Muscle spasm Spasm of muscle Fibromyalgia Unspecified myalgia and myositis documented in this encounter Additional Health Concerns Assessment Noted Time PHQ-9 Depression Total Score: 22 025 2:33 PM EDT documented as of this encounter Care Teams Inhalation Therapy Teacher Relationship Specialty Start Date End Date Saima Rae MD [address] [place] [address] PCP - General Family Medicine 08/26/18 Pastor Zhou, PharmD [address] [place] [address] Pharmacist Internal Medicine 08/11/24 documented as of this encounter
--- OUTSIDE RECORDS SUMMARY | 2024-12-12 09:17 | XMS_ITS | Encounter Summary ---
Author Organization [employer] Address [address] [place] [address] 7 [place] [address] Care Team Providers Care Securities Trader Name Role Phone Saima Rae MD Primary Care Provide r Pastor Zhou PharmD Unavailable Reason for Visit * Reason Onset Date Comments Nurse Triage 10/17/2024 Encounter Details Date Type Department Care Team (Late st Contact Info) Description 10/17/2024 Telephone [facility] MEDICINE [address] [place], [place] [phone] Saima Rae MD 230 [place], [place] [phone] Nurse Triage Social History Tobacco Use Types [...] this evening. Pt agrees to come to [facility] this evening. Pt agrees with disposition and [...] caller accepted this outcome. Contact pt at [phone] (denied manager hardware) documented in this encounter Plan of Treatment Upcoming Encounters Date Type Department Care Team (Late st Contact Info) Description 12/13/2024 11:00 AM EDT Office Visit [facility] 230 [place] [address] 12/15/2024 10:30 AM EDT Medication Management [facility] MEDICINE [address] [place] [address] Pastor Zhou, PharmD 230 [place] [address] 12/15/2024 2:30 PM EDT Office Visit [facility] ADULT DENTAL [address] [place] [address] Edmond Kimble, EVERT [address] [place] [address] 12/16/2024 3:00 PM EDT [facility] [address] [facility] [place] [facility] [place] [address] Jorge Pham 12/21/2024 1:30 PM EDT Office Visit [facility] ADULT DENTAL 230 [place] [address] Edmond Kimble, DMD [address] [place] [address] 12/26/2024 3:00 PM EDT Office Visit [facility] ADULT DENTAL 230 [place] [address] JoshuamartinezEdmond, DMD 230 [place] [address] 12/27/2024 2:30 PM EDT Office Visit [facility] OPTOMETRY [address] [place] [address] Riccardo, Tamiko, OD 230 [place] [address] 01/13/2025 3:30 PM EST Office Visit [facility] MEDICINE [address] [place] [address] Saima Rae MD 230 [place] [address] documented as of this encounter Visit Diagnoses Not on filedocumented in this encounter Additional Health Concerns Assessment Noted Time PHQ-9 Depression Total Score: 22 025 2:33 PM EDT documented as of this encounter Care Teams Securities Trader Relationship Specialty Start Date End Date Saima Rae MD [address] [place] [address] PCP - General Family Medicine 08/26/18 Pastor Zhou, LeighannD [address] [place] [address] Pharmacist Internal Medicine 08/11/24 documented as of this encounter
--- OUTSIDE RECORDS SUMMARY | 2024-12-12 09:17 | XMS_ITS | Encounter Summary ---
Author Organization [employer] Address [address] [place] [address] 7 [place] [address] Care Team Providers Care Rice Field Worker Name Role Phone Saima Rae MD Primary Care Provide r Pastor Zhou PharmD Unavailable [phone] Reason for Visit * Reason Comments Med Refill Encounter Details Date Type Department Care Team (Late st Contact Info) Description 03/25/[address] [facility] MEDICINE 230 [place], [place] [phone] Bhavna Martinez MD 230 [place] [address] Fibromyalgia Social History Tobacco Use Types Packs/Day [...] Description 12/13/2024 11:00 AM EDT Office Visit [facility] MEDICINE [address] [place] [address] 12/15/2024 10:30 AM EDT Medication Management [facility] MEDICINE [address] [place] [address] Pastor Zhou, PharmD 230 [place] [address] 12/15/2024 2:30 PM EDT Office Visit [facility] ADULT DENTAL [address] [place] [address] Edmond Kimble, EVERT [address] [place] [address] 12/16/2024 3:00 PM EDT Office Visit [facility] ADULT DENTAL [address] [facility] [place] [address] Jorge Pham 12/21/2024 1:30 PM EDT Office Visit [facility] ADULT DENTAL 230 [place] [address] Edmond Kimble, DMD [address] [place] [address] 12/26/2024 3:00 PM EDT Office Visit [facility] ADULT DENTAL [address] [place] [address] Edmond Kimble, DMD [address] [place] [address] 12/27/2024 2:30 PM EDT Office Visit [facility] OPTOMETRY [address] [place] [address] Tamiko Gu, OD 230 [place] [address] 01/13/2025 3:30 PM EST Office Visit [facility] MEDICINE 230 [place] [address] Saima Rae MD [address] [place] [address] documented as of this encounter Visit Diagnoses Diagnosis Fibromyalgia Unspecified myalgia and myositis documented in this encounter Additional Health Concerns Assessment Noted Time PHQ-9 Depression Total Score: 19 024 2:18 PM EST documented as of this encounter Care Teams Rice Field Worker Relationship Specialty Start Date End Date Saima Rae MD [address] [place] [address] PCP - General Family Medicine 08/26/18 Pastor Zhou, LeighannD [address] [place] [address] Pharmacist Internal Medicine 08/11/24 documented as of this encounter
--- OUTSIDE RECORDS SUMMARY | 2024-12-12 09:17 | XMS_ITS | Encounter Summary ---
Author Organization [employer] Address [address] [place] [address] 7 [place] [address] Care Team Providers Care Interventional Nurse Name Role Phone Saima Rae MD Primary Care Provide r Pastor Zhou PharmD Unavailable [phone] Reason for Visit * Reason Onset Date Comments Med Refill 10/22/2023 Encounter Details Date Type Department Care Team (Late st Contact Info) Description 10/22/2023 Telephone [facility] MEDICINE [address] [place], [place] [phone] Saima Rae MD 230 [place], [place] [phone] Med Refill Social History Tobacco Use Types [...] the past 12 months, has t he [employer], gas, oil or water [employer] threatened to shut off services in your [...] MG tablet Please o be sent to: [facility]/pharmacy #[id number] documented in this encounter Plan of Treatment Upcoming Encounters Date Type Department Care Team (Late st Contact Info) Description 12/13/2024 11:00 AM EDT Office Visit [facility] MEDICINE [address] [place] [address] 12/15/2024 10:30 AM EDT Medication Management [facility] MEDICINE [address] [place] [address] Pastor Zhou, PharmEmily 230 [place] [address] 12/15/2024 2:30 PM EDT Office Visit [facility] ADULT DENTAL 230 [place] [address] Edmond Kimble, DMD 230 [place] [address] 12/16/2024 3:00 PM EDT Office Visit [facility] ADULT DENTAL [address] [facility] [place] [address] Jorge Pham 12/21/2024 1:30 PM EDT Office Visit [facility] ADULT DENTAL 230 [place] [address] Edmond Kimble, DMD 230 [place] [address] 12/26/2024 3:00 PM EDT Office Visit [facility] ADULT DENTAL 230 [place] [address] Edmond Kimble, DMD 230 [place] [address] 12/27/2024 2:30 PM EDT Office Visit [facility] OPTOMETRY [address] [place] [address] Tamiko Gu, OD 230 [place] [address] 01/13/2025 3:30 PM EST Office Visit [facility] MEDICINE 230 [place] [address] Saima Rae MD 230 [place] [address] documented as of this encounter Visit Diagnoses Not on filedocumented in this encounter Additional Health Concerns Assessment Noted Time PHQ-9 Depression Total Score: 15 12/2 023 3:30 PM EST documented as of this encounter Care Teams Interventional Nurse Relationship Specialty Start Date End Date Saima Rae MD 230 [place] [address] PCP - General Family Medicine 08/26/18 Pastor Zhou, LeighannD [address] [place] [address] Pharmacist Internal Medicine 08/11/24 documented as of this encounter
--- OUTSIDE RECORDS SUMMARY | 2024-12-12 09:17 | XMS_ITS | Encounter Summary ---
Author Organization [employer] Address [address] [place] [address] 7 [place] [address] Care Team Providers Care Transformation Coach Name Role Phone Saima Rae MD Primary Care Provide r Pastor Zhou PharmD Unavailable [phone] Reason for Visit * Reason Onset Date Comments returning 03/13/2022 Encounter Details Date Type Department Care Team ([facility] st Contact Info) Description 03/13/2022 Telephone [facility] MEDICINE [address] [place], [place] [phone] Saima Rae MD 230 [place], [place] [phone] returning Social History Tobacco Use Types Packs/Day [...] being at work Please contact pt at [phone] documented in this encounter Plan of Treatment Upcoming Encounters Date Type Department Care Team (Late st Contact Info) Description 12/13/2024 11:00 AM EDT Office Visit [facility] MEDICINE [address] [place] [address] 12/15/2024 10:30 AM EDT Medication Management [facility] MEDICINE [address] [place] [address] Pastor Zhou, PharmD 230 [place] [address] 12/15/2024 2:30 PM EDT Office Visit [facility] ADULT DENTAL [address] [place] [address] Edmond Kimble, DMD 230 [place] [address] 12/16/2024 3:00 PM EDT Office Visit [facility] ADULT DENTAL [address] [place] [address] Jorge Pham 12/21/2024 1:30 PM EDT Office Visit [facility] ADULT DENTAL [address] [place] [address] Edmond Kimble, DMD [address] [place] [address] 12/26/2024 3:00 PM EDT Office Visit [facility] ADULT DENTAL [address] [place] [address] Edmond Kimble, DMD 230 [place] [address] 12/27/2024 2:30 PM EDT Office Visit [facility] OPTOMETRY [address] [place] [address] Tamiko Gu, OD 230 [place] [address] 01/13/2025 3:30 PM EST Office Visit [facility] MEDICINE [address] [place] [address] Saima Rae MD 230 [place] [address] documented as of this encounter Visit Diagnoses Not on filedocumented in this encounter Care Teams Transformation Coach Relationship Specialty Start Date End Date Saima Rae MD [address] [place] [address] [phone] PCP - General Family Medicine 08/26/18 Pastor Zhou, PharmD [address] [place] [address] Pharmacist Internal Medicine 08/11/24 documented as of this encounter
--- OUTSIDE RECORDS SUMMARY | 2024-12-12 09:17 | XMS_ITS | Encounter Summary ---
Author Organization [employer] Address [address] [place] [address] 7 [place] [address] Care Team Providers Care Or Director Name Role Phone Saima Rae MD Primary Care Provide r Pastor Zhou PharmD Unavailable [phone] Reason for Visit * Reason Onset Date Comments Med Refill 03/25/2024 Encounter Details Date Type Department Care Team (Late st Contact Info) Description 03/25/2024 Refill [facility] MEDICINE 230 [place], [place] [phone] Saima Rae MD 230 [place], [place] [phone] Fibromyalgia Social History Tobacco Use Types Packs/Day [...] MG DR capsule To be sent to: [facility] - [place], [place] - [address] [facility] documented in this encounter Plan of Treatment Upcoming Encounters Date Type Department Care Team (Late st Contact Info) Description 12/13/2024 11:00 AM EDT Office Visit [facility] MEDICINE 230 [place] [address] 12/15/2024 10:30 AM EDT Medication Management [facility] MEDICINE 230 [place] [address] Pastor Zhou, PharmD 230 [place] [address] 12/15/2024 2:30 PM EDT Office Visit [facility] ADULT DENTAL [address] [place] [address] Edmond Kimble, DMD 230 [place] [address] 12/16/2024 3:00 PM EDT Office Visit [facility] ADULT DENTAL [address] [place] [address] Jorge Pham 12/21/2024 1:30 PM EDT Office Visit [facility] ADULT DENTAL 230 [place] [address] Edmond Kimble, DMD 230 [place] [address] 12/26/2024 3:00 PM EDT Office Visit [facility] ADULT DENTAL 230 [place] [address] Edmond Kimble, DMD 230 [place] [address] 12/27/2024 2:30 PM EDT Office Visit [facility] OPTOMETRY [address] [place] [address] Tamiko Gu, OD 230 [place] [address] 01/13/2025 3:30 PM EST Office Visit [facility] MEDICINE 230 [place] [address] Saima Rae MD 230 [place] [address] documented as of this encounter Visit Diagnoses Diagnosis Fibromyalgia Unspecified myalgia and myositis documented in this encounter Additional Health Concerns Assessment Noted Time PHQ-9 Depression Total Score: 19 024 2:18 PM EST documented as of this encounter Care Teams Or Director Relationship Specialty Start Date End Date Saima Rae MD [address] [place] [address] PCP - General Family Medicine 08/26/18 Pastor Zhou, LeighannD [address] [place] [address] Pharmacist Internal Medicine 08/11/24 documented as of this encounter
--- OUTSIDE RECORDS SUMMARY | 2024-12-12 09:17 | XMS_ITS | Encounter Summary ---
Author Organization [employer] Address [address] [place] [address] 7 [place] [address] Care Team Providers Care Print Operator Name Role Phone Saima Rae MD Primary Care Provide r Pastor Zhou PharmD Unavailable [phone] Reason for Visit * Reason Onset Date Comments BPI scoring, [facility] 04/07/2023 Encounter Details Date Type Department Care Team (Late st Contact Info) Description 04/07/2023 Refill [facility] MEDICINE 230 [place], [place] [phone] Patricia Haas DO 230 [place] [address] Social History Tobacco Use Types Packs/Day Years [...] the past 12 months, has t he [email or web address], [employer], oil or water [employer] threatened to shut off services in your [...] - 04/16/2023 1:51 PM EST Pt had INDUSTRIAL EDUCATION INSTRUCTOR RV today BPI updated today. Pain severity [...] Description 12/13/2024 11:00 AM EDT Office Visit [facility] MEDICINE [address] [place] [address] 12/15/2024 10:30 AM EDT Medication Management [facility] MEDICINE [address] [place] [address] Pastor Zhou, PharmD [address] [place] [address] 12/15/2024 2:30 PM EDT Office Visit [facility] ADULT DENTAL 230 [place] [address] Edmond Kimble, DMD 230 [place] [address] 12/16/2024 3:00 PM EDT Office Visit [facility] ADULT DENTAL [address] [facility] [place] [address] Jorge Pham 12/21/2024 1:30 PM EDT Office Visit [facility] ADULT DENTAL 230 [place] [address] Edmond Kimble, DMD 230 [place] [address] 12/26/2024 3:00 PM EDT Office Visit [facility] ADULT DENTAL 230 [place] [address] Edmond Kimble, DMD 230 [place] [address] 12/27/2024 2:30 PM EDT Office Visit [facility] OPTOMETRY [address] [facility] [place] [place] [address] RiccardoTamiko ronquillo, OD 230 [place] [address] 01/13/2025 3:30 PM EST Office Visit [facility] MEDICINE 230 [place] [address] Saima Rae MD 230 [place] [address] documented as of this encounter Visit Diagnoses Not on filedocumented in this encounter Additional Health Concerns Assessment Noted Time PHQ-9 Depression Total Score: 15 02/19/ 023 3:30 PM EST documented as of this encounter Care Teams Print Operator Relationship Specialty Start Date End Date Saima Rae MD 230 [place] [address] PCP - General Family Medicine 08/26/18 Pastor Zhou, PharmD [address] [place] [address] Pharmacist Internal Medicine 08/11/24 documented as of this encounter
--- OUTSIDE RECORDS SUMMARY | 2024-12-12 09:17 | XMS_ITS | Encounter Summary ---
Author Organization [employer] Address [address] [place] [address] 7 [place] [address] Care Team Providers Care Traffic Workforce Representative Name Role Phone Saima Rae MD Primary Care Provide r Pastor Zhou PharmD Unavailable [phone] Reason for Visit * Reason Comments Med Refill Encounter Details Date Type Department Care Team (Late st Contact Info) Description 06/27/2024 Refill [facility] MEDICINE 230 [place], [place] [phone] Saima Rae MD 230 [place], [place] [phone] Fibromyalgia Social History Tobacco Use Types Packs/Day [...] Description 12/13/2024 11:00 AM EDT Office Visit [facility] MEDICINE [address] [place] [address] 12/15/2024 10:30 AM EDT Medication Management [facility] MEDICINE 230 [place] [address] Pastor Zhou, PharmD 230 [place] [address] 12/15/2024 2:30 PM EDT Office Visit [facility] ADULT DENTAL 230 [place] [address] Edmond Kimble, EVERT 230 [place] [address] 12/16/2024 3:00 PM EDT Office Visit [facility] ADULT DENTAL [address] [facility] [place] [address] Jorge Pham 12/21/2024 1:30 PM EDT Office Visit [facility] ADULT DENTAL 230 [place] [address] Edmond Kimble, DMD 230 [place] [address] 12/26/2024 3:00 PM EDT Office Visit [facility] ADULT DENTAL [address] [place] [address] Edmond Kimble, DMD 230 [place] [address] 12/27/2024 2:30 PM EDT Office Visit [facility] OPTOMETRY [address] [place] [address] Tamiko Gu, OD 230 [place] [address] 01/13/2025 3:30 PM EST Office Visit [facility] MEDICINE 230 [place] [address] Saima Rae MD [address] [place] [address] documented as of this encounter Visit Diagnoses Diagnosis Fibromyalgia Unspecified myalgia and myositis documented in this encounter Additional Health Concerns Assessment Noted Time PHQ-9 Depression Total Score: 17 025 1:24 PM EST documented as of this encounter Care Teams Traffic Workforce Representative Relationship Specialty Start Date End Date Saima Rae MD [address] [place] [address] PCP - General Family Medicine 08/26/18 Pastor Zhou, LeighannD [address] [place] [address] Pharmacist Internal Medicine 08/11/24 documented as of this encounter
--- OUTSIDE RECORDS SUMMARY | 2024-12-12 09:17 | XMS_ITS | Clinical Summary ---
Author Organization [facility] Address [address] [place] [address] Phone Care Team Providers Care Founder Chairman And Chief Creative Officer Name Role Phone Saima Rae MD [...] Last Done Comments Breast Cancer Screening 1976 Colorectal Cancer Screening: Colonoscopy 1976 DTaP,Tdap,and Td Vaccines (1 - Tdap) 11/17/1995 Hepatitis B Vaccines (1 of 3 - 19+ 3-dose series) 11/17/1995 Pneumococcal Vaccine: Pediat rics (0 to 5 Years) and At-Risk Patients (6 to 49 Years) (1 of 2 - PCV) 11/17/1995 Cervical Cancer Screening: P ap Smear 1997 Depression Screening 03/02/2024 HIV Screening 05/23/2024 Hepatitis C Screening 05/23/2024 [...] patient's age to complete this topic Insurance [facility] PUBLIC PLANS MEDICAID - [place] Care Teams Founder Chairman And Chief Creative Officer Relationship Specialty Start Date End Date Saima Rae MD [address] [place] [phone] PCP - General Internal Medicine 05/23/24
--- OUTSIDE RECORDS SUMMARY | 2024-12-12 09:17 | XMS_ITS | Encounter Summary ---
Author Organization [employer] Address [address] [place] [address] 7 [place] [address] Care Team Providers Care Patch Finisher Name Role Phone Saima Rae MD Primary Care Provide r Pastor Zhou PharmD Unavailable [phone] Reason for Visit * Reason Comments Med Refill Encounter Details Date Type Department Care Team (Late st Contact Info) Description 08/04/[address] [facility] MEDICINE 230 [place], [place] [phone] Saima Rae MD 230 [place], [place] [phone] Primary insomnia Social History Tobacco Use Types [...] Description 12/13/2024 11:00 AM EDT Office Visit [facility] MEDICINE 230 [place] [address] 12/15/2024 10:30 AM EDT Medication Management [facility] MEDICINE [address] [place] [address] Pastor Zhou, PharmD 230 [place] [address] 12/15/2024 2:30 PM EDT Office Visit [facility] ADULT DENTAL 230 [place] [address] Edmond Kimble DMD 230 [place] [address] 12/16/2024 3:00 PM EDT Office Visit [facility] ADULT DENTAL [address] [place] [address] Jorge Pham 12/21/2024 1:30 PM EDT Office Visit [facility] ADULT DENTAL 230 [place] [address] Edmond Kimble DMD [address] [place] [address] 12/26/2024 3:00 PM EDT Office Visit [facility] ADULT DENTAL [address] [place] [address] Edmond Kimble, DMD 230 [place] [address] 12/27/2024 2:30 PM EDT Office Visit [facility] OPTOMETRY [address] [place] [address] Riccardo, Tamiko, OD 230 [place] [address] 01/13/2025 3:30 PM EST Office Visit [facility] MEDICINE [address] [place] [address] Saima Rae MD [address] [place] [address] documented as of this encounter Visit Diagnoses Diagnosis Primary insomnia Persistent disorder of initiating or maintaining sleep documented in this encounter Additional Health Concerns Assessment Noted Time PHQ-9 Depression Total Score: 15 023 3:30 PM EST documented as of this encounter Care Teams Patch Finisher Relationship Specialty Start Date End Date Saima Rae MD [address] [place] [address] PCP - General Family Medicine 08/26/18 Pastor Zhou, LeighannD [address] [place] [address] Pharmacist Internal Medicine 08/11/24 documented as of this encounter
--- OUTSIDE RECORDS SUMMARY | 2024-12-12 09:17 | XMS_ITS | Encounter Summary ---
Author Organization [employer] Address [address] [place] [address] 7 [place] [address] Care Team Providers Care Bun Icer Name Role Phone Saima Rae MD Primary Care Provide r Pastor Zhou PharmD Unavailable [phone] Reason for Visit * Reason Onset Date Comments Appointment Request 09/16/2024 Encounter Details Date Type Department Care Team ([facility] st Contact Info) Description 09/16/[address] [facility] MEDICINE 230 [place], [place] [phone] Saima Rae MD 230 [place], [place] [phone] Appointment Request Social History Tobacco Use Types Packs/Day Years Used Date Smoking Tobacco: Every Day Cigarettes 0.5 0.8 Started: 2024 Passive Smoke Exposure: Past Smokeless [...] Upcoming Encounters Date Type Department Care Team ([facility] st Contact Info) Description 12/13/2024 11:00 AM EDT Office Visit [facility] MEDICINE [address] [place] [address] 12/15/2024 10:30 AM EDT Medication Management [facility] MEDICINE [address] [place] [address] Pastor Zhou, PharmD 230 [place] [address] 12/15/2024 2:30 PM EDT Office Visit [facility] ADULT DENTAL [address] [place] [address] Edmond Kimble, DMD 230 [place] [address] 12/16/2024 3:00 PM EDT Office Visit [facility] ADULT DENTAL 505 [place] [address] Jorge Pham 12/21/2024 1:30 PM EDT Office Visit [facility] ADULT DENTAL [address] [place] [address] Edmond Kimble, DMD 230 [place] [address] 12/26/2024 3:00 PM EDT Office Visit [facility] ADULT DENTAL [address] [place] [address] Edmond Kimble, DMD 230 [place] [address] 12/27/2024 2:30 PM EDT Office Visit [facility] OPTOMETRY [address] [place] [address] Tamiko Gu, OD 230 [place] [address] 01/13/2025 3:30 PM EST Office Visit [facility] MEDICINE 230 [place] [address] Saima Rae MD 230 [place] [address] documented as of this encounter Visit Diagnoses Not on filedocumented in this encounter Additional Health Concerns Assessment Noted Time PHQ-9 Depression Total Score: 22 025 2:33 PM EDT documented as of this encounter Care Teams Bun Icer Relationship Specialty Start Date End Date Saima Rae MD 230 [place] [address] PCP - General Family Medicine 08/26/18 Pastor Zhou, LeighannD 230 [place] [address] Pharmacist Internal Medicine 08/11/24 documented as of this encounter
--- OUTSIDE RECORDS SUMMARY | 2024-12-12 09:17 | XMS_ITS | Encounter Summary ---
Author Organization [employer] Address [address] [place] [address] 7 [place] [address] Care Team Providers Care Form Drafter Name Role Phone Saima Rae MD Primary Care Provide r Pastor Zhou PharmD Unavailable [phone] Reason for Visit * Reason Comments Med Refill Encounter Details Date Type Department Care Team (Late st Contact Info) Description 02/14/2023 Refill [facility] MEDICINE [address] [place] [address] Ania Balderas MD [address] [place] [address] [phone] Muscle spasm Social History Tobacco Use Types [...] Description 12/13/2024 11:00 AM EDT Office Visit [facility] MEDICINE [address] [place] [address] [phone] 12/15/2024 10:30 AM EDT Medication Management [facility] MEDICINE [address] [place] [address] Pastor Zhou, PharmD 230 [place] [address] 12/15/2024 2:30 PM EDT Office Visit [facility] ADULT DENTAL 230 [place] [address] Edmond Kimble, DMD 230 [place] [address] 12/16/2024 3:00 PM EDT Office Visit [facility] ADULT DENTAL [address] [facility] [place] [address] Jorge Pham 12/21/2024 1:30 PM EDT Office Visit [facility] ADULT DENTAL 230 [place] [address] Edmond Kimble, DMD 230 [place] [address] 12/26/2024 3:00 PM EDT Office Visit [facility] ADULT DENTAL 230 [place] [address] Edmond Kimble, DMD 230 [place] [address] 12/27/2024 2:30 PM EDT Office Visit [facility] OPTOMETRY [address] [facility] [place] [address] RiccardoDev ronquillon, OD 230 [place] [address] 01/13/2025 3:30 PM EST Office Visit [facility] MEDICINE 230 [place] [address] Saima Rae MD 230 [place] [address] documented as of this encounter Visit Diagnoses Diagnosis Muscle spasm Spasm of muscle documented in this encounter Care Teams Form Drafter Relationship Specialty Start Date End Date Saima Rae MD 230 [place] [address] PCP - General Family Medicine 08/26/18 Pastor Zhou, PharmD [address] [place] [address] Pharmacist Internal Medicine 08/11/24 documented as of this encounter
--- OUTSIDE RECORDS SUMMARY | 2024-12-12 09:17 | XMS_ITS | Encounter Summary ---
Author Organization [employer] Address [address] [place] [address] 7 [place] [address] Care Team Providers Care Animal Physiologist Name Role Phone Saima Rae MD Primary Care Provide r Pastor Zhou PharmD Unavailable [phone] Reason for Visit * Reason Onset Date Comments Med Refill 09/15/2023 Encounter Details Date Type Department Care Team (Late st Contact Info) Description 09/15/2023 Telephone [facility] MEDICINE 230 [place], [place] [phone] Saima Rae MD [address] [place], [place] [phone] Med Refill Social History Tobacco Use Types [...] 5 % patch To be sent to: [facility]/pharmacy #[id number] documented in this encounter Plan of Treatment Upcoming Encounters Date Type Department Care Team (Late st Contact Info) Description 12/13/2024 11:00 AM EDT Office Visit [facility] MEDICINE [address] [place] [address] [phone] 12/15/2024 10:30 AM EDT Medication Management [facility] MEDICINE [address] [place] [address] Pastor Zhou, PharmD 230 [place] [address] 12/15/2024 2:30 PM EDT Office Visit [facility] ADULT DENTAL 230 [place] [address] Edmond Kimble, DMD 230 [place] [address] 12/16/2024 3:00 PM EDT Office Visit [facility] ADULT DENTAL [address] [facility] [place] [place] [address] oJrge Pham 12/21/2024 1:30 PM EDT Office Visit [facility] ADULT DENTAL 230 [place] [address] Edmond Kimble, DMD 230 [place] [address] 12/26/2024 3:00 PM EDT Office Visit [facility] ADULT DENTAL 230 [place] [address] Edmond Kimble, DMD 230 [place] [address] 12/27/2024 2:30 PM EDT Office Visit [facility] OPTOMETRY [address] [place] [place] [address] RiccardoTamiko ronquillo, OD 230 [place] [address] 01/13/2025 3:30 PM EST Office Visit [facility] MEDICINE [address] [place] [address] Saima Rae MD 230 [place] [address] documented as of this encounter Visit Diagnoses Not on filedocumented in this encounter Additional Health Concerns Assessment Noted Time PHQ-9 Depression Total Score: 15 023 3:30 PM EST documented as of this encounter Care Teams Animal Physiologist Relationship Specialty Start Date End Date Saima Rae MD 230 [place] [address] PCP - General Family Medicine 08/26/18 Pastor Zhou, LeighannD 230 [place] [address] Pharmacist Internal Medicine 08/11/24 documented as of this encounter
--- OUTSIDE RECORDS SUMMARY | 2024-12-12 09:17 | XMS_ITS | Encounter Summary ---
Author Organization [employer] Address [address] [place] [address] 7 [place] [address] Care Team Providers Care Motorcycle Fabricator Name Role Phone Saima Rae MD Primary Care Provide r Pastor Zhou PharmD Unavailable [phone] Reason for Visit * Reason Comments Med Refill Encounter Details Date Type Department Care Team (Late st Contact Info) Description 11/29/2023 Refill [facility] MEDICINE 230 [place], [place] [phone] Saima Rae MD 230 [place], [place] [phone] Muscle spasm Social History Tobacco Use Types [...] Description 12/13/2024 11:00 AM EDT Office Visit [facility] MEDICINE 230 [place] [address] 12/15/2024 10:30 AM EDT Medication Management [facility] MEDICINE [address] [place] [address] Pastor Zhou, PharmD 230 [place] [address] 12/15/2024 2:30 PM EDT Office Visit [facility] ADULT DENTAL [address] [place] [address] Edmond Kimble DMD [address] [place] [address] 12/16/2024 3:00 PM EDT Office Visit [facility] ADULT DENTAL [address] [place] [address] Jorge Pham 12/21/2024 1:30 PM EDT Office Visit [facility] ADULT DENTAL [address] [place] [address] Edmond Kimble DMD [address] [place] [address] 12/26/2024 3:00 PM EDT Office Visit [facility] ADULT DENTAL [address] [place] [address] Edmond Kimble, DMD 230 [place] [address] 12/27/2024 2:30 PM EDT Office Visit [facility] OPTOMETRY [address] [place] [address] Riccardo, Tamiko, OD 230 [place] [address] 01/13/2025 3:30 PM EST Office Visit [facility] MEDICINE [address] [place] [address] Saima Rae MD 230 [place] [address] documented as of this encounter Visit Diagnoses Diagnosis Muscle spasm Spasm of muscle documented in this encounter Additional Health Concerns Assessment Noted Time PHQ-9 Depression Total Score: 15 023 3:30 PM EST documented as of this encounter Care Teams Motorcycle Fabricator Relationship Specialty Start Date End Date Saima Rae MD [address] [place] [address] PCP - General Family Medicine 08/26/18 Pastor Zhou, PharmD [address] [place] [address] Pharmacist Internal Medicine 08/11/24 documented as of this encounter
--- OUTSIDE RECORDS SUMMARY | 2024-12-12 09:17 | XMS_ITS | Encounter Summary ---
Author Organization [employer] Address [address] [place] [address] 7 [place] [address] Care Team Providers Care Bleach Liquor Maker Name Role Phone Saima Rae MD Primary Care Provide r Pastor Zhou PharmD Unavailable [phone] Reason for Visit * Reason Onset Date Comments Appointment Request 03/12/2022 Encounter Details Date Type Department Care Team ([facility] st Contact Info) Description 03/12/2022 Telephone [facility] MEDICINE [address] [place], [place] [phone] Saima Rae MD 230 [place], [place] [phone] Appointment Request Social History Tobacco Use Types [...] appt 02/19/22 11:30 Please contact pt at [phone] documented in this encounter Plan of Treatment Upcoming Encounters Date Type Department Care Team (Late st Contact Info) Description 12/13/2024 11:00 AM EDT Office Visit [facility] MEDICINE [address] [place] [address] 12/15/2024 10:30 AM EDT Medication Management [facility] MEDICINE [address] [place] [address] Pastor Zhou, PharmD 230 [place] [address] 12/15/2024 2:30 PM EDT Office Visit [facility] ADULT DENTAL [address] [place] [address] Edmond Kimble, DMD [address] [place] [address] 12/16/2024 3:00 PM EDT Office Visit [facility] ADULT DENTAL [address] [place] [address] Jorge Pham 12/21/2024 1:30 PM EDT Office Visit [facility] ADULT DENTAL 230 [place] [address] Edmond Kimble, DMD 230 [place] [address] 12/26/2024 3:00 PM EDT Office Visit [facility] ADULT DENTAL [address] [place] [address] Edmond Kimble, DMD 230 [place] [address] 12/27/2024 2:30 PM EDT Office Visit [facility] OPTOMETRY [address] [place] [address] Tamiko Gu, OD 230 [place] [address] 01/13/2025 3:30 PM EST Office Visit [facility] MEDICINE [address] [place] [address] Saima Rae MD 230 [place], [place] [phone] documented as of this encounter Visit Diagnoses Not on filedocumented in this encounter Care Teams Bleach Liquor Maker Relationship Specialty Start Date End Date Saima Rae MD [address] [place] [address] [phone] PCP - General Family Medicine 08/26/18 Pastor Zhou, LeighannD [address] [place] [address] [phone] Pharmacist Internal Medicine 08/11/24 documented as of this encounter
--- OUTSIDE RECORDS SUMMARY | 2024-12-12 09:18 | XMS_ITS | Encounter Summary ---
Author Organization [employer] Address [address] [place] [address] 7 [place] [address] Care Team Providers Care Computing Tutor Name Role Phone Saima Rae MD Primary Care Provide r Pastor Zhou PharmD Unavailable [phone] Encounter Details Date Type Department Care Team (Late st Contact Info) Description 02/02/2024 Orders Only [facility] MEDICINE 230 [place], [place] [phone] Saima Rae MD 230 [place], [place] [phone] Social History Tobacco Use Types Packs/Day Years [...] Description 12/13/2024 11:00 AM EDT Office Visit [facility] MEDICINE 230 [place] [address] 12/15/2024 10:30 AM EDT Medication Management [facility] MEDICINE [address] [place] [address] Pastor Zhou, PharmD 230 [place] [address] 12/15/2024 2:30 PM EDT Office Visit [facility] ADULT DENTAL 230 [place] [address] Edmond Kimble DMD 230 [place] [address] 12/16/2024 3:00 PM EDT Office Visit [facility] ADULT DENTAL [address] [place] [address] Jorge hPam 12/21/2024 1:30 PM EDT Office Visit [facility] ADULT DENTAL 230 [place] [address] Edmond Kimble DMD 230 [place] [address] 12/26/2024 3:00 PM EDT Office Visit [facility] ADULT DENTAL 230 [place] [address] Edmond Kimble, DMD 230 [place] [address] 12/27/2024 2:30 PM EDT Office Visit [facility] OPTOMETRY [address] [place] [address] RiccardoTamiko ronquillo, OD 230 [place] [address] 01/13/2025 3:30 PM EST Office Visit [facility] MEDICINE 230 [place] [address] Samia Rae MD 230 [place] [address] documented as of this encounter Visit Diagnoses Not on filedocumented in this encounter Additional Health Concerns Assessment Noted Time PHQ-9 Depression Total Score: 15 023 3:30 PM EST documented as of this encounter Care Teams Computing Tutor Relationship Specialty Start Date End Date Saima Rae MD [address] [place] [address] PCP - General Family Medicine 08/26/18 Pastor Zhou, LeighannD [address] [place] [address] Pharmacist Internal Medicine 08/11/24 documented as of this encounter
--- OUTSIDE RECORDS SUMMARY | 2024-12-12 09:18 | XMS_ITS | Encounter Summary ---
Author Organization [employer] Address [address] [place] [address] 7 [place] [address] Care Team Providers Care Prepress Specialist Name Role Phone Saima Rae MD Primary Care Provide r Pastor Zhou PharmD Unavailable [phone] Reason for Visit * Reason Comments Med Refill Encounter Details Date Type Department Care Team (Late st Contact Info) Description 12/16/2022 Refill [facility] MEDICINE [address] [place] [address] Marcia Valdes MD [address] [place] [address] [phone] Fibromyalgia Social History Tobacco Use Types Packs/Day [...] Description 12/13/2024 11:00 AM EDT Office Visit [facility] MEDICINE [address] [place] [address] [phone] 12/15/2024 10:30 AM EDT Medication Management [facility] MEDICINE [address] [place] [address] [phone] Pastor Zhou, PharmD 230 [place] [address] 12/15/2024 2:30 PM EDT Office Visit [facility] ADULT DENTAL 230 [place] [address] Edmond Kimble, DMD 230 [place] [address] 12/16/2024 3:00 PM EDT Office Visit [facility] ADULT DENTAL [address] [facility] [place] [address] Jorge Pham 12/21/2024 1:30 PM EDT Office Visit [facility] ADULT DENTAL 230 [place] [address] Edmond Kimble, DMD 230 [place] [address] 12/26/2024 3:00 PM EDT Office Visit [facility] ADULT DENTAL 230 [place] [address] Edmond Kimble, DMD 230 [place] [address] 12/27/2024 2:30 PM EDT Office Visit [facility] OPTOMETRY [address] [place] [address] Riccardo, Tamiko, OD 230 [place] [address] 01/13/2025 3:30 PM EST Office Visit [facility] MEDICINE 230 [place] [address] Saima Rae MD 230 [place] [address] documented as of this encounter Visit Diagnoses Diagnosis Fibromyalgia Unspecified myalgia and myositis documented in this encounter Care Teams Prepress Specialist Relationship Specialty Start Date End Date Saima Rae MD 230 [place] [address] PCP - General Family Medicine 08/26/18 Pastor Zhou, PharmD 230 [place] [address] Pharmacist Internal Medicine 08/11/24 documented as of this encounter
--- OUTSIDE RECORDS SUMMARY | 2024-12-12 09:18 | XMS_ITS | Encounter Summary ---
Author Organization [employer] Address [address] [place] [address] 7 [place] [address] Care Team Providers Care Humanities Department Chair Name Role Phone Saima Rae MD Primary Care Provide r Pastor Zhou PharmD Unavailable [phone] Reason for Visit * Reason Comments Med Change Request Encounter Details Date Type Department Care Team ([facility] st Contact Info) Description 01/20/2024 Refill [facility] MEDICINE 230 [place], [place] [phone] Saima Rae MD 230 [place], [place] [phone] Type 2 diabetes mellitus without complication, unspecified whether mcfp insulin use ([facility]) Social History Tobacco Use Types [...] Description 12/13/2024 11:00 AM EDT Office Visit [facility] MEDICINE 230 [place] [address] 12/15/2024 10:30 AM EDT Medication Management [facility] MEDICINE 230 [place] [address] Pastor Zhou, PharmD 230 [place] [address] 12/15/2024 2:30 PM EDT Office Visit [facility] ADULT DENTAL 230 [place] [address] Edmond Kimble, EVERT 230 [place] [address] 12/16/2024 3:00 PM EDT Office Visit [facility] ADULT DENTAL [address] [place] [address] Jorge Pham 12/21/2024 1:30 PM EDT Office Visit [facility] ADULT DENTAL 230 [place] [address] ShyanneEdmond, DMD 230 [place] [address] 12/26/2024 3:00 PM EDT Office Visit [facility] ADULT DENTAL [address] [place] [address] JoshuamartinezEdmond, DMD 230 [place] [address] 12/27/2024 2:30 PM EDT Office Visit [facility] OPTOMETRY [address] [place] [address] RiccardoTamiko ronquillo, OD 230 [place] [address] 01/13/2025 3:30 PM EST Office Visit [facility] MEDICINE [address] [place] [address] Saima Rae MD 230 [place] [address] documented as of this encounter Visit Diagnoses Diagnosis Type 2 diabetes mellitus without complication, unspecified whether mcfp insulin use documented in this encounter Additional Health Concerns Assessment Noted Time PHQ-9 Depression Total Score: 15 02/19/ 023 3:30 PM EST documented as of this encounter Care Teams Humanities Department Chair Relationship Specialty Start Date End Date Saima Rae MD [address] [place] [address] PCP - General Family Medicine 08/26/18 Pastor Zhou, LeighannD [address] [place] [address] Pharmacist Internal Medicine 08/11/24 documented as of this encounter
--- OUTSIDE RECORDS SUMMARY | 2024-12-12 09:18 | XMS_ITS | Encounter Summary ---
Author Organization [employer] Address [address] [place] [address] 7 [place] [address] Care Team Providers Care Professor Of Law Name Role Phone Saima Rae MD Primary Care Provide r Pastor Zhou PharmD Unavailable [phone] Encounter Details Date Type Department Care Team (Late st Contact Info) Description 11/18/2024 Orders Only [facility] MEDICINE [address] [place] [address] Saima Rae MD 230 [place], [place] [phone] Social History Tobacco Use Types Packs/Day Years [...] Description 12/13/2024 11:00 AM EDT Office Visit [facility] MEDICINE [address] [place] [address] 12/15/2024 10:30 AM EDT Medication Management [facility] MEDICINE [address] [place] [address] Pastor Zhou, LeighannD [address] [place] [address] 12/15/2024 2:30 PM EDT Office Visit [facility] ADULT DENTAL [address] [place] [address] Edmond Kimble, DMD [address] [place] [address] 12/16/2024 3:00 PM EDT Office Visit [facility] ADULT DENTAL [address] [facility] [place] [address] BlakeJorge pires 12/21/2024 1:30 PM EDT Office Visit [facility] ADULT DENTAL [address] [place] [address] Edmond Kimble, DMD [address] [place] [address] 12/26/2024 3:00 PM EDT Office Visit [facility] ADULT DENTAL [address] [place] [address] Edmond Kimble, DMD [address] [place] [address] 12/27/2024 2:30 PM EDT Office Visit [facility] OPTOMETRY [address] [place] [address] Riccardo, Tamiko, OD 230 [place] [address] 01/13/2025 3:30 PM EST Office Visit [facility] MEDICINE [address] [place] [address] Saima Rae MD [address] [place] [address] documented as of this encounter Visit Diagnoses Not on filedocumented in this encounter Additional Health Concerns Assessment Noted Time PHQ-9 Depression Total Score: 22 025 2:33 PM EDT documented as of this encounter Care Teams Professor Of Law Relationship Specialty Start Date End Date Saima Rae MD [address] [place] [address] PCP - General Family Medicine 08/26/18 Pastor Zhou, PharmD [address] [place] [address] Pharmacist Internal Medicine 08/11/24 documented as of this encounter
--- OUTSIDE RECORDS SUMMARY | 2024-12-12 09:18 | XMS_ITS | Encounter Summary ---
Author Organization [employer] Address [address] [place] [address] 7 [place] [address] Care Team Providers Care Freight Team Associate Name Role Phone Saima Rae MD Primary Care Provide r Pastor Zhou PharmD Unavailable [phone] Reason for Visit * Reason Comments Med Refill Encounter Details Date Type Department Care Team (Late st Contact Info) Description 11/28/2024 Refill [facility] MEDICINE 230 [place], [place] [phone] Saima Rae MD 230 [place], [place] [phone] Social History Tobacco Use Types Packs/Day Years [...] Description 12/13/2024 11:00 AM EDT Office Visit [facility] MEDICINE [address] [place] [address] 12/15/2024 10:30 AM EDT Medication Management [facility] MEDICINE [address] [place] [address] Pastor Zhou, PharmD 230 [place] [address] 12/15/2024 2:30 PM EDT Office Visit [facility] ADULT DENTAL [address] [place] [address] Edmond Kimble, DMD 230 [place] [address] 12/16/2024 3:00 PM EDT Office Visit [facility] ADULT DENTAL [address] [facility] [place] [facility] [place] [address] Jorge Pham 12/21/2024 1:30 PM EDT Office Visit [facility] ADULT DENTAL 230 [place] [address] Edmond Kimble, DMD 230 [place] [address] 12/26/2024 3:00 PM EDT Office Visit [facility] ADULT DENTAL 230 [place] [address] Edmond Kimble, DMD 230 [place] [address] 12/27/2024 2:30 PM EDT Office Visit [facility] OPTOMETRY [address] [place] [address] Riccardo, Tamiko, OD 230 [place] [address] 01/13/2025 3:30 PM EST Office Visit [facility] MEDICINE [address] [place] [address] Saima Rae MD [address] [place] [address] documented as of this encounter Visit Diagnoses Not on filedocumented in this encounter Additional Health Concerns Assessment Noted Time PHQ-9 Depression Total Score: 22 025 2:33 PM EDT documented as of this encounter Care Teams Freight Team Associate Relationship Specialty Start Date End Date Saima Rae MD [address] [place] [address] PCP - General Family Medicine 08/26/18 Pastor Zhou, PharmD 230 [place] [address] Pharmacist Internal Medicine 08/11/24 documented as of this encounter
--- OUTSIDE RECORDS SUMMARY | 2024-12-12 09:18 | XMS_ITS | Encounter Summary ---
Author Organization [employer] Address [address] [place] [address] 7 [place] [address] Care Team Providers Care Rag Production Worker Name Role Phone Saima Rae MD Primary Care Provide r Pastor Zhou PharmD Unavailable [phone] Reason for Visit * Reason Onset Date Comments Nurse Triage 02/02/2024 Encounter Details Date Type Department Care Team (Late st Contact Info) Description 02/02/2024 Telephone [facility] MEDICINE 230 [place], [place] [phone] Saima Rae MD 230 [place], [place] [phone] Nurse Triage Social History Tobacco Use Types [...] 12:39 PM EST TC placed to pt [phone] in regards to below message. Pt was in the clinic on the red team for a visit with OPTICAL FABRICATOR. RN went to OPTICAL FABRICATOR room and spoke to patient in person. Patient is requesting an urgent appointment with Dr. Maicol ARZOLA. Patient reports she used to live in [place] and tested positive forlupus >10 years ago. Patient reports she moved here and was tested for lupus and it was negative. Patient does not believe results are accurate. Patient reports she saw [facility] rheumatology and was informed she has fibromyalgia. Patient feels something more is going on. Patient reports all over body pain which she takes pain medication for however she does NOT want to live on pain medication. Patient reports the medication Rx'd by [facility] she does not like because if she skips a dose she hears ringing in her ear. Patient reports she informed [facility] rheumat[facility] of concern with medication and believes they will change it at her next appointment. Patient reports she sees [facility] rheumat[facility] once a year. Patient reports she [...] to check for cancellations or go to [facility]. Patient continues to REFUSE any solution besides [...] Dr. Milian. Pt declines to go to [facility] to be seen and is requesting apt [...] caller accepted this outcome. Contact pt at [phone] (Taiwanese) documented in this encounter Plan of Treatment Upcoming Encounters Date Type Department Care Team (Late st Contact Info) Description 12/13/2024 11:00 AM EDT Office Visit [facility] 230 [place] [address] 12/15/2024 10:30 AM EDT Medication Management [facility] [address] [place] [address] Pastor Zhou, PharmD 230 [place] [address] 12/15/2024 2:30 PM EDT Office Visit [facility] ADULT DENTAL 230 [place] [address] Edmond Kimble, DMD 230 [place] [address] 12/16/2024 3:00 PM EDT Office Visit [facility] ADULT DENTAL [address] [place] [address] Jorge Pham 12/21/2024 1:30 PM EDT Office Visit [facility] ADULT DENTAL [address] [place] [address] Edmond Kimble, DMD [address] [place] [address] 12/26/2024 3:00 PM EDT Office Visit [facility] ADULT DENTAL [address] [place] [address] Edmond Kimble, DMD 230 [place] [address] 12/27/2024 2:30 PM EDT Office Visit [facility] OPTOMETRY [address] [place] [address] Tamiko Gu, OD 230 [place] [address] 01/13/2025 3:30 PM EST Office Visit [facility] MEDICINE 230 [place], [place] [phone] Saima Rae MD [address] [place] [address] [phone] documented as of this encounter Visit Diagnoses Not on filedocumented in this encounter Additional Health Concerns Assessment Noted Time PHQ-9 Depression Total Score: 15 023 3:30 PM EST documented as of this encounter Care Teams Rag Production Worker Relationship Specialty Start Date End Date Saima Rae MD [address] [place] [address] [phone] PCP - General Family Medicine 08/26/18 Pastor Zhou, PharmD [address] [place] [address] [phone] Pharmacist Internal Medicine 08/11/24 documented as of this encounter
--- OUTSIDE RECORDS SUMMARY | 2024-12-12 09:18 | XMS_ITS | Encounter Summary ---
Author Organization [employer] Address [address] [place] [address] 7 [place] [address] Care Team Providers Care Rehabilitation Worker Name Role Phone Saima Rae MD Primary Care Provide r Pastor Zhou PharmD Unavailable [phone] Reason for Visit * Reason Onset Date Comments Nurse Triage 01/05/2024 Encounter Details Date Type Department Care Team (Late st Contact Info) Description 01/05/2024 Telephone [facility] MEDICINE 230 [place], [place] [phone] Saima Rea MD 230 [place], [place] [phone] Nurse Triage Social History Tobacco Use Types [...] 01/25/24. Pt is advised to come to [facility] to be seen byprovider and to request written note for extension of leave from work. Pt agrees with this advice, home care already implemented. Pt agrees with disposition and will come to [facility] which is open till 8pm today. [...] Description 12/13/2024 11:00 AM EDT Office Visit [facility] MEDICINE 230 [place] [address] 12/15/2024 10:30 AM EDT Medication Management [facility] MEDICINE [address] [place], [place] [phone] Pastor Zhou, PharmD 230 [place] [address] 12/15/2024 2:30 PM EDT Office Visit [facility] ADULT DENTAL 230 [place] [address] Edmond Kimble DMD 230 [place] [address] 12/16/2024 3:00 PM EDT Office Visit [facility] ADULT DENTAL [address] [place] [address] Jorge Pham 12/21/2024 1:30 PM EDT Office Visit [facility] ADULT DENTAL 230 [place] [address] Edmond Kimble DMD 230 [place] [address] 12/26/2024 3:00 PM EDT Office Visit [facility] ADULT DENTAL 230 [place] [address] Edmond Kimble, DMD 230 [place] [address] 12/27/2024 2:30 PM EDT Office Visit [facility] OPTOMETRY [address] [place] [address] Riccardo, Tamiko, OD 230 [place] [address] 01/13/2025 3:30 PM EST Office Visit [facility] MEDICINE 230 [place] [address] Saima Rae MD 230 [place] [address] documented as of this encounter Visit Diagnoses Not on filedocumented in this encounter Additional Health Concerns Assessment Noted Time PHQ-9 Depression Total Score: 15 02/19/ 023 3:30 PM EST documented as of this encounter Care Teams Rehabilitation Worker Relationship Specialty Start Date End Date Saima Rae MD [address] [place] [address] PCP - General Family Medicine 08/26/18 Pastor Zhou, LeighannD [address] [place] [address] Pharmacist Internal Medicine 08/11/24 documented as of this encounter
--- OUTSIDE RECORDS SUMMARY | 2024-12-12 09:18 | XMS_ITS | Clinical Summary ---
Author Organization [email or web address] Address [address] [place] [address] 7 [place] [address] Care Team Providers Care Electric Lineman Name Role Phone Saima Rae MD Primary Care Provide r Pastor Zhou PharmD Unavailable [phone] Allergies No known active allergies Medications * [...] AL D A 024 Active Continuous Glucose Mounting Machine Operator (FreeStyle Dary 3 [place]) deviceIndicatio ns:Type 2 diabetes mellitus with hyperglycemia, without long-term current use of insulin ([facility]) 1 each Once per day. Use as directed for CGM 1 each 025 Active Continuous Glucose Sensor (FreeStyle Dary 3 Plus Sensor) miscIndications :Type 2 diabetes mellitus with hyperglycemia, without long-term current use of insulin ([facility]) 1 each every 15 days. Apply 1 every 15 days as directed for CGM 2 each 11 025 Active empagliflozin (Jardiance) 25 MGIndications:T ype 2 diabetes mellitus with hyperglycemia, without long-term current use of insulin ([facility]) Take 1 tablet (25 mg) by mouth [...] hyperglycemia, without long-term current use of insulin ([facility]) Use to test blood sugar 3 times daily in case of CGM failure or extremes of BG 100 each 025 2025 Active insulin glargine (Lantus SoloStar) 100 UNIT/ML penIndications: Type 2 diabetes mellitus with hyperglycemia, without long-term current use of insulin ([facility]) Inject 10 Units under the skin at bedtime. 3 mL 025 2025 Active insulin lispro (HumaLOG KWIKPEN) 100 UNIT/ML injectionIndica tions:Type 2 diabetes mellitus with hyperglycemia, without long-term current use of insulin ([facility]) Inject 4 Units under the skin with breakfast, with lunch, and with evening meal. 1 each Active Acetaminophen Extra Strength 500 MG tablet TAKE 1 TABLET BY MOUTH EVERY 6 HOURS IF NEEDED FOR MILD PAIN. 120 tablet Active Tirzepatide (Mounjaro) 5 MG/0.5ML solution auto-injectorIn dications:Type 2 diabetes mellitus with hyperglycemia, with long-term current use of insulin ([facility]) Inject 5 mg under the skin 1 [...] with long-term current use of insulin ([facility]) Use 4 times daily as directed 100 each 11 025 Active pantoprazole (ProtoNix) 40 MG EC tablet TOME JEANCARLOS TABLETA POR V A ORAL TODOS LOS D 025 Active sucralfate (Carafate) 1 GM/10ML suspension TAKE 2 TEASPOONSFUL (10 ML) BY MOUTH 2 TIMES A DAY 025 Active Tirzepatide (Mounjaro) 2.5 MG/0.5ML solution auto-injectorIn dications:Type 2 diabetes mellitus with hyperglycemia, with long-term current use of insulin ([facility]) Inject 2.5 mg under the skin 1 (one) time per week. 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 See bronc buster Assessment & Plan (09/08/2023 5:25 PM EDT): [...] has small dog who is her emotional lag screwer, she is today requesting a better for [...] 25 mg I advised to follow-up with [facility] pharmacy, continue glucose monitor is also in [...] meds I will refer her to pharmacy [facility] - Diabetic eye exam: Up-to-date - Diabetic [...] Encounters Date Type Department Care Team Description 12/11/2024 Refill [facility] [address] [place] [address] Saima Rae MD Muscle spasm; Fibromyalgia 12/05/2024 9:30 AM EDT Office Visit [facility] [address] [place] [address] Tae Ball, IBRAHIMA Dental caries (Primary Dx) 11/28/2024 Refill [facility] [address] [place] [address] Bhavna Martinez MD 11/28/2024 Refill [facility] [address] [place] [address] Saima Rae MD 11/25/2024 Travel 11/23/2024 1:30 PM EDT Office Visit [facility] [address] [place] [address] Edmond Kimble, DMD 11/22/2024 Telephone [facility] [address] [place] [phone] Saima Rae MD telephone call 11/22/2024 Telephone [facility] [address] [place] [phone] Saima Rae MD Appointment Request 11/18/2024 Orders Only [facility] [address] [place] [address] Saima Rae MD 11/18/2024 Telephone [facility] [address] [place] [phone] Saima Rae MD Med Refill 11/18/2024 Refill [facility] [address] [place] [address] Saima Rae MD Cervical stenosis of spinal canal; Chronic bilateral low back pain with bilateral sciatica 2024 Telephone [facility] [address] [place] [phone] Saima Rae MD Med Refill 11/09/2024 Telephone [facility] [address] [place] [address] Saima Rae MD NOV RECALL 11/06/2024 Refill [facility] [address] [place] [address] Bhavna Martinez MD 11/04/2024 Refill [facility] [address] [place] [phone] Saima Rae MD Muscle spasm; Type 2 diabetes mellitus with hyperglycemia, without long-term current use of insulin ([facility]) 10/24/[address] [address] Saima Rae MD fyi 10/24/2024 Refill [facility] [address] [place] [phone] Saima Rae MD Cervical stenosis of spinal canal; Chronic bilateral low back pain with bilateral sciatica 10/21/2024 Results Follow-Up [address] [address] María Elena Tai NP XR Chest 2 Views 10/21/2024 Orders Only GENERIC EXTERNAL DATA DEPARTMENT Provider, Generic External Data 10/19/2024 5:00 PM EDT Office Visit [facility] [address] [place] [phone] María Elena Tai NP Acute cough (Primary Dx); Tachycardia 10/19/2024 Travel 10/17/[address] [address] Saima Rae MD Nurse Triage 10/13/2024 2:30 PM EDT Office Visit [address] [address] Saima Rae MD Essential hypertension (Primary Dx); Type 2 diabetes mellitus with hyperglycemia, with long-term current use of insulin ([facility]); Type 2 diabetes mellitus with hyperglycemia, without long-term current use of insulin ([facility]); Acute cough; Colon cancer screening 10/13/2024 Travel 10/11/2024 Telephone [facility] [address] [place] [address] Saima Rae MD Chart Prep 10/10/2024 12:15 PM EDT Office Visit [facility] [address] [place] [address] Bhavan Martinez MD Nasal congestion (Primary Dx); Type 2 diabetes mellitus with hyperglycemia, without long-term current use of insulin ([facility]); Sore throat 10/10/2024 Refill [facility] [address] [place] [address] Saima Rae MD Type 2 diabetes mellitus with hyperglycemia, without long-term current use of insulin ([facility]) 10/10/2024 Travel 10/10/2024 Telephone [facility] [address] [place] [address] Saima Rae MD Nurse Triage 10/10/2024 Refill [facility] [address] [place] [phone] Saima Rae MD Cervical stenosis of spinal canal; Chronic bilateral low back pain with bilateral sciatica 10/05/2024 Refill [facility] [address] [place] [address] Saima Rae MD Type 2 diabetes mellitus with hyperglycemia, without long-term current use of insulin ([facility]) 10/04/2024 Patient Outreach [facility] [address] [place] [phone] Saima Rae MD Pre-visit Planning ([facility] screening completed on 07/07/2024) 09/27/2024 Refill [facility] [address] [place] [address] Saima Rae MD Muscle spasm 09/20/2024 Telephone [facility] [address] [place] [address] Jacqueline Schumacher RN Pt was [facility] for chronic pain group 09/19/2024 Travel 09/18/2024 Refill [facility] [address] [place] [address] Saima Rae MD Essential hypertension 09/16/2024 Telephone [facility] [address] [place] [address] Saima Rae MD 09/16/2024 Refill [facility] [address] [place] [address] Saima Rae MD Primary insomnia 09/16/2024 Telephone [facility] [address] [place] [address] Saima Rae MD Appointment Request 09/12/2024 Refill [facility] [address] [place] [address] Saima Rae MD Fibromyalgia; Cervical stenosis of spinal canal; Chronic bilateral low back pain with bilateral sciatica; Cervicalgia from Last 3 Months Immunizations Immunization Administration [...] Description 12/13/2024 11:00 AM EDT Office Visit [facility] [address] [place] [address] 12/15/2024 10:30 AM EDT Medication Management [facility] [address] [place] [address] Pastor Zhou, PharmD [address] [place] [address] 12/15/2024 2:30 PM EDT Office Visit [facility] [address] [place] [address] Edmond Kimble, DMD [address] [place] [address] 12/16/2024 3:00 PM EDT Office Visit [facility] [address] [place] [address] Jorge Pham 12/21/2024 1:30 PM EDT Office Visit [facility] [address] [place] [address] Edmond Kimble, DMD [address] [place] [address] 12/26/2024 3:00 PM EDT Office Visit [facility] [address] [place] [address] JoshuamartinezEdmond, DMD [address] [place] [address] 12/27/2024 2:30 PM EDT Office Visit [facility] [address] [place] [address] Dev Gun, OD [address] [place] [address] 01/13/2025 3:30 PM EST Office Visit [facility] [address] [place] [address] Saima Rae MD [address] [place] [address] Health Maintenance Due Date Last Done Comments [...] 04/02, 07/28/2020, Additional history exists Tobacco Screening 12/05/2025 12/05/2024 Zoster Vaccines (1 of 2) 2026 DTaP/Tdap/Td [...] Procedure Name Priority Date/Time Associated Diagnosis Comments 14 LIMITED ORAL EVALUATION - PROBLEM FOCUSED Routine 12/05/2024 9:30 AM EDT 30 CORE BUILDUP, INCL ANY PINS WHEN [...] hyperglycemia, with long-term current use of insulin ([facility]) POCT GLUCOSE Routine 10/13/2024 2:30 PM EDT Type 2 diabetes mellitus with hyperglycemia, with long-term current use of insulin ([facility]) POC GILMAN ID NOW STREP A Routine [...] hyperglycemia, without long-term current use of insulin ([facility]) ALBUMIN, RANDOM URINE W/CREATININE Routine 07/19/2024 9:13 AM EDT Type 2 diabetes mellitus with hyperglycemia, without long-term current use of insulin ([facility]) PAP SMEAR Routine 07/15/2023 12:11 PM EDT [...] EDT Narrative 11/15/2024 6:27 PM EDT [place] [facility] [address] [place] [address] Mammography Report Signed Patient: [place] Anderson MR #: [id number] : 1975 Acct:[id number] Age/Sex: 48 / F ADM Date: 11/14/24 Loc: JAC Attending Dr: Saima Colbert MD Ordering Physician: Saima Rae MD Results: 1Negative Date of Service: 11/14/24 Follow Up: 1 Year From Orig inal Mammogram Procedure(s): MM tomosynthesis screening BI Accession Number(s): [id number] cc: Saima Rae MD Reason For Exam: [...] Adelina Barnes MD 11/15/2024 06:23 PM EDT RP Dictated By: Adelina Barnes MD Signed By: <Electronically signed by Adelina Barnes MD in OV> 11/15/24 1823 DD/ 1430 TD/TT: 11/14/24 1448 Clinical Applications Manager: Procedure Note Donotuseinterpreter, Image - 11/15/2024 [place] [facility] [address] [place] [address] Mammography Report Signed Patient: Cristhian AndersoneMR #: [id number] : 1975Acct:[id number] Age/Sex: 48 / FADM Date: 11/14/24 Loc: HO.MAMMO Attending Dr: Saima Colbert MD Ordering Physician: Saima Rae MDResults: 1Negative Date of Service: 11/14/24Follow Up: 1 Year From Orig ina Mammogram Procedure(s): MM tomosynthesis screening BI Accession Number(s): [id number] cc: Saima Rae MD Reason For Exam: [...] Adelina Barnes MD 11/15/2024 06:23 PM EDT RP Dictated By: Adelina Barnes MD Signed By: <Electronically signed by Adelina Barnes MD in OV> 11/15/24 1823 DD/ 1430 TD/TT: 11/14/24 1448 Clinical Applications Manager: us Saima Colbert MD IMG BI PROCEDURES Davon kaylie Result - Final * TSH with Reflex to Free T4 (10/21/2024 10:37 AM EDT) Pathologist [facility] TSH reflex Free T4 1.74 0.32 - 4.0 uIU/mL [facility] 10/21/2024 10:3 7 AM EDT 10/21/2024 10:37 AM EDT us Generic External Data Provider LAB BLOOD ORDERAB LES Final Result Performing Organization Address City/State/[facility] Co de Phone Number [facility] [address] [place] [phone] * (ABNORMAL) CBC auto differential (10/21/2024 10:37 AM EDT) White Blood Count 8.8 4.8 - 10.8 X10*3/uL [facility] Red Blood Count 4.30 4.20 - 5.50 X10*6/uL [facility] Hemoglobin 13.0 12.0 - 16.0 g/dl [facility] Hematocrit 37.1 37.0 - 47.0 % [facility] Mean Corpuscular Volume 86.3 80.0 - 98.0 fL [facility] Mean Corpuscular Hemoglobin 30.2 27.0 - 33.0 pg [facility] Mean Corpuscular HGB Conc 35.0 31.0 - 35.0 g/dl [facility] Red Cell Distribution Width 12.9 11.0 - 16.0 % [facility] Platelet Count 315 160 - 400 X10*3/uL [facility] Mean Platelet Volume 9.7 9.4 - 12.3 fL [facility] Neutrophils Percent Auto 72.2 45 - 73 % [facility] Imm Gran Pct Auto 0.7(H) 0.0 - 0.4 % [facility] Lymphocytes Percent Auto 18.4(L) 20 - 40 % [facility] Monocytes Percent Auto 7.0 2 - 11 % [facility] Eosinophils Percent Auto 1.1 0 - 4 % [facility] Basophils Percent Auto 0.6 0 - 2 % [facility] NRBC Pct Auto 0.0 0.0 - 0.2 /100WBC [facility] Neutrophils Absolute Auto 6.4 2.0 - 8.3 x10*3/uL [facility] Imm Gran Abs Auto 0.06(H) 0.00 - 0.03 X10*3/uL [facility] Lymphocytes Absolute Auto 1.6 1.2 - 4.9 X10*3/uL [facility] Monocytes Absolute Auto 0.6 0.1 - 1.2 X10*3/uL [facility] Eosinophils Absolute Auto 0.1 0.0 - 0.4 X10*3/uL [facility] Basophils Absolute Auto 0.1 0.0 - 0.2 X10*3/uL [facility] NRBC Abs Auto 0.000 0.0 - 0.012 X10*3/uL [facility] 10/21/2024 10:3 7 AM EDT 10/21/2024 10:37 AM EDT us Generic External Data Provider LAB BLOOD ORDERAB LES Final Result [facility] [address] [place] [address] [phone] * Insulin (10/21/2024 10:37 AM EDT) Insulin 19 2 - 29 uU/mL [facility] Comment:This test was perfor med [...] ORDERAB LES Final Result Performing Organization Address [facility]/ZIP Co de Phone Number [facility] [address] [place] [phone] * Partial Thromboplastin Time, Activated (APTT) (10/21/2024 10:37 AM EDT) Pathologist [facility] Partial Thromboplastin Time 27.5 26.7 - 34.1 SEC [facility] 10/21/2024 10:3 7 AM EDT 10/21/2024 10:37 AM EDT Generic External Data Provider LAB BLOOD ORDERAB LES Final Result Performing Organization Address [facility] Co de Phone Number [facility] [address] [place] [phone] * (ABNORMAL) Prothrombin Time-INR (10/21/2024 10:37 AM EDT) Pathologist [facility] Prothrombin Time 14.5(H) 10.9 - 12.4 SEC [facility] INTERNATIONAL NORM RATIO 1.3(H) 0.9 - 1.1 [facility] Comment:INTERNATIONAL NORMAL IZED RATIO (INR) [...] ORDERAB LES Final Result Performing Organization Address City/[facility]/ZIP Co de Phone Number [facility] [address] [place] [phone] * (ABNORMAL) C-reactive Protein (10/21/2024 10:37 AM EDT) C Reactive Protein 1.44(H) < or = 0.50 mg/dL [facility] 10/21/2024 10:3 7 AM EDT 10/21/2024 10:37 AM EDT Generic External Data Provider LAB BLOOD ORDERAB LES Final Result Performing Organization Address City/[facility] Co de Phone Number [facility] [address] [place] [phone] * (ABNORMAL) Hemoglobin A1c (10/21/2024 10:37 AM EDT) Hemoglobin A1c 7.1(H) <6.0 % [facility] Comment:Hemoglobin A1C Refer ence Range Adults: 4.8 - 6.0 % Non diabetic: < 6.0 % Goal: < 7.0 %Additional Action Suggested: > 8.0 %Note: Hemoglobin A1c results are invalid for patients with abnormal amounts of HbF. Blood transfusions may impact the HbA1c concentration in the patient sample. Estimated Average Glucose 157 mg/dL [facility] Comment:eAG = Estimated ave rage glucose which is %A1C expressed asaverage glucose, using the formula of the L5E-EwwupluTymtgre Glucose study (ADAG), Diabetes Care, Vol.31,#8,2007 10/21/2024 10:3 7 AM EDT 10/21/2024 10:37 AM EDT us Generic External Data Provider LAB BLOOD ORDERAB LES Final Result Performing Organization Address City/[facility]/ZIP Co de Phone Number [facility] [address] [place] [phone] [phone] * Lipid Panel, Standard (10/21/2024 10:37 AM EDT) Triglycerides 128 <150 mg/dL [facility] Comment:Desirable Triglyceri de: less than 150 mg/dLBorderline High Triglyceride 150-199 mg/dLHigh Triglyceride: 200-499 mg/dLVery High Triglyceride: greater than or equal to 5OO mg/dL Cholesterol 165 <200 mg/dL [facility] Comment:Desirable Cholestero l: less than 200 mg/dLBorderline High Cholesterol: 200-239 mg/dLHigh Cholesterol: greater than 239 mg/dL LDL Cholesterol Calculated 94 <100 mg/dL [facility] Comment:Desirable LDL: less than 100 mg/dLNear Optimal/Above Optimal LDL: 110- 129 mg/dLBorderline High LDL: 130-159 mg/dLHigh LDL: 160-189 mg/dLVery High LDL: greater than or equal to 190 mg/dL HDL Cholesterol 46 >40 mg/dL [facility] Comment:Desirable HDL: great er than 40 mg/dL Note: This HDL assay may give artificially low results in patients with liver disease. 10/21/2024 10:3 7 AM EDT 10/21/2024 10:37 AM EDT us Generic External Data Provider LAB BLOOD ORDERAB LES Final Result Performing Organization Address City/[facility]/ZIP Co de Phone Number [facility] [address] [place] [phone] [phone] * (ABNORMAL) Comprehensive Metabolic Panel (10/21/2024 10:37 AM EDT) Sodium 138 135 - 145 mmol/L [facility] Potassium 3.9 3.3 - 5.1 mmol/L [facility] Chloride 108 96 - 108 mmol/L [facility] Carbon Dioxide 23 22 - 29 mmol/L [facility] Anion Gap 11(L) 12 - 20 [facility] Urea Nitrogen (BUN) 7(L) 9 - 16 mg/dL [facility] Creatinine, Serum 0.64 0.5 - 1.4 mg/dL [facility] Estimated Glomerular Filt Rate >60 [facility] Comment:Chronic Kidney Disea se: Estimated GFR < 60 mL/min/[id number] Kidney Disease: Estimated GFR < 15 mL/min/1.73m2 Glucose 171(H) 60 - 115 mg/dL [facility] Calcium 8.5 8.4 - 10.2 mg/dL [facility] Bilirubin, Total 0.4 0.0 - 1.0 mg/dL [facility] Aspartate Amino Transferase 20 5 - 31 U/L [facility] Alanine Aminotransferase 10 0 - 31 U/L [facility] Total Protein 6.5 6.5 - 8.0 g/dL [facility] Albumin Level 3.6 3.5 - 5.0 g/dL [facility] Alkaline Phosphatase 125(H) 39 - 117 U/L [facility] 10/21/2024 10:3 7 AM EDT 10/21/2024 10:37 AM EDT us Generic External Data Provider LAB BLOOD ORDERAB LES Final Result Performing Organization Address City/State/[facility] Co de Phone Number [facility] [address] [place] [phone] * XR Chest 2 Views (10/20/2024 1:36 PM EDT) Anatomical Region Laterality Modality Chest Radiographic Kathleen ging 10/20/2024 1:36 PM EDT Narrative 10/20/2024 2:41 PM EDT [facility] [address] [place] [address] XRay Report Signed Patient: Vazquez Anderson MR #: [id number] : 1975 Acct:[id number] Age/Sex: 48 / F ADM Date: 10/20/24 Loc: ROBBYX Attending Dr: María Elena Tai Ordering Physician: María Elena Tai Date of Service: 10/20/24 Procedure(s): XR chest 2V Accession Number(s): [id number] cc: Marycarmen Tai Maria MD EXAMINATION: XR [...] 10/20/24 1438 DD/ 1336 TD/TT: 10/20/24 1424 Clinical Applications Manager: Procedure Note Donotuseinterpreter, Image - 10/20/[address] [address] XRay Report Signed Patient: Cristhian AndersoneMR #: [id number] : 1975Acct:[id number] Age/Sex: 48 / FADM Date: 10/20/24 Loc: ARAM Attending Dr: María Elena Tai Ordering Physician: María Elena Tai Date of Service: 10/20/24 Procedure(s): XR chest 2V Accession Number(s): [id number] cc: Marycarmen Tai Maria MD EXAMINATION: XR [...] 10/20/24 1438 DD/ 1336 TD/TT: 10/20/24 1424 Clinical Applications Manager: María Elena Appram RESIDENTIAL REAL ESTATE SALES MANAGER IMG XR PROCEDURES Final Result * POCT Rapid Influenza B GILMAN ID NOW (10/19/2024 5:34 PM EDT) Only the most recent of2 resultswithin the time period is included. Influenza B Negative Negative, Indeterminate [facility] Swab 10/19/2024 5:34 PM EDT María Elena Narayanan RESIDENTIAL REAL ESTATE SALES MANAGER POINT OF CARE TEST ENTER/EDIT O RDERABLES Final Result Performing Organization Address City/[facility]/ZIP Co de Phone Number [facility] [address] [place] [phone] * POCT Rapid Influenza A GILMAN ID NOW (10/19/2024 5:34 PM EDT) Only the most recent of2 resultswithin the time period is included. Influenza A Negative Negative, Indeterminate [facility] Swab 10/19/2024 5:[address] [facility] RESIDENTIAL REAL ESTATE SALES MANAGER POINT OF CARE TEST ENTER/EDIT O RDERABLES Final Result Performing Organization Address City/[facility]/ZIP Co de Phone Number [facility] [address] [place] [phone] * POCT Rapid Covid-19 BinaxNOW (10/19/2024 5:34 PM EDT) Rapid COVID Ag Negative Swab 10/19/2024 5:34 PM EDT Result [facility] María Elena Tai NP POINT OF CARE TEST ENTER/EDIT O RDERABLES Final Result * (ABNORMAL) POCT HGB A1C (10/13/2024 2:31 PM EDT) [facility] Hemoglobin A1C 7.2(A) 4.0 - 5.7 % QC Media Lot # [id number] Lot# Expiration Date 47, Blood 10/13/2024 2:31 PM EDT Result [facility] Saima Colbert MD POINT OF CARE TEST EN TER/EDIT ORDERABLES Final Result * POCT Glucose (10/13/2024 2:30 PM EDT) Only the most recent of2 resultswithin the time period is included. [facility] Glucose Blood, POC 111 60 - 200 mg/dL QC Media Lot # [id number] Lot# Expiration Date 918, Blood Capillary blood specimen / Unknown 10/13/2024 2:30 PM EDT Result [facility] Saima Colbert MD POINT OF CARE TEST EN TER/EDIT ORDERABLES Final Result * POCT Rapid Strep A GILMAN ID NOW (10/10/2024 12:38 PM EDT) [facility] Rapid Strep A Screen Negative Negative, None Detected QC Media Lot # [id number] Lot# Expiration Date Swab 10/10/2024 12:3 8 PM EDT Bhavna Martinez MD POINT OF CARE TEST ENTER /EDIT ORDERABLES Final Result * POCT Rapid Covid-19 GILMAN ID NOW (10/10/2024 12:32 PM EDT) [facility] Coronavirus Antigen PCR Negative Negative, Indeterminate, None Detected, Invalid, Specimen unsatisfactory for evaluation, Weakly Positive, 2+ QC Media Lot # [id number] Lot# Expiration Date Swab 10/10/2024 12:3 2 PM EDT Bhavna Martinez MD POINT OF CARE TEST ENTER /EDIT ORDERABLES Final Result * Albumin, Random Urine W/Creatinine (07/19/2024 9:13 AM EDT) Creatinine, Urine 34.74 mg/dL [facility] Microalbumin Urine <5.0 mg/L [facility] Microalbum Creatinine Ratio Ur TNP <30 ug/mg cr [facility] Comment:Unable to calculate albumin/creatinine ratio due to lowmicroalbumin or creatinine result. Urine (Urine, Random) 07/19/2024 9:13 AM EDT 07/19/2024 9:46 AM EDT us Saima Colbert MD LAB URINE ORDERABLES Final Result [facility] [address] [place] [phone] * Pap Smear (07/15/2023 12:11 PM EDT) 07/15/2023 12:1 1 PM EDT 07/16/2023 10:15 AM EDT Narrative [facility] - 08/03/2023 11:58 AM EDT ----- ------- Name: Vazquez Anderson Age/Sex: 47/F : 1975 Unit#: [id number] Attend Dr: Rebecca Bales [facility] Re07/15/23 Status: DEP REF Location: .LAB Disch: ----- ------- SPEC : [id number] RECD: 07/16/23-1015 STATUS: ROHIT BERKOWITZ NUM: [id number] ELINA: 07/15/23-[address]: Rebecca Bales [facility] ENTERED: 07/16/23-131 SP TYPE: Pap Smr OTHR DR: Saima Rae MD ORDERED: Pap Smear Interpretation Satisfactory for evaluation. Negative for intraepithelial lesion or malignancy. HPV mRNA E6/E7: NOT DETECTED This assay detects E6/E7 viral messenger RNA (mRNA) from 14 high-risk HPV types (16, 18, 31, 33, 35, 39, 45, 51, 52, 56, 58, 59, 66, 68) HPV testing performed by [facility], [place], [place]. See reference laboratory portion of the EMR for entire report. Clinical Information LMP:06/24/23 Previous PAP test:2019 [facility] Material Received ThinPrep-Vaginal/Cervical Copies To: Saima Rae MD [address] [place] [address] Rebecca Bales [address] Fiore [address] [place] [phone] ----- ------- Signed (signature on file) Griselda Ho 08/03/23 1158 ----- ------- END OF REPORT us Generic External Data Provider LAB CYTOLOGY SHARMILA ZAMBRANO Final Result [facility] [address] [place] [address] [phone] * HPV E6/E7 RFLX TRACIE 16 18/45 (01/16/2017 12:20 PM EST) HPV mRNA E6/E7 Not Detected NOT DETECTED [facility] Comment: This test was performed using the APTIMA(R) HPV Assay ([employer] This assay detects E6/E7 viral messenger RNA (mRNA) from 14 high-risk HPV types (16,18,31,33,35,39,45,51, 52,56,58,59,66,68). For additional information please refer to: http://education.Fundability/faq/DCK891g8 (This link is being provided for informational/ educational purposes only.) Please note: Effective 11/12/2015, HPV testing will be performed using [employer]'s APTIMA test which targets mRNA. Detecting mRNA instead of DNA, as in older methods, offers significant improvements in specificity. ADDITIONAL TESTING Not indicated () [facility] Comment: Test Performed by [employer], [facility], [address] [place], [place] J Carlos Macedo M.D., Ph.D., Director of Laboratories , [facility] [id number] HPV 16 RNA Test not performed [facility] HPV 18/45 RNA Test not performed [facility] 01/16/2017 12:2 0 PM EST us Nicola White MD HISTORICAL/NON ORDERA BLE LABS Final Result [facility] [address] from Last 3 Months or Most Recently Relevant to Health Maintenance Insurance [facility] C3 HSN PARTIAL AFLAC DENTAL-[facility] MEDICAID STAND ADULT Care Teams Electric Lineman Relationship Specialty Start Date End Date Saima Rae MD [address] [place] [phone] PCP - General Family Medicine 08/26/18 Pastor Zhou, PharmD [address] [place] [phone] Pharmacist Internal Medicine 08/11/24
--- OUTSIDE RECORDS SUMMARY | 2024-12-12 09:18 | XMS_ITS | Encounter Summary ---
Author Organization [employer] Address [address] [place] [address] 7 [place] [address] Care Team Providers Care Powder Worker Tnt Name Role Phone Saima Rae MD Primary Care Provide r Pastor Zhou PharmD Unavailable [phone] Reason for Visit * Reason Onset Date Comments Nurse Triage 12/24/2023 Encounter Details Date Type Department Care Team ([facility] st Contact Info) Description 12/24/2023 Telephone [facility] [address] [place], [place] [phone] Saima Rae MD [address] [place], [place] [phone] Nurse Triage Social History Tobacco Use Types [...] Did [facility] [place] [facility] [place] [facility] [place]. Pt has scrape and swelling [...] Description 12/13/2024 11:00 AM EDT Office Visit [facility] [address] [place] [address] 12/15/2024 10:30 AM EDT Medication Management [facility] [address] [place] [address] Pastor Zhou, PharmD [address] [place] [address] 12/15/2024 2:30 PM EDT Office Visit [facility] ADULT DENTAL [address] [place] [address] Edmond Kimble, DMD [address] [place] [address] 12/16/2024 3:00 PM EDT Office Visit [facility] ADULT D[facility] [address] [place] [address] Jorge Pham 12/21/2024 1:30 PM EDT Office Visit [facility] ADULT DENTAL [address] [place] [address] Edmond Kimble, DMD [address] [place] [address] 12/26/2024 3:00 PM EDT Office Visit [facility] ADULT DENTAL [address] [place] [address] Edmond Kimble, DMD [address] [place] [address] 12/27/2024 2:30 PM EDT Office Visit [facility] OPTOMETRY [address] [place] [address] Riccardo, Tamiko, OD [address] [place] [address] 01/13/2025 3:30 PM EST Office Visit [facility] [address] [place] [address] Saima Rae MD [address] [place] [address] documented as of this encounter Visit Diagnoses Not on filedocumented in this encounter Additional Health Concerns Assessment Noted Time PHQ-9 Depression Total Score: 15 023 3:30 PM EST documented as of this encounter Care Teams Powder Worker Tnt Relationship Specialty Start Date End Date Saima Rae MD [address] [place] [address] PCP - General Family Medicine 08/26/18 Pastor Zhou, PharmD [address] [place] [address] Pharmacist Internal Medicine 08/11/24 documented as of this encounter
--- OUTSIDE RECORDS SUMMARY | 2024-12-12 09:18 | XMS_ITS | Encounter Summary ---
Author Organization [employer] Address [address] [place] [address] 7 [place] [address] Care Team Providers Care Quantitative Equity Head Name Role Phone Saima Rea MD Primary Care Provide r Pastor Zhou PharmD Unavailable [phone] Reason for Visit * Reason Onset Date Comments Med Refill 11/18/2024 Encounter Details Date Type Department Care Team (Late st Contact Info) Description 11/18/2024 Telephone [facility] [address] [place], [place] [phone] Saima Rae MD [address] [place], [place] [phone] Med Refill Social History Tobacco Use Types [...] 12:44 PM EDT Medication was sent to [facility]/pharmacy #[id number] on 11/04/24 with 1 refill. * Telephone Encounter - Ele Wang - 11/18/2024 12:40 PM EDT TC from pt requesting medication refill. Medications needing refill : cyclobenzaprine (Flexeril) 10 MG tablet To be sent to: [facility]/pharmacy #[id number] [place], [address] documented in this encounter Plan of Treatment Upcoming Encounters Date Type Department Care Team (Late st Contact Info) Description 12/13/2024 11:00 AM EDT Office Visit [facility] [address] [place] [address] 12/15/2024 10:30 AM EDT Medication Management [facility] [address] [place] [address] Pastor Zhou, PharmD [address] [place] [address] 12/15/2024 2:30 PM EDT Office Visit [facility] ADULT DENTAL [address] [place] [address] Edmond Kimble, DMD [address] [place] [address] 12/16/2024 3:00 PM EDT Office Visit [facility] ADULT DENTAL [address] [place] [address] Jorge Pham 12/21/2024 1:30 PM EDT Office Visit [facility] ADULT DENTAL [address] [place] [address] Edmond Kimble, DMD [address] [place] [address] 12/26/2024 3:00 PM EDT Office Visit [facility] ADULT DENTAL [address] [place] [address] Edmond Kibmle, DMD [address] [place] [address] 12/27/2024 2:30 PM EDT Office Visit [facility] OPTOMETRY [address] [place] [address] Taimko Gu, OD [address] [place] [address] 01/13/2025 3:30 PM EST Office Visit [facility] MED[facility]INE [address] [place], [place] [phone] Saima Rae MD [address] [place], [place] [phone] documented as of this encounter Visit Diagnoses Not on filedocumented in this encounter Additional Health Concerns Assessment Noted Time PHQ-9 Depression Total Score: 22 07/12/ 025 2:33 PM EDT documented as of this encounter Care Teams Quantitative Equity Head Relationship Specialty Start Date End Date Saima Rae MD [address] [place] [address] [phone] PCP - General Family Medicine 08/26/18 Pastor Zhou, LeighannD [address] [place] [address] [phone] Pharmacist Internal Medicine 08/11/24 documented as of this encounter
--- OUTSIDE RECORDS SUMMARY | 2024-12-12 09:18 | XMS_ITS | Encounter Summary ---
Author Organization [employer] Address [address] [place] [address] 7 [place] [address] Care Team Providers Care Egg Processor Name Role Phone Saima Rae MD Primary Care Provide r Pastor Zhou PharmD Unavailable [phone] Reason for Visit * Reason Comments Med Refill Encounter Details Date Type Department Care Team (Late st Contact Info) Description 10/05/2024 Refill [facility] [address] [place], [place] [phone] Saima Rae MD [address] [place], [place] [phone] Type 2 diabetes mellitus with hyperglycemia, without long-term current use of insulin ([facility]) Social History Tobacco [...] Description 12/13/2024 11:00 AM EDT Office Visit [facility] MEDICINE [address] [place] [address] 12/15/2024 10:30 AM EDT Medication Management [facility] [address] [place] [address] Pastor Zhou, PharmD [address] [place] [address] 12/15/2024 2:30 PM EDT Office Visit [facility] ADULT DENTAL [address] [place] [address] Edmond Kimble, DMD [address] [place] [address] 12/16/2024 3:00 PM EDT Office Visit [facility] ADULT DENTAL [address] [facility] [place] [address] Jorge Pham 12/21/2024 1:30 PM EDT Office Visit [facility] ADULT DENTAL [address] [place] [address] Edmond Kimble, DMD [address] [place] [address] 12/26/2024 3:00 PM EDT Office Visit [facility] ADULT DENTAL [address] [place] [address] Edmond Kimble, DMD [address] [place] [address] 12/27/2024 2:30 PM EDT Office Visit [facility] OPTOMETRY [address] [facility] [place] [address] RiccardoTamiko ronquillo, OD [address] [place] [address] 01/13/2025 3:30 PM EST Office Visit [facility] MEDICINE [address] [place] [address] Saima Rae MD [address] [place] [address] documented as of this encounter Visit Diagnoses Diagnosis Type 2 diabetes mellitus with hyperglycemia, without long-term current use of insulin (HCC) documented in this encounter Additional Health Concerns Assessment Noted Time PHQ-9 Depression Total Score: 22 05/2 025 2:33 PM EDT documented as of this encounter Care Teams Egg Processor Relationship Specialty Start Date End Date Saima Rae MD [address] [place] [address] PCP - General Family Medicine 08/26/18 Pastor Zhou, LeighannD [address] [place] [phone] Pharmacist Internal Medicine 08/11/24 documented as of this encounter
--- OUTSIDE RECORDS SUMMARY | 2024-12-12 09:18 | XMS_ITS | Encounter Summary ---
Author Organization [employer] Address [address] [place] [address] 7 [place] [address] Care Team Providers Care Strip Presser Name Role Phone Saima Rae MD Primary Care Provide r Pastor Zhou PharmD Unavailable Reason for Visit * Reason Comments Med Refill Encounter Details Date Type Department Care Team (Late st Contact Info) Description 11/28/2024 Refill [facility]INE [address] [place] [address] Bhavna Martinez MD [address] [place] [address] Social History Tobacco Use Types Packs/Day Years [...] with others, in a hotel, in a chcf, living outside on the street, on a [...] 11:00 AM EDT Office Visit [facility] MEDICINE [address] [place] [address] 12/15/2024 10:30 AM EDT Medication Management [facility] [address] [place] [address] Pastor Zhou, PharmD [address] [place] [address] 12/15/2024 2:30 PM EDT Office Visit [facility] ADULT DENTAL [address] [place] [address] Edmond Kimble, DMD [address] [place] [address] 12/16/2024 3:00 PM EDT Office Visit [facility] ADULT DENTAL [address] [facility] [place] [address] Jorge Pham 12/21/2024 1:30 PM EDT Office Visit [facility] ADULT DENTAL [address] [place] [address] Edmond Kimble, DMD [address] [place] [address] 12/26/2024 3:00 PM EDT Office Visit [facility] ADULT DENTAL [address] [place] [address] Shyanne Edmond, DMD [address] [place] [address] 12/27/2024 2:30 PM EDT Office Visit [facility] OPTOMETRY [address] [place] [address] Riccardo, Tamiko, OD [address] [place] [address] 01/13/2025 3:30 PM EST Office Visit [facility] MEDICINE [address] [place] [address] Saima Rae MD [address] [place] [phone] documented as of this encounter Visit Diagnoses Not on filedocumented in this encounter Additional Health Concerns Assessment Noted Time PHQ-9 Depression Total Score: 22 07/12/ 025 2:33 PM EDT documented as of this encounter Care Teams Strip Presser Relationship Specialty Start Date End Date Saima Rae MD [address] [place] [address] PCP - General Family Medicine 08/26/18 Pastor Zhou, LeighannD [address] [place] [address] Pharmacist Internal Medicine 08/11/24 documented as of this encounter
--- OUTSIDE RECORDS SUMMARY | 2024-12-12 09:18 | XMS_ITS | Encounter Summary ---
Author Organization [employer] Address [address] [place] [address] 7 [place] [address] Care Team Providers Care Dental Equipment Technician Name Role Phone Saima Rae MD Primary Care Provide r Pastor Zhou PharmD Unavailable [phone] Reason for Visit * Reason Onset Date Comments Results 01/12/2024 Encounter Details Date Type Department Care Team ([facility] st Contact Info) Description 01/12/2024 Telephone [facility] [address] [place], [place] [phone] Saima Rae MD [address] [place], [place] [phone] Results Social History Tobacco Use Types Packs/Day [...] results: Xray Date when done: 01/07/24 Facility: [facility] documented in this encounter Plan of Treatment Upcoming Encounters Date Type Department Care Team (Late st Contact Info) Description 12/13/2024 11:00 AM EDT Office Visit [facility] MEDIC[facility] [address] [place] [address] 12/15/2024 10:30 AM EDT Medication Management [facility] [address] [place] [address] Pastor Zhou, PharmD [address] [place] [address] 12/15/2024 2:30 PM EDT Office Visit [facility] ADULT DENTAL [address] [place] [address] Edmond Kimble, DMD [address] [place] [address] 12/16/2024 3:00 PM EDT Office Visit [facility] ADULT DENTAL [address] [facility] [place] [address] Jorge Phma 12/21/2024 1:30 PM EDT Office Visit [facility] ADULT DENTAL [address] [place] [address] Edmond Kibmle, DMD [address] [place] [address] 12/26/2024 3:00 PM EDT Office Visit [facility] ADULT DENTAL [address] [place] [address] Edmond Kimble, DMD [address] [place] [address] 12/27/2024 2:30 PM EDT Office Visit [facility] OPTOMETRY [address] [place] [address] RiccardoTamiko, OD [address] [place] [address] 01/13/2025 3:30 PM EST Office Visit [facility] [address] [place] [address] Saima Rae MD [address] [place] [address] documented as of this encounter Visit Diagnoses Not on filedocumented in this encounter Additional Health Concerns Assessment Noted Time PHQ-9 Depression Total Score: 15 023 3:30 PM EST documented as of this encounter Care Teams Dental Equipment Technician Relationship Specialty Start Date End Date Saima Rae MD [address] [place] [address] PCP - General Family Medicine 08/26/18 Pastor Zhou, PharmD [address] [place] [address] Pharmacist Internal Medicine 08/11/24 documented as of this encounter
== END 2024-10-27 00:01 | disposition home or self-care (01) ==
LOC: HO.PAT
PROVIDERS: PCP Internal Medicine; Visit Provider Surgery
DX: E66.812 Obesity, class 2 (principal); E66.01 Morbid (severe) obesity due to excess calories; E11.9 Type 2 diabetes mellitus without complications; I10 Essential (primary) hypertension; Z68.38 Body mass index [BMI] 38.0-38.9, adult
CPT/HCPCS: 86850; 86900; 86901

== ENCOUNTER 2024-11-14 14:20 | Outpatient (REF) | payer MEDICAID, SELFPAY ==
--- NOTE | ~2024-11-14 | MM_ITS ---
EXAMINATION: MM SCREENING DIGITAL BREAST TOMOSYNTHESIS, BILATERAL CLINICAL INFORMATION: Screening. Asymptomatic. COMPARISON: Comparison made to multiple prior, most recent [diagnostic mammogram on May 17, 2023, and most remote January 16, 2017. TECHNIQUE: Digital breast tomosynthesis is performed in mediolateral oblique and craniocaudal views along with computer-aided detection (CAD). Synthesized 2D images are generated from the tomosynthesis. FINDINGS: BREAST COMPOSITION: There are scattered areas of fibroglandular density (ACR BI-RADS breast composition Category b). BILATERAL BREASTS: No significant masses, suspicious calcifications or other abnormalities are seen in either breast. MM/MM tomosynthesis screening BI IMPRESSION: BILATERAL BREASTS: Negative, no mammographic evidence of malignancy. Normal interval follow-up is recommended in 12 months. ASSESSMENT: BI-RADS 1 - Negative RECOMMENDATION: Routine annual mammography screening. FOLLOW-UP: 1 year F/U This examination should not preclude the clinical evaluation of a suspicious palpable abnormality. This patient's information was entered into a reminder system with a target due date for their next mammogram. Electronically signed by: Adelina Barnes MD 11/15/2024 06:23 PM EDT
--- OUTSIDE RECORDS SUMMARY | 2024-11-14 19:45 | XMS_ITS | Encounter Summary ---
Author Organization [employer] Address [address] [place] [address] 7 [place] [address] Care Team Providers Care Vibration Engineer Name Role Phone Saima Rae MD Primary Care Provide r Pastor Zhou PharmD Unavailable [phone] Reason for Visit * Reason Onset Date Comments NOV RECALL 11/09/2024 Encounter Details Date Type Department Care Team (Late st Contact Info) Description 11/09/2024 Telephone [facility] MED & PEDS [address] [place] [address] Saima Rae MD [address] [place] [address] [phone] NOV RECALL Social History Tobacco Use Types Packs/Day Years Used Date Smoking Tobacco: Former Cigarettes 0.5 0.7 S tarted: 2024 Passive Smoke Exposure: Past [...] encounter Miscellaneous Notes * Telephone Encounter - Srikanth Messer [place] - 11/09/2024 4:16 PM EDT T\C to pt to schedule a (NOV RECALL) f\u with pcp. Pt agreed to come in on 01/13/2025 at 3:30pm. Mailed appt info. documented in this encounter Plan of Treatment Upcoming Encounters Date Type Department Care Team (Late st Contact Info) Description 11/23/2024 1:30 PM EDT Office Visit [facility] ADULT DENTAL [address] [place] [address] Edmond Kimble, DMD 230 [place] [address] 11/25/2024 3:00 PM EDT Medication Management [facility] MEDICINE 230 [place] [address] Pastor Zhou, PharmD 230 [place] [address] 12/05/2024 9:30 AM EDT Office Visit [facility] ADULT DENTAL 505 [place] [address] Tae Ball, DDS 505 [place] [address] 12/16/2024 3:00 PM EDT Office Visit [facility] ADULT DENTAL 505 [place] [address] Jorge Pham 12/27/2024 2:30 PM EDT Office Visit [facility] OPTOMETRY [address] [place] [address] Tamiko Gu, OD 230 [place] [address] 01/13/2025 3:30 PM EST Office Visit [facility] MEDICINE 230 [place] [address] Saima Rae MD [address] [place] [address] documented as of this encounter Visit Diagnoses Not on filedocumented in this encounter Additional Health Concerns Assessment Noted Time PHQ-9 Depression Total Score: 22 025 2:33 PM EDT documented as of this encounter Care Teams Vibration Engineer Relationship Specialty Start Date End Date Saima Rae MD [address] [place] [address] PCP - General Family Medicine 08/26/18 Pastor Zhou, PharmD [address] [place] [address] Pharmacist Internal Medicine 08/11/24 documented as of this encounter
--- OUTSIDE RECORDS SUMMARY | 2024-11-14 19:45 | XMS_ITS | Encounter Summary ---
Author Organization [employer] Address [address] [place] [address] 7 [place] [address] Care Team Providers Care Mini Baccarat Dealer Name Role Phone Saima Rae MD Primary Care Provide r Pastor Zhou PharmD Unavailable [phone] Reason for Visit * Reason Onset Date Comments Med Refill 10/22/2023 Encounter Details Date Type Department Care Team (Late st Contact Info) Description 10/22/2023 Telephone [facility] MEDICINE 230 [place], [place] [phone] Saima Rae MD 230 [place], [place] [phone] Med Refill Social History Tobacco Use Types [...] the past 12 months, has t he [employer], [employer], oil or water [employer] threatened to shut off services in your [...] MG tablet Please o be sent to: [facility]/pharmacy #[id number] [place] - [address] [place] [address] documented in this encounter Plan of Treatment Upcoming Encounters Date Type Department Care Team (Late st Contact Info) Description 11/23/2024 1:30 PM EDT Office Visit [facility] ADULT DENTAL [address] [place] [address] Edmond Kimble, EVERT [address] [place], [place] [phone] 11/25/2024 3:00 PM EDT Medication Management [facility] MEDICINE [address] [place] [address] Pastor Zhou, PharmD 230 [place] [address] 12/05/2024 9:30 AM EDT Office Visit [facility] ADULT DENTAL 505 [place] [address] Tae Ball, DDS 505 [place] [address] 12/16/2024 3:00 PM EDT Office Visit [facility] ADULT DENTAL [address] [place] [address] Jorge Pham 12/27/2024 2:30 PM EDT Office Visit [facility] OPTOMETRY [address] [place] [address] Riccardo, Tamiko, OD 230 [place] [address] 01/13/2025 3:30 PM EST Office Visit [facility] MEDICINE [address] [place] [address] Saima Rae MD [address] [place] [address] documented as of this encounter Visit Diagnoses Not on filedocumented in this encounter Additional Health Concerns Assessment Noted Time PHQ-9 Depression Total Score: 15 023 3:30 PM EST documented as of this encounter Care Teams Mini Baccarat Dealer Relationship Specialty Start Date End Date Saima Rae MD [address] [place] [address] PCP - General Family Medicine 08/26/18 Pastor Zhou, PharmD [address] [place] [address] Pharmacist Internal Medicine 08/11/24 documented as of this encounter
--- OUTSIDE RECORDS SUMMARY | 2024-11-14 19:45 | XMS_ITS | Encounter Summary ---
Author Organization [employer] Address [address] [place] [address] 7 [place] [address] Care Team Providers Care Doughnut Glazier Name Role Phone Saima Rae MD Primary Care Provide r Pastor Zhou PharmD Unavailable Reason for Visit * Reason Comments Med Refill Encounter Details Date Type Department Care Team (Late st Contact Info) Description 03/25/2024 Refill [facility] MEDICINE 230 [place], [place] [phone] Bhavna Martinez MD 230 [place] [address] Fibromyalgia Social History Tobacco Use Types Packs/Day [...] with others, in a hotel, in a snf, living outside on the street, on a [...] Description 11/23/2024 1:30 PM EDT Office Visit [facility] ADULT DENTAL 230 [place] [address] Edmond Kimble, DMD 230 [place] [address] 11/25/2024 3:00 PM EDT Medication Management [facility] MEDICINE 230 [place] [address] Pastor Zhou, PharmD 230 [place] [address] 12/05/2024 9:30 AM EDT [facility] [address] [place] [address] Tae Ball, DDS [address] [place] [address] 12/16/2024 3:00 PM EDT Office Visit [facility] ADULT DENTAL [address] [place] [address] Jorge Pham 12/27/2024 2:30 PM EDT Office Visit [facility] OPTOMETRY [address] [place] [address] Riccardo, Tamiko, OD 230 [place] [address] 01/13/2025 3:30 PM EST Office Visit [facility] MEDICINE 230 [place] [address] Saima Rae MD 230 [place] [address] documented as of this encounter Visit Diagnoses Diagnosis Fibromyalgia Unspecified myalgia and myositis documented in this encounter Additional Health Concerns Assessment Noted Time PHQ-9 Depression Total Score: 19 024 2:18 PM EST documented as of this encounter Care Teams Doughnut Glazier Relationship Specialty Start Date End Date Saima Rae MD [address] [place] [address] PCP - General Family Medicine 08/26/18 Pastor Zhou, LeighannD [address] [place] [address] Pharmacist Internal Medicine 08/11/24 documented as of this encounter
--- OUTSIDE RECORDS SUMMARY | 2024-11-14 19:45 | XMS_ITS | Encounter Summary ---
Author Organization [employer] Address [address] [place] [address] 7 [place] [address] Care Team Providers Care Tree Surgeon Name Role Phone Saima Rae MD Primary Care Provide r Pastor Zhou PharmD Unavailable [phone] Reason for Visit * Reason Onset Date Comments Med Refill 03/25/2024 Encounter Details Date Type Department Care Team (Late st Contact Info) Description 03/25/2024 Refill [facility] MEDICINE 230 [place], [place] [phone] Saima Rae MD 230 [place], [place] [phone] Fibromyalgia Social History Tobacco Use Types Packs/Day [...] MG DR capsule To be sent to: [facility] - [place], [place] - [address] [facility] documented in this encounter Plan of Treatment Upcoming Encounters Date Type Department Care Team (Late st Contact Info) Description 11/23/2024 1:30 PM EDT Office Visit [facility] ADULT DENTAL 230 [place] [address] Shyanne Edmond, DMD 230 [place] [address] 11/25/2024 3:00 PM EDT Medication Management [facility] MEDICINE 230 [place] [address] Pastor Zhou, PharmD 230 [place] [address] 12/05/2024 9:30 AM EDT Office Visit [facility] ADULT DENTAL 505 [place] [address] Tae Ball, DDS 505 [place] [address] 12/16/2024 3:00 PM EDT Office Visit [facility] ADULT DENTAL 505 [place] [address] Jorge Pham 12/27/2024 2:30 PM EDT Office Visit [facility] OPTOMETRY [address] [place] [address] RiccardoTamiko ronquillo, OD 230 [place] [address] 01/13/2025 3:30 PM EST Office Visit [facility] MEDICINE 230 [place] [address] Saima Rae MD 230 [place] [address] documented as of this encounter Visit Diagnoses Diagnosis Fibromyalgia Unspecified myalgia and myositis documented in this encounter Additional Health Concerns Assessment Noted Time PHQ-9 Depression Total Score: 19 024 2:18 PM EST documented as of this encounter Care Teams Tree Surgeon Relationship Specialty Start Date End Date Saima Rae MD 230 [place] [address] PCP - General Family Medicine 08/26/18 Pastor Zhou, PharmD 230 [place] [address] Pharmacist Internal Medicine 08/11/24 documented as of this encounter
--- OUTSIDE RECORDS SUMMARY | 2024-11-14 19:45 | XMS_ITS | Encounter Summary ---
Author Organization [employer] Address [address] [place] [address] 7 [place] [address] Care Team Providers Care Package Collector Name Role Phone Saima Rae MD Primary Care Provide r Pastor Zhou PharmD Unavailable [phone] Reason for Visit * Reason Onset Date Comments Appointment Request 09/16/2024 Encounter Details Date Type Department Care Team ([facility] st Contact Info) Description 09/16/2024 Telephone [facility] MEDICINE 230 [place], [place] [phone] Saima Rae MD 230 [place], [place] [phone] Appointment Request Social History Tobacco Use Types Packs/Day Years Used Date Smoking Tobacco: Every Day Cigarettes 0.5 0.7 Started: 2024 Passive Smoke Exposure: Past Smokeless [...] with others, in a hotel, in a skilled nursing, living outside on the street, on a [...] encounter Miscellaneous Notes * Telephone Encounter - Jayesh Lewis - 09/16/2024 12:15 PM EDT Tc from pt canceled todays visit with Pastor due to not feeling well and wanting to just rest . Looking to get rescheduled for next week . documented in this encounter Plan of Treatment Upcoming Encounters Date Type Department Care Team (Late st Contact Info) Description 11/23/2024 1:30 PM EDT Office Visit [facility] ADULT DENTAL 230 [place] [address] Edmond Kimble, DMD 230 [place] [address] 11/25/2024 3:00 PM EDT Medication Management [facility] MEDICINE [address] [place] [address] Pastor Zhou, PharmD 230 [place] [address] 12/05/2024 9:30 AM EDT Office [facility] ADULT DENTAL 505 [place] [address] Tae Ball, DDS 505 [place] [address] 12/16/2024 3:00 PM EDT Office Visit [facility] ADULT DENTAL 505 [place] [address] Jorge Pham 12/27/2024 2:30 PM EDT Office Visit [facility] OPTOMETRY 267 [place] [address] RiccardoTamiko ronquillo, OD 230 [place] [address] 01/13/2025 3:30 PM EST Office Visit [facility] 230 [place] [address] Saima Rae MD [address] [place] [address] documented as of this encounter Visit Diagnoses Not on filedocumented in this encounter Additional Health Concerns Assessment Noted Time PHQ-9 Depression Total Score: 22 07/12/ 025 2:33 PM EDT documented as of this encounter Care Teams Package Collector Relationship Specialty Start Date End Date Saima Rae MD [address] [place] [address] PCP - General Family Medicine 08/26/18 ZhouPastor PharmD [address] [place] [address] Pharmacist Internal Medicine 08/11/24 documented as of this encounter
--- OUTSIDE RECORDS SUMMARY | 2024-11-14 19:45 | XMS_ITS | Clinical Summary ---
Author Organization [facility] Address [address] [place] [address] Phone Care Team Providers Care Basketballs And Footballs Reverser Name Role Phone Saima Rae MD Primary [...] Cervical Cancer Screening: P ap Smear 1997 Depression Screening 03/02/2024 Colorectal Cancer Screening: Colonoscopy 05/23/2024 HIV Screening 05/23/2024 Hepatitis C Screening 05/23/2024 Social Influencers of Health Screening 05/23/2024 COVID-19 Vaccine ( - 2023-2 5 season) 2024 Influenza Vaccine (#1) 2024 HIB Vaccines Aged [...] patient's age to complete this topic Insurance [facility] [employer] [place] - [place] Care Teams Basketballs And Footballs Reverser Relationship Specialty Start Date End Date Saima Rae MD [address] [place] [phone] PCP - General Internal Medicine 05/23/24
--- OUTSIDE RECORDS SUMMARY | 2024-11-14 19:45 | XMS_ITS | Encounter Summary ---
Author Organization [employer] Address [address] [place] [address] 7 [place] [address] Care Team Providers Care Hot Roller Name Role Phone Saima Rae MD Primary Care Provide r Pastor Zhou PharmD Unavailable [phone] Reason for Visit * Reason Onset Date Comments Nurse Triage 10/17/2024 Encounter Details Date Type Department Care Team (Late st Contact Info) Description 10/17/2024 Telephone [facility] MEDICINE 230 [place], [place] [phone] Saima Rae MD 230 [place], [place] [phone] Nurse Triage Social History Tobacco Use Types [...] with others, in a hotel, in a residential, living outside on the street, on a [...] Telephone Encounter - Jamila Armas RN - 10/17/2024 2:03 PM EDT Triage call Pt has been seen in OV 10/10 with Augmentin ordered for 5 days for nasal congestion/sinus pain. Pt was compliant to finish antibiotics. OV on 10/13 Pt continued to have acute cough. Pt calls today with cough producing yellow- greenish phlegm and left eye drainage which is also yellow-greenish in color and reports eye lashes are stuck together in the mornings. Pt [facility] . Pt is given hours open till 8pm this evening. Pt agrees to come to [facility] this evening. Pt agrees with disposition and insurance is verified as active. Protocol Used: Eye - Pus or Discharge (Adult) Protocol-Based Disposition: See in Office or Video Visit Today Video visit not offered Positive Triage Questions: * Eyelid (outer) is very red and painful (or tender to touch) * Lots of yellow or green nasal discharge * Patient wants to be seen * All higher-acuity triage questions were negative Care Advice Discussed: * Reassurance and Education - Probable Bacterial Conjunctivitis * Keep Your Eyelids Clean * Reasons To Call Back - Pus lasts over 3 days (72 hours) on treatment - Blurred vision occurs - Light bothers your eyes - More than just mild eye discomfort - You become worse * Telephone Encounter - Nona Castro - 10/17/2024 1:43 PM EDT Symptom: Eye - Pus or Discharge Outcome: Schedule a same-day appointment or talk to a nurse or provider today Reason: Caller denied all higher acuity questions The caller accepted this outcome. Contact pt at [phone] (denied utilities estimator and drafter) documented in this encounter Plan of Treatment Upcoming Encounters Date Type Department Care Team (Late st Contact Info) Description 11/23/2024 1:30 PM EDT Office Visit [facility] ADULT DENTAL 230 [place] [address] Edmond Kimble, EVERT 230 [place] [address] 11/25/2024 3:00 PM EDT Medication Management [facility] MEDICINE [address] [place] [address] Pastor Zhou, PharmD [address] [place] [address] 12/05/2024 9:30 AM EDT Office Visit [facility] ADULT DENTAL [address] [place] [address] Tae Ball DDS [address] [place] [address] 12/16/2024 3:00 PM EDT Office Visit [facility] ADULT DENTAL [address] [place] [address] Ankit Jorge 12/27/2024 2:30 PM EDT Office Visit [facility] OPTOMETRY [address] [place] [address] RiccardoDev ronquillon, OD 230 [place] [address] 01/13/2025 3:30 PM EST Office Visit [facility] MEDICINE 230 [place] [address] Saima Rae MD [address] [place] [address] documented as of this encounter Visit Diagnoses Not on filedocumented in this encounter Additional Health Concerns Assessment Noted Time PHQ-9 Depression Total Score: 22 025 2:33 PM EDT documented as of this encounter Care Teams Hot Roller Relationship Specialty Start Date End Date Saima Rae MD [address] [place] [address] PCP - General Family Medicine 08/26/18 Pastor Zhou, LeighannD [address] [place] [address] Pharmacist Internal Medicine 08/11/24 documented as of this encounter
--- OUTSIDE RECORDS SUMMARY | 2024-11-14 19:45 | XMS_ITS | Encounter Summary ---
Author Organization [employer] Address [address] [place] [address] 7 [place] [address] Care Team Providers Care Group Segment Consultant Name Role Phone Saima Rae MD Primary Care Provide r Pastor Zhou PharmD Unavailable [phone] Reason for Visit * Reason Onset Date Comments Med Refill 09/15/2023 Encounter Details Date Type Department Care Team (Late st Contact Info) Description 09/15/[address] [facility] MEDICINE [address] [place], [place] [phone] Saima Rae MD 230 [place], [place] [phone] Med Refill Social History Tobacco Use Types [...] 5 % patch To be sent to: [facility]/pharmacy #[id number] - [address] documented in this encounter Plan of Treatment Upcoming Encounters Date Type Department Care Team (Late st Contact Info) Description 11/23/2024 1:30 PM EDT Office Visit [facility] ADULT DENTAL [address] [place] [address] Edmond Kimble, EVERT [address] [place] [address] 11/25/2024 3:00 PM EDT Medication Management [facility] MEDICINE [address] [place], [place] [phone] Pastor Zhou, PharmD 230 [place] [address] 12/05/2024 9:30 AM EDT Office Visit [facility] ADULT DENTAL [address] [place] [address] Tae Ball, DDS [address] [place] [address] 12/16/2024 3:00 PM EDT Office Visit [facility] ADULT DENTAL [address] [place] [address] Jorge Pham 12/27/2024 2:30 PM EDT Office Visit [facility] OPTOMETRY [address] [place] [address] Riccardo, Tamiko, OD 230 [place] [address] 01/13/2025 3:30 PM EST Office Visit [facility] MEDICINE [address] [place] [address] Saima Rae MD 230 [place] [address] documented as of this encounter Visit Diagnoses Not on filedocumented in this encounter Additional Health Concerns Assessment Noted Time PHQ-9 Depression Total Score: 15 02/19/ 023 3:30 PM EST documented as of this encounter Care Teams Group Segment Consultant Relationship Specialty Start Date End Date Saima Rae MD [address] [place] [address] PCP - General Family Medicine 08/26/18 Pastor Zhou, PharmD [address] [place] [address] Pharmacist Internal Medicine 08/11/24 documented as of this encounter
--- OUTSIDE RECORDS SUMMARY | 2024-11-14 19:45 | XMS_ITS | Encounter Summary ---
Author Organization [employer] Address [address] [place] [address] 7 [place] [address] Care Team Providers Care Lotus Notes Administrator Name Role Phone Saima Rae MD Primary Care Provide r Pastor Zhou PharmD Unavailable [phone] Reason for Visit * Reason Comments Med Refill Encounter Details Date Type Department Care Team (Late st Contact Info) Description 08/04/2023 Refill [facility] MEDICINE 230 [place], [place] [phone] Saima Rae MD 230 [place], [place] [phone] Primary insomnia Social History Tobacco Use Types [...] Description 11/23/2024 1:30 PM EDT Office Visit [facility] ADULT DENTAL 230 [place] [address] Edmond Kimble, DMD 230 [place] [address] 11/25/2024 3:00 PM EDT Medication Management [facility] MEDICINE [address] [place] [address] Pastor Zhou, PharmD [address] [place] [address] 12/05/2024 9:30 AM EDT Office Visit [facility] ADULT DENTAL 505 [place] [address] Tae Ball DDS 505 [place] [address] 12/16/2024 3:00 PM EDT Office Visit [facility] ADULT DENTAL [address] [place] [address] Jorge Pham 12/27/2024 2:30 PM EDT Office Visit [facility] OPTOMETRY [address] [place] [address] Tamiko Gu, NATIVIDAD 230 [place] [address] 01/13/2025 3:30 PM EST Office Visit [facility] MEDICINE [address] [place] [address] Saima Rae MD [address] [place] [address] documented as of this encounter Visit Diagnoses Diagnosis Primary insomnia Persistent disorder of initiating or maintaining sleep documented in this encounter Additional Health Concerns Assessment Noted Time PHQ-9 Depression Total Score: 15 023 3:30 PM EST documented as of this encounter Care Teams Lotus Notes Administrator Relationship Specialty Start Date End Date Saima Rae MD [address] [place] [address] PCP - General Family Medicine 08/26/18 Pastor Zhou, LeighannD [address] [place] [address] [phone] Pharmacist Internal Medicine 08/11/24 documented as of this encounter
--- OUTSIDE RECORDS SUMMARY | 2024-11-14 19:45 | XMS_ITS | Encounter Summary ---
Author Organization [employer] Address [address] [place] [address] 7 [place] [address] Care Team Providers Care Nursing Teacher Name Role Phone Saima Rae MD Primary Care Provide r Pastor Zhou PharmD Unavailable [phone] Reason for Visit * Reason Comments Med Refill Encounter Details Date Type Department Care Team (Late st Contact Info) Description 11/29/2023 Refill [facility] MEDICINE 230 [place], [place] [phone] Saima Rae MD 230 [place], [place] [phone] Muscle spasm Social History Tobacco Use Types [...] Description 11/23/2024 1:30 PM EDT Office Visit [facility] ADULT DENTAL [address] [place] [address] Edmond Kimble, DMD 230 [place] [address] 11/25/2024 3:00 PM EDT Medication Management [facility] MEDICINE [address] [place] [address] Pastor Zhou, PharmD [address] [place] [address] 12/05/2024 9:30 AM EDT Office Visit [facility] ADULT DENTAL [address] [place] [address] Tae Ball DDS [address] [place] [address] 12/16/2024 3:00 PM EDT Office Visit [facility] ADULT DENTAL [address] [place] [address] Jorge Pham 12/27/2024 2:30 PM EDT Office Visit [facility] OPTOMETRY [address] [place] [address] Tamiko Gu, OD 230 [place] [address] 01/13/2025 3:30 PM EST Office Visit [facility] MEDICINE [address] [place] [address] Saima Rae MD [address] [place] [address] documented as of this encounter Visit Diagnoses Diagnosis Muscle spasm Spasm of muscle documented in this encounter Additional Health Concerns Assessment Noted Time PHQ-9 Depression Total Score: 15 023 3:30 PM EST documented as of this encounter Care Teams Nursing Teacher Relationship Specialty Start Date End Date Saima Rae MD 230 [place] [address] PCP - General Family Medicine 08/26/18 Pastor Zhou, LeighannD [address] [place] [address] [phone] Pharmacist Internal Medicine 08/11/24 documented as of this encounter
--- OUTSIDE RECORDS SUMMARY | 2024-11-14 19:45 | XMS_ITS | Encounter Summary ---
Author Organization [employer] Address [address] [place] [address] 7 [place] [address] Care Team Providers Care Duplicator Punch Operator Name Role Phone Saima Rae MD Primary Care Provide r Pastor Zhou PharmD Unavailable [phone] Reason for Visit * Reason Onset Date Comments Appointment Request 03/12/2022 Encounter Details Date Type Department Care Team ([facility] st Contact Info) Description 03/12/2022 Telephone [facility] MEDICINE [address] [place], [place] [phone] Saima Rae MD [address] [place], [place] [phone] Appointment Request Social History Tobacco Use Types [...] appt 02/19/22 11:30 Please contact pt at [phone] documented in this encounter Plan of Treatment Upcoming Encounters Date Type Department Care Team (Late st Contact Info) Description 11/23/2024 1:30 PM EDT Office Visit [facility] ADULT DENTAL [address] [place] [address] Edmond Kimble, DMD [address] [place] [address] 11/25/2024 3:00 PM EDT Medication Management [facility] MEDICINE [address] [place] [address] Pastor Zhou, PharmD [address] [place] [address] 12/05/2024 9:30 AM EDT Office Visit [facility] ADULT DENTAL [address] [place] [address] Tae Ball, DDS [address] [place] [address] 12/16/2024 3:00 PM EDT Office Visit [facility] [address] [place] [address] Jorge Pham 12/27/2024 2:30 PM EDT Office Visit [facility] OPTOMETRY [address] [place] [address] Tamiko Gu, OD [address] [place] [address] 01/13/2025 3:30 PM EST Office Visit [facility] MEDICINE [address] [place] [address] Saima Rae MD [address] [place] [address] documented as of this encounter Visit Diagnoses Not on filedocumented in this encounter Care Teams Duplicator Punch Operator Relationship Specialty Start Date End Date Saima Rae MD [address] [place] [id number] PCP - General Family Medicine 08/26/18 Pastor Zhou, PharmD [address] [place] [address] Pharmacist Internal Medicine 08/11/24 documented as of this encounter
--- OUTSIDE RECORDS SUMMARY | 2024-11-14 19:45 | XMS_ITS | Encounter Summary ---
Author Organization [employer] Address [address] [place] [address] 7 [place] [address] Care Team Providers Care Senior Manager [employer] Name Role Phone Saima Rae MD Primary Care Provide r Pastor Zhou PharmD Unavailable [phone] Reason for Visit * Reason Onset Date Comments returning 03/13/2022 Encounter Details Date Type Department Care Team ([facility] st Contact Info) Description 03/13/2022 Telephone [facility] MEDICINE [address] [place], [place] [phone] Saima Rae MD [address] [place], [place] [phone] returning Social History Tobacco Use Types Packs/Day [...] being at work Please contact pt at [phone] documented in this encounter Plan of Treatment Upcoming Encounters Date Type Department Care Team (Late st Contact Info) Description 11/23/2024 1:30 PM EDT Office Visit [facility] ADULT DENTAL [address] [place] [address] Edmond Kimble, DMD [address] [place] [address] 11/25/2024 3:00 PM EDT Medication Management [facility] MEDICINE [address] [place] [address] Pastor Zhou, PharmD [address] [place] [address] 12/05/2024 9:30 AM EDT Office Visit [facility] [address] [place] [address] Tae Ball, DDS [address] [place] [address] 12/16/2024 3:00 PM EDT Office Visit [facility] [address] [place] [address] Jorge Pham 12/27/2024 2:30 PM EDT Office Visit [facility] OPTOMETRY [address] [place] [address] Tamiko Gu, OD [address] [place] [address] 01/13/2025 3:30 PM EST Office Visit [facility] MEDICINE [address] [place] [address] Saima Rae MD [address] [place] [address] documented as of this encounter Visit Diagnoses Not on filedocumented in this encounter Care Teams Senior Manager [employer] Relationship Specialty Start Date End Date Saima Rae MD [address] [place] [id number] PCP - General Family Medicine 08/26/18 Pastor Zhou, PharmD [address] [place] [address] Pharmacist Internal Medicine 08/11/24 documented as of this encounter
--- OUTSIDE RECORDS SUMMARY | 2024-11-14 19:46 | XMS_ITS | Encounter Summary ---
Author Organization [employer] Address [address] [place] [address] 7 [place] [address] Care Team Providers Care Financial Coordinator Name Role Phone Saima Rae MD Primary Care Provide r Pastor Zhou PharmD Unavailable [phone] Reason for Visit * Reason Onset Date Comments Nurse Triage 02/02/2024 Encounter Details Date Type Department Care Team (Late st Contact Info) Description 02/02/2024 Telephone [facility] MEDICINE [address] [place], [place] [phone] Saima Rae MD [address] [place], [place] [phone] Nurse Triage Social History Tobacco Use Types [...] 12:39 PM EST TC placed to pt [phone] in regards to below message. Pt was in the clinic on the red team for a visit with EDGING MACHINE OPERATOR. RN went to EDGING MACHINE OPERATOR room and spoke to patient in person. Patient is requesting an urgent appointment with Dr. Maicol ARZOLA. Patient reports she used to live in [place] and tested positive forlupus >10 years ago. Patient reports she moved here and was tested for lupus and it was negative. Patient does not believe results are accurate. Patient reports she saw [facility] rheumatology and was informed she has fibromyalgia. Patient feels something more is going on. Patient reports all over body pain which she takes pain medication for however she does NOT want to live on pain medication. Patient reports the medication Rx'd by [facility] rheumatology she does not like because if she skips a dose she hears ringing in her ear. Patient reports she informed [facility] rheumatology of concern with medication and believes they will change it at her next appointment. Patient reports she sees [facility] rheumatology once a year. Patient reports she [...] check for cancellations or go to [facility]. Patient continues to REFUSE any solution [...] Milian. Pt declines to go to [facility] to be seen and is requesting [...] caller accepted this outcome. Contact pt at [phone] (Panamanian) documented in this encounter Plan of Treatment Upcoming Encounters Date Type Department Care Team (Late st Contact Info) Description 11/23/2024 1:30 PM EDT Office Visit [facility] ADULT DENTAL [address] [place] [address] Edmond Kimble, DMD [address] [place] [address] 11/25/2024 3:00 PM EDT Medication Management [facility] MEDICINE [address] [place] [address] Pastor Zhou, PharmD [address] [place] [address] 12/05/2024 9:30 AM EDT Office Visit [facility] ADULT DENTAL [address] [place] [address] Tae Ball, DDS [address] [place] [address] 12/16/2024 3:00 PM EDT Office Visit [facility] ADULT DENTAL [address] [place] [address] Jorge Pham 12/27/2024 2:30 PM EDT Office Visit [facility] OPTOMETRY [address] [place] [address] Tamiko Gu, OD [address] [place] [address] 01/13/2025 3:30 PM EST Office Visit [address] [address] Saima Rae MD [address] [place] [address] documented as of this encounter Visit Diagnoses Not on filedocumented in this encounter Additional Health Concerns Assessment Noted Time PHQ-9 Depression Total Score: 15 023 3:30 PM EST documented as of this encounter Care Teams Financial Coordinator Relationship Specialty Start Date End Date Saima Rae MD [address] [place] [address] PCP - General Family Medicine 08/26/18 Pastor Zhou, LeighannD [address] [place] [address] Pharmacist Internal Medicine 08/11/24 documented as of this encounter
--- OUTSIDE RECORDS SUMMARY | 2024-11-14 19:46 | XMS_ITS | Encounter Summary ---
Author Organization [employer] Address [address] [place] [address] 7 [place] [address] Care Team Providers Care Wireless Network Engineer Name Role Phone Saima Rae MD Primary Care Provide r Pastor Zhou PharmD Unavailable [phone] Reason for Visit * Reason Comments Med Refill Encounter Details Date Type Department Care Team (Late st Contact Info) Description 10/05/[address] [facility] MEDICINE [address] [place], [place] [phone] Saima Rae MD [address] [place], [place] [phone] Type 2 diabetes mellitus with hyperglycemia, without long-term current use of insulin ([facility]) Social History Tobacco Use Types Packs/Day Years [...] with others, in a hotel, in a senior care, living outside on the street, on a [...] Description 11/23/2024 1:30 PM EDT Office Visit [facility] ADULT DENTAL [address] [place] [address] Edmond Kimble, EVERT [address] [place] [address] 11/25/2024 3:00 PM EDT Medication Management [facility] MEDICINE [address] [place] [address] Pastor Zhou, PharmD [address] [place] [address] 12/05/2024 9:30 AM EDT Office Visit [facility] ADULT DENTAL [address] [place] [address] DerikdruTae, DDS [address] [place] [address] 12/16/2024 3:00 PM EDT Office Visit [facility] ADULT DENTAL [address] [facility] [place] [address] Jorge Pham 12/27/2024 2:30 PM EDT Office Visit [facility] OPTOMETRY [address] [place] [address] Riccardo, Tamiko, OD [address] [place] [address] 01/13/2025 3:30 PM EST Office Visit [facility] MEDICINE [address] [place] [address] Saima Rae MD [address] [place] [address] documented as of this encounter Visit Diagnoses Diagnosis Type 2 diabetes mellitus with hyperglycemia, without long-term current use of insulin ([facility]) documented in this encounter Additional Health Concerns Assessment Noted Time PHQ-9 Depression Total Score: 22 025 2:33 PM EDT documented as of this encounter Care Teams Wireless Network Engineer Relationship Specialty Start Date End Date Saima Rae MD [address] [place] [address] PCP - General Family Medicine 08/26/18 Pastor Zhou, PharmD [address] [place] [address] Pharmacist Internal Medicine 08/11/24 documented as of this encounter
--- OUTSIDE RECORDS SUMMARY | 2024-11-14 19:46 | XMS_ITS | Clinical Summary ---
Author Organization [employer] Address [address] [place] [address] 7 [place] [address] Care Team Providers Care Cosmetic Maker Name Role Phone Saima Rae MD Primary Care Provide r Pastor Zhou PharmD Unavailable [phone] Allergies No known active allergies Medications * This document contains information received from the source organization and may not represent a complete record from that organization. naloxone (Narcan) 4 mg/0.1 mL nasal spray Administer 1 spray (4 mg) into affected nostril(s) if needed for opioid reversal. 2 each 2 01/13/20 23 Active celecoxib (CeleBREX) 200 MG capsule TOME 1 C PSULA POR V A ORAL DOS VECES AL D A 08/14/19 24 Active Continuous Glucose Night Assistant (FreeStyle Dary 3 Calera) deviceIndicatio ns:Type 2 diabetes mellitus with hyperglycemia, without long-term current use of insulin ([facility]) 1 each Once per day. Use as directed for CGM 1 each 07/08/19 25 Active Continuous Glucose Sensor (FreeStyle Dayr 3 Plus Sensor) miscIndications :Type 2 diabetes mellitus with hyperglycemia, without long-term current use of insulin ([facility]) 1 each every 15 days. Apply 1 every 15 days as directed for CGM 2 each 11 07/08/19 25 Active empagliflozin (Jardiance) 25 MGIndications:T ype 2 diabetes mellitus with hyperglycemia, without long-term current use of insulin ([facility]) Take 1 tablet (25 mg) by mouth Once per day. 30 tablet 11 07/13/19 25 2025 Active Blood Glucose Monitoring Suppl (FreeStyle Lite) w/Device kit 1 each Use as directed. 1 kit 07/16/19 25 Active pen needle 31G x 5 mm miscIndications :Type 2 diabetes mellitus with hyperglycemia, without long-term current use of insulin ([facility]) Use as instructed 100 each 12 07/22/19 25 2025 Active docusate sodium (Colace) 100 MG capsuleIndicati ons:Constipatio n, unspecified TAKE 1 CAPSULE BY MOUTH TWICE A DAY 180 capsule 1 07/27/19 25 Active cholecalciferol VITAMIN D (Vitamin D-3) 50 MCG (2000 UT) capsule TAKE 1 CAPSULE BY MOUTH EVERY MORNING 90 capsule 07/27/19 25 Active gabapentin (Neurontin) 800 MG tabletIndicatio ns:Fibromyalgia TAKE 1 TABLET BY MOUTH AT BEDTIME 30 tablet 3 07/27/19 25 Active sertraline (Zoloft) 25 MG tabletIndicatio ns:Mixed anxiety and depressive disorder Take 1 tablet (25 mg) by mouth in the morning. 90 tablet 08/09/19 25 Active Lancets 33G misc Use to test blood sugar up to 3 times daily in case of CGM failure or extremes of BG 100 each 08/12/19 25 Active lisinopril 20 MG tabletIndicatio ns:Essential hypertension Take 1 tablet (20 mg) by mouth Once per day. 90 tablet 3 08/12/19 25 Active glucose 4 g chewable tablet Chew 4 tablets (16 g) if needed for low blood sugar. 30 tablet 2 08/12/19 25 Active Diclofenac Sodium 1 % gelIndications: Fibromyalgia APPLY 2 GRAMS TOPICALLY TO THE AFFECTED AREA(S) TWICE A DAY 100 g 1 09/06/19 25 Active lidocaine (Lidoderm) 5 % patchIndication s:Fibromyalgia APPLY 1 PATCH TOPICALLY IN THE MORNING 30 patch 3 09/06/19 25 Active Ventolin HFA 108 (90 Base) MCG/ACT inhalerIndicati ons:Mild intermittent asthma, unspecified whether complicated INHALE 2 PUFFS BY MOUTH EVERY 4 HOURS NEEDED FOR WHEEZING OR SHORTNESS OF BREATH 18 g 09/09/19 25 Active traZODone (Desyrel) 150 MG tabletIndicatio ns:Primary insomnia Take 1 tablet (150 mg) by mouth if needed at bedtime for sleep. 30 tablet 1 09/17/19 25 2024 Active atenolol (Tenormin) 25 MG tabletIndicatio ns:Essential hypertension TAKE 1 TABLET BY MOUTH EVERY DAY 90 tablet 1 09/20/19 25 Active fluticasone (Flonase) 50 MCG/ACT nasal spray Administer 1 spray into each nostril Once per day. 16 g 2 10/11/19 25 Active Tirzepatide (Mounjaro) 2.5 MG/0.5ML solution auto-injectorIn dications:Type 2 diabetes mellitus with hyperglycemia, with long-term current use of insulin ([facility]) Inject 2.5 mg under the skin 1 (one) time per week. 2 mL 2 10/14/19 25 Active budesonide-form oterol (Symbicort) 160-4.5 MCG/ACT inhalerIndicati ons:Acute cough Inhale 2 puffs in the morning and at bedtime. May use additional 2 puffs q 20 mins for 3 doses as needed shortness of breath and wheezing. Do not use more than 12 inhalations in 24 hrs. Rinse mouth with water and spit after use. 1 each 10/20/19 25 2025 Active oxyCODONE-aceta minophen (Percocet) 5-325 MG tabletIndicatio ns:Cervical stenosis of spinal canal,Chronic bilateral low back pain with bilateral sciatica Take 2 tablets by mouth every 12 (twelve) hours if needed for severe pain for up to 28 days. Do not start before October 25, 2024. 112 tablet 10/26/19 25 2024 Active cyclobenzaprine (Flexeril) 10 MG tabletIndicatio ns:Muscle spasm TAKE 1 TABLET BY MOUTH THREE TIMES DAILY IN THE MORNING, AT NOON, AND AT BEDTIME NEEDED 90 tablet 1 11/05/19 25 Active glucose blood (FreeStyle Precision Moi Test) test stripIndication s:Type 2 diabetes mellitus with hyperglycemia, without long-term current use of insulin (CMS/HCC) Use to test blood sugar 3 times daily in case of CGM failure or extremes of BG 100 each 11 11/05/19 25 2025 Active insulin glargine (Lantus SoloStar) 100 UNIT/ML penIndications: Type 2 diabetes mellitus with hyperglycemia, without long-term current use of insulin (CMS/HCC) Inject 10 Units under the skin at bedtime. 3 mL 11/05/19 25 2025 Active insulin lispro (HumaLOG KWIKPEN) 100 UNIT/ML injectionIndica tions:Type 2 diabetes mellitus with hyperglycemia, without long-term current use of insulin (CMS/HCC) Inject 4 Units under the skin with breakfast, with lunch, and with evening meal. 1 each 11/05/19 25 Active Acetaminophen Extra Strength 500 MG tablet TAKE 1 TABLET BY MOUTH EVERY 6 HOURS IF NEEDED FOR MILD PAIN. 120 tablet 11/08/19 Active budesonide (Pulmicort Flexhaler) 180 MCG/ACT inhalerIndicati ons:Mild intermittent asthma, unspecified whether complicated INHALE 1 PUFF IN THE MORNING AND AT BEDTIME. RINSE MOUTH WITH WATER AFTER USE TO REDUCE AFTERTASTE AND INCIDENCE OF CANDIDIASIS. DO NOT SWALLOW. FOR 2 MONTHS 1 each 01/06/202024 Discontinued(M ed list cleanup (will not trigger notification to Pharmacy)) glucose blood (FreeStyle Precision Moi Test) test stripIndication s:Type 2 diabetes mellitus with hyperglycemia, without long-term current use of insulin (CMS/HCC) Use to test blood sugar 3 times daily in case of CGM failure or extremes of BG 100 each 07/08/19 25 2024 Discontinued(R eorder (will not trigger notification to Pharmacy)) insulin glargine (Lantus SoloStar) 100 UNIT/ML penIndications: Type 2 diabetes mellitus with hyperglycemia, without long-term current use of insulin (CMS/HCC) Inject 10 Units under the skin at bedtime. 3 mL 07/22/19 25 2024 Discontinued(R eorder (will not trigger notification to Pharmacy)) insulin lispro (HumaLOG KWIKPEN) 100 UNIT/ML injectionIndica tions:Type 2 diabetes mellitus with hyperglycemia, without long-term current use of insulin (CMS/HCC) Inject 4 Units under the skin with breakfast, with lunch, and with evening meal. 1 each 07/22/19 25 2024 Discontinued(R eorder (will not trigger notification to Pharmacy)) cyclobenzaprine (Flexeril) 10 MG tabletIndicatio ns:Muscle spasm TAKE 1 TABLET BY MOUTH THREE TIMES DAILY IN THE MORNING, AT NOON, AND AT BEDTIME NEEDED 90 tablet 1 09/28/19 25 2024 Discontinued(R eorder (will not trigger notification to Pharmacy)) oxyCODONE-aceta minophen (Percocet) 5-325 MG tabletIndicatio ns:Cervical stenosis of spinal canal,Chronic bilateral low back pain with bilateral sciatica Take 2 tablets by mouth every 12 (twelve) hours if needed for severe pain for up to 15 days. 60 tablet 10/11/19 25 2024 Discontinued(R eorder (will not trigger notification to Pharmacy)) amoxicillin-cla vulanate (Augmentin) 875-125 MG tablet Take 1 tablet by mouth 2 times daily for 5 days. 10 tablet 10/11/19 25 2024 acetaminophen (Tylenol Extra Strength) 500 MG tablet Take 1 tablet (500 mg) by mouth every 6 (six) hours if needed for mild pain. 120 tablet 10/11/19 25 2024 Discontinued brompheniramine -pseudoephedrin e-DM 30-2-10 MG/5ML syrupIndication s:Acute cough Take 5 mL by mouth if needed in the morning, at noon, in the evening, and at bedtime for cough for up to 10 days. 120 mL 10/14/19 25 2024 benzocaine-ment hol (Cepacol Sore Throat Ex St) 15-3.6 MGIndications:A cute cough Dissolve 1 lozenge in the mouth every 2 (two) hours if needed for sore throat for up to 14 days. 168 lozenge 10/20/19 25 2024 Active Problems Problem Noted Date Diagnosed Date Acute cough 10/13/2024 Nasal congestion 10/10/2024 Assessment & Plan (10/10/2024 1:24 PM EDT): Rx Augmentin x 5d, rapid viral test today are negative Rest (sleep at least 8 hours a night). Hydrate with plenty of water (avoid caffeine and alcohol). Use saline nose drops to loosen mucus + Flonase Take Acetaminophen (Tylenol )/Ibuprofen as needed to reduce fever, headache, body aches or discomfort Gargle with salt water and use throat sprays/lozenges for throat pain. Use heated, humidified air. If you do not have a humidifier, take hot showers. Cover coughs and sneezes using the crook of your elbow. If you have a fever, stay home and away from others (self isolation) until fever-free for 72 hours (temperature should be less than 100 F without medication). 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 [...] fibromyalgia, cervical stenosis of spinal cord Last [employer] Agreement: 02/02/24 Tier II (A[employer] visits Q3 months - as of Jan 2024) Assessment & Plan (07/26/2024 7:13 PM EDT): Timeline: - 05/24/24: Group - utox/pill count as expected - 07/26/24: Group - utox/pill count as expected Assessment & Plan (05/25/2024 6:58 AM EDT): Timeline: - 05/24/24: Group - utox/pill count as expected Assessment & Plan (10/27/2023 5:34 PM EDT): -Good engagement and participation with Group Medical Visit model -Encouraged multifactorial approach to pain control including pharm and non- pharm modalities -UTOX and Pill count as expected Cervical stenosis of spinal canal 09/08/2023 Assessment & Plan (07/26/2024 7:12 PM EDT): - Follow up with specialists as scheduled - Good engagement and participation with Group Medical Visit model - Encouraged multifactorial approach to pain control including pharm and non- pharm modalities - UTOX and Pill count as expected Assessment & Plan (05/25/2024 6:57 AM EDT): - Follow up with specialists as scheduled - Good engagement and participation with Group Medical Visit model - Encouraged multifactorial approach to pain control including pharm and non- pharm modalities - UTOX and Pill count as expected Colon cancer screening 02/19/2023 Constipation 02/19/2023 Assessment & Plan (02/19/2023 4:48 PM EST): Increase water and fiber on diet Walking every day Colace 100mg BID Class 2 severe obesity due t o excess calories with serious comorbidity in adult 02/19/2023 Assessment & Plan (02/19/2023 4:51 PM EST): Today extensive discussion was done about life style modifications I advise healthy diet (low calorie) and cardiovascular exercise Fibromyalgia 02/08/2022 Assessment & Plan (04/05/2024 3:12 PM EST): -Good engagement and participation with Group Medical Visit model -Encouraged multifactorial approach to pain control including pharm and non- pharm modalities -UTOX as expected, pill count 6 off due to additional use s/p fall. 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, she is today requesting a better for [...] Type 2 diabetes mellitus wit h hyperglycemia, with long-term current use of insulin 11/25/2017 Assessment & Plan (10/14/2024 11:47 AM EDT): Diabetes is: almost at goal - Lab Results Component Value Date HGBA1C 7.2 (A) 10/13/2024 HGBA1C 10.8 (A) 07/07/2024 HGBA1C 10.4 (A) 03/23/2024 - Lab Results Component Value Date MICROALBUR <5.0 07/19/2024 CREATININE 0.81 07/19/2024 -Changes: I discontinued her Trulicity and start her on Mounjaro 2.5 mg weekly - Diabetic eye exam: Up-to-date - Diabetic foot exam: Pending - Continue lifestyle modifications - Follow up: 3 months Assessment & Plan (07/21/2024 3:44 PM EDT): Diabetes is: not controlled - Lab Results Component Value Date HGBA1C 10.8 (A) 07/07/2024 HGBA1C 10.4 (A) 03/23/2024 HGBA1C 7.6 (A) 02/19/2023 - Lab Results Component Value Date MICROALBUR <5.0 07/19/2024 CREATININE 0.81 07/19/2024 -Changes: Today I discontinue glipizide and instead I started her on Lantus 10 units at bedtime and Humalog 4 units 3 times a day with meals, continue with Jardiance 25 mg daily and Ozempic is in the process of preauthorization to increase the dose to 2 mg weekly. Preauthorization will be also submitted for continue glucose monitor - Diabetic eye exam: Up-to-date - Diabetic foot exam: Pending - Continue lifestyle modifications - Continue current medications - Follow up: 3 months Assessment & Plan (07/12/2024 1:11 PM EDT): Extensive counseling about the diet, and to increase physical activity done today Last appointment I went up on her Ozempic dose but PA is still in progress Today I decided to go up on her Jardiance from 10 mg to 25 mg I advised to follow-up with [facility] pharmacy, continue glucose monitor is also in [...] meds I will refer her to pharmacy [facility] - Diabetic eye exam: Up-to-date - Diabetic [...] A1c Essential hypertension 01/16/2017 Assessment & Plan (10/14/2024 11:46 AM EDT): Advised: - Aerobic exercise to reduce BP. Initial [...] consulting health care provider Assessment & Plan (07/21/2024 3:39 PM EDT): I advised: - Aerobic exercise to reduce BP. Initial [...] consulting health care provider Assessment & Plan (05/11/2024 4:32 PM EDT): [...] prescriptions without first consulting health care provider Resolved Problems Problem Noted Date Diagnosed Date Resolved Date Encounter for screening mamm ogram for malignant neoplasm of breast 07/07/2024 07/21/2024 Screening mammogram for breast cancer 02/19/2023 07/21/2024 Pap test, as part of routine gynecological examination 11/07/2022 07/21/2024 Encounters * This document contains information received from the source organization and may not represent a complete record from that organization. Date Type Department Care Team Description 11/09/2024 Telephone [facility] [address] [place], [place] [phone] Saima Rae MD NOV RECALL 11/06/2024 Refill [facility] [address] [place] [address] Bhavna Martinez MD 11/04/2024 Refill [facility] [address] [place] [phone] Saima Rae MD Muscle spasm; Type 2 diabetes mellitus with hyperglycemia, without long-term current use of insulin ([facility]) 10/24/2024 Telephone [facility] [address] [place] [address] Saima Rae MD fyi 10/24/2024 Refill [facility] [address] [place] [address] Saima Rae MD Cervical stenosis of spinal canal; Chronic bilateral low back pain with bilateral sciatica 10/21/2024 Results Follow-Up [address] [address] María Elena Tai NP XR Chest 2 Views 10/21/2024 Orders Only GENERIC EXTERNAL DATA DEPARTMENT Provider, Generic External Data 10/19/2024 5:00 PM EDT Office Visit [facility] [address] [place] [id number] María Elena Tai NP Acute cough (Primary Dx); Tachycardia 10/19/2024 Travel 10/17/[address] [address] Saima Rae MD Nurse Triage 10/13/2024 2:30 PM EDT Office Visit [facility] [address] [place] [address] Saima Rae MD Essential hypertension (Primary Dx); Type 2 diabetes mellitus with hyperglycemia, with long-term current use of insulin (CMS/HCC); Type 2 diabetes mellitus with hyperglycemia, without long-term current use of insulin (CMS/HCC); Acute cough; Colon cancer screening 10/13/2024 Travel 10/11/2024 Telephone [facility] [address] [place] [address] Saima Rae MD Chart Prep 10/10/2024 12:15 PM EDT Office Visit [address] [address] Bhavna Martinez MD Nasal congestion (Primary Dx); Type 2 diabetes mellitus with hyperglycemia, without long-term current use of insulin (CMS/HCC); Sore throat 10/10/2024 Refill [facility] [address] [place] [place], [place] [phone] Saima Rae MD Type 2 diabetes mellitus with hyperglycemia, without long-term current use of insulin ([facility]) 10/10/2024 Travel 10/10/2024 Telephone [facility] [address] [place] [phone] Saima Rae MD Nurse Triage 10/10/2024 Refill [facility] [address] [place] [address] Saima Rae MD Cervical stenosis of spinal canal; Chronic bilateral low back pain with bilateral sciatica 10/05/2024 Refill [facility] [address] [place] [address] Saima Rae MD Type 2 diabetes mellitus with hyperglycemia, without long-term current use of insulin ([facility]) 10/04/2024 Patient Outreach [facility] [address] [place] [address] Saima Rae MD Pre-visit Planning (SDCO screening completed on 07/07/2024) 09/27/2024 Refill [facility] [address] [place] [address] Saima Rae MD Muscle spasm 09/20/2024 Telephone [facility] [address] [place] [address] Jacqueline Schumacher, RN Pt was [facility] for chronic pain group 09/19/2024 Travel 09/18/2024 Refill [facility] [address] [place] [address] Saima Rae MD Essential hypertension 09/16/2024 Telephone [facility] [address] [place] [address] Saima Rae MD 09/16/2024 Refill [facility] [address] [place] [address] Saima Rae MD Primary insomnia 09/16/2024 Telephone [facility] [address] [place] [address] Saima Rae MD Appointment Request 09/12/2024 Refill [facility] [address] [place] [address] Saima Rae MD Fibromyalgia; Cervical stenosis of spinal canal; Chronic bilateral low back pain with bilateral sciatica; Cervicalgia 09/09/2024 Travel 09/08/2024 Refill [facility] [address] [place] [phone] Saima Rae MD Mild intermittent asthma, unspecified whether complicated 09/05/2024 Refill [facility] [address] [place] [address] Saima Rae MD Fibromyalgia 08/30/2024 3:30 PM EDT Telemedicine [facility] [address] [place] [phone] Pastor Zhou, PharmD Type 2 diabetes mellitus with hyperglycemia, without long-term current use of insulin ([facility]) (Primary Dx) 08/24/2024 Telephone [facility] [address] [place] [address] Saima Rae MD Med Refill; Clarify Postop pain medication plan from Last 3 Months Immunizations Immunization Administration [...] others, in a hotel, in a senior living, living outside on the street, on a [...] Sign Reading Time Taken Comments Blood Pressure 113/76 10/19/2024 5:12 PM EDT Pulse 102 10/19/2024 5:12 PM EDT Temperature 36.6 C (97.8 F) 10/19/2024 5:12 PM EDT Respiratory Rate 20 10/19/2024 5:12 PM EDT Oxygen Saturation 99% 10/19/2024 5:12 PM EDT Inhaled Oxygen Concentration - - Weight 99.6 kg (219 lb 9.6 oz) 10/19/2024 5:12 P M EDT Height 165.1 cm (5' 5 ) 10/19/2024 5:12 PM EDT Body Mass Index 36.54 10/19/2024 5:12 PM EDT Plan of Treatment Upcoming Encounters Date Type Department Care Team (Late st Contact Info) Description 11/23/2024 1:30 PM EDT Office Visit [facility] [address] [place] [address] Edmond Kimble, EVERT [address] [place] [address] 11/25/2024 3:00 PM EDT Medication Management [facility] [address] [place] [address] Pastor Zhou, PharmD [address] [place] [address] 12/05/2024 9:30 AM EDT Office Visit [facility] [address] [place] [address] Tae Ball, DDS [address] [place] [address] 12/16/2024 3:00 PM EDT Office Visit [facility] [address] [place] [address] Jorge Pham 12/27/2024 2:30 PM EDT Office Visit [facility] [address] [place] [address] RiccardoTamiko ronquillo, OD [address] [place] [address] 01/13/2025 3:30 PM EST Office Visit [facility] [address] [place] [address] Saima Rae MD [address] [place] [address] Health Maintenance Due Date Last Done Comments CT Colonography 1976 Colonoscopy 1976 Colorectal Cancer Screening 1976 FIT DNA/Cologuard 1976 FIT 1976 FOBT 1976 HIV Screening 1976 Sigmoidoscopy 1976 Diabetes: Foot Exam 1986 Family Planning (PISQ) 11/17/1991 Hepatitis C Screening 1994 Pneumococcal Vaccine: Pediatrics (0 to 5 Years) and At-Risk Patients (6 to 49) Years (2 of 2 - PCV) 02/16/2018 02/16/2017 Dental Prophylaxis 04/19/2018 10/16/2017 Dental X-Ray: Bitewings 04/23/2020 04/22/2019, 03/09 Dental Oral Exam 01/14/2021 07/13/2020, , 03/09/2017 Dental X-Ray: Full Mouth 07/15/2023 07/13/2020, 09/2017 Mammogram 04/13/2024 04/13/2023, 07/01, 02/12/2018, Additional history exists COVID-19 Vaccine ( season) 2024 03/05/2023, 01/03/2022, 01/03/2022, Additional history exists Influenza Vaccine (#1) 2024 , 01/03/2022, 11/25/2017, Additional history exists Depression Monitoring 01/12/2025 07/12/2024, 025 Diabetes: Hemoglobin A1C 01/21/2025 025, 10/13/2024, 07/07/2024, Additional history exists Alcohol/Substance Use Screening 07/07/2025 07/07/2024 SDOH Screening 07/07/2025 07/07/2024 Diabetes: Urine Protein Screening 07/19/2025 07/19/2024, 02/29/2024, 12/05/2020 Disability Screening 10/13/2025 10/13/2024 Tobacco Screening 10/19/2025 10/19/2024 Lipid Panel 10/21/2025 10/21/2024, 02/01, 12/05/2020 Eye Exam 11/09/2025 11/10/2023, 10/31, 11/10/2023, Additional history exists Zoster Vaccines (1 of 2) 2026 DTaP/Tdap/Td Vaccines (2 - Td or Tdap) 12/18/2027 12/17/2017 Cervical Cancer Screening 07/14/2028 HPV/Cotest 07/14/2028 01/16/2017 Pap Smear 07/14/2028 07/15/2023 RSV Patients and Patients Aged 60 years or older (1 - 1-dose 75+ series) 11/17/2051 Hepatitis B Vaccines Completed 11/25/2017, 12/16/2016, 11/05/2016 HIB Vaccines Aged Out No longer eligi [...] Procedure Name Priority Date/Time Associated Diagnosis Comments INSULIN Routine 10/21/2024 10:37 AM EDT TSH W/REFLEX TO FT4 Routine 10/21/2024 1 0:37 AM EDT LIPID PANEL, STANDARD Routine 10/21/2024 10:37 AM EDT C-REACTIVE PROTEIN Routine 10/21/2024 10 :37 AM EDT COMPREHENSIVE METABOLIC PANEL Routine 10/21/2024 10:37 AM EDT HEMOGLOBIN A1C Routine 10/21/2024 10:37 AM EDT APTT Routine 10/21/2024 10:37 AM EDT PROTHROMBIN TIME-INR Routine 10/21/2024 10:37 AM EDT CBC WITH AUTO DIFFERENTIAL Routine 10/21/2024 10:37 AM EDT XR CHEST 2 VIEWS Routine 10/20/2024 1:36 PM EDT Acute cough POCT INFLUENZA B (ID NOW RAPID MOLECULAR) Routine 10/19/2024 5:34 PM EDT Acute cough POCT INFLUENZA A (ID NOW RAPID MOLECULAR) Routine 10/19/2024 5:34 PM EDT Acute cough POCT RAPID COVID ANTIGEN Routine 10/19/2024 5:34 PM EDT Acute cough POCT GLYCATED HEMOGLOBIN, TOTAL Routine 10/13/2024 2:31 PM EDT Type 2 diabetes mellitus with hyperglycemia, with long-term current use of insulin ([facility]) POCT GLUCOSE Routine 10/13/2024 2:30 PM EDT Type 2 diabetes mellitus with hyperglycemia, with long-term current use of insulin (CMS/HCC) POC GILMAN ID NOW STREP A Routine 10/10/2024 12:38 PM EDT Sore throat POCT INFLUENZA A (ID NOW RAPID MOLECULAR) Routine 10/10/2024 12:34 PM EDT Nasal congestion POCT INFLUENZA B (ID NOW RAPID MOLECULAR) Routine 10/10/2024 12:33 PM EDT Nasal congestion POCT COVID-19 AG GILMAN ID NOW Routine 10/10/2024 12:32 PM EDT Sore throat POCT GLUCOSE Routine 10/10/2024 12:23 PM EDT Type 2 diabetes mellitus with hyperglycemia, without long-term current use of insulin ([facility]) ALBUMIN, RANDOM URINE W/CREATININE Routine 07/19/2024 9:13 AM EDT Type 2 diabetes mellitus with hyperglycemia, without long-term current use of insulin ([facility]) PAP SMEAR Routine 07/15/2023 12:11 PM EDT [...] Recently Relevant to Health Maintenance Results * TSH with Reflex to Free T4 (10/21/2024 10:37 AM EDT) TSH reflex Free T4 1.74 0.32 - 4.0 uIU/mL [facility] 10/21/2024 10:3 7 AM EDT 10/21/2024 10:37 AM EDT us Generic External Data Provider LAB BLOOD ORDERAB LES Final Result [facility] [address] [place] [phone] * (ABNORMAL) CBC auto differential (10/21/2024 10:37 AM EDT) White Blood Count 8.8 4.8 - 10.8 X10*3/uL [facility] Red Blood Count 4.30 4.20 - 5.50 X10*6/uL [facility] Hemoglobin 13.0 12.0 - 16.0 g/dl [facility] Hematocrit 37.1 37.0 - 47.0 % [facility] Mean Corpuscular Volume 86.3 80.0 - 98.0 fL [facility] Mean Corpuscular Hemoglobin 30.2 27.0 - 33.0 pg [facility] Mean Corpuscular HGB Conc 35.0 31.0 - 35.0 g/dl [facility] Red Cell Distribution Width 12.9 11.0 - 16.0 % [facility] Platelet Count 315 160 - 400 X10*3/uL [facility] Mean Platelet Volume 9.7 9.4 - 12.3 fL [facility] Neutrophils Percent Auto 72.2 45 - 73 % [facility] Imm Gran Pct Auto 0.7(H) 0.0 - 0.4 % [facility] Lymphocytes Percent Auto 18.4(L) 20 - 40 % [facility] Monocytes Percent Auto 7.0 2 - 11 % [facility] Eosinophils Percent Auto 1.1 0 - 4 % [facility] Basophils Percent Auto 0.6 0 - 2 % [facility] NRBC Pct Auto 0.0 0.0 - 0.2 /100WBC [facility] Neutrophils Absolute Auto 6.4 2.0 - 8.3 x10*3/uL [facility] Imm Gran Abs Auto 0.06(H) 0.00 - 0.03 X10*3/uL [facility] Lymphocytes Absolute Auto 1.6 1.2 - 4.9 X10*3/uL [facility] Monocytes Absolute Auto 0.6 0.1 - 1.2 X10*3/uL [facility] Eosinophils Absolute Auto 0.1 0.0 - 0.4 X10*3/uL [facility] Basophils Absolute Auto 0.1 0.0 - 0.2 X10*3/uL [facility] NRBC Abs Auto 0.000 0.0 - 0.012 X10*3/uL [facility] 10/21/2024 10:3 7 AM EDT 10/21/2024 10:37 AM EDT us Generic External Data Provider LAB BLOOD ORDERAB LES Final Result [facility] [address] [place] [phone] * Insulin (10/21/2024 10:37 AM EDT) Insulin 19 2 - 29 uU/mL [facility] Comment:This test was perfor med using the Gigawatt chemiluminescentmethod. Values obtained from different assay methods cannot beused interchangeably. This insulin assay shows a possiblecross-reactivity with antibodies generated against insulin(immunoreactive insulin and some patients treated withbovine or porcine insulin). Insulin levels may be measuredlower in patients with insulin autoimmune syndrome orfamilial high pro-insulinemia. 10/21/2024 10:3 7 AM EDT 10/21/2024 10:37 AM EDT Generic External Data Provider LAB BLOOD ORDERAB LES Final Result Performing Organization Address [facility]/[place] Co de Phone Number [facility] [address] [place] [phone] * Partial Thromboplastin Time, Activated (APTT) (10/21/2024 10:37 AM EDT) Partial Thromboplastin Time 27.5 26.7 - 34.1 SEC [facility] 10/21/2024 10:3 7 AM EDT 10/21/2024 10:37 AM EDT Generic External Data Provider LAB BLOOD ORDERAB LES Final Result Performing Organization Address [facility] de Phone Number [facility] [address] [place] [phone] * (ABNORMAL) Prothrombin Time-INR (10/21/2024 10:37 AM EDT) Prothrombin Time 14.5(H) 10.9 - 12.4 SEC [facility] INTERNATIONAL NORM RATIO 1.3(H) 0.9 - 1.1 [facility] Comment:INTERNATIONAL NORMAL IZED RATIO (INR) REFERENCE RANGES Reference RangeFor patients not on anticoagulant therapy: 0.9 - 1.1INR ranges for oral anticoagulanttherapy:For prevention and treatment of venous thrombosis and pulmonary embolism: 2.0 - 3.0For acute myocardial infarction with aspirin therapy: 2.0 - 3.0For acute myocardial infarction without aspirin therapy: 3.0 - 4.0For patients with mechanical prosthetic heart valves: 2.5 - 3.5 10/21/2024 10:3 7 AM EDT 10/21/2024 10:37 AM EDT Generic External Data Provider LAB BLOOD ORDERAB LES Final Result Performing Organization Address [facility]/ZIP Co de Phone Number [facility] [address] [place] [phone] * (ABNORMAL) C-reactive Protein (10/21/2024 10:37 AM EDT) C Reactive Protein 1.44(H) < or = 0.50 mg/dL [facility] 10/21/2024 10:3 7 AM EDT 10/21/2024 10:37 AM EDT Generic External Data Provider LAB BLOOD ORDERAB LES Final Result Performing Organization Address [facility] de Phone Number [facility] [address] [place] [phone] * (ABNORMAL) Hemoglobin A1c (10/21/2024 10:37 AM EDT) Hemoglobin A1c 7.1(H) <6.0 % [facility] Comment:Hemoglobin A1C Refer ence Range Adults: 4.8 - 6.0 % Non diabetic: < 6.0 % Goal: < 7.0 %Additional Action Suggested: > 8.0 %Note: Hemoglobin A1c results are invalid for patients with abnormal amounts of HbF. Blood transfusions may impact the HbA1c concentration in the patient sample. Estimated Average Glucose 157 mg/dL [facility] Comment:eAG = Estimated ave rage glucose which is %A1C expressed asaverage glucose, using the formula of the L3A-YgnzfigGufdnet Glucose study (ADAG), Diabetes Care, Vol.31,#8,Sep. 2007 10/21/2024 10:3 7 AM EDT 10/21/2024 10:37 AM EDT Generic External Data Provider LAB BLOOD ORDERAB LES Final Result Performing Organization Address [facility]/[place] Co de Phone Number [facility] [address] [place] [address] [phone] * Lipid Panel, Standard (10/21/2024 10:37 AM EDT) Triglycerides 128 <150 mg/dL [facility] Comment:Desirable Triglyceri de: less than 150 mg/dLBorderline High Triglyceride 150-199 mg/dLHigh Triglyceride: 200-499 mg/dLVery High Triglyceride: greater than or equal to 5OO mg/dL Cholesterol 165 <200 mg/dL [facility] Comment:Desirable Cholestero l: less than 200 mg/dLBorderline High Cholesterol: 200-239 mg/dLHigh Cholesterol: greater than 239 mg/dL LDL Cholesterol Calculated 94 <100 mg/dL [facility] Comment:Desirable LDL: less than 100 mg/dLNear Optimal/Above Optimal LDL: 110- 129 mg/dLBorderline High LDL: 130-159 mg/dLHigh LDL: 160-189 mg/dLVery High LDL: greater than or equal to 190 mg/dL HDL Cholesterol 46 >40 mg/dL [facility] Comment:Desirable HDL: great er than 40 mg/dL Note: This HDL assay may give artificially low results in patients with liver disease. 10/21/2024 10:3 7 AM EDT 10/21/2024 10:37 AM EDT us Generic External Data Provider LAB BLOOD ORDERAB LES Final Result [facility] [address] [place] [phone] * (ABNORMAL) Comprehensive Metabolic Panel (10/21/2024 10:37 AM EDT) Sodium 138 135 - 145 mmol/L [facility] Potassium 3.9 3.3 - 5.1 mmol/L [facility] Chloride 108 96 - 108 mmol/L [facility] Carbon Dioxide 23 22 - 29 mmol/L [facility] Anion Gap 11(L) 12 - 20 [facility] Urea Nitrogen (BUN) 7(L) 9 - 16 mg/dL [facility] Creatinine, Serum 0.64 0.5 - 1.4 mg/dL [facility] Estimated Glomerular Filt Rate >60 [facility] Comment:Chronic Kidney Disea se: Estimated GFR < 60 mL/min/1.45p7Tjzkvy Kidney Disease: Estimated GFR < 15 mL/min/1.73m2 Glucose 171(H) 60 - 115 mg/dL [facility] Calcium 8.5 8.4 - 10.2 mg/dL [facility] Bilirubin, Total 0.4 0.0 - 1.0 mg/dL [facility] Aspartate Amino Transferase 20 5 - 31 U/L [facility] Alanine Aminotransferase 10 0 - 31 U/L [facility] Total Protein 6.5 6.5 - 8.0 g/dL [facility] Albumin Level 3.6 3.5 - 5.0 g/dL [facility] Alkaline Phosphatase 125(H) 39 - 117 U/L [facility] 10/21/2024 10:3 7 AM EDT 10/21/2024 10:37 AM EDT us Generic External Data Provider LAB BLOOD ORDERAB LES Final Result Performing Organization Address City/State/[place] Co de Phone Number [facility] [address] [place] [address] [phone] * XR Chest 2 Views (10/20/2024 1:36 PM EDT) Anatomical Region Laterality Modality Chest Radiographic Kathleen ging 10/20/2024 1:36 PM EDT Narrative 10/20/2024 2:41 PM EDT [address] [address] XRay Report Signed Patient: Vazquez Anderson MR #: [id number] : 1975 Acct:[id number] Age/Sex: 48 / F ADM Date: 10/20/24 Loc: HO.HHCX Attending Dr: María Elena Tai Ordering Physician: María Elena Tai Date of Service: 10/20/24 Procedure(s): XR chest 2V Accession Number(s): [id number] cc: María Elena Tai; Saima Rae MD EXAMINATION: XR CHEST CLINICAL INFORMATION: persistent cough COMPARISON: August 17, 2024 TECHNIQUE: 2 views of the chest were obtained. FINDINGS: Lungs are clear. Heart size is normal. There is gastric distention with gas and fluid. There is no pleural effusion. XR/XR chest 2V IMPRESSION: No acute disease Electronically signed by: Deangelo Mejias MD 10/20/2024 02:38 PM EDT RP Dictated By: Deangelo Mejias MD Signed By: <Electronically signed by Deangelo Mejias MD in OV> 10/20/24 1438 DD/ 1336 TD/TT: 10/20/24 1424 Renal Social Worker: Procedure Note Donotuseinterpreter, Image - 10/20/2024 [place] [address] XRay Report Signed Patient: Malina Anderson #: [id number] : 1975Acct:[id number] Age/Sex: 48 / FADM Date: 10/20/24 Loc: HO.HHCX Attending Dr: María Elena Tai Ordering Physician: María Elena Tai Date of Service: 10/20/24 Procedure(s): XR chest 2V Accession Number(s): [id number] cc: María Elena Tai; Saima Rae MD EXAMINATION: XR CHEST CLINICAL INFORMATION: persistent cough COMPARISON: August 17, 2024 TECHNIQUE: 2 views of the chest were obtained. FINDINGS: Lungs are clear. Heart size is normal. There is gastric distention with gas and fluid. There is no pleural effusion. XR/XR chest 2V IMPRESSION: No acute disease Electronically signed by: Deangelo Mejias MD 10/20/2024 02:38 PM EDT RP Dictated By: Deangelo Mejias MD Signed By: <Electronically signed by Deangelo Mejias MD in OV> 10/20/24 1438 DD/ 1336 TD/TT: 10/20/24 1424 Renal Social Worker: us María Elena Appram KELP CUTTER IMG XR PROCEDURES Final Result * POCT Rapid Influenza B GILMAN ID NOW (10/19/2024 5:34 PM EDT) Only the most recent of2 resultswithin the time period is included. Influenza B Negative Negative, Indeterminate [facility] Swab 10/19/2024 5:3 4 PM EDT us Ring Appram KELP CUTTER POINT OF CARE TEST ENTER/EDIT O RDERABLES Final Result Performing Organization Address [facility]/ZIP Co de Phone Number [facility] [address] [place] [phone] * POCT Rapid Influenza A GILMAN ID NOW (10/19/2024 5:34 PM EDT) Only the most recent of2 resultswithin the time period is included. Influenza A Negative Negative, Indeterminate [facility] Swab 10/19/2024 5:34 PM EDT us María Elena Narayananm KELP CUTTER POINT OF CARE TEST ENTER/EDIT O RDERABLES Final Result Performing Organization Address [facility]/[place] Co de Phone Number [facility] [address] [place] [phone] * POCT Rapid Covid-19 BinaxNOW (10/19/2024 5:34 PM EDT) Rapid COVID Ag Negative Swab 10/19/2024 5:34 PM EDT us Ring Appram KELP CUTTER POINT OF CARE TEST ENTER/EDIT O RDERABLES Final Result * (ABNORMAL) POCT HGB A1C (10/13/2024 2:31 PM EDT) Pathologist [facility] Hemoglobin A1C 7.2(A) 4.0 - 5.7 % QC Media Lot # [id number] Lot# Expiration Date Blood 10/13/2024 2:31 PM EDT Result [facility] Saima Colbert MD POINT OF CARE TEST EN TER/EDIT ORDERABLES Final Result * POCT Glucose (10/13/2024 2:30 PM EDT) Only the most recent of2 resultswithin the time period is included. [facility] Glucose Blood, POC 111 60 - 200 mg/dL QC Media Lot # [id number] Lot# Expiration Date , Blood Capillary blood specimen / Unknown 10/13/2024 2:30 PM EDT Result [facility] Saima Colbert MD POINT OF CARE TEST EN TER/EDIT ORDERABLES Final Result * POCT Rapid Strep A GILMAN ID NOW (10/10/2024 12:38 PM EDT) [facility] Rapid Strep A Screen Negative Negative, None Detected QC Media Lot # [id number] Lot# Expiration Date Swab 10/10/2024 12:3 8 PM EDT Result [facility] Bhavna Martinez MD POINT OF CARE TEST ENTER /EDIT ORDERABLES Final Result * POCT Rapid Covid-19 GILMAN ID NOW (10/10/2024 12:32 PM EDT) [facility] Coronavirus Antigen PCR Negative Negative, Indeterminate, None Detected, Invalid, Specimen unsatisfactory for evaluation, Weakly Positive, 2+ QC Media Lot # [id number] Lot# Expiration Date Swab 10/10/2024 12:3 2 PM EDT Result [facility] Bhavna Martinez MD POINT OF CARE TEST ENTER /EDIT ORDERABLES Final Result * Albumin, Random Urine W/Creatinine (07/19/2024 9:13 AM EDT) Creatinine, Urine 34.74 mg/dL [facility] Microalbumin Urine <5.0 mg/L [facility] Microalbum Creatinine Ratio Ur TNP <30 ug/mg cr [facility] Comment:Unable to calculate albumin/creatinine ratio due to lowmicroalbumin or creatinine result. Urine (Urine, Random) 07/19/2024 9:13 AM EDT 07/19/2024 9:46 AM EDT us Saima Colbert MD LAB URINE ORDERABLES Final Result [facility] [address] [place] [address] [phone] * Pap Smear (07/15/2023 12:11 PM EDT) 07/15/2023 12:1 1 PM EDT 07/16/2023 10:15 AM EDT Narrative [facility] - 08/03/2023 11:58 AM EDT ----- ------- Name: Amaya Vazquez Will Age/Sex: 47/F : 1975 Unit#: [id number] Attend Dr: Rebecca Bales CNM Re07/15/23 Status: DEP REF Location: .LAB Disch: ----- ------- SPEC : [id number] RECD: 07/16/23-1015 STATUS: ROHIT BERKOWITZ NUM: [id number] ELINA: 07/15/23-[address] [facility] [address]: [facility] [place] [facility] ENTERED: 07/16/23-1317 SP TYPE: Pap Smr OTHR DR: Saima Rae MD ORDERED: Pap Smear Interpretation Satisfactory for evaluation. Negative for intraepithelial lesion or malignancy. HPV mRNA E6/E7: NOT DETECTED This assay detects E6/E7 viral messenger RNA (mRNA) from 14 high-risk HPV types (16, 18, 31, 33, 35, 39, 45, 51, 52, 56, 58, 59, 66, 68) HPV testing performed by [facility], [place], [place]. See reference laboratory portion of the EMR for entire report. Clinical Information LMP:06/24/23 Previous PAP test:2019 [facility] Material Received ThinPrep-Vaginal/Cervical Copies To: Saima Rae MD [address] [place] [id number] [facility] [address] [place] [address] ----- ------- Signed (signature on file) Griselda Ho 08/03/23 1158 ----- ------- END OF REPORT us Generic External Data Provider LAB CYTOLOGY SHARMILA ZAMBRANO Final Result [facility] [address] [place] [address] [phone] * BI Mammogram Screening Tomosynthesis Bilateral (04/13/2023 12:45 PM EST) Anatomical Region Laterality Modality Breast Bilateral Mammography 04/13/2023 12:4 5 PM EST Narrative 04/30/2023 9:21 PM EST [facility] [address] [place] [address] Mammography Report Signed Patient: Vazquez Anderson MR #: [id number] : 1975 Acct:[id number] Age/Sex: 47 / F ADM Date: 04/13/23 Loc: HO.MAMMO Attending Dr: Saima Colbert MD Ordering Physician: Saima Rae MD Results: 0Incomplete: Needs Additional Imaging Evaluation Date of Service: 04/13/23 Follow Up: Additional Imagi ng Procedure(s): MM tomosynthesis screening BI Accession Number(s): [id number] cc: Saima Rae MD EXAMINATION: MM SCREENING [...] MD in OV> 04/30/232116 DD/ 1245 TD/TT: Renal Social Worker: Procedure Note Donotuseinterpreter, Image - 04/30/2023 [facility] [address] [place] [address] Mammography Report Signed Patient: Cristhian AndersoneMR #: [id number] : 1975Acct:[id number] Age/Sex: 47 / FADM Date: 04/13/23 Loc: MAMMO Attending Dr: Saima Colbert MD Ordering Physician: Saima Rae MD Results: 0Incomplete: Needs Additional Imaging Evaluation Date of Service: 04/13/23Follow Up: Additional Imagi ng Procedure(s): MM tomosynthesis screening BI Accession Number(s): [id number] cc: Saima Rae MD EXAMINATION: MM SCREENING [...] MD in OV> 04/30/232116 DD/ 1245 TD/TT: Renal Social Worker: Saima Colbert MD IMG BI PROCEDURES Fin al Result * HPV E6/E7 RFLX TRACIE 16 18/45 (01/16/2017 12:20 PM EST) HPV mRNA E6/E7 Not Detected NOT DETECTED [facility] Comment: This test was performed using the APTIMA(R) HPV Assay ([employer] This assay detects E6/E7 viral messenger RNA (mRNA) from 14 high-risk HPV types (16,18,31,33,35,39,45,51, 52,56,58,59,66,68). For additional information please refer to: http://education.CNS Response/faq/NZT986b6 (This link is being provided for informational/ educational purposes only.) Please note: Effective 11/12/2015, HPV testing will be performed using [employer]'s APTIMA test which targets mRNA. Detecting mRNA instead of DNA, as in older methods, offers significant improvements in specificity. ADDITIONAL TESTING Not indicated () [facility] Comment: Test Performed by [facility], [facility], [address] [place] [address] J Carlos Macedo M.D., Ph.D., Director of Laboratories , [place] [id number] HPV 16 RNA Test not performed [facility] HPV 18/45 RNA Test not performed [facility] 01/16/2017 12:2 0 PM EST us Nicola White MD HISTORICAL/NON ORDERA BLE LABS Final Result [facility] [address] [place] [address], from Last 3 Months or Most Recently Relevant to Health Maintenance Insurance [facility] C3 HSN PARTIAL [facility] STANDARD AFLAC DENTAL - HSN PARTIAL (MEDICAID) Care Teams Cosmetic Maker Relationship Specialty Start Date End Date Saima Rae MD [address] [place] [address] [phone] PCP - General Family Medicine 08/26/18 Pastor Zhou, PharmD [address] [place] [phone] Pharmacist Internal Medicine 08/11/24
--- OUTSIDE RECORDS SUMMARY | 2024-11-14 19:46 | XMS_ITS | Encounter Summary ---
Author Organization [employer] Address [address] [place] [address] [address] [place] [address] Care Team Providers Care Resource Specialist Teacher Name Role Phone Saima Rae MD Primary Care Provide r Pastor Zhou PharmD Unavailable [phone] Reason for Visit * Reason Comments Med Refill Encounter Details Date Type Department Care Team (Late st Contact Info) Description 12/16/2022 Refill [facility] [address] [place] [phone] Marcia Valdes MD [address] [place], [place] [phone] Fibromyalgia Social History Tobacco Use Types Packs/Day [...] Description 11/23/2024 1:30 PM EDT Office Visit [facility] [address] [place] [address] [phone] Edmond Kimble DMD [address] [place] [address] 11/25/2024 3:00 PM EDT Medication Management [facility] [address] [place] [address], [place] [address] Pastor Zhou, PharmD [address] [place] [address] 12/05/2024 9:30 AM EDT Office Visit [facility] [address] [place] [address] aTe Ball, DDS [address] [place] [address] 12/16/2024 3:00 PM EDT Office Visit [facility] [address] [place] [address] Jorge Pham 12/27/2024 2:30 PM EDT Office Visit [facility] [address] [place] [address] RiccardoDev ronquillon, OD [address] [place] [address] 01/13/2025 3:30 PM EST Office Visit [facility] [address] [place] [address] Saima Rae MD [address] [place] [phone] documented as of this encounter Visit Diagnoses Diagnosis Fibromyalgia Unspecified myalgia and myositis documented in this encounter Care Teams Resource Specialist Teacher Relationship Specialty Start Date End Date Saima Rae MD [address] [place] [phone] PCP - General Family Medicine 08/26/18 Pastor Zhou, PharmD [address] [place] [phone] Pharmacist Internal Medicine 08/11/24 documented as of this encounter
--- OUTSIDE RECORDS SUMMARY | 2024-11-14 19:46 | XMS_ITS | Encounter Summary ---
Author Organization [employer] Address [address] [place] [address] 7 [place] [address] Care Team Providers Care Learning And Development Consultant Name Role Phone Saima Rae MD Primary Care Provide r Pastor Zhou PharmD Unavailable [phone] Reason for Visit * Reason Onset Date Comments Nurse Triage 01/05/2024 Encounter Details Date Type Department Care Team (Late st Contact Info) Description 01/05/2024 Telephone [facility] MEDICINE [address] [place], [place] [phone] Saima Rae MD 230 [place], [place] [phone] Nurse Triage Social History Tobacco Use Types [...] injury at work 12/22/23. Pthas been on workmans comp since that time. Pt reports is [...] 01/25/24. Pt is advised to come to [facility] to be seen byprovider and to request written note for extension of leave from work. Pt agrees with this advice, home care already implemented. Pt agrees with disposition and will come to [facility] which is open till 8pm today. Insurance [...] [facility] ADULT DENTAL [address] [place] [address] Edmond Kimble, EVERT [address] [place] [address] 11/25/2024 3:00 PM EDT Medication Management [facility] MEDICINE [address] [place] [address] Pastor Zhou, PharmD 230 [place] [address] 12/05/2024 9:30 AM EDT Office Visit [facility] ADULT DENTAL [address] [place] [address] Tae Ball DDS [address] [place], [place] 12/16/2024 3:00 PM EDT Office Visit [facility] ADULT DENTAL [address] [place], [place] [phone] Jorge Pham 12/27/2024 2:30 PM EDT Office Visit [facility] OPTOMETRY [address] [place] [address] Tamiko uG, OD 230 [place] [address] 01/13/2025 3:30 PM EST Office Visit [facility] MEDICINE [address] [place] [address] Saima Rae MD 230 [place] [address] documented as of this encounter Visit Diagnoses Not on filedocumented in this encounter Additional Health Concerns Assessment Noted Time PHQ-9 Depression Total Score: 15 023 3:30 PM EST documented as of this encounter Care Teams Learning And Development Consultant Relationship Specialty Start Date End Date Saima Rae MD [address] [place] [id number] PCP - General Family Medicine 08/26/18 Pastor Zhou, LeighannD [address] [place] [address] [phone] Pharmacist Internal Medicine 08/11/24 documented as of this encounter
--- OUTSIDE RECORDS SUMMARY | 2024-11-14 19:46 | XMS_ITS | Encounter Summary ---
Author Organization [employer] Address [address] [place] [address] 7 [place] [address] Care Team Providers Care Outbound Call Center Representative Name Role Phone Saima Rae MD Primary Care Provide r Pastor Zhou PharmD Unavailable [phone] Reason for Visit * Reason Comments Med Refill Encounter Details Date Type Department Care Team (Late st Contact Info) Description 02/14/2023 Refill [facility] MEDICINE [address] [place] [address] Ania Balderas MD 230 [place], [place] [phone] Muscle spasm Social History Tobacco Use Types [...] Description 11/23/2024 1:30 PM EDT Office Visit [facility] ADULT DENTAL 230 [place], [place] [phone] Edmond Kimble DMD 230 [place] [address] 11/25/2024 3:00 PM EDT Medication Management [facility] MEDICINE [address] [place] [address], [place] [address] Pastor Zhou, PharmD [address] [place] [address] 12/05/2024 9:30 AM EDT Office Visit [facility] ADULT DENTAL [address] [place] [address] Tae Ball, DDS 505 [place] [address] 12/16/2024 3:00 PM EDT Office Visit [facility] ADULT DENTAL 505 [place] [address] Jorge Pham 12/27/2024 2:30 PM EDT Office Visit [facility] OPTOMETRY [address] [place] [address] RiccardoDev ronquillon, OD 230 [place] [address] 01/13/2025 3:30 PM EST Office Visit [facility] MEDICINE [address] [place] [address] Saima Rae MD 230 [place] [address] documented as of this encounter Visit Diagnoses Diagnosis Muscle spasm Spasm of muscle documented in this encounter Care Teams Outbound Call Center Representative Relationship Specialty Start Date End Date Saima Rae MD [address] [place] [phone] PCP - General Family Medicine 08/26/18 Pastor Zhou, PharmD [address] [place] [address] Pharmacist Internal Medicine 08/11/24 documented as of this encounter
--- OUTSIDE RECORDS SUMMARY | 2024-11-14 19:46 | XMS_ITS | Encounter Summary ---
Author Organization [employer] Address [address] [place] [address] 7 [place] [address] Care Team Providers Care Medical Customer Service Representative Name Role Phone Saima Rae MD Primary Care Provide r Pastor Zhou PharmD Unavailable [phone] Reason for Visit * Reason Onset Date Comments Nurse Triage 12/24/2023 Encounter Details Date Type Department Care Team ([facility] st Contact Info) Description 12/24/2023 Telephone [facility] MEDICINE [address] [place], [place] [phone] Saima Rae MD 230 [place], [place] [phone] Nurse Triage Social History Tobacco Use Types [...] Did go to the work connection at [facility] on 12/23/23. Pt has scrape and swelling [...] Description 11/23/2024 1:30 PM EDT Office Visit [facility] ADULT DENTAL [address] [place] [address] Edmond Kimble, DMD 230 [place] [address] 11/25/2024 3:00 PM EDT Medication Management [facility] MEDICINE [address] [place] [address] Pastor Zhou, PharmD 230 [place] [address] 12/05/2024 9:30 AM EDT Office Visit [facility] ADULT DENTAL [address] [place] [address] Tae Ball DDS 505 [place] [address] 12/16/2024 3:00 PM EDT Office Visit [facility] ADULT DENTAL [address] [place] [address] Jorge Pham 12/27/2024 2:30 PM EDT Office Visit [facility] OPTOMETRY [address] [place] [address] Tamiko Gu, OD 230 [place] [address] 01/13/2025 3:30 PM EST Office Visit [facility] MEDICINE [address] [place], [place] [phone] Saima Rae MD 230 [place], [place] [phone] documented as of this encounter Visit Diagnoses Not on filedocumented in this encounter Additional Health Concerns Assessment Noted Time PHQ-9 Depression Total Score: 15 023 3:30 PM EST documented as of this encounter Care Teams Medical Customer Service Representative Relationship Specialty Start Date End Date Saima Rae MD [address] [place] [address] [phone] PCP - General Family Medicine 08/26/18 Pastor Zhou, LeighannD [address] [place] [address] [phone] Pharmacist Internal Medicine 08/11/24 documented as of this encounter
--- OUTSIDE RECORDS SUMMARY | 2024-11-14 19:46 | XMS_ITS | Encounter Summary ---
Author Organization [employer] Address [address] [place] [address] 7 [place] [address] Care Team Providers Care Boring Machine Operator Double End Name Role Phone Saima Rae MD Primary Care Provide r Pastor Zhou PharmD Unavailable Reason for Visit * Reason Onset Date Comments Results 01/12/2024 Encounter Details Date Type Department Care Team ([facility] st Contact Info) Description 01/12/2024 Telephone [facility] MEDICINE [address] [place], [place] [phone] Saima Rae MD 230 [place], [place] [phone] Results Social History Tobacco Use Types Packs/Day [...] results: Xray Date when done: 01/07/24 Facility: [facility] documented in this encounter Plan of Treatment Upcoming Encounters Date Type Department Care Team (Late st Contact Info) Description 11/23/2024 1:30 PM EDT Office Visit [facility] ADULT DENTAL [address] [place] [address] Edmond Kimble, DMD 230 [place] [address] 11/25/2024 3:00 PM EDT Medication Management [facility] MEDICINE [address] [place] [address] Pastor Zhou, PharmD 230 [place] [address] 12/05/2024 9:30 AM EDT Office Visit [facility] ADULT DENTAL [address] [place] [address] DerikTae dominguez, DDS [address] [place] [address] 12/16/2024 3:00 PM EDT Office Visit [facility] ADULT DENTAL [address] [place] [address] Jorge Pham 12/27/2024 2:30 PM EDT Office Visit [facility] OPTOMETRY [address] [place] [address] Riccardo, Tamiko, OD 230 [place] [address] 01/13/2025 3:30 PM EST Office Visit [facility] MEDICINE [address] [place] [address] Saima Rae MD 230 [place] [address] documented as of this encounter Visit Diagnoses Not on filedocumented in this encounter Additional Health Concerns Assessment Noted Time PHQ-9 Depression Total Score: 15 023 3:30 PM EST documented as of this encounter Care Teams Boring Machine Operator Double End Relationship Specialty Start Date End Date Saima Rae MD [address] [place] [phone] PCP - General Family Medicine 08/26/18 Pastor Zhou, PharmD [address] [place] [phone] Pharmacist Internal Medicine 08/11/24 documented as of this encounter
--- OUTSIDE RECORDS SUMMARY | 2024-11-14 19:46 | XMS_ITS | Encounter Summary ---
Author Organization [employer] Address [address] [place] [address] 7 [place] [address] Care Team Providers Care Business Intelligence Manager Name Role Phone Saima Rae MD Primary Care Provide r Pastor Zhou PharmD Unavailable [phone] Reason for Visit * Reason Comments Med Refill Encounter Details Date Type Department Care Team (Late st Contact Info) Description 06/27/2024 Refill [facility] MEDICINE 230 [place], [place] [phone] Saima Rae MD 230 [place], [place] [phone] Fibromyalgia Social History Tobacco Use Types Packs/Day [...] with others, in a hotel, in a [place], living outside on the street, on a [...] Description 11/23/2024 1:30 PM EDT Office Visit [facility] ADULT DENTAL 230 [place] [address] Edmond Kimble, DMD 230 [place] [address] 11/25/2024 3:00 PM EDT Medication Management [facility] MEDICINE [address] [place] [address] Pastor Zhou, PharmD 230 [place] [address] 12/05/2024 9:30 AM EDT Office Visit [facility] [address] [place] [address] ClayuTae, DDS [address] [place] [address] 12/16/2024 3:00 PM EDT Office Visit [facility] ADULT DENTAL [address] [place] [address] Jorge Pham 12/27/2024 2:30 PM EDT Office Visit [facility] OPTOMETRY [address] [place] [address] Riccardo, Tamiko, OD 230 [place] [address] 01/13/2025 3:30 PM EST Office Visit [facility] MEDICINE 230 [place] [address] Saima Rae MD 230 [place] [address] documented as of this encounter Visit Diagnoses Diagnosis Fibromyalgia Unspecified myalgia and myositis documented in this encounter Additional Health Concerns Assessment Noted Time PHQ-9 Depression Total Score: 17 025 1:24 PM EST documented as of this encounter Care Teams Business Intelligence Manager Relationship Specialty Start Date End Date Saima Rae MD [address] [place] [address] PCP - General Family Medicine 08/26/18 Pastor Zhou, LeighannD [address] [place] [phone] Pharmacist Internal Medicine 08/11/24 documented as of this encounter
--- OUTSIDE RECORDS SUMMARY | 2024-11-14 19:46 | XMS_ITS | Encounter Summary ---
Author Organization [employer] Address [address] [place] [address] 7 [place] [address] Care Team Providers Care Science Instructor Name Role Phone Saima Rae MD Primary Care Provide r Pastor Zhou PharmD Unavailable [phone] Encounter Details Date Type Department Care Team (Late st Contact Info) Description 02/02/2024 Orders Only [facility] MEDICINE 230 [place], [place] [phone] Saima Rae MD 230 [place], [place] [phone] Social History Tobacco Use Types Packs/Day Years [...] Description 11/23/2024 1:30 PM EDT Office Visit [facility] ADULT DENTAL [address] [place] [address] Edmond Kimble, DMD 230 [place] [address] 11/25/2024 3:00 PM EDT Medication Management [facility] MEDICINE [address] [place] [address] Pastor Zhou, PharmD 230 [place] [address] 12/05/2024 9:30 AM EDT Office Visit [facility] ADULT [facility] [address] [place] [address] Tae Ball, DDS 505 [place] [address] 12/16/2024 3:00 PM EDT Office Visit [facility] ADULT D[facility]AL 505 [place] [address] Jorge Pham 12/27/2024 2:30 PM EDT Office Visit [facility] OPTOMETRY [address] [place], [place] [phone] Tmaiko Gu, OD 230 [place], [place] [phone] 01/13/2025 3:30 PM EST Office Visit [facility] MEDICINE [address] [place] [address] Saima Rae MD 230 [place], [place] [phone] documented as of this encounter Visit Diagnoses Not on filedocumented in this encounter Additional Health Concerns Assessment Noted Time PHQ-9 Depression Total Score: 15 023 3:30 PM EST documented as of this encounter Care Teams Science Instructor Relationship Specialty Start Date End Date Saima Rae MD [address] [place] [address] [phone] PCP - General Family Medicine 08/26/18 Pastor Zhou, LeighannD [address] [place] [address] [phone] Pharmacist Internal Medicine 08/11/24 documented as of this encounter
--- OUTSIDE RECORDS SUMMARY | 2024-11-14 19:46 | XMS_ITS | Encounter Summary ---
Author Organization [employer] Address [address] [place] [address] 7 [place] [address] Care Team Providers Care Open Claims Representative Name Role Phone Saima Rae MD Primary Care Provide r Pastor Zhou PharmD Unavailable [phone] Reason for Visit * Reason Comments Med Change Request Encounter Details Date Type Department Care Team ([facility] st Contact Info) Description 01/20/2024 Refill [facility] MEDICINE [address] [place], [place] [phone] Saima Rae MD 230 [place], [place] [phone] Type 2 diabetes mellitus without complication, unspecified whether [place] [facility] [place] insulin use ([facility]) Social History Tobacco Use Types Packs/Day Years [...] the past 12 months, has t he [email or web address], gas, oil or water company threatened to [...] 11/23/2024 1:30 PM EDT Office Visit [facility] ADULT DENTAL [address] [place] [address] Edmond Kimble, DMD [address] [place] [address] 11/25/2024 3:00 PM EDT Medication Management [facility] MEDICINE [address] [place] [address] Pastor Zhou, PharmD 230 [place] [address] 12/05/2024 9:30 AM EDT Office Visit [facility] AD[facility]AL 505 [place] [address] Tae Ball DDS [address] [place], [place] 12/16/2024 3:00 PM EDT Office Visit [facility] ADULT DENTAL [address] [place], [place] [phone] Jorge Pham 12/27/2024 2:30 PM EDT Office Visit [facility] OPTOMETRY [address] [place] [address] Tamiko Gu, OD 230 [place] [address] 01/13/2025 3:30 PM EST Office Visit [facility] MEDICINE [address] [place] [address] Saima Rae MD 230 [place] [address] documented as of this encounter Visit Diagnoses Diagnosis Type 2 diabetes mellitus without complication, unspecified whether [place] [facility] [place] insulin use ([facility]) documented in this encounter Additional Health Concerns Assessment Noted Time PHQ-9 Depression Total Score: 15 023 3:30 PM EST documented as of this encounter Care Teams Open Claims Representative Relationship Specialty Start Date End Date Saima Rae MD [address] [place] [address] [phone] PCP - General Family Medicine 08/26/18 Pastor Zhou, PharmD [address] [place] [place] [address] [phone] Pharmacist Internal Medicine 08/11/24 documented as of this encounter
--- OUTSIDE RECORDS SUMMARY | 2024-11-14 19:46 | XMS_ITS | Encounter Summary ---
Author Organization [employer] Address [address] [place] [address] 7 [place] [address] Care Team Providers Care Filter Machine Operator Name Role Phone Saima Rae MD Primary Care Provide r Pastor Zhou PharmD Unavailable [phone] Reason for Visit * Reason Onset Date Comments BPI scoring, [facility] 04/07/2023 Encounter Details Date Type Department Care Team (Late st Contact Info) Description 04/07/2023 Refill [facility] MEDICINE [address] [place], [place] [phone] Patricia Haas DO 230 [place] [address] Social History Tobacco Use Types Packs/Day Years [...] the past 12 months, has t he [employer], [employer], oil or water [employer] threatened to shut off services in your [...] - 04/16/2023 1:51 PM EST 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 Pain severity [...] Description 11/23/2024 1:30 PM EDT Office Visit [facility] ADULT DENTAL [address] [place] [address] Edmond Kimble, EVERT [address] [place] [address] 11/25/2024 3:00 PM EDT Medication Management [facility] MEDICINE [address] [place] [address] Pastor Zhou, PharmD [address] [place] [address] 12/05/2024 9:30 AM EDT Office Visit [facility] ADULT DENTAL [address] [place] [address] DerikdruOttoniell, DDS [address] [place] [address] 12/16/2024 3:00 PM EDT Office Visit [facility] ADULT DENTAL [address] [place] [address] Jorge Pham 12/27/2024 2:30 PM EDT Office Visit [facility] OPTOMETRY [address] [place] [address] RiccardoDev ronquillon, OD 230 [place] [address] 01/13/2025 3:30 PM EST Office Visit [facility] MEDICINE [address] [place] [address] Saima Rae MD [address] [place] [address] documented as of this encounter Visit Diagnoses Not on filedocumented in this encounter Additional Health Concerns Assessment Noted Time PHQ-9 Depression Total Score: 15 023 3:30 PM EST documented as of this encounter Care Teams Filter Machine Operator Relationship Specialty Start Date End Date Saima Rae MD 230 [place] [address] PCP - General Family Medicine 08/26/18 Pasotr Zhou, Yordy [address] [place] [address] Pharmacist Internal Medicine 08/11/24 documented as of this encounter
== END 2024-11-14 14:21 | disposition home or self-care (01) ==
LOC: HO.MAMMO 14:20
PROVIDERS: PCP Internal Medicine; Visit Provider Internal Medicine
DX: Z12.31 Encounter for screening mammogram for malignant neoplasm of breast (principal)
CPT/HCPCS: 77063; 77067

== ENCOUNTER → 2024-11-14 14:45 | Outpatient (BNV) | payer MEDICAID, SELFPAY | PROVIDERS: PCP Internal Medicine; Visit Provider Radiology Body Imaging | DX: Z12.31 Encounter for screening mammogram for malignant neoplasm of breast (principal) | CPT/HCPCS: 77063; 77067 ==

== ENCOUNTER 2024-11-30 11:27 | Outpatient (AMB) | payer MEDICAID, SELFPAY ==
--- NOTE | 2024-11-30 11:38 | A.OFFVIS_ITS ---
Intake Visit Reasons: Inj-B/L knee inj- last 07/22/24 Intake Note: Vazquez is a 49 year old female who presents today for bilateral knee injections, At her last visit on 07/22/24, she was given injections and instructed to follow up as needed. Today patient reports injections provided about 50% of relief that lasted about 1.5 months. She mentions having a fall a year ago and her pain has been getting worse. She wishes to repeat injections today. Allergies No Known Allergies Allergy (Verified 10/18/24 23:06) Medication List - Last Reconciled 11/30/24 by Sofia Toscano PA-C albuterol sulfate 90 mcg/actuation (Ventolin HFA) 2 puffs inhalation Q4-6H PRN cholecalciferol (vitamin D3) 50 mcg PO DAILY 30 days CPAP As directed diclofenac sodium 1% 1 ea topical BID PRN docusate sodium 100 mg PO BID gabapentin 800 mg PO TID insulin glargine (Lantus Solostar U-100 Insulin) 10 units subcut BEDTIME insulin lispro 4 units subcut TID lancets (FreeStyle Lancets) As directed lidocaine 5% (Lidoderm) 1 patch topical DAILY PRN ondansetron 4 mg PO Q12H oxycodone-acetaminophen 5-325 mg 2 tabs PO Q12H PRN pantoprazole 40 mg PO DAILY polyethylene glycol 3350 17 grams PO DAILY sucralfate 10 mL PO BID tirzepatide (Mounjaro) 2.5 mg subcut QWEEK trazodone 150 mg PO BEDTIME HPI HPI Inj-B/L knee inj- last 07/22/24: Details: 49-year-old female returns to the office today for bilateral knee pain. She states the last injection was helpful but it only lasted for approximately 1 and a months. We have been doing cortisone injections for quite a while. She does have significant arthritis but is quite young for a knee replacement. She states she did have gel in the past which only helped for a day or so. [facility] Medical History (Updated 10/24/24 @ 08:57 by Pattie Camacho RN) Multiple falls Constipation Depression GERD (gastroesophageal reflux disease) Sleep apnea with use of continuous positive airway pressure (CPAP) Hypercholesterolemia HTN (hypertension) Neuropathy Type 2 diabetes mellitus Back pain Cervicalgia Arthritis Gout Asthma Fibromyalgia Vitamin D deficiency Multinodular thyroid Surgical History (Updated 10/24/24 @ 08:49 by Pattie Camacho RN) Hx of tubal ligation Hx of biopsy Hx of neck surgery History of cryosurgery Hx of tonsillectomy Hx of section Family History Father HIV (human immunodeficiency virus infection) Mother Osteoarthritis Osteoporosis Herniated disc H/O Spinal surgery Degloving injury of plantar surface of foot Knee problem Family history of thyroid problem Daughter Mildly obese Asthma Cranial cerebrospinal fluid leak, spontaneous Daughter Mildly obese ADHD Asthma Son ADHD Asthma Social History Are you a primary career placement specialist to a significant other at home: No Do you presently have visiting nurse or other home services: No Alcohol intake: never Patient Tobacco Use Status: Former Tobacco user Cigarettes Per Day: 4 Current occupational status: unemployed Current occupation: rt handed Female Reproductive History Menstrual Age of Menarche: 13 Review of Systems Const All systems reviewed & are unremarkable except as noted in HPI and below Physical Exam Extrem Other: Bilateral knee: Skin intact, no erythema or joint effusion. Tenderness along the medial and lateral joint line. Full ROM with crepitus. Negative Jose Eduardo?s on the right knee. Significant tenderness along the lateral joint line with positive steinmans on the left knee. No ligamentous laxity. NVI. Office Procedures AMB Joint Injection/Aspiration Joint Injection/Aspiration Primary Site: right knee Secondary Site: left knee Prep: site was prepped using aseptic technique, ethochloride spray was applied and injection warnings given Injected: 40 mg of, 1% plain lidocaine, 0.25% bupivacaine, in the joint and decadron Approach Used: anterolateral Procedure: The patient tolerated the procedure well and there was some relief with the local anesthesia Coding 65636 - Glenohumeral/Tronchanteric Bursa/Intraarticular Procedure code (CPT) selection complete Assessment & Plan Assessment & Plan (1) Osteoarthritis of knees, bilateral: Code(s): M17.0 - Bilateral primary osteoarthritis of knee Category: Medical Qualifiers: Osteoarthritis type: primary Qualified Code(s): M17.0 - Bilateral primary osteoarthritis of knee (2) Patellofemoral arthralgia of both knees: Code(s): M22.2X1 - Patellofemoral disorders, right knee; M22.2X2 - Patellofemoral disorders, left knee Category: Medical Plan Both knees were injected today with steroid which the patient tolerated well. I did educate her on monitoring her blood glucose levels over the next several days as steroid can effect. Sugar levels. We also discussed other options such as gel injections versus referral to pain management for geniculate injections. She would like to meet with pain management to discuss options. An order was placed. She will see me back as needed. Coding Level of Care Code Est Pt Level 3 (31382) Complex EM visit Add On G2211 Diagnoses Primary osteoarthritis of both knees M17.0 Osteoarthritis type: primary Patellofemoral arthralgia of both knees M22.2X1; M22.2X2 CPT Codes Coding - Joint 7: 38350 - Glenohumeral/Tronchanteric Bursa/Intraarticular ([id number])
--- OUTSIDE RECORDS SUMMARY | 2024-11-30 13:04 | XMS_ITS | Encounter Summary ---
Author Organization [employer] Address [address] [place] [address] [address] [place] [address] Care Team Providers Care Canine Deputy Name Role Phone Saima Rae MD Primary Care Provide r Pastor Zhou PharmD Unavailable [phone] Reason for Visit * Reason Onset Date Comments Nurse Triage 10/17/2024 Encounter Details Date Type Department Care Team (Late st Contact Info) Description 10/17/2024 Telephone [facility] [address], [place] [phone] Saima Rae MD [address] [place], [place] [phone] Nurse Triage Social History Tobacco Use Types [...] this evening. Pt agrees to come to [facility] this evening. Pt agrees with [...] caller accepted this outcome. Contact pt at [phone] ([facility]ied [facility]) documented in this encounter Plan of Treatment Upcoming Encounters Date Type Department Care Team (Late st Contact Info) Description 12/05/2024 9:30 AM EDT Office Visit [facility] [address] [place] [address] Tea Ball, MISTYS [address] [place] [address] 12/13/2024 11:00 AM EDT Office Visit [facility] [address] [place] [id number] 12/15/2024 10:30 AM EDT Medication Management [facility] [address] [place] [id number] Pastor Zhou, PharmD [address] [place] [address] 12/15/2024 2:30 PM EDT Office Visit [facility] AD[facility] [address] [facility] [place] [address] Edmond Kimble, DMD [address] [place] [address] 12/16/2024 3:00 PM EDT Office Visit [facility] [address] [place] [address] Jorge Pham 12/21/2024 1:30 PM EDT Office Visit [facility] [address] [facility] [place] [address] Edmond Kimble, DMD [address] [place] [address] 12/27/2024 2:30 PM EDT Office Visit [facility] [address] [place] [address] Riccardo, Tamiko, OD [address] [place] [address] 01/13/2025 3:30 PM EST Office Visit [facility] [address] [place] [address] Saima Rae MD [address] [place] [address] documented as of this encounter Visit Diagnoses Not on filedocumented in this encounter Additional Health Concerns Assessment Noted Time PHQ-9 Depression Total Score: 22 025 2:33 PM EDT documented as of this encounter Care Teams Canine Deputy Relationship Specialty Start Date End Date Saima Rae MD [address] [place] [address] PCP - General Family Medicine 08/26/18 Pastor Zhou, PharmD [address] [place] [address] Pharmacist Internal Medicine 08/11/24 documented as of this encounter
--- OUTSIDE RECORDS SUMMARY | 2024-11-30 13:04 | XMS_ITS | Clinical Summary ---
Author Organization [employer] Address [address] [place] [address] 7 [place] [address] Care Team Providers Care Team Foreman Name Role Phone Saima Rae MD Primary Care Provide r Pastor Zhou PharmD Unavailable [phone] Allergies No known active allergies Medications * This document contains information received from the source organization and may not represent a complete record from that organization. naloxone (Narcan) 4 mg/0.1 mL nasal spray Administer 1 spray (4 mg) into affected nostril(s) if needed for opioid reversal. 2 each 2 023 Active celecoxib (CeleBREX) 200 MG capsule TOME 1 C PSULA POR V A ORAL DOS VECES AL D A 024 Active Continuous Glucose Network Consultant (FreeStyle Dary 3 [place]) deviceIndicatio ns:Type 2 diabetes mellitus with hyperglycemia, without long-term current use of insulin ([facility]) 1 each Once per day. Use as directed for CGM 1 each 025 Active Continuous Glucose Sensor (FreeStyle Dary 3 Plus Sensor) miscIndications :Type 2 diabetes mellitus with hyperglycemia, without long-term current use of insulin ([facility]) 1 each every 15 days. Apply 1 every 15 days as directed for CGM 2 each 11 025 Active empagliflozin (Jardiance) 25 MGIndications:T ype 2 diabetes mellitus with hyperglycemia, without long-term current use of insulin ([facility]) Take 1 tablet (25 mg) by mouth Once per day. 30 tablet 025 2025 Active Blood Glucose Monitoring Suppl (FreeStyle Lite) w/Device kit 1 each Use as directed. 1 kit Active pen needle 31G x 5 mm miscIndications :Type 2 diabetes mellitus with hyperglycemia, without long-term current use of insulin (HCC) Use as instructed 100 each 12 025 2025 Active docusate sodium (Colace) 100 MG capsuleIndicati ons:Constipatio n, unspecified TAKE 1 CAPSULE BY MOUTH TWICE A DAY 180 capsule 1 Active cholecalciferol VITAMIN D (Vitamin D-3) 50 MCG (1999 UT) capsule TAKE 1 CAPSULE BY MOUTH EVERY MORNING 90 capsule 025 Active gabapentin (Neurontin) 800 MG tabletIndicatio ns:Fibromyalgia TAKE 1 TABLET BY MOUTH AT BEDTIME 30 tablet 3 Active sertraline (Zoloft) 25 MG tabletIndicatio ns:Mixed anxiety and depressive disorder Take 1 tablet (25 mg) by mouth in the morning. 90 tablet 025 Active Lancets 33G misc Use to test blood sugar up to 3 times daily in case of CGM failure or extremes of BG 100 each 11 Active lisinopril 20 MG tabletIndicatio ns:Essential hypertension Take 1 tablet (20 mg) by mouth Once per day. 90 tablet 3 025 Active glucose 4 g chewable tablet Chew 4 tablets (16 g) if needed for low blood sugar. 30 tablet 2 Active Diclofenac Sodium 1 % gelIndications: Fibromyalgia APPLY 2 GRAMS TOPICALLY TO THE AFFECTED AREA(S) TWICE A DAY 100 g 1 025 Active lidocaine (Lidoderm) 5 % patchIndication s:Fibromyalgia APPLY 1 PATCH TOPICALLY IN THE MORNING 30 patch 3 Active Ventolin HFA 108 (90 Base) MCG/ACT inhalerIndicati ons:Mild intermittent asthma, unspecified whether complicated INHALE 2 PUFFS BY MOUTH EVERY 4 HOURS NEEDED FOR WHEEZING OR SHORTNESS OF BREATH 18 g 1 025 Active traZODone (Desyrel) 150 MG tabletIndicatio ns:Primary insomnia Take 1 tablet (150 mg) by mouth if needed at bedtime for sleep. 30 tablet 1 Active atenolol (Tenormin) 25 MG tabletIndicatio ns:Essential hypertension TAKE 1 TABLET BY MOUTH EVERY DAY 90 tablet 025 Active fluticasone (Flonase) 50 MCG/ACT nasal spray Administer 1 spray into each nostril Once per day. 16 g 2 025 Active budesonide-form oterol (Symbicort) 160-4.5 MCG/ACT inhalerIndicati ons:Acute cough Inhale 2 puffs in the morning and at bedtime. May use additional 2 puffs q 20 mins for 3 doses as needed shortness of breath and wheezing. Do not use more than 12 inhalations in 24 hrs. Rinse mouth with water and spit after use. 1 each 025 2025 Active cyclobenzaprine (Flexeril) 10 MG tabletIndicatio ns:Muscle spasm TAKE 1 TABLET BY MOUTH THREE TIMES DAILY IN THE MORNING, AT NOON, AND AT BEDTIME NEEDED 90 tablet Active glucose blood (FreeStyle Precision Moi Test) test stripIndication s:Type 2 diabetes mellitus with hyperglycemia, without long-term current use of insulin ([facility]) Use to test blood sugar 3 times daily in case of CGM failure or extremes of BG 100 each 025 2025 Active insulin glargine (Lantus SoloStar) 100 UNIT/ML penIndications: Type 2 diabetes mellitus with hyperglycemia, without long-term current use of insulin ([facility]) Inject 10 Units under the skin at bedtime. 3 mL 025 2025 Active insulin lispro (HumaLOG KWIKPEN) 100 UNIT/ML injectionIndica tions:Type 2 diabetes mellitus with hyperglycemia, without long-term current use of insulin ([facility]) Inject 4 Units under the skin with breakfast, with lunch, and with evening meal. 1 each Active Acetaminophen Extra Strength 500 MG tablet TAKE 1 TABLET BY MOUTH EVERY 6 HOURS IF NEEDED FOR MILD PAIN. 120 tablet Active Tirzepatide (Mounjaro) 5 MG/0.5ML solution auto-injectorIn dications:Type 2 diabetes mellitus with hyperglycemia, with long-term current use of insulin ([facility]) Inject 5 mg under the skin 1 (one) time per week. 2 mL 025 Active oxyCODONE-aceta minophen (Percocet) 5-325 MG tabletIndicatio ns:Cervical stenosis of spinal canal,Chronic bilateral low back pain with bilateral sciatica Take 2 tablets by mouth every 12 (twelve) hours if needed for severe pain for up to 28 days. Do not start before November 22, 2024. 112 tablet 025 2024 Active Alcohol Swabs (Alcohol Pads) 70 % padsIndications :Type 2 diabetes mellitus with hyperglycemia, with long-term current use of insulin ([facility]) Use 4 times daily as directed 100 each 025 Active pantoprazole (ProtoNix) 40 MG EC tablet TOME JEANCARLOS TABLETA POR V A ORAL TODOS LOS D 025 Active sucralfate (Carafate) 1 GM/10ML suspension TAKE 2 TEASPOONSFUL (10 ML) BY MOUTH 2 TIMES A DAY 025 Active glucose blood (FreeStyle Precision Moi Test) test stripIndication s:Type 2 diabetes mellitus with hyperglycemia, without long-term current use of insulin ([facility]) Use to test blood sugar 3 times daily in case of CGM failure or extremes of BG 100 each 025 2024 Discontinued(R eorder (will not trigger notification to Pharmacy)) insulin glargine (Lantus SoloStar) 100 UNIT/ML penIndications: Type 2 diabetes mellitus with hyperglycemia, without long-term current use of insulin ([facility]) Inject 10 Units under the skin at bedtime. 3 mL 1 025 2024 Discontinued(R eorder (will not trigger notification to Pharmacy)) insulin lispro (HumaLOG KWIKPEN) 100 UNIT/ML injectionIndica tions:Type 2 diabetes mellitus with hyperglycemia, without long-term current use of insulin ([facility]) Inject 4 Units under the skin with breakfast, with lunch, and with evening meal. 1 each 1 025 2024 Discontinued(R eorder (will not trigger notification to Pharmacy)) cyclobenzaprine (Flexeril) 10 MG tabletIndicatio ns:Muscle spasm TAKE 1 TABLET BY MOUTH THREE TIMES DAILY IN THE MORNING, AT NOON, AND AT BEDTIME NEEDED 90 tablet 1 025 2024 Discontinued(R eorder (will not trigger notification to Pharmacy)) acetaminophen (Tylenol Extra Strength) 500 MG tablet Take 1 tablet (500 mg) by mouth every 6 (six) hours if needed for mild pain. 120 tablet 025 2024 Discontinued Tirzepatide (Mounjaro) 2.5 MG/0.5ML solution auto-injectorIn dications:Type 2 diabetes mellitus with hyperglycemia, with long-term current use of insulin (HCC) Inject 2.5 mg under the skin 1 (one) time per week. 2 mL 2 025 2024 Discontinued benzocaine-ment hol (Cepacol Sore Throat Ex St) 15-3.6 MGIndications:A cute cough Dissolve 1 lozenge in the mouth every 2 (two) hours if needed for sore throat for up to 14 days. 168 lozenge 025 2024 oxyCODONE-aceta minophen (Percocet) 5-325 MG tabletIndicatio ns:Cervical stenosis of spinal canal,Chronic bilateral low back pain with bilateral sciatica Take 2 tablets by mouth every 12 (twelve) hours if needed for severe pain for up to 28 days. Do not start before October 25, 2024. 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, she is today requesting a better for [...] 25 mg I advised to follow-up with [facility] pharmacy, continue glucose monitor is also [...] meds I will refer her to pharmacy CDTM - Diabetic eye exam: Up-to-date - Diabetic [...] of routine gynecological examination 11/07/2022 07/21/2024 Encounters Date Type Department Care Team Description 11/28/2024 Refill [facility] [address] [place] [address] Bhavna Martinez MD 11/28/2024 Refill [facility] [address] [place] [address] Saima Rae MD 11/25/2024 Travel 11/23/2024 1:30 PM EDT Office Visit [facility] [address] [place] [address] Edmond Kimble, EVERT 11/22/2024 Telephone [facility] [address] [place] [address] Saima Rae MD telephone call 11/22/2024 Telephone [facility] [address] [place] [address] Saima Rae MD Appointment Request 11/18/2024 Orders Only [facility] [address] [place] [address] Saima Rae MD 11/18/2024 Telephone [facility] [address] [place] [address] Saima Rae MD Med Refill 11/18/2024 Refill [facility] [address] [place] [address] Saima Rae MD Cervical stenosis of spinal canal; Chronic bilateral low back pain with bilateral sciatica 2024 Telephone [facility] [address] [place] [address] Saima Rae MD Med Refill 11/09/2024 Telephone [facility] [address] [place] [address] Saima Rae MD NOV RECALL 11/06/2024 Refill [facility] [address] [place] [address] Bhavna Martinez MD 11/04/2024 Refill [facility] [address] [place] [address] Saima Rae MD Muscle spasm; Type 2 diabetes mellitus with hyperglycemia, without long-term current use of insulin ([facility]/HCC) 10/24/2024 Telephone [facility] [address] [place] [address] Saima Rae MD fyi 10/24/2024 Refill [facility] [address] [place] [address] Saima Rae MD Cervical stenosis of spinal canal; Chronic bilateral low back pain with bilateral sciatica 10/21/2024 Results Follow-Up [address] [address] María Elena Tai NP XR Chest 2 Views 10/21/2024 Orders Only GENERIC EXTERNAL DATA DEPARTMENT Provider, Generic External Data 10/19/2024 5:00 PM EDT Office Visit [facility] [address] [place] [address] María Elena Tai NP Acute cough (Primary Dx); Tachycardia 10/19/2024 Travel 10/17/[address] [address] Saima Rae MD Nurse Triage 10/13/2024 2:30 PM EDT Office Visit [address] [address] Saima Rae MD Essential hypertension (Primary Dx); Type 2 diabetes mellitus with hyperglycemia, with long-term current use of insulin (CMS/HCC); Type 2 diabetes mellitus with hyperglycemia, without long-term current use of insulin ([facility]/HCC); Acute cough; Colon cancer screening 10/13/2024 Travel 10/11/[address] [address] Saima Rae MD Chart Prep 10/10/2024 12:15 PM EDT Office Visit [address] [address] Bhavna Martinez MD Nasal congestion (Primary Dx); Type 2 diabetes mellitus with hyperglycemia, without long-term current use of insulin ([facility]); Sore throat 10/10/2024 Refill [facility] [address] [place] [address] Saima Rae MD Type 2 diabetes mellitus with hyperglycemia, without long-term current use of insulin ([facility]) 10/10/2024 Travel 10/10/2024 Telephone [facility] [address] [place] [address] Saima Rae MD Nurse Triage 10/10/2024 Refill [facility] [address] [place] [address] Saima Rae MD Cervical stenosis of spinal canal; Chronic bilateral low back pain with bilateral sciatica 10/05/2024 Refill [facility] [address] [place] [address] Saima Rae MD Type 2 diabetes mellitus with hyperglycemia, without long-term current use of insulin ([facility]) 10/04/2024 Patient Outreach [facility] [address] [place] [address] Saima Rae MD Pre-visit Planning ([facility] screening completed on 07/07/2024) 09/27/2024 Refill [facility] [address] [place] [address] Saima Rae MD Muscle spasm 09/20/2024 Telephone [facility] [address] [place] [address] Jacqueline Schumacher, JESUS Pt was [facility] for chronic pain group 09/19/2024 Travel 09/18/2024 Refill [facility] [address] [place] [address] Saima Rae MD Essential hypertension 09/16/2024 Telephone [facility] [address] [place] [address] Saima Rae MD 09/16/2024 Refill [facility] [address] [place], [place] [phone] Saima Rae MD Primary insomnia 09/16/2024 Telephone [facility] [address] [place] [address] Saima Rae MD Appointment Request 09/12/2024 Refill [facility] [address] [place], [place] [phone] Saima Rae MD Fibromyalgia; Cervical stenosis of spinal canal; Chronic bilateral low back pain with bilateral sciatica; Cervicalgia 09/09/2024 Travel 09/08/2024 Refill [facility] [address] [place] [address] Saima Rae MD Mild intermittent asthma, unspecified whether complicated 09/05/2024 Refill [facility] [address] [place] [address] Saima Rae MD Fibromyalgia 08/30/2024 3:30 PM EDT Telemedicine [facility] [address] [place] [address] Pastor Zhou, PharmD Type 2 diabetes mellitus with hyperglycemia, without long-term current use of insulin ([facility]) (Primary Dx) from Last 3 Months Immunizations Immunization Administration Dates Next Due Hep B, adult 11/25/2017,12/16/2016,11/05/2016 Influenza injectable quadriv alent IIV4 with preservative 11/25/2017,02/16/2017 Influenza injectable quadriv alent preservative free 01/03/2022 Influenza, seasonal, injecta ble, preservative free 11/25/2024,01/12/2024 Moderna Covid-19 Vaccine 12+ 04/01/2020,03/04/19 21 Pfizer [...] with others, in a hotel, in a fpc, living outside on the street, on a [...] Sign Reading Time Taken Comments Blood Pressure 112/58 11/25/2024 3:34 PM EDT Pulse 106 11/25/2024 3:34 PM EDT Temperature 36.6 C (97.8 F) [...] Description 12/05/2024 9:30 AM EDT Office Visit [facility] [address] [place] [address] Tae Ball DDS [address] [place] [address] 12/13/2024 11:00 AM EDT Office Visit [facility] [address] [place] [address] 12/15/2024 10:30 AM EDT Medication Management [facility] [address] [place] [address] Pastor Zhou, PharmD [address] [place] [address] 12/15/2024 2:30 PM EDT Office Visit [facility] [address] [place] [address] Edmond Kimble, EVERT [address] [place] [address] 12/16/2024 3:00 PM EDT Office Visit [facility] [address] [place] [address] Jorge Pham 12/21/2024 1:30 PM EDT Office Visit [facility] [address] [place] [address] Edmond Kimble, DMD [address] [place] [address] 12/27/2024 2:30 PM EDT Office Visit [facility] [address] [place] [address] Tamiko Gu, OD [address] [place] [address] 01/13/2025 3:30 PM EST Office Visit [facility] [address] [place] [address] Saima Rae MD [address] [place] [address] Health Maintenance Due Date Last Done Comments [...] 07/15/2023 07/13/2020, 09/2017 COVID-19 Vaccine ( season) 2024 03/05/2023, 01/03/2022, 01/03/2022, Additional history exists Depression Monitoring 01/12/2025 07/12/2024, 025 Diabetes: Hemoglobin A1C 01/21/2025 025, 10/13/2024, 07/07/2024, Additional history exists Alcohol/Substance Use Screening 07/07/2025 07/07/2024 SDOH Screening 07/07/2025 07/07/2024 Diabetes: Urine Protein Screening 07/19/2025 07/19/2024, 02/29/2024, 12/05/2020 Disability Screening 10/13/2025 10/13/2024 Lipid Panel 10/21/2025 10/21/2024, 02/01, 12/05/2020 Eye Exam 11/09/2025 11/10/2023, 10/31, 11/10/2023, Additional history exists Mammogram 11/14/2025 11/14/2024, 04/02, 07/28/2020, Additional history exists Tobacco Screening 11/23/2025 11/23/2024 Zoster Vaccines (1 of 2) 2026 DTaP/Tdap/Td Vaccines (2 - Td or Tdap) 12/18/2027 12/17/2017 Cervical Cancer Screening 07/14/2028 HPV/Cotest 07/14/2028 01/16/2017 Pap Smear 07/14/2028 07/15/2023 RSV Patients and Patients Aged 60 years or older (1 - 1-dose 75+ series) 11/17/2051 Hepatitis B Vaccines Completed 11/25/2017, 12/16/2016, 11/05/2016 Influenza Vaccine Completed 11/25/2024, , 01/03/2022, Additional history exists HIB Vaccines Aged Out [...] Name Priority Date/Time Associated Diagnosis Comments 30 CORE BUILDUP, INCL ANY PINS WHEN REQ Routine 11/23/2024 1:30 PM EDT CASE PRESENTATION, DETAILED AND EXTENSIVE TREATMENT PLANNING Routine 11/23/2024 1:30 PM EDT BI MAMMOGRAM SCREENING TOMOSYNTHESIS BILATERAL Routine 11/14/2024 2:30 PM EDT Encounter for screening mammogram for malignant neoplasm of breast INSULIN Routine 10/21/2024 10:37 AM EDT TSH [...] hyperglycemia, with long-term current use of insulin ([facility]) POCT GLUCOSE Routine 10/13/2024 2:30 PM [...] hyperglycemia, without long-term current use of insulin ([facility]) ALBUMIN, RANDOM URINE W/CREATININE Routine 07/19/2024 9:13 AM EDT Type 2 diabetes mellitus with hyperglycemia, without long-term current use of insulin ([facility]) PAP SMEAR Routine 07/15/2023 12:11 PM EDT PANORAMIC RADIOGRAPHIC IMAGE Routine 07/13/2020 12:00 AM [...] Recently Relevant to Health Maintenance Results * BI Mammogram Screening Tomosynthesis Bilateral (11/14/2024 2:30 PM EDT) Anatomical Region Laterality Modality Breast Bilateral Mammography 11/14/2024 2:30 PM EDT Narrative 11/15/2024 6:27 PM EDT [place] [facility] [address] [place] [address] Mammography Report Signed Patient: Vazquez Anderson MR #: [id number] : 1975 Acct:[id number] Age/Sex: 48 / F ADM Date: 11/14/24 Loc: HO.MAMMO Attending Dr: Saima Colbert MD Ordering Physician: Saima Rae MD Results: 1Negative Date of Service: 11/14/24 Follow Up: 1 Year From Orig inal Mammogram Procedure(s): MM tomosynthesis screening BI Accession Number(s): [id number] cc: Saima Rae MD Reason For Exam: screening EXAMINATION: MM SCREENING DIGITAL BREAST TOMOSYNTHESIS, BILATERAL CLINICAL INFORMATION: Screening. Asymptomatic. COMPARISON: Comparison made to multiple prior, most recent [diagnostic mammogram on May 17, 2023, and most remote January 16, 2017. TECHNIQUE: Digital breast tomosynthesis is performed in mediolateral oblique and craniocaudal views along with computer-aided detection (CAD). Synthesized 2D images are generated from the tomosynthesis. FINDINGS: BREAST COMPOSITION: There are scattered areas of fibroglandular density (ACR BI-RADS breast composition Category b). BILATERAL BREASTS: No significant masses, suspicious calcifications or other abnormalities are seen in either breast. MM/MM tomosynthesis screening BI IMPRESSION: BILATERAL BREASTS: Negative, no mammographic evidence of malignancy. Normal interval follow-up is recommended in 12 months. ASSESSMENT: BI-RADS 1 - Negative RECOMMENDATION: Routine annual mammography screening. FOLLOW-UP: 1 year F/U This examination should not preclude the clinical evaluation of a suspicious palpable abnormality. This patient's information was entered into a reminder system with a target due date for their next mammogram. Electronically signed by: Adelina Barnes MD 11/15/2024 06:23 PM EDT Dictated By: Adelina Barnes MD Signed By: <Electronically signed by Adelina Barnes MD in OV> 11/15/24 1823 DD/ 1430 TD/TT: 11/14/24 1448 Levee Superintendent: Procedure Note Donotuseinterpreter, Image - [facility] [address] [place] [address] Mammography Report Signed Patient: Cristhian AndersoneMR #: [id number] : 1975Acct:[id number] Age/Sex: 48 / FADM Date: 11/14/24 Loc: HO.MAMMO Attending Dr: Saima Colbert MD Ordering Physician: Saima Rae MDResults: 1Negative Date of Service: 11/14/24Follow Up: 1 Year From Orig inal Mammogram Procedure(s): MM tomosynthesis screening BI Accession Number(s): [id number] cc: Saima Rae MD Reason For Exam: screening EXAMINATION: MM SCREENING DIGITAL BREAST TOMOSYNTHESIS, BILATERAL CLINICAL INFORMATION: Screening. Asymptomatic. COMPARISON: Comparison made to multiple prior, most recent [diagnostic mammogram on May 17, 2023, and most remote January 16, 2017. TECHNIQUE: Digital breast tomosynthesis is performed in mediolateral oblique and craniocaudal views along with computer-aided detection (CAD). Synthesized 2D images are generated from the tomosynthesis. FINDINGS: BREAST COMPOSITION: There are scattered areas of fibroglandular density (ACR BI-RADS breast composition Category b). BILATERAL BREASTS: No significant masses, suspicious calcifications or other abnormalities are seen in either breast. MM/MM tomosynthesis screening BI IMPRESSION: BILATERAL BREASTS: Negative, no mammographic evidence of malignancy. Normal interval follow-up is recommended in 12 months. ASSESSMENT: BI-RADS 1 - Negative RECOMMENDATION: Routine annual mammography screening. FOLLOW-UP: 1 year F/U This examination should not preclude the clinical evaluation of a suspicious palpable abnormality. This patient's information was entered into a reminder system with a target due date for their next mammogram. Electronically signed by: Adelina Barnes MD 11/15/2024 06:23 PM EDT Dictated By: Adelina Barnes MD Signed By: <Electronically signed by Adelina Barnes MD in OV> 11/15/24 1823 DD/ 1430 TD/TT: 11/14/24 1448 Levee Superintendent: us Saima Colbert MD IMG BI PROCEDURES Davon kaylie Result - Final * TSH with Reflex to Free T4 (10/21/2024 10:37 AM EDT) Pathologist [facility] TSH reflex Free T4 1.74 0.32 - 4.0 uIU/mL [facility] 10/21/2024 10:3 7 AM EDT 10/21/2024 10:37 AM EDT us Generic External Data Provider LAB BLOOD ORDERAB LES Final Result [facility] [address] [place] [phone] * (ABNORMAL) CBC auto differential (10/21/2024 10:37 AM EDT) Pathologist [facility] White Blood Count 8.8 4.8 - 10.8 X10*3/uL [facility] Red Blood Count 4.30 4.20 - 5.50 X10*6/uL [facility] Hemoglobin 13.0 12.0 - 16.0 g/dl [facility] Hematocrit 37.1 37.0 - 47.0 % [facility] Mean Corpuscular Volume 86.3 80.0 - 98.0 fL [facility] Mean Corpuscular Hemoglobin 30.2 27.0 - 33.0 pg [facility] Mean Corpuscular HGB Conc 35.0 31.0 - 35.0 g/dl [facility] Red Cell Distribution Width 12.9 11.0 - 16.0 % [facility] Platelet Count 315 160 - 400 X10*3/uL [facility] Mean Platelet Volume 9.7 9.4 - 12.3 fL [facility] Neutrophils Percent Auto 72.2 45 - 73 % [facility] Imm Gran Pct Auto 0.7(H) 0.0 - 0.4 % [facility] Lymphocytes Percent Auto 18.4(L) 20 - 40 % [facility] Monocytes Percent Auto 7.0 2 - 11 % [facility] Eosinophils Percent Auto 1.1 0 - 4 % [facility] Basophils Percent Auto 0.6 0 - 2 % [facility] NRBC Pct Auto 0.0 0.0 - 0.2 /100WBC [facility] Neutrophils Absolute Auto 6.4 2.0 - 8.3 x10*3/uL [facility] Imm Gran Abs Auto 0.06(H) 0.00 - 0.03 X10*3/uL [facility] Lymphocytes Absolute Auto 1.6 1.2 - 4.9 X10*3/uL [facility] Monocytes Absolute Auto 0.6 0.1 - 1.2 X10*3/uL [facility] Eosinophils Absolute Auto 0.1 0.0 - 0.4 X10*3/uL [facility] Basophils Absolute Auto 0.1 0.0 - 0.2 X10*3/uL [facility] NRBC Abs Auto 0.000 0.0 - 0.012 X10*3/uL [facility] 10/21/2024 10:3 7 AM EDT 10/21/2024 10:37 AM EDT us Generic External Data Provider LAB BLOOD ORDERAB LES Final Result [facility] [address] [place] [address] [phone] * Insulin (10/21/2024 10:37 AM EDT) Insulin 19 2 - 29 uU/mL [facility] Comment:This test was perfor med using the Gilman chemiluminescentmethod. Values obtained from different assay methods [...] ORDERAB LES Final Result Performing Organization Address [facility]/ZIP Co de Phone Number [facility] [address] [place] [address] [phone] * Partial Thromboplastin Time, Activated (APTT) (10/21/2024 10:37 AM EDT) Partial Thromboplastin Time 27.5 26.7 - 34.1 SEC [facility] 10/21/2024 10:3 7 AM EDT 10/21/2024 10:37 AM EDT Generic External Data Provider LAB BLOOD ORDERAB LES Final Result Performing Organization Address [facility] Co de Phone Number [facility] [address] [place] [phone] * (ABNORMAL) Prothrombin Time-INR (10/21/2024 10:37 AM EDT) Prothrombin Time 14.5(H) 10.9 - 12.4 SEC [facility] INTERNATIONAL NORM RATIO 1.3(H) 0.9 - 1.1 [facility] Comment:INTERNATIONAL NORMAL IZED RATIO (INR) REFERENCE [...] ORDERAB LES Final Result Performing Organization Address [facility]/ZIP Co de Phone Number [facility] [address] [place] [phone] * (ABNORMAL) C-reactive Protein (10/21/2024 10:37 AM EDT) C Reactive Protein 1.44(H) < or = 0.50 mg/dL [facility] 10/21/2024 10:3 7 AM EDT 10/21/2024 10:37 AM EDT Generic External Data Provider LAB BLOOD ORDERAB LES Final Result Performing Organization Address [facility] Co de Phone Number [facility] [address] [place] [phone] * (ABNORMAL) Hemoglobin A1c (10/21/2024 10:37 AM EDT) Hemoglobin A1c 7.1(H) <6.0 % [facility] Comment:Hemoglobin A1C Refer ence Range Adults: 4.8 - 6.0 % Non diabetic: < 6.0 % Goal: < 7.0 %Additional Action Suggested: > 8.0 %Note: Hemoglobin A1c results are invalid for patients with abnormal amounts of HbF. Blood transfusions may impact the HbA1c concentration in the patient sample. Estimated Average Glucose 157 mg/dL [facility] Comment:eAG = Estimated ave rage glucose which is %A1C expressed asaverage glucose, using the formula of the I3I-FpxydvaGrthdno Glucose study (ADAG), Diabetes Care, Vol.31,#8,2007 10/21/2024 10:3 7 AM EDT 10/21/2024 10:37 AM EDT Generic External Data Provider LAB BLOOD ORDERAB LES Final Result Performing Organization Address City/[facility]/ZIP Co de Phone Number [facility] [address] [place] [phone] [phone] * Lipid Panel, Standard (10/21/2024 10:37 AM EDT) Triglycerides 128 <150 mg/dL [facility] Comment:Desirable Triglyceri de: less than 150 mg/dLBorderline High Triglyceride 150-199 mg/dLHigh Triglyceride: 200-499 mg/dLVery High Triglyceride: greater than or equal to 5OO mg/dL Cholesterol 165 <200 mg/dL [facility] Comment:Desirable Cholestero l: less than 200 mg/dLBorderline High Cholesterol: 200-239 mg/dLHigh Cholesterol: greater than 239 mg/dL LDL Cholesterol Calculated 94 <100 mg/dL [facility] Comment:Desirable LDL: less than 100 mg/dLNear Optimal/Above Optimal LDL: 110- 129 mg/dLBorderline High LDL: 130-159 mg/dLHigh LDL: 160-189 mg/dLVery High LDL: greater than or equal to 190 mg/dL HDL Cholesterol 46 >40 mg/dL [facility] Comment:Desirable HDL: great er than 40 mg/dL Note: This HDL assay may give artificially low results in patients with liver disease. 10/21/2024 10:3 7 AM EDT 10/21/2024 10:37 AM EDT us Generic External Data Provider LAB BLOOD ORDERAB LES Final Result Performing Organization Address City/[facility]/ZIP Co de Phone Number [facility] [address] [place] [phone] * (ABNORMAL) Comprehensive Metabolic Panel (10/21/2024 10:37 AM EDT) Sodium 138 135 - 145 mmol/L [facility] Potassium 3.9 3.3 - 5.1 mmol/L [facility] Chloride 108 96 - 108 mmol/L [facility] Carbon Dioxide 23 22 - 29 mmol/L [facility] Anion Gap 11(L) 12 - 20 [facility] Urea Nitrogen (BUN) 7(L) 9 - 16 mg/dL [facility] Creatinine, Serum 0.64 0.5 - 1.4 mg/dL [facility] Estimated Glomerular Filt Rate >60 [facility] Comment:Chronic Kidney Disea se: Estimated GFR < 60 mL/min/1.97o6Ecdjop Kidney Disease: Estimated GFR < 15 mL/min/1.73m2 Glucose 171(H) 60 - 115 mg/dL [facility] Calcium 8.5 8.4 - 10.2 mg/dL [facility] Bilirubin, Total 0.4 0.0 - 1.0 mg/dL [facility] Aspartate Amino Transferase 20 5 - 31 U/L [facility] Alanine Aminotransferase 10 0 - 31 U/L [facility] Total Protein 6.5 6.5 - 8.0 g/dL [facility] Albumin Level 3.6 3.5 - 5.0 g/dL [facility] Alkaline Phosphatase 125(H) 39 - 117 U/L [facility] 10/21/2024 10:3 7 AM EDT 10/21/2024 10:37 AM EDT us Generic External Data Provider LAB BLOOD ORDERAB LES Final Result Performing Organization Address City/State/[facility] Co de Phone Number [facility] [address] [place] [address] [phone] * XR Chest 2 Views (10/20/2024 1:36 PM EDT) Anatomical Region Laterality Modality Chest Radiographic Kathleen ging 10/20/2024 1:36 PM EDT Narrative 10/20/2024 2:41 PM EDT [facility] [address] [place] [address] XRay Report Signed Patient: Vazquez Anderson MR #: [id number] : 1975 Acct:[id number] Age/Sex: 48 / F ADM Date: 10/20/24 Loc: ROBBYX Attending Dr: María Elena Tai Ordering Physician: María Elena Tai Date of Service: 10/20/24 Procedure(s): XR chest 2V Accession Number(s): [id number] cc: Marycarmen Tai Maria MD EXAMINATION: XR CHEST CLINICAL INFORMATION: persistent [...] 10/20/24 1438 DD/ 1336 TD/TT: 10/20/24 1424 Levee Superintendent: Procedure Note Donotuseinterpreter, Image - 10/20/[address] [address] XRay Report Signed Patient: Cristhian AndersoneMR #: [id number] : 1975Acct:[id number] Age/Sex: 48 / FADM Date: 10/20/24 Loc: ROBBYX Attending Dr: María Elena Tai Ordering Physician: María Elena Tai Date of Service: 10/20/24 Procedure(s): XR chest 2V Accession Number(s): [id number] cc: María Elena Tai; Saima Rae MD [...] 10/20/24 1438 DD/ 1336 TD/TT: 10/20/24 1424 Levee Superintendent: María Elena Appratiffanie PRIOR AUTHORIZATION NURSE IMG XR PROCEDURES Final Result * POCT Rapid Influenza B GILMAN ID NOW (10/19/2024 5:34 PM EDT) Only the most recent of2 resultswithin the time period is included. [facility] Influenza B Negative Negative, Indeterminate [facility] Swab 10/19/2024 5:34 PM EDT María Elena Tai PRIOR AUTHORIZATION NURSE POINT OF CARE TEST ENTER/EDIT O RDERABLES Final Result Performing Organization Address [facility]/ZIP Co de Phone Number [facility] [address] [place] [phone] * POCT Rapid Influenza A GILMAN ID NOW (10/19/2024 5:34 PM EDT) Only the most recent of2 resultswithin the time period is included. [facility] Influenza A Negative Negative, Indeterminate [facility] Swab 10/19/2024 5:34 PM EDT María Elena Tai PRIOR AUTHORIZATION NURSE POINT OF CARE TEST ENTER/EDIT O RDERABLES Final Result Performing Organization Address City/[facility]/ZIP Co de Phone Number [facility] [address] [place] [phone] * POCT Rapid Covid-19 BinaxNOW (10/19/2024 5:34 PM EDT) Pathologist [facility] Rapid COVID Ag Negative Swab 10/19/2024 5:34 PM EDT María Elena Tai NP POINT OF CARE TEST ENTER/EDIT O RDERABLES Final Result * (ABNORMAL) POCT HGB A1C (10/13/2024 2:31 PM EDT) [facility] Hemoglobin A1C 7.2(A) 4.0 - 5.7 % QC Media Lot # [id number] Lot# Expiration Date 47, Blood 10/13/2024 2:31 PM EDT Result [facility] Saima Colbert MD POINT OF CARE TEST EN TER/EDIT ORDERABLES Final Result * POCT Glucose (10/13/2024 2:30 PM EDT) Only the most recent of2 resultswithin the time period is included. [facility] Glucose Blood, POC 111 60 - 200 mg/dL QC Media Lot # [id number] Lot# Expiration Date Blood Capillary blood specimen / Unknown 10/13/2024 2:30 PM EDT Result [facility] Saima Colbert MD POINT OF CARE TEST EN TER/EDIT ORDERABLES Final Result * POCT Rapid Strep A GILMAN ID NOW (10/10/2024 12:38 PM EDT) [facility] Rapid Strep A Screen Negative Negative, None Detected QC Media Lot # [id number] Lot# Expiration Date Swab 10/10/2024 12:3 8 PM EDT Bhavna Martinez MD POINT OF CARE TEST ENTER /EDIT ORDERABLES Final Result * POCT Rapid Covid-19 GILMAN ID NOW (10/10/2024 12:32 PM EDT) [facility] Coronavirus Antigen PCR Negative Negative, Indeterminate, None Detected, Invalid, Specimen unsatisfactory for evaluation, Weakly Positive, 2+ QC Media Lot # [id number] Lot# Expiration Date [id number] Swab 10/10/2024 12:3 2 PM EDT us Bhavna Martinez MD POINT OF CARE TEST ENTER /EDIT ORDERABLES Final Result * Albumin, Random Urine W/Creatinine (07/19/2024 9:13 AM EDT) Creatinine, Urine 34.74 mg/dL [facility] Microalbumin Urine <5.0 mg/L [facility] Microalbum Creatinine Ratio Ur TNP <30 ug/mg cr [facility] Comment:Unable to calculate albumin/creatinine ratio due to lowmicroalbumin or creatinine result. Urine (Urine, Random) 07/19/2024 9:13 AM EDT 07/19/2024 9:46 AM EDT us Saima Colbert MD LAB URINE ORDERABLES Final Result [facility] [address] [place] [phone] * Pap Smear (07/15/2023 12:11 PM EDT) 07/15/2023 12:1 1 PM EDT 07/16/2023 10:15 AM EDT Narrative [facility] - 08/03/2023 11:58 AM EDT ----- ------- Name: Vazquez Anderson Age/Sex: 47/F : 1975 Unit#: [id number] Attend Dr: Rebecca Bales CNM Re07/15/23 Status: DEP REF Location: .LAB Disch: ----- ------- SPEC : [id number] RECD: 07/16/23-1015 STATUS: ROHIT BERKOWITZ NUM: [id number] ELINA: 07/15/23-1211 [facility] DR: Rebecca Bales [facility] ENTERED: 07/16/23-131 SP TYPE: Pap Smr OTHR DR: Saima Rae MD ORDERED: Pap Smear Interpretation Satisfactory for evaluation. Negative for intraepithelial lesion or malignancy. HPV mRNA E6/E7: NOT DETECTED This assay detects E6/E7 viral messenger RNA (mRNA) from 14 high-risk HPV types (16, 18, 31, 33, 35, 39, 45, 51, 52, 56, 58, 59, 66, 68) HPV testing performed by [employer], [place], [place]. See reference laboratory portion of the EMR for entire report. Clinical Information LMP:06/24/23 Previous PAP test:2019 [facility] Material Received ThinPrep-Vaginal/Cervical Copies To: Saima Rae MD [address] [place] [address] [place] [address] ----- ------- Signed (signature on file) Griselda Radames Vic 08/03/23 1158 ----- ------- END OF REPORT us Generic External Data Provider LAB CYTOLOGY SHARMILA ZAMBRANO Final Result [facility] [address] [place] [phone] * HPV E6/E7 RFLX TRACIE 16 18/45 (01/16/2017 12:20 PM EST) HPV mRNA E6/E7 Not Detected NOT DETECTED [facility] Comment: This test was performed using the APTIMA(R) HPV Assay ([employer] This assay detects E6/E7 viral messenger RNA (mRNA) from 14 high-risk HPV types (16,18,31,33,35,39,45,51, 52,56,58,59,66,68). For additional information please refer to: http://education.Frontify/faq/YSO042n9 (This link is being provided for informational/ educational purposes only.) Please note: Effective 11/12/2015, HPV testing will be performed using [employer]'s APTIMA test which targets mRNA. Detecting mRNA instead of DNA, as in older methods, offers significant improvements in specificity. ADDITIONAL TESTING Not indicated () [facility] Comment: Test Performed by [employer], [employer] [facility], [address] [place] [address] J Carlos Macedo M.D., Ph.D., Director of Laboratories , [facility] [id number] HPV 16 RNA Test not performed [facility] HPV 18/45 RNA Test not performed [facility] 01/16/2017 12:2 0 PM EST Nicola White MD HISTORICAL/NON ORDERA BLE LABS Final Result [facility] [address] from Last 3 Months or Most Recently Relevant to Health Maintenance Insurance [facility] C3 HSN PARTIAL AFLAC DENTAL - HSN PARTIAL (MEDICAID) Care Teams Team Foreman Relationship Specialty Start Date End Date Saima Rae MD [address] [place] [address] PCP - General Family Medicine 08/26/18 Pastor Zhou, PharmD [address] [place] [address] Pharmacist Internal Medicine 08/11/24
--- OUTSIDE RECORDS SUMMARY | 2024-11-30 13:04 | XMS_ITS | Encounter Summary ---
Author Organization [employer] Address [address] [place] [address] 7 [place] [address] Care Team Providers Care Repair Table Operator Name Role Phone Saima Rae MD Primary Care Provide r Pastor Zhou PharmD Unavailable [phone] Reason for Visit * Reason Onset Date Comments BPI scoring, Chronic Pain Group 04/07/2023 Encounter Details Date Type Department Care Team (Late st Contact Info) Description 04/07/2023 Refill [facility] MEDICINE [address] [place], [place] [phone] Patricia Haas DO [address] [place] [address] Social History Tobacco Use Types Packs/Day Years [...] the past 12 months, has t he [employer], oil or water [employer] threatened to shut off services in your [...] - 04/16/2023 1:51 PM EST Pt had [employer]AF[employer]NCIL DIRECTOR RV today BPI updated today. Pain severity [...] Description 12/05/2024 9:30 AM EDT Office Visit [facility]C ADULT DENTAL [address] [place] [address] Tae Ball DDS [address] [place] [address] 12/13/2024 11:00 AM EDT Office Visit [address] [address] 12/15/2024 10:30 AM EDT Medication Management [facility] MEDICINE [address] [place] [address] Pastor Zhou, PharmD [address] [place] [address] 12/15/2024 2:30 PM EDT Office Visit [facility] ADULT DENTAL [address] [place] [address] Edmond Kimble, DMD [address] [place] [address] 12/16/2024 3:00 PM EDT Office Visit [facility] AD[facility] DENTAL [address] [facility] [place] [address] Jorge Pham 12/21/2024 1:30 PM EDT Office Visit [facility] ADULT DENTAL [address] [place] [address] Edmond Kimble, DMD [address] [place] [address] 12/27/2024 2:30 PM EDT Office Visit [facility] OPTOMETRY [address] [place] [address] Tamiko Gu, OD [address] [place] [address] 01/13/2025 3:30 PM EST Office Visit [facility] MEDICINE [address] [place] [address] Saima Rae MD [address] [place] [phone] documented as of this encounter Visit Diagnoses Not on filedocumented in this encounter Additional Health Concerns Assessment Noted Time PHQ-9 Depression Total Score: 15 023 3:30 PM EST documented as of this encounter Care Teams Repair Table Operator Relationship Specialty Start Date End Date Saima Rae MD [address] [place] [address] PCP - General Family Medicine 08/26/18 Pastor Zhou, PharmD [address] [place] [address] Pharmacist Internal Medicine 08/11/24 documented as of this encounter
--- OUTSIDE RECORDS SUMMARY | 2024-11-30 13:04 | XMS_ITS | Encounter Summary ---
Author Organization [employer] Address [address] [place] [address] 7 [place] [address] Care Team Providers Care Binding Machine Operator Name Role Phone Saima Rae MD Primary Care Provide r Pastor Zhou PharmD Unavailable [phone] Reason for Visit * Reason Comments Med Change Request Encounter Details Date Type Department Care Team ([facility] st Contact Info) Description 01/20/2024 Refill [facility] MEDICINE [address] [place], [place] [phone] Saima Rae MD [address] [place], [place] [phone] Type 2 diabetes mellitus without complication, unspecified whether detention insulin use ([facility]) Social History Tobacco Use Types Packs/Day [...] the past 12 months, has t he [employer], gas, oil or water company threatened to [...] Description 12/05/2024 9:30 AM EDT Office Visit [facility] CHC ADULT DENTAL [address] [place] [address] Tae Ball DDS [address] [place] [address] 12/13/2024 11:00 AM EDT Office Visit [facility] MEDICINE [address] [place] [address] 12/15/2024 10:30 AM EDT Medication Management [facility] MEDICINE [address] [place] [address] Pastor Zhou, PharmD [address] [place] [address] 12/15/2024 2:30 PM EDT Office Visit [facility] ADULT DENTAL [address] [place] [address] Edmond Kimble, EVERT [address] [place] [address] 12/16/2024 3:00 PM EDT Office Visit [facility] CHC ADULT DENTAL [address] [facility] [place] [address] Jorge Pham 12/21/2024 1:30 PM EDT Office Visit [facility] ADULT DENTAL [address] [place] [address] Edmond Kimble, EVERT [address] [place] [address] 12/27/2024 2:30 PM EDT Office Visit [facility] OPTOMETRY [address] [place] [address] RiccardoTamiko ronquillo, OD [address] [place] [address] 01/13/2025 3:30 PM EST Office Visit [facility] MEDICINE [address] [place] [address] Saima Rae MD [address] [place] [address] documented as of this encounter Visit Diagnoses Diagnosis Type 2 diabetes mellitus without complication, unspecified whether detention insulin use documented in this encounter Additional Health Concerns Assessment Noted Time PHQ-9 Depression Total Score: 15 02/19/ 023 3:30 PM EST documented as of this encounter Care Teams Binding Machine Operator Relationship Specialty Start Date End Date Saima Rae MD [address] [place] [phone] PCP - General Family Medicine 08/26/18 Pastor Zhou, Yordy [address] [place] [address] Pharmacist Internal Medicine 08/11/24 documented as of this encounter
--- OUTSIDE RECORDS SUMMARY | 2024-11-30 13:04 | XMS_ITS | Encounter Summary ---
Author Organization [employer] Address [address] [place] [address] 7 [place] [address] Care Team Providers Care Overnight Caregiver Name Role Phone Saima Rae MD Primary Care Provide r Pastor Zhou PharmD Unavailable [phone] Reason for Visit * Reason Onset Date Comments Appointment Request 09/16/2024 Encounter Details Date Type Department Care Team ([facility] st Contact Info) Description 09/16/2024 Telephone [facility] MEDICINE [address] [place], [place] [phone] Saima Rae MD [address] [place], [place] [phone] Appointment Request Social History Tobacco Use Types [...] with others, in a hotel, in a halfway, living outside on the street, on a [...] Description 12/05/2024 9:30 AM EDT Office Visit [facility] ADULT DENTAL [address] [place] [address] Tae Ball, DDS [address] [place] [address] 12/13/2024 11:00 AM EDT Office Visit [facility] MEDICINE [address] [place] [address] 12/15/2024 10:30 AM EDT Medication Management [facility] [address] [place] [address] Pastor hZou, PharmD [address] [place] [address] 12/15/2024 2:30 PM EDT Office Visit [facility] ADULT DENTAL [address] [place] [address] Edmond Kimble, DMD [address] [place] [address] 12/16/2024 3:00 PM EDT Office Visit [facility] ADULT DENTAL [address] [facility] [place] [address] Jorge Pham 12/21/2024 1:30 PM EDT Office Visit [facility] ADULT DENTAL [address] [place] [address] Edmond Kimble, DMD [address] [place] [address] 12/27/2024 2:30 PM EDT Office Visit [facility] OPTOMETRY [address] [place] [address] Tamiko Gu, OD [address] [place] [address] 01/13/2025 3:30 PM EST Office Visit [facility] MEDICINE [address] [place] [address] Saima Rae MD [address] [place] [address] documented as of this encounter Visit Diagnoses Not on filedocumented in this encounter Additional Health Concerns Assessment Noted Time PHQ-9 Depression Total Score: 22 07/12/ 025 2:33 PM EDT documented as of this encounter Care Teams Overnight Caregiver Relationship Specialty Start Date End Date Saima Rae MD [address] [place] [address] PCP - General Family Medicine 08/26/18 Pastor Zhou, Yordy [address] [place] [address] Pharmacist Internal Medicine 08/11/24 documented as of this encounter
--- OUTSIDE RECORDS SUMMARY | 2024-11-30 13:04 | XMS_ITS | Encounter Summary ---
Author Organization [employer] Address [address] [place] [address] 7 [place] [address] Care Team Providers Care Actuarial Science Teacher Name Role Phone Saima Rae MD Primary Care Provide r Pastor Zhou PharmD Unavailable [phone] Encounter Details Date Type Department Care Team (Late st Contact Info) Description 02/02/2024 Orders Only [facility] MED[facility]INE [address] [place], [place] [phone] Saima Rae MD 230 [place], [place] [phone] Social History Tobacco Use Types Packs/Day Years [...] Description 12/05/2024 9:30 AM EDT Office Visit [facility] ADULT DENTAL [address] [place] [address] Tae Ball, DDS [address] [place] [address] 12/13/2024 11:00 AM EDT Office Visit [facility] [address] [place] [address] 12/15/2024 10:30 AM EDT Medication Management [facility] [address] [place] [address] Pastor Zhou, PharmD 230 [place] [address] 12/15/2024 2:30 PM EDT Office Visit [facility] ADULT DENTAL [address] [place] [address] Edmond Kimble, EVERT [address] [place] [address] 12/16/2024 3:00 PM EDT Office Visit [facility] ADULT DENTAL [address] [facility] [place] [address] Jorge Pham 12/21/2024 1:30 PM EDT Office Visit [facility] ADULT DENTAL [address] [place] [address] Edmond Kimble, DMD 230 [place] [address] 12/27/2024 2:30 PM EDT Office Visit [facility] OPTOMETRY [address] [place] [address] Tamiko Gu, OD 230 [place] [address] 01/13/2025 3:30 PM EST Office Visit [facility] [address] [place] [address] Saima Rae MD 230 [place] [address] documented as of this encounter Visit Diagnoses Not on filedocumented in this encounter Additional Health Concerns Assessment Noted Time PHQ-9 Depression Total Score: 15 023 3:30 PM EST documented as of this encounter Care Teams Actuarial Science Teacher Relationship Specialty Start Date End Date Saima Rae MD [address] [place] [address] PCP - General Family Medicine 08/26/18 Pastor Zhou, PharmD [address] [place] [address] Pharmacist Internal Medicine 08/11/24 documented as of this encounter
--- OUTSIDE RECORDS SUMMARY | 2024-11-30 13:04 | XMS_ITS | Encounter Summary ---
Author Organization [employer] Address [address] [place] [address] 7 [place] [address] Care Team Providers Care Web Site Specialist Name Role Phone Saima Rae MD Primary Care Provide r Pastor Zhou PharmD Unavailable [phone] Reason for Visit * Reason Comments Med Refill Encounter Details Date Type Department Care Team (Late st Contact Info) Description 11/28/2024 Refill [facility] MEDICINE 230 [place], [place] [phone] Saima Rae MD 230 [place], [place] [phone] Social History Tobacco Use Types Packs/Day Years [...] Description 12/05/2024 9:30 AM EDT Office Visit [facility] ADULT D[facility]AL 505 [place] [address] Tae Ball, DDS 505 [place] [address] 12/13/2024 11:00 AM EDT Office Visit [facility] MEDICINE [address] [place] [address] 12/15/2024 10:30 AM EDT Medication Management [address] [address] Pastor Zhou, PharmD 230 [place] [address] 12/15/2024 2:30 PM EDT Office Visit [facility] ADULT DENTAL 230 [place] [address] Edmond Kimble, DMD 230 [place] [address] 12/16/2024 3:00 PM EDT Office Visit [facility] ADULT DENTAL [address] [facility] [place] [facility] [place] [address] Jorge Pham 12/21/2024 1:30 PM EDT Office Visit [facility] ADULT DENTAL 230 [place] [address] Edmond Kimble, DMD 230 [place] [address] 12/27/2024 2:30 PM EDT Office Visit [facility] OPTOMETRY [address] [facility] [place] [address] Riccardo, Tamiko, OD 230 [place] [address] 01/13/2025 3:30 PM EST Office Visit [facility] MEDICINE 230 [place] [address] Saima Rae MD 230 [place] [address] documented as of this encounter Visit Diagnoses Not on filedocumented in this encounter Additional Health Concerns Assessment Noted Time PHQ-9 Depression Total Score: 22 07/12/ 025 2:33 PM EDT documented as of this encounter Care Teams Web Site Specialist Relationship Specialty Start Date End Date Saima Rae MD 230 [place] [address] PCP - General Family Medicine 08/26/18 Pastor Zhou, PharmD [address] [place] [address] Pharmacist Internal Medicine 08/11/24 documented as of this encounter
--- OUTSIDE RECORDS SUMMARY | 2024-11-30 13:04 | XMS_ITS | Encounter Summary ---
Author Organization [employer] Address [address] [place] [address] 7 [place] [address] Care Team Providers Care Dress Finisher Name Role Phone Saima Rae MD Primary Care Provide r Pastor Zhou PharmD Unavailable [phone] Reason for Visit * Reason Comments Med Refill Encounter Details Date Type Department Care Team (Late st Contact Info) Description 10/05/[address] [facility] MEDICINE [address] [place], [place] [phone] Saima Rae MD 230 [place], [place] [phone] Type 2 diabetes mellitus with hyperglycemia, without long-term current use of insulin ([facility]) Social History Tobacco Use Types [...] Upcoming Encounters Date Type Department Care Team ([facility] st Contact Info) Description 12/05/2024 9:30 AM EDT Office Visit [facility] ADULT DENTAL 505 [place] [address] Tae Ball DDS 505 [place] [address] 12/13/2024 11:00 AM EDT Office Visit [facility] MEDICINE [address] [place] [address] 12/15/2024 10:30 AM EDT Medication Management [facility] MEDICINE [address] [place] [address] Pastor Zhou, PharmD 230 [place] [address] 12/15/2024 2:30 PM EDT Office Visit [facility] ADULT DENTAL [address] [place] [address] Edmond Kimble, DMD [address] [place] [address] 12/16/2024 3:00 PM EDT Office Visit [facility] ADULT DENTAL [address] [facility] [place] [address] Jorge Pham 12/21/2024 1:30 PM EDT Office Visit [facility] ADULT DENTAL [address] [place] [address] Edmond Kimble, DMD [address] [place] [address] 12/27/2024 2:30 PM EDT Office Visit [facility] OPTOMETRY [address] [place] [address] Tamiko Gu, OD 230 [place] [address] 01/13/2025 3:30 PM EST Office Visit [facility] MEDICINE [address] [place] [address] Saima Rae MD 230 [place] [address] documented as of this encounter Visit Diagnoses Diagnosis Type 2 diabetes mellitus with hyperglycemia, without long-term current use of insulin (HCC) documented in this encounter Additional Health Concerns Assessment Noted Time PHQ-9 Depression Total Score: 22 07/12/2 025 2:33 PM EDT documented as of this encounter Care Teams Dress Finisher Relationship Specialty Start Date End Date Saima Rae MD 230 [place] [address] PCP - General Family Medicine 08/26/18 Pastor Zhou, PharmD [address] [place] [address] Pharmacist Internal Medicine 08/11/24 documented as of this encounter
--- OUTSIDE RECORDS SUMMARY | 2024-11-30 13:04 | XMS_ITS | Encounter Summary ---
Author Organization [employer] Address [address] [place] [address] 7 [place] [address] Care Team Providers Care Insurance Billing Specialist Name Role Phone Saima Rae MD Primary Care Provide r Pastor Zhou PharmD Unavailable [phone] Reason for Visit * Reason Comments Med Refill Encounter Details Date Type Department Care Team (Late st Contact Info) Description 03/25/2024 Refill [facility] MEDICINE 230 [place], [place] [phone] Bhavna Martinez MD 230 [place] [address] Fibromyalgia Social History Tobacco Use Types Packs/Day [...] Description 12/05/2024 9:30 AM EDT Office Visit [facility] ADULT DENTAL 505 [place] [address] Tae Ball, DDS 505 [place] [address] 12/13/2024 11:00 AM EDT Office Visit [facility] MEDICINE [address] [place] [address] 12/15/2024 10:30 AM EDT Medication Management [facility] MEDICINE [address] [place] [address] Pastor Zhou, PharmD 230 [place] [address] 12/15/2024 2:30 PM EDT Office Visit [facility] ADULT DENTAL [address] [place] [address] Edmond Kimble, DMD 230 [place] [address] 12/16/2024 3:00 PM EDT Office Visit [facility] ADULT DENTAL [address] [facility] [place] [address] Jorge Pham 12/21/2024 1:30 PM EDT Office Visit [facility] ADULT DENTAL 230 [place] [address] Edmond Kimble, DMD 230 [place] [address] 12/27/2024 2:30 PM EDT Office Visit [facility] OPTOMETRY [address] [place] [address] Tamiko Gu, OD 230 [place] [address] 01/13/2025 3:30 PM EST Office Visit [facility] MEDICINE 230 [place] [address] Saima Rae MD 230 [place] [address] documented as of this encounter Visit Diagnoses Diagnosis Fibromyalgia Unspecified myalgia and myositis documented in this encounter Additional Health Concerns Assessment Noted Time PHQ-9 Depression Total Score: 19 024 2:18 PM EST documented as of this encounter Care Teams Insurance Billing Specialist Relationship Specialty Start Date End Date Saima Rae MD [address] [place] [address] PCP - General Family Medicine 08/26/18 Pastor Zhou, PharmD [address] [place] [address] Pharmacist Internal Medicine 08/11/24 documented as of this encounter
--- OUTSIDE RECORDS SUMMARY | 2024-11-30 13:04 | XMS_ITS | Encounter Summary ---
Author Organization [employer] Address [address] [place] [address] 7 [place] [address] Care Team Providers Care Solutions Specialist Name Role Phone Saima Rae MD Primary Care Provide r Pastor Zhou PharmD Unavailable [phone] Reason for Visit * Reason Onset Date Comments returning 03/13/2022 Encounter Details Date Type Department Care Team ([facility] st Contact Info) Description 03/13/2022 Telephone [facility] MEDICINE 230 [place], [place] [phone] Saima Rae MD 230 [place], [place] [phone] returning Social History Tobacco Use Types Packs/Day [...] being at work Please contact pt at [phone] documented in this encounter Plan of Treatment Upcoming Encounters Date Type Department Care Team (Late st Contact Info) Description 12/05/2024 9:30 AM EDT Office Visit [facility] ADULT DENTAL [address] [place] [address] Tae Ball DDS [address] [place] [address] 12/13/2024 11:00 AM EDT Office Visit [facility] MEDICINE 230 [place] [address] 12/15/2024 10:30 AM EDT Medication Management [facility] MEDICINE [address] [place] [address] Pastor Zhou, PharmD 230 [place] [address] 12/15/2024 2:30 PM EDT Office Visit [facility] ADULT DENTAL [address] [place] [address] Edmond Kimble, DMD 230 [place] [address] 12/16/2024 3:00 PM EDT Office Visit [facility] ADULT DENTAL [address] [place] [address] Jorge Pham 12/21/2024 1:30 PM EDT Office Visit [facility] ADULT DENTAL [address] [place] [address] Edmond Kimble, DMD 230 [place] [address] 12/27/2024 2:30 PM EDT Office Visit [facility] OPTOMETRY [address] [place] [address] Tamiko Gu, OD 230 [place] [address] 01/13/2025 3:30 PM EST Office Visit [facility] MEDICINE [address] [place] [address] Saima Rae MD [address] [place] [address] documented as of this encounter Visit Diagnoses Not on filedocumented in this encounter Care Teams Solutions Specialist Relationship Specialty Start Date End Date Saima Rae MD [address] [place] [address] [phone] PCP - General Family Medicine 08/26/18 Pastor Zhou, LeighannD [address] [place] [address] Pharmacist Internal Medicine 08/11/24 documented as of this encounter
--- OUTSIDE RECORDS SUMMARY | 2024-11-30 13:04 | XMS_ITS | Clinical Summary ---
Author Organization [facility] Address [address] [place] [address] Phone Care Team Providers Care Submarine Advisory Team Watch Officer Name Role Phone Saima Rae MD [...] 5 season) 2024 Influenza Vaccine (#1) 2024 RSV Immunization Adult Patie nts (1 - 1-dose 75+ series) 11/17/2051 HIB Vaccines Aged Out No longer eligi [...] patient's age to complete this topic Insurance [facility] [employer] PLANS MEDICAID - [place] Care Teams Submarine Advisory Team Watch Officer Relationship Specialty Start Date End Date Saima Rae MD [address] [place] [phone] PCP - General Internal Medicine 05/23/24
--- OUTSIDE RECORDS SUMMARY | 2024-11-30 13:04 | XMS_ITS | Encounter Summary ---
Author Organization [employer] Address [address] [place] [address] 7 [place] [address] Care Team Providers Care Gate Watch Name Role Phone Saima Rae MD Primary Care Provide r Pastor Zhou PharmD Unavailable [phone] Reason for Visit * Reason Onset Date Comments Med Refill 03/25/2024 Encounter Details Date Type Department Care Team (Late st Contact Info) Description 03/25/2024 Refill [facility] MEDICINE 230 [place], [place] [phone] Saima Rae MD 230 [place], [place] [phone] Fibromyalgia Social History Tobacco Use Types Packs/Day [...] with others, in a hotel, in a detention, living outside on the street, on a [...] MG DR capsule To be sent to: [facility] [place], [place] - [address] [facility] documented in this encounter Plan of Treatment Upcoming Encounters Date Type Department Care Team (Late st Contact Info) Description 12/05/2024 9:30 AM EDT Office Visit [facility] ADULT DENTAL [address] [place] [address] Tae Ball, DDS [address] [place] [address] 12/13/2024 11:00 AM EDT Office Visit [facility] MEDICINE 230 [place] [address] 12/15/2024 10:30 AM EDT Medication Management [facility] MEDICINE 230 [place] [address] Pastor Zhou, PharmD 230 [place] [address] 12/15/2024 2:30 PM EDT Office Visit [facility] ADULT DENTAL 230 [place] [address] Edmond Kimble, DMD 230 [place] [address] 12/16/2024 3:00 PM EDT Office Visit [facility] ADULT DENTAL 505 [place] [address] Jorge Pham 12/21/2024 1:30 PM EDT Office Visit [facility] ADULT DENTAL 230 [place] [address] Edmond Kimble, DMD 230 [place] [address] 12/27/2024 2:30 PM EDT Office Visit [facility] OPTOMETRY [address] [place] [address] Tamiko Gu, OD 230 [place] [address] 01/13/2025 3:30 PM EST Office Visit [facility] MEDICINE 230 [place] [address] Saima Rae MD 230 [place] [address] documented as of this encounter Visit Diagnoses Diagnosis Fibromyalgia Unspecified myalgia and myositis documented in this encounter Additional Health Concerns Assessment Noted Time PHQ-9 Depression Total Score: 19 024 2:18 PM EST documented as of this encounter Care Teams Gate Watch Relationship Specialty Start Date End Date Saima Rae MD [address] [place] [address] PCP - General Family Medicine 08/26/18 Pastor Zhou, LeighannD [address] [place] [address] Pharmacist Internal Medicine 08/11/24 documented as of this encounter
--- OUTSIDE RECORDS SUMMARY | 2024-11-30 13:04 | XMS_ITS | Encounter Summary ---
Author Organization [employer] Address [address] [place] [address] 7 [place] [address] Care Team Providers Care Feed Crusher Name Role Phone Saima Rae MD Primary Care Provide r Pastor Zhou PharmD Unavailable [phone] Reason for Visit * Reason Comments Med Refill Encounter Details Date Type Department Care Team (Late st Contact Info) Description 11/29/2023 Refill [facility] MEDICINE 230 [place], [place] [phone] Saima Rae MD 230 [place], [place] [phone] Muscle spasm Social History Tobacco Use Types [...] 9:30 AM EDT Office Visit [facility] ADULT DENTAL 505 [place] [address] Tae Ball, DDS 505 [place] [address] 12/13/2024 11:00 AM EDT Office Visit [facility] MEDICINE 230 [place] [address] 12/15/2024 10:30 AM EDT Medication Management [facility] MEDICINE [address] [place] [address] Pastor Zhou, PharmD [address] [place] [address] 12/15/2024 2:30 PM EDT Office Visit [facility] ADULT DENTAL 230 [place] [address] Edmond Kimble, EVERT 230 [place] [address] 12/16/2024 3:00 PM EDT Office Visit [facility] ADULT DENTAL [address] [facility] [place] [address] Jorge Pham 12/21/2024 1:30 PM EDT Office Visit [facility] ADULT DENTAL 230 [place] [address] ShyanneEdmond, DMD 230 [place] [address] 12/27/2024 2:30 PM EDT Office Visit [facility] OPTOMETRY [address] [place] [address] Riccardo, Tamiko, OD 230 [place] [address] 01/13/2025 3:30 PM EST Office Visit [facility] MEDICINE 230 [place] [address] Saima Rae MD [address] [place] [address] documented as of this encounter Visit Diagnoses Diagnosis Muscle spasm Spasm of muscle documented in this encounter Additional Health Concerns Assessment Noted Time PHQ-9 Depression Total Score: 15 023 3:30 PM EST documented as of this encounter Care Teams Feed Crusher Relationship Specialty Start Date End Date Saima Rae MD [address] [place] [address] PCP - General Family Medicine 08/26/18 Pastor Zhou, LeighannD [address] [place] [address] Pharmacist Internal Medicine 08/11/24 documented as of this encounter
--- OUTSIDE RECORDS SUMMARY | 2024-11-30 13:04 | XMS_ITS | Encounter Summary ---
Author Organization [employer] Address [address] [place] [address] 7 [place] [address] Care Team Providers Care Lacemaker Name Role Phone Saima Rae MD Primary Care Provide r Pastor Zhou PharmD Unavailable [phone] Reason for Visit * Reason Onset Date Comments Appointment Request 03/12/2022 Encounter Details Date Type Department Care Team ([facility] st Contact Info) Description 03/12/2022 Telephone [facility] MEDICINE 230 [place], [place] [phone] Saima Rae MD 230 [place], [place] [phone] Appointment Request Social History Tobacco Use Types [...] appt 02/19/22 11:30 Please contact pt at [phone] documented in this encounter Plan of Treatment Upcoming Encounters Date Type Department Care Team (Late st Contact Info) Description 12/05/2024 9:30 AM EDT Office Visit [facility] ADULT DENTAL [address] [place] [address] Tae Ball DDS 505 [place] [address] 12/13/2024 11:00 AM EDT Office Visit [facility] MEDICINE [address] [place] [address] 12/15/2024 10:30 AM EDT Medication Management [facility] MEDICINE [address] [place] [address] Pastor Zhou, PharmD 230 [place] [address] 12/15/2024 2:30 PM EDT Office Visit [facility] ADULT DENTAL [address] [place] [address] Edmond Kimble, DMD [address] [place] [address] 12/16/2024 3:00 PM EDT Office Visit [facility] ADULT DENTAL 505 [place] [address] Jorge Pham 12/21/2024 1:30 PM EDT Office Visit [facility] ADULT DENTAL [address] [place] [address] Edmond Kimble, DMD [address] [place] [address] 12/27/2024 2:30 PM EDT Office Visit [facility] OPTOMETRY [address] [place] [address] Tamiko Gu, OD 230 [place] [address] 01/13/2025 3:30 PM EST Office Visit [facility] MEDICINE [address] [place] [address] Saima Rae MD 230 [place] [address] documented as of this encounter Visit Diagnoses Not on filedocumented in this encounter Care Teams Lacemaker Relationship Specialty Start Date End Date Saima Rae MD [address] [place] [address] [phone] PCP - General Family Medicine 08/26/18 Pastor Zhou, PharmD [address] [place] [address] Pharmacist Internal Medicine 08/11/24 documented as of this encounter
--- OUTSIDE RECORDS SUMMARY | 2024-11-30 13:04 | XMS_ITS | Encounter Summary ---
Author Organization [employer] Address [address] [place] [address] 7 [place] [address] Care Team Providers Care Counselor Aid Name Role Phone Saima Rae MD Primary Care Provide r Pastor Zhou PharmD Unavailable [phone] Reason for Visit * Reason Onset Date Comments Results 01/12/2024 Encounter Details Date Type Department Care Team ([facility] st Contact Info) Description 01/12/2024 Telephone [facility] MEDICINE 230 [place], [place] [phone] Saima Rae MD 230 [place], [place] [phone] Results Social History Tobacco Use Types Packs/Day [...] results: Xray Date when done: 01/07/24 Facility: [facility] documented in this encounter Plan of Treatment Upcoming Encounters Date Type Department Care Team (Late st Contact Info) Description 12/05/2024 9:30 AM EDT Office Visit [facility] ADULT DENTAL 505 [place] [address] Tae Ball DDS 505 [place] [address] 12/13/2024 11:00 AM EDT Office Visit [facility] MEDICINE [address] [place] [address] 12/15/2024 10:30 AM EDT Medication Management [facility] MEDICINE [address] [place] [address] Pastor Zhou, PharmD 230 [place] [address] 12/15/2024 2:30 PM EDT Office Visit [facility] ADULT DENTAL [address] [place] [address] Edmond Kimble, DMD [address] [place] [address] 12/16/2024 3:00 PM EDT Office Visit [facility] ADULT DENTAL [address] [facility] [place] [address] Jorge Pham 12/21/2024 1:30 PM EDT Office Visit [facility] ADULT DENTAL [address] [place] [address] Edmond Kimble, DMD [address] [place] [address] 12/27/2024 2:30 PM EDT Office Visit [facility] OPTOMETRY [address] [place] [address] RiccardoTamiko ronquillo, OD 230 [place] [address] 01/13/2025 3:30 PM EST Office Visit [facility] MEDICINE [address] [place] [address] Saima Rae MD 230 [place] [address] documented as of this encounter Visit Diagnoses Not on filedocumented in this encounter Additional Health Concerns Assessment Noted Time PHQ-9 Depression Total Score: 15 023 3:30 PM EST documented as of this encounter Care Teams Counselor Aid Relationship Specialty Start Date End Date Saima Rae MD [address] [place] [address] PCP - General Family Medicine 08/26/18 Pastor Zhou, PharmD [address] [place] [address] Pharmacist Internal Medicine 08/11/24 documented as of this encounter
--- OUTSIDE RECORDS SUMMARY | 2024-11-30 13:04 | XMS_ITS | Encounter Summary ---
Author Organization [employer] Address [address] [place] [address] 7 [place] [address] Care Team Providers Care Academic Vice President Name Role Phone Saima Rae MD Primary Care Provide r Pastor Zhou PharmD Unavailable [phone] Reason for Visit * Reason Comments Med Refill Encounter Details Date Type Department Care Team (Late st Contact Info) Description 06/27/2024 Refill [facility] MEDICINE [address] [place], [place] [phone] Saima Rae MD 230 [place], [place] [phone] Fibromyalgia Social History Tobacco Use Types Packs/Day [...] with others, in a hotel, in a correction, living outside on the street, on a [...] Description 12/05/2024 9:30 AM EDT Office Visit [facility] ADULT DENTAL [address] [place] [address] Tae Ball DDS 505 [place] [address] 12/13/2024 11:00 AM EDT Office Visit [facility] MEDICINE [address] [place] [address] 12/15/2024 10:30 AM EDT Medication Management [facility] MEDICINE [address] [place] [address] Pastor Zhou, PharmD [address] [place] [address] 12/15/2024 2:30 PM EDT Office Visit [facility] ADULT DENTAL [address] [place] [address] Edmond Kimble, DMD 230 [place] [address] 12/16/2024 3:00 PM EDT Office Visit [facility] ADULT DENTAL [address] [facility] [place] [address] Jorge Pham 12/21/2024 1:30 PM EDT Office Visit [facility] ADULT DENTAL 230 [place] [address] Edmond Kimble, DMD 230 [place] [address] 12/27/2024 2:30 PM EDT Office Visit [facility] OPTOMETRY [address] [place] [address] RiccardoTamiko ronquillo, OD 230 [place] [address] 01/13/2025 3:30 PM EST Office Visit [facility] MEDICINE 230 [place] [address] Saima Rae MD 230 [place] [address] documented as of this encounter Visit Diagnoses Diagnosis Fibromyalgia Unspecified myalgia and myositis documented in this encounter Additional Health Concerns Assessment Noted Time PHQ-9 Depression Total Score: 17 025 1:24 PM EST documented as of this encounter Care Teams Academic Vice President Relationship Specialty Start Date End Date Saima Rae MD [address] [place] [address] PCP - General Family Medicine 08/26/18 Pastor Zhou, PharmD [address] [place] [address] Pharmacist Internal Medicine 08/11/24 documented as of this encounter
--- OUTSIDE RECORDS SUMMARY | 2024-11-30 13:04 | XMS_ITS | Encounter Summary ---
Author Organization [employer] Address [address] [place] [address] 7 [place] [address] Care Team Providers Care Furniture Dipper Name Role Phone Saima Rae MD Primary Care Provide r Pastor Zhou PharmD Unavailable [phone] Reason for Visit * Reason Onset Date Comments Med Refill 10/22/2023 Encounter Details Date Type Department Care Team (Late st Contact Info) Description 10/22/2023 Telephone [facility] MEDICINE [address] [place], [place] [phone] Saima Rae MD 230 [place], [place] [phone] Med Refill Social History Tobacco Use Types [...] the past 12 months, has t he [employer], oil or water [employer] threatened to shut off services in your [...] MG tablet Please o be sent to: [facility]/pharmacy #[id number] [place] - [address] [place] [address] documented in this encounter Plan of Treatment Upcoming Encounters Date Type Department Care Team (Late st Contact Info) Description 12/05/2024 9:30 AM EDT Office Visit [facility] ADULT DENTAL [address] [place] [address] Tae Ball DDS 505 [place] [address] 12/13/2024 11:00 AM EDT Office Visit [facility] MEDICINE [address] [place] [address] 12/15/2024 10:30 AM EDT Medication Management [facility] MEDICINE [address] [place] [address] Pastor Zhou, PharmD 230 [place] [address] 12/15/2024 2:30 PM EDT Office Visit [facility] ADULT DENTAL [address] [place] [address] Edmond Kimble, DMD 230 [place] [address] 12/16/2024 3:00 PM EDT Office Visit [facility] ADULT DENTAL 505 [place] [address] Jorge Pham 12/21/2024 1:30 PM EDT Office Visit [facility] ADULT DENTAL [address] [place] [address] Edmond Kimble, DMD 230 [place] [address] 12/27/2024 2:30 PM EDT Office Visit [facility] OPTOMETRY [address] [place] [address] Tamiko Gu, OD 230 [place] [address] 01/13/2025 3:30 PM EST Office Visit [facility] MEDICINE [address] [place] [address] Saima Rae MD 230 [place] [address] documented as of this encounter Visit Diagnoses Not on filedocumented in this encounter Additional Health Concerns Assessment Noted Time PHQ-9 Depression Total Score: 15 12/2 023 3:30 PM EST documented as of this encounter Care Teams Furniture Dipper Relationship Specialty Start Date End Date Saima Rae MD 230 [place], [place] [phone] PCP - General Family Medicine 08/26/18 Pastor Zhou, LeighannD 230 [place] [address] Pharmacist Internal Medicine 08/11/24 documented as of this encounter
--- OUTSIDE RECORDS SUMMARY | 2024-11-30 13:04 | XMS_ITS | Encounter Summary ---
Author Organization [employer] Address [address] [place] [address] 7 [place] [address] Care Team Providers Care Flatbed Truck Driver Name Role Phone Saima Rae MD Primary Care Provide r Pastor Zhou PharmD Unavailable [phone] Reason for Visit * Reason Onset Date Comments Nurse Triage 02/02/2024 Encounter Details Date Type Department Care Team (Late st Contact Info) Description 02/02/2024 Telephone [facility] MEDICINE 230 [place], [place] [phone] Saima Rae MD 230 [place], [place] [phone] Nurse Triage Social History Tobacco Use Types [...] 12:39 PM EST TC placed to pt [phone] in regards to below message. Pt was in the clinic on the red team for a visit with WILDLIFE REMOVAL SPECIALIST. RN went to WILDLIFE REMOVAL SPECIALIST room and spoke to patient in person. Patient is requesting an urgent appointment with Dr. Maicol ARZOLA. Patient reports she used to live in [place] and tested positive forlupus >10 years ago. Patient reports she moved here and was tested for lupus and it was negative. Patient does not believe results are accurate. Patient reports she saw [facility] rheumatology and was informed she has fibromyalgia. Patient feels something more is going on. Patient reports all over body pain which she takes pain medication for however she does NOT want to live on pain medication. Patient reports the medication Rx'd by [facility] rheumatology she does not like because if she skips a dose she hears ringing in her ear. Patient reports she informed [facility] rheumatology of concern with medication and believes they will change it at her next appointment. Patient reports she sees [facility] rheumatology once a year. Patient reports she [...] to check for cancellations or go to [facility]. Patient continues to REFUSE any solution [...] Dr. Milian. Pt declines to go to [facility] to be seen and is requesting [...] caller accepted this outcome. Contact pt at [phone] (Montserratian) documented in this encounter Plan of Treatment Upcoming Encounters Date Type Department Care Team (Late st Contact Info) Description 12/05/2024 9:30 AM EDT Office Visit [facility] ADULT DENTAL [address] [place] [address] Tae Ball, DDS 505 [place] [address] 12/13/2024 11:00 AM EDT Office Visit [facility] MEDICINE 230 [place] [address] 12/15/2024 10:30 AM EDT Medication Management [facility] MEDICINE [address] [place] [address] Pastor Zhou, PharmD 230 [place] [address] 12/15/2024 2:30 PM EDT Office Visit [facility] ADULT DENTAL 230 [place] [address] Edmond Kimble, DMD 230 [place] [address] 12/16/2024 3:00 PM EDT Office Visit [facility] ADULT DENTAL 505 [place] [address] Jorge Pham 12/21/2024 1:30 PM EDT Office Visit [facility] ADULT DENTAL 230 [place] [address] Edmond Kimble, DMD 230 [place] [address] 12/27/2024 2:30 PM EDT Office Visit [facility] OPTOMETRY [address] [place] [address] Tamiko Gu, OD 230 [place] [address] 01/13/2025 3:30 PM EST Office Visit [facility] MEDICINE 230 [place], [place] [phone] Saima Rae MD 230 [place], [place] [phone] documented as of this encounter Visit Diagnoses Not on filedocumented in this encounter Additional Health Concerns Assessment Noted Time PHQ-9 Depression Total Score: 15 023 3:30 PM EST documented as of this encounter Care Teams Flatbed Truck Driver Relationship Specialty Start Date End Date Saima Rae MD [address] [place] [address] [phone] PCP - General Family Medicine 08/26/18 Pastor Zhou, PharmD [address] [place] [address] [phone] Pharmacist Internal Medicine 08/11/24 documented as of this encounter
--- OUTSIDE RECORDS SUMMARY | 2024-11-30 13:04 | XMS_ITS | Encounter Summary ---
Author Organization [employer] Address [address] [place] [address] 7 [place] [address] Care Team Providers Care Editorial Project Manager Name Role Phone Saima Rae MD Primary Care Provide r Pastor Zhou PharmD Unavailable [phone] Reason for Visit * Reason Onset Date Comments Med Refill 09/15/2023 Encounter Details Date Type Department Care Team (Late st Contact Info) Description 09/15/2023 Telephone [facility] MEDICINE 230 [place], [place] [phone] Saima Rae MD 230 [place], [place] [phone] Med Refill Social History Tobacco Use Types [...] be sent to: [facility]/pharmacy #[id number] documented in this encounter Plan of Treatment Upcoming Encounters Date Type Department Care Team (Late st Contact Info) Description 12/05/2024 9:30 AM EDT Office Visit [facility] ADULT DENTAL [address] [place] [address] Tae Ball DDS [address] [place] [address] 12/13/2024 11:00 AM EDT Office Visit [facility] MEDICINE 230 [place] [address] 12/15/2024 10:30 AM EDT Medication Management [facility] MEDICINE [address] [place] [address] Pastor Zhou, PharmD 230 [place] [address] 12/15/2024 2:30 PM EDT Office Visit [facility] ADULT DENTAL 230 [place] [address] Edmond Kimble, DMD 230 [place] [address] 12/16/2024 3:00 PM EDT Office Visit [facility] ADULT DENTAL [address] [facility] [place] [address] Jorge Pham 12/21/2024 1:30 PM EDT Office Visit [facility] ADULT DENTAL [address] [place] [address] Edmond Kimble, DMD 230 [place] [address] 12/27/2024 2:30 PM EDT Office Visit [facility] OPTOMETRY [address] [place] [address] Tamiko Gu, OD 230 [place] [address] 01/13/2025 3:30 PM EST Office Visit [facility] MEDICINE [address] [place] [address] Saima Rae MD 230 [place] [address] documented as of this encounter Visit Diagnoses Not on filedocumented in this encounter Additional Health Concerns Assessment Noted Time PHQ-9 Depression Total Score: 15 02/19/2 023 3:30 PM EST documented as of this encounter Care Teams Editorial Project Manager Relationship Specialty Start Date End Date Saima Rae MD 230 [place] [address] PCP - General Family Medicine 08/26/18 Pastor Zhou, LeighannD [address] [place] [address] Pharmacist Internal Medicine 08/11/24 documented as of this encounter
--- OUTSIDE RECORDS SUMMARY | 2024-11-30 13:04 | XMS_ITS | Encounter Summary ---
Author Organization [employer] Address [address] [place] [address] 7 [place] [address] Care Team Providers Care Typist Name Role Phone Saima Rae MD Primary Care Provide r Pastor Zhou PharmD Unavailable [phone] Reason for Visit * Reason Comments Med Refill Encounter Details Date Type Department Care Team (Late st Contact Info) Description 08/04/2023 Refill [facility] MEDICINE 230 [place], [place] [phone] Saima Rae MD 230 [place], [place] [phone] Primary insomnia Social History Tobacco Use Types [...] 12/05/2024 9:30 AM EDT Office Visit [facility] ADULT DENTAL 505 [place] [address] Tae Ball, DDS 505 [place] [address] 12/13/2024 11:00 AM EDT Office Visit [facility] MEDICINE 230 [place] [address] 12/15/2024 10:30 AM EDT Medication Management [facility] MEDICINE 230 [place] [address] Pastor Zhou, PharmD 230 [place] [address] 12/15/2024 2:30 PM EDT Office Visit [facility] ADULT DENTAL [address] [place] [address] Edmond Kimble, EVERT 230 [place] [address] 12/16/2024 3:00 PM EDT Office Visit [facility] ADULT DENTAL [address] [facility] [place] [address] Jorge Pham 12/21/2024 1:30 PM EDT Office Visit [facility] ADULT DENTAL 230 [place] [address] Shyanne Edmond, DMD 230 [place] [address] 12/27/2024 2:30 PM EDT Office Visit [facility] OPTOMETRY [address] [place] [address] Riccardo, Tamiko, OD 230 [place] [address] 01/13/2025 3:30 PM EST Office Visit [facility] MEDICINE 230 [place] [address] Saima Rae MD 230 [place] [address] documented as of this encounter Visit Diagnoses Diagnosis Primary insomnia Persistent disorder of initiating or maintaining sleep documented in this encounter Additional Health Concerns Assessment Noted Time PHQ-9 Depression Total Score: 15 023 3:30 PM EST documented as of this encounter Care Teams Typist Relationship Specialty Start Date End Date Saima Rae MD [address] [place] [address] PCP - General Family Medicine 08/26/18 Pastor Zhou, LeighannD [address] [place] [address] Pharmacist Internal Medicine 08/11/24 documented as of this encounter
--- OUTSIDE RECORDS SUMMARY | 2024-11-30 13:04 | XMS_ITS | Encounter Summary ---
Author Organization [employer] Address [address] [place] [address] [facility] [place] [address] Care Team Providers Care Button Attaching Machine Operator Name Role Phone Saima Rae MD Primary Care Provide r Pastor Zhou PharmD Unavailable Reason for Visit * Reason Comments Med Refill Encounter Details Date Type Department Care Team (Late st Contact Info) Description 02/14/2023 Refill [facility] MEDICINE [address] [place] [address] Ania Balderas MD [address] [place] [address] Muscle spasm Social History Tobacco Use Types [...] Description 12/05/2024 9:30 AM EDT Office Visit [facility] ADULT DENTAL [address] [place] [address] Tae Ball, DDS 505 [place] [address] 12/13/2024 11:00 AM EDT Office Visit [facility] MEDICINE 230 [place] [address] 12/15/2024 10:30 AM EDT Medication Management [facility] MEDICINE 230 [place] [address] Pastor Zhou, PharmD 230 [place] [address] 12/15/2024 2:30 PM EDT Office Visit [facility] ADULT DENTAL 230 [place] [address] Edmond Kimble, DMD 230 [place] [address] 12/16/2024 3:00 PM EDT Office Visit [facility] ADULT DENTAL [address] [facility] [place] [address] Jorge Pham 12/21/2024 1:30 PM EDT Office Visit [facility] ADULT DENTAL 230 [place] [address] Edmond Kimble, DMD 230 [place] [address] 12/27/2024 2:30 PM EDT Office Visit [facility] OPTOMETRY [address] [place] [address] RiccardoTamiko ronquillo, OD 230 [place] [address] 01/13/2025 3:30 PM EST Office Visit [facility] MEDICINE 230 [place] [address] Saima Rae MD 230 [place] [address] documented as of this encounter Visit Diagnoses Diagnosis Muscle spasm Spasm of muscle documented in this encounter Care Teams Button Attaching Machine Operator Relationship Specialty Start Date End Date Saima Rae MD 230 [place] [address] PCP - General Family Medicine 08/26/18 Pastor Zhou, PharmD [address] [place] [address] Pharmacist Internal Medicine 08/11/24 documented as of this encounter
--- OUTSIDE RECORDS SUMMARY | 2024-11-30 13:04 | XMS_ITS | Encounter Summary ---
Author Organization [employer] Address [address] [place] [address] [facility] [place] [address] Care Team Providers Care Obstetrics Tech Name Role Phone Saima Rae MD Primary Care Provide r Pastor Zhou PharmD Unavailable [phone] Reason for Visit * Reason Comments Med Refill Encounter Details Date Type Department Care Team (Late st Contact Info) Description 12/16/2022 Refill [facility] MEDICINE [address] [place] [phone] Marcia Valdes MD [address] [place] [address] [phone] Fibromyalgia Social History Tobacco Use Types Packs/Day [...] Description 12/05/2024 9:30 AM EDT Office Visit [facility] ADULT DENTAL [address] [place] [address] Tae Ball, DDS 505 [place] [address] 12/13/2024 11:00 AM EDT Office Visit [facility] MEDICINE 230 [place] [address] 12/15/2024 10:30 AM EDT Medication Management [facility] MEDICINE [address] [place] [address] Pastor Zhou, PharmD 230 [place] [address] 12/15/2024 2:30 PM EDT Office Visit [facility] ADULT DENTAL 230 [place] [address] Edmond Kimble, DMD 230 [place] [address] 12/16/2024 3:00 PM EDT Office Visit [facility] ADULT DENTAL [address] [facility] [place] [facility] [place] [address] Jorge Pham 12/21/2024 1:30 PM EDT Office Visit [facility] ADULT DENTAL [address] [place] [address] Edmond Kimble, DMD [address] [place] [address] 12/27/2024 2:30 PM EDT Office Visit [facility] OPTOMETRY [address] [place] [address] RiccardoTamiko ronquillo, OD 230 [place] [address] 01/13/2025 3:30 PM EST Office Visit [facility] MEDICINE [address] [place] [address] Saima Rae MD 230 [place] [address] documented as of this encounter Visit Diagnoses Diagnosis Fibromyalgia Unspecified myalgia and myositis documented in this encounter Care Teams Obstetrics Tech Relationship Specialty Start Date End Date Saima Rae MD 230 [place] [address] PCP - General Family Medicine 08/26/18 Pastor Zhou, PharmD [address] [place] [address] Pharmacist Internal Medicine 08/11/24 documented as of this encounter
--- OUTSIDE RECORDS SUMMARY | 2024-11-30 13:05 | XMS_ITS | Encounter Summary ---
Author Organization [employer] Address [address] [place] [address] 7 [place] [address] Care Team Providers Care Grain Merchandising Manager Name Role Phone Saima Rae MD Primary Care Provide r Pastor Zhou PharmD Unavailable [phone] Reason for Visit * Reason Onset Date Comments Nurse Triage 12/24/2023 Encounter Details Date Type Department Care Team ([facility] st Contact Info) Description 12/24/2023 Telephone [facility] MEDICINE 230 [place], [place] [phone] Saima Rae MD 230 [place], [place] [phone] Nurse Triage Social History Tobacco Use Types [...] Did go to the work connection at [facility] on 12/23/23. Pt has scrape and swelling [...] Description 12/05/2024 9:30 AM EDT Office Visit [facility] ADULT DENTAL [address] [place] [address] Tae Ball, DDS [address] [place] [address] 12/13/2024 11:00 AM EDT Office Visit [facility] MEDICINE [address] [place] [address] 12/15/2024 10:30 AM EDT Medication Management [facility] MEDICINE [address] [place] [address] Pastor Zhou, PharmD [address] [place] [address] 12/15/2024 2:30 PM EDT Office Visit [facility] ADULT DENTAL [address] [place] [address] Edmond Kimble, EVERT [address] [place] [address] 12/16/2024 3:00 PM EDT Office Visit [facility] ADULT DENTAL [address] [place] [address] Jorge Pham 12/21/2024 1:30 PM EDT Office Visit [facility] ADULT DENTAL [address] [place] [address] Edmond Kimble, DMD [address] [place] [address] 12/27/2024 2:30 PM EDT Office Visit [facility] OPTOMETRY [address] [place] [address] Riccardo, Tamiko, OD 230 [place] [address] 01/13/2025 3:30 PM EST Office Visit [facility] MEDICINE [address] [place] [address] Saima Rae MD [address] [place] [address] documented as of this encounter Visit Diagnoses Not on filedocumented in this encounter Additional Health Concerns Assessment Noted Time PHQ-9 Depression Total Score: 15 023 3:30 PM EST documented as of this encounter Care Teams Grain Merchandising Manager Relationship Specialty Start Date End Date Saima Rae MD [address] [place] [address] PCP - General Family Medicine 08/26/18 Pastor Zhou, LeighannD [address] [place] [address] Pharmacist Internal Medicine 08/11/24 documented as of this encounter
--- OUTSIDE RECORDS SUMMARY | 2024-11-30 13:05 | XMS_ITS | Encounter Summary ---
Author Organization [employer] Address [address] [place] [address] 7 [place] [address] Care Team Providers Care Database Tester Name Role Phone Saima Rae MD Primary Care Provide r Pastor Zhou PharmD Unavailable [phone] Reason for Visit * Reason Onset Date Comments Med Refill 11/18/2024 Encounter Details Date Type Department Care Team (Late st Contact Info) Description 11/18/2024 Telephone [facility] MEDICINE [address] [place], [place] [phone] Saima Rae MD 230 [place], [place] [phone] Med Refill Social History Tobacco Use Types [...] with others, in a hotel, in a care home, living outside on the street, on [...] Telephone Encounter - Patricia Tai LPN - 11/18/2024 12:44 PM EDT Medication was sent to [facility]/pharmacy #[id number] on 11/04/24 with 1 refill. * Telephone Encounter - Ele Wang - 11/18/2024 12:40 PM EDT TC from pt requesting medication refill. Medications needing refill : cyclobenzaprine (Flexeril) 10 MG tablet To be sent to: [facility]/pharmacy #[id number] documented in this encounter Plan of Treatment Upcoming Encounters Date Type Department Care Team (Late st Contact Info) Description 12/05/2024 9:30 AM EDT Office Visit [facility] ADULT DENTAL [address] [place] [address] Tae Ball DDS [address] [place] [address] 12/13/2024 11:00 AM EDT Office Visit [facility] MEDICINE [address] [place] [address] 12/15/2024 10:30 AM EDT Medication Management [facility] MEDICINE [address] [place] [address] Pastor Zhou, PharmD 230 [place] [address] 12/15/2024 2:30 PM EDT Office Visit [facility] ADULT DENTAL [address] [place] [address] Edmond Kimble, DMD [address] [place] [address] 12/16/2024 3:00 PM EDT Office Visit [facility] ADULT DENTAL [address] [place] [address] Jorge Pham 12/21/2024 1:30 PM EDT Office Visit [facility] ADULT DENTAL [address] [place] [address] Edmond Kimble, DMD [address] [place] [address] 12/27/2024 2:30 PM EDT Office Visit [facility] OPTOMETRY [address] [place] [address] Tamiko Gu, OD 230 [place] [address] 01/13/2025 3:30 PM EST Office Visit [facility] MEDICINE [address] [place], [place] [phone] Saima Rae MD [address] [place] [address] [phone] documented as of this encounter Visit Diagnoses Not on filedocumented in this encounter Additional Health Concerns Assessment Noted Time PHQ-9 Depression Total Score: 22 025 2:33 PM EDT documented as of this encounter Care Teams Database Tester Relationship Specialty Start Date End Date Saima Rae MD [address] [place] [address] [phone] PCP - General Family Medicine 08/26/18 Pastor Zhou, LeighannD [address] [place] [address] [phone] Pharmacist Internal Medicine 08/11/24 documented as of this encounter
--- OUTSIDE RECORDS SUMMARY | 2024-11-30 13:05 | XMS_ITS | Encounter Summary ---
Author Organization [employer] Address [address] [place] [address] 7 [place] [address] Care Team Providers Care Manager Forms Name Role Phone Saima Rae MD Primary Care Provide r Pastor Zhou PharmD Unavailable [phone] Reason for Visit * Reason Onset Date Comments Nurse Triage 01/05/2024 Encounter Details Date Type Department Care Team (Late st Contact Info) Description 01/05/2024 Telephone [facility] MEDICINE [address] [place], [place] [phone] Saima Rae MD 230 [place], [place] [phone] Nurse Triage Social History Tobacco Use Types [...] 01/25/24. Pt is advised to come to [facility] to be seen byprovider and to request written note for extension of leave from work. Pt agrees with this advice, home care already implemented. Pt agrees with disposition and will come to [facility] which is open till 8pm today. [...] 12/05/2024 9:30 AM EDT Office Visit [facility] ADULT D[facility]AL 505 [place] [address] Tae Ball DDS 505 [place] [address] 12/13/2024 11:00 AM EDT Office Visit [facility] MEDICINE [address] [place] [address] 12/15/2024 10:30 AM EDT Medication Management [facility] [address] [place] [address] Pastor Zhou, PharmD 230 [place] [address] 12/15/2024 2:30 PM EDT Office Visit [facility] ADULT DENTAL [address] [place] [address] Edmond Kimble, EVERT [address] [place] [address] 12/16/2024 3:00 PM EDT Office Visit [facility] [address] [facility] [place] [place] [address] Jorge Pham 12/21/2024 1:30 PM EDT Office Visit [facility] ADULT DENTAL [address] [place] [address] Edmond Kimble, DMD [address] [place] [address] 12/27/2024 2:30 PM EDT Office Visit [facility] OPTOMETRY [address] [place] [address] Riccardo, Tamiko, OD 230 [place] [address] 01/13/2025 3:30 PM EST Office Visit [facility] MEDICINE [address] [place] [address] Saima Rae MD 230 [place] [address] documented as of this encounter Visit Diagnoses Not on filedocumented in this encounter Additional Health Concerns Assessment Noted Time PHQ-9 Depression Total Score: 15 023 3:30 PM EST documented as of this encounter Care Teams Manager Forms Relationship Specialty Start Date End Date Saima Rae MD [address] [place] [address] PCP - General Family Medicine 08/26/18 Pastor Zhou, LeighannD [address] [place] [address] Pharmacist Internal Medicine 08/11/24 documented as of this encounter
--- OUTSIDE RECORDS SUMMARY | 2024-11-30 13:05 | XMS_ITS | Encounter Summary ---
Author Organization [employer] Address [address] [place] [address] 7 [place] [address] Care Team Providers Care Hole Digger Name Role Phone Saima Rae MD Primary Care Provide r Pastor Zhou PharmD Unavailable Encounter Details Date Type Department Care Team (Late st Contact Info) Description 11/18/2024 Orders Only [facility] MEDICINE [address] [place] [address] Saima Rae MD [address] [place], [place] [phone] Social History Tobacco Use Types Packs/Day Years [...] Description 12/05/2024 9:30 AM EDT Office Visit [facility] ADULT DENTAL 505 [place] [address] Tae Ball, MISTYS [address] [place] [address] 12/13/2024 11:00 AM EDT Office Visit [facility] MEDICINE [address] [place] [address] 12/15/2024 10:30 AM EDT Medication Management [facility] MEDICINE [address] [place] [address] Pastor Zhou, PharmD [address] [place] [address] 12/15/2024 2:30 PM EDT Office Visit [facility] ADULT DENTAL [address] [place] [address] Edmond Kimble, DMD [address] [place] [address] 12/16/2024 3:00 PM EDT Office Visit [facility] ADULT D[facility]AL [address] [facility] [place] [facility] [place] [address] Jorge Pham 12/21/2024 1:30 PM EDT Office Visit [facility] ADULT DENTAL [address] [place] [address] Edmond Kimble, DMD [address] [place] [address] 12/27/2024 2:30 PM EDT Office Visit [facility] OPTOMETRY [address] [place] [address] Riccardo, Tamiko, OD 230 [place] [address] 01/13/2025 3:30 PM EST Office Visit [facility] MEDICINE [address] [place] [address] Saima Rae MD [address] [place] [address] documented as of this encounter Visit Diagnoses Not on filedocumented in this encounter Additional Health Concerns Assessment Noted Time PHQ-9 Depression Total Score: 22 025 2:33 PM EDT documented as of this encounter Care Teams Hole Digger Relationship Specialty Start Date End Date Saima Rae MD [address] [place] [address] PCP - General Family Medicine 08/26/18 Pastor Zhou, PharmD 230 [place] [address] Pharmacist Internal Medicine 08/11/24 documented as of this encounter
--- OUTSIDE RECORDS SUMMARY | 2024-11-30 13:05 | XMS_ITS | Encounter Summary ---
Author Organization [employer] Address [address] [place] [address] 7 [place] [address] Care Team Providers Care Clerical Transcriber Name Role Phone Saima Rae MD Primary Care Provide r Pastor Zhou PharmD Unavailable [phone] Encounter Details Date Type Department Care Team (Latest Contact Info) Description 11/25/2024 Travel Social History Tobacco Use Types Packs/Day Years [...] t he electric, gas, oil or water [employer] threatened to shut off services in your [...] Description 12/05/2024 9:30 AM EDT Office Visit [facility] ADULT DENTAL 505 [place] [address] Tae Ball DDS 505 [place] [address] 12/13/2024 11:00 AM EDT Office Visit [facility] MEDICINE 230 [place] [address] 12/15/2024 10:30 AM EDT Medication Management [facility] MEDICINE [address] [place] [address] Pastor Zhou, PharmD 230 [place] [address] 12/15/2024 2:30 PM EDT Office Visit [facility] ADULT DENTAL [address] [place] [address] Edmond Kimble, DMD 230 [place] [address] 12/16/2024 3:00 PM EDT Office Visit [facility] ADULT DENTAL [address] [facility] [place] [address] Jorge Pham 12/21/2024 1:30 PM EDT Office Visit [facility] ADULT DENTAL [address] [place] [address] Edmond Kimble, DMD 230 [place] [address] 12/27/2024 2:30 PM EDT Office Visit [facility] OPTOMETRY [address] [place] [address] Riccardo, Tamiko, OD 230 [place] [address] 01/13/2025 3:30 PM EST Office Visit [facility] MEDICINE [address] [place] [address] Saima Rae MD 230 [place] [address] documented as of this encounter Visit Diagnoses Not on filedocumented in this encounter Additional Health Concerns Assessment Noted Time PHQ-9 Depression Total Score: 22 07/12/ 025 2:33 PM EDT documented as of this encounter Care Teams Clerical Transcriber Relationship Specialty Start Date End Date Saima Rae MD [address] [place] [address] PCP - General Family Medicine 08/26/18 Pastor Zhou, LeighannD [address] [place] [address] Pharmacist Internal Medicine 08/11/24 documented as of this encounter
--- OUTSIDE RECORDS SUMMARY | 2024-11-30 13:05 | XMS_ITS | Encounter Summary ---
Author Organization [employer] Address [address] [place] [address] 7 [place] [address] Care Team Providers Care Groundskeeping Yardman Name Role Phone Saima Rae MD Primary Care Provide r Pastor Zhou PharmD Unavailable [phone] Reason for Visit * Reason Comments Med Refill Encounter Details Date Type Department Care Team (Late st Contact Info) Description 11/28/2024 Refill [facility] [address] [place] [address] Bhavna Martinez MD [address] [place] [address] Social History Tobacco Use Types Packs/Day Years [...] Description 12/05/2024 9:30 AM EDT Office Visit [facility] ADULT [facility]AL [address] [place] [address] Tae Ball, DDS 505 [place] [address] 12/13/2024 11:00 AM EDT Office Visit [facility] MEDICINE [address] [place] [address] 12/15/2024 10:30 AM EDT Medication Management [address] [address] Pastor Zhou, PharmD [address] [place] [address] 12/15/2024 2:30 PM EDT Office Visit [facility] ADULT DENTAL [address] [place] [address] Edmond Kimble, DMD 230 [place] [address] 12/16/2024 3:00 PM EDT Office Visit [facility] ADULT DENTAL [address] [facility] [place] [facility] [place] [address] Jorge Pham 12/21/2024 1:30 PM EDT Office Visit [facility] ADULT DENTAL 230 [place] [address] Edmond Kimble, DMD 230 [place] [address] 12/27/2024 2:30 PM EDT Office Visit [facility] OPTOMETRY [address] [place] [address] Riccardo, Tamiko, OD 230 [place] [address] 01/13/2025 3:30 PM EST Office Visit [facility] MEDICINE [address] [place] [address] Saima Rae MD [address] [place] [address] documented as of this encounter Visit Diagnoses Not on filedocumented in this encounter Additional Health Concerns Assessment Noted Time PHQ-9 Depression Total Score: 22 07/12/ 025 2:33 PM EDT documented as of this encounter Care Teams Groundskeeping Yardman Relationship Specialty Start Date End Date Saima Rae MD 230 [place] [address] PCP - General Family Medicine 08/26/18 Pastor Zhou, PharmD [address] [place] [address] Pharmacist Internal Medicine 08/11/24 documented as of this encounter
== END 2024-11-30 11:55 | disposition home or self-care (01) ==
LOC: HO.HOS 11:28
PROVIDERS: PCP Internal Medicine; Visit Provider Physician Assistant
DX: M17.0 Bilateral primary osteoarthritis of knee (principal); M22.2X1 Patellofemoral disorders, right knee; M22.2X2 Patellofemoral disorders, left knee
CPT/HCPCS: 20610; 99213

== ENCOUNTER → 2024-11-30 11:27 | Outpatient (BNVA) | payer MEDICAID, SELFPAY | PROVIDERS: PCP Internal Medicine; Visit Provider Physician Assistant | DX: M17.0 Bilateral primary osteoarthritis of knee (principal); M22.2X1 Patellofemoral disorders, right knee; M22.2X2 Patellofemoral disorders, left knee | CPT/HCPCS: 20610; 99212; J0665; J1100; J2003 ==

== ENCOUNTER 2025-03-01 16:06 | Outpatient (REF) | payer MEDICAID, SELFPAY ==
--- NOTE | ~2025-03-01 | XR_ITS ---
EXAMINATION: XR KNEE, RIGHT CLINICAL INFORMATION: Right Knee injury with edema and discoloration COMPARISON: 05/13/2023. TECHNIQUE: Four views of the right knee. FINDINGS: There is no fracture, dislocation, or suspicious bone lesion. There is mild valgus angulation of the knee secondary to moderate joint space narrowing of the lateral compartment, with mild widening of the medial compartment. There is marginal osteophytic spurring in all 3 compartments. There is spurring of the tibial spines. There is superior patellar enthesopathy present. There is a suprapatellar joint effusion present. There is no soft tissue abnormality. XR/XR knee RT 4V IMPRESSION: 1. No acute bony or soft tissue abnormality. 2. Suprapatellar joint effusion present. 3. 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 Electronically signed by: Moe Rivers MD 03/01/2025 04:35 PM [facility]
--- OUTSIDE RECORDS SUMMARY | 2025-03-01 14:45 | XMS_ITS | Encounter Summary ---
Author Organization [employer] Address [address] [place] [address] 7 [place] [address] Care Team Providers Care Service Team Leader Name Role Phone Saima Rae MD Primary Care Provide r Pastor Zhou PharmD Unavailable Encounter Details Date Type Department Care Team (Late st Contact Info) Description 03/01/2025 2:45 PM EST Office Visit [facility] MEDICINE [address] [place] [address] Enrique Smart FNP [address] [place] [address] Injury of right knee, initial encounter (Primary Dx); Dysuria Social History Tobacco Use Types Packs/Day Years Used Date Smoking Tobacco: Former Cigarettes 0.5 1 S tarted: 2024 Passive Smoke Exposure: Past [...] AM EDT documented as of this encounter Last Filed Vital Signs Vital Sign Reading Time Taken Comments Blood Pressure 120/80 03/01/2025 2:55 PM EST Pulse 76 03/01/2025 2:55 PM EST Temperature 36.2 C (97.1 F) 03/01/2025 2:55 PM EST Respiratory Rate 20 03/01/2025 2:55 PM EST Oxygen Saturation 97% 03/01/2025 2:55 PM EST Inhaled Oxygen Concentration - - Weight 82.2 kg (181 lb 4 oz) 03/01/2025 2:55 PM EST Height 163.8 cm (5' 4.5 ) 03/01/2025 2:55 PM EST Body Mass Index 30.63 03/01/2025 2:55 PM EST documented in this encounter Plan of Treatment Upcoming Encounters Date Type Department Care Team (Late st Contact Info) Description 04/14/2025 3:30 PM EST Office Visit [facility] MEDICINE [address] [place] [address] Saima Rae MD [address] [place] [address] 04/25/2025 11:00 AM EST Office Visit [facility] MEDICINE [address] [place] [address] 07/28/2025 1:30 PM EDT Office Visit [facility] CHC ADULT DENTAL [address] [place] [address] Jorge Pham Scheduled Orders Name Type Priority Associated Diagnoses Orde r Schedule Culture, Urine, Routine Microbiology Routine Dysuria Expected: 03/01/2025 (Approximate), Expires: 03/01/2026 XR Knee 3 Views Right Imaging Routine Injury of right knee, initial encounter Expected: 03/01/2025, Expires: 03/01/2026 documented as of this encounter Goals Goal Patient Goal Type Associated Problems Recent Progress Patient-Stated? Author Help patients manage their type 2 diabetes Care Plan Help patients manage their type 2 diabetes No Ankit Ho Weekly blood pressure task Care Plan Weekly blood pressure task No Ankit Ho Help patients manage their type 2 diabetes Care Plan Help patients manage their type 2 diabetes No Ankit Ho Patient has chronic kidney disease Care Plan Patient has chronic kidney disease No Ankit Ho Weekly blood pressure task Care Plan Weekly blood pressure task No Ankit Ho Patient has chronic kidney disease Care Plan Patient has chronic kidney disease No Ankit Ho Weekly blood pressure task Care Plan Weekly blood pressure task No Ramonita Hubbard MA Weekly blood pressure task Care Plan Weekly blood pressure task No Ramonita Hubbard MA Patient has chronic kidney disease Care Plan Patient has chronic kidney disease No Ramonita Hubbard [place] Patient has chronic kidney disease Care Plan Patient has chronic kidney disease No Ramonita Hubbard MA Weekly blood pressure task Care Plan Weekly blood pressure task No Yahaira Whittaker MA Weekly blood pressure task Care Plan Weekly blood pressure task No Yahaira Whittaker MA Patient has chronic kidney disease Care Plan Patient has chronic kidney disease No Yahaira Whittaker MA Patient has chronic kidney disease Care Plan Patient has chronic kidney disease No Yahaira Whittaker MA Weekly blood pressure task Care Plan Weekly blood pressure task No Saima Rae MD Weekly blood pressure task Care Plan Weekly blood pressure task No Saima Rae MD Patient has chronic kidney disease Care Plan Patient has chronic kidney disease No Saima Rae MD Patient has chronic kidney disease Care Plan Patient has chronic kidney disease No Saima Rae MD Weekly blood pressure task Care Plan Weekly blood pressure task No Jayesh Lewis Weekly blood pressure task Care Plan Weekly blood pressure task No LewisJayesh candelaria Patient has chronic kidney disease Care Plan Patient has chronic kidney disease No Zach Lewisua Patient has chronic kidney disease Care Plan Patient has chronic kidney disease No Jayesh Lewis Weekly blood pressure task Care Plan Weekly blood pressure task No Riccardo, Tamiko, OD Weekly blood pressure task Care Plan Weekly blood pressure task No Riccardo, Tamiko, OD Patient has chronic kidney disease Care Plan Patient has chronic kidney disease No Riccardo, Tamiko, OD Patient has chronic kidney disease Care Plan Patient has chronic kidney disease No Riccardo, Tamiko, OD Weekly blood pressure task Care Plan Weekly blood pressure task No Ele Red Weekly blood pressure task Care Plan Weekly blood pressure task No Ele Red Patient has chronic kidney disease Care Plan Patient has chronic kidney disease No Ele Red Patient has chronic kidney disease Care Plan Patient has chronic kidney disease No Ele Red Weekly blood pressure task Care Plan Weekly blood pressure task No Ele Red Weekly blood pressure task Care Plan Weekly blood pressure task No Ele Red Patient has chronic kidney disease Care Plan Patient has chronic kidney disease No Ele Red Patient has chronic kidney disease Care Plan Patient has chronic kidney disease No Ele Red Weekly blood pressure task Care Plan Weekly blood pressure task No Jacy Augustine Weekly blood pressure task Care Plan Weekly blood pressure task No Jacy Augustine Patient has chronic kidney disease Care Plan Patient has chronic kidney disease No Jacy Augustine Patient has chronic kidney disease Care Plan Patient has chronic kidney disease No Jacy Augustine Weekly blood pressure task Care Plan Weekly blood pressure task No Svetlana Wood RN Weekly blood pressure task Care Plan Weekly blood pressure task No Svetlana Wood RN Patient has chronic kidney disease Care Plan Patient has chronic kidney disease No Svetlana Wood RN Patient has chronic kidney disease Care Plan Patient has chronic kidney disease No Svetlana Wood RN Weekly blood pressure task Care Plan Weekly blood pressure task No Svetlana Wood RN Weekly blood pressure task Care Plan Weekly blood pressure task No Svetlana Wood RN Patient has chronic kidney disease Care Plan Patient has chronic kidney disease No Svetlana Wood RN Patient has chronic kidney disease Care Plan Patient has chronic kidney disease No Svetlana Wood RN Weekly blood pressure task Care Plan Weekly blood pressure task No Jorge Pham Weekly blood pressure task Care Plan Weekly blood pressure task No Jorge Pham Patient has chronic kidney disease Care Plan Patient has chronic kidney disease No Jorge Pham Patient has chronic kidney disease Care Plan Patient has chronic kidney disease No Jorge Pham Weekly blood pressure task Care Plan Weekly blood pressure task No Edmond Kimble DMD Weekly blood pressure task Care Plan Weekly blood pressure task No Edmond Kimble DMD Patient has chronic kidney disease Care Plan Patient has chronic kidney disease No Edmond Kimble DMD Patient has chronic kidney disease Care Plan Patient has chronic kidney disease No Edmond Kimble DMD Weekly blood pressure task Care Plan Weekly blood pressure task No Jacqueline Schumacher RN Weekly blood pressure task Care Plan Weekly blood pressure task No Jacqueline Schumacher RN Patient has chronic kidney disease Care Plan Patient has chronic kidney disease No Jacqueline Schumacher, RN Patient has chronic kidney disease Care Plan Patient has chronic kidney disease No Jacqueline Schumacher RN Weekly blood pressure task Care Plan Weekly blood pressure task No Pastor Zhou PharmD Weekly blood pressure task Care Plan Weekly blood pressure task No Pastor Zhou PharmD Patient has chronic kidney disease Care Plan Patient has chronic kidney disease No Pastor Zhou PharmD Patient has chronic kidney disease Care Plan Patient has chronic kidney disease No Pastor Zhou PharmD Weekly blood pressure task Care Plan Weekly blood pressure task No Edmond Kimble DMD Weekly blood pressure task Care Plan Weekly blood pressure task No Edmond Kimble DMD Patient has chronic kidney disease Care Plan Patient has chronic kidney disease No Edmodn Kimble DMD Patient has chronic kidney disease Care Plan Patient has chronic kidney disease No Edmond Kimble DMD Weekly blood pressure task Care Plan Weekly blood pressure task No Riccardo, Tamiko, OD Weekly blood pressure task Care Plan Weekly blood pressure task No Riccardo, Tamiko, OD Patient has chronic kidney disease Care Plan Patient has chronic kidney disease No Riccardo, Tamiko, OD Patient has chronic kidney disease Care Plan Patient has chronic kidney disease No Riccardo, Tamiko, OD Weekly blood pressure task Care Plan Weekly blood pressure task No Pastor Zhou PharmD Weekly blood pressure task Care Plan Weekly blood pressure task No Pastor Zhou PharmD Patient has chronic kidney disease Care Plan Patient has chronic kidney disease No Pastor Zhou PharmD Patient has chronic kidney disease Care Plan Patient has chronic kidney disease No Pastor Zhou PharmD Weekly blood pressure task Care Plan Weekly blood pressure task No Svetlana Wood RN Weekly blood pressure task Care Plan Weekly blood pressure task No Svetlana Wood RN Patient has chronic kidney disease Care Plan Patient has chronic kidney disease No Svetlana Wood RN Patient has chronic kidney disease Care Plan Patient has chronic kidney disease No Svetlana Wood RN Weekly blood pressure task Care Plan Weekly blood pressure task No Vicki Esqueda Weekly blood pressure task Care Plan Weekly blood pressure task No Vicki Esqueda Patient has chronic kidney disease Care Plan Patient has chronic kidney disease No Colon Jameel Vicki Patient has chronic kidney disease Care Plan Patient has chronic kidney disease No Colon Jameel Vicki Weekly blood pressure task Care Plan Weekly blood pressure task No Ele Red Weekly blood pressure task Care Plan Weekly blood pressure task No Ele Red Patient has chronic kidney disease Care Plan Patient has chronic kidney disease No Ele Red Patient has chronic kidney disease Care Plan Patient has chronic kidney disease No Ele Red Weekly blood pressure task Care Plan Weekly blood pressure task No Patricia Tai LPN Weekly blood pressure task Care Plan Weekly blood pressure task No Patricia Tai LPN Patient has chronic kidney disease Care Plan Patient has chronic kidney disease No Patricia Tai LPN Patient has chronic kidney disease Care Plan Patient has chronic kidney disease No Patricia Tai LPN Weekly blood pressure task Care Plan Weekly blood pressure task [facility] Weekly blood pressure task Care Plan Weekly blood pressure task No Eugene Chiu [facility] Patient has chronic kidney disease Care Plan Patient has chronic kidney disease No [facility] Patient has chronic kidney disease Care Plan Patient has chronic kidney disease No [facility] Weekly blood pressure task Care Plan Weekly blood pressure task No Pastor Zhou PharmD Weekly blood pressure task Care Plan Weekly blood pressure task No Pastor Zhou PharmEmily Patient has chronic kidney disease Care Plan Patient has chronic kidney disease No Pastor Zhou PharmEmily Patient has chronic kidney disease Care Plan Patient has chronic kidney disease No Pastor Zhou PharmD Weekly blood pressure task Care Plan Weekly blood pressure task No CatarinoabaMalcolm maldonado Weekly blood pressure task Care Plan Weekly blood pressure task No Catarinoaballchristophert Malcolm lees Patient has chronic kidney disease Care Plan Patient has chronic kidney disease No CatarinoaballMalcolm bennett Patient has chronic kidney disease Care Plan Patient has chronic kidney disease No Malcolm Espino Weekly blood pressure task Care Plan Weekly blood pressure task No Enrique Smart, 6[employer] GRADE TEACHER Weekly blood pressure task Care Plan Weekly blood pressure task No Enrique Smart, 6TH GRADE TEACHER Patient has chronic kidney disease Care Plan Patient has chronic kidney disease No Branden Smartic, 6TH GRADE TEACHER Patient has chronic kidney disease Care Plan Patient has chronic kidney disease No Bing Enrique, 6TH GRADE TEACHER documented as of this encounter Procedures Procedure Name Priority Date/Time Associated Diagnosis Comments POCT URINALYSIS DIPSTICK Routine 03/01/2025 3:16 PM EST Dysuria documented in this encounter Results * POCT Urinalysis (03/01/2025 3:16 PM EST) Color, UA Yellow Clarity, UA Clear Glucose, UA Trace Comment:500 mg/dl Bilirubin, UA Negative Ketones, UA Negative Spec Grav, UA 1.020 Blood, UA Negative Negative, None Detected pH, UA 6.0 Protein, UA Negative Urobilinogen, UA 0.2 Leukocytes, UA Negative Negative, Rare, Trace, 1+ (17), 2+ (35), 3+ (70), Trace (15) Nitrite, UA Negative Negative, None Detected QC Media Lot # [id number] Lot# Expiration Date ,748 Urine (Urine, Random) 03/01/2025 3:16 PM EST Enrique Smart 6[employer] GRADE TEACHER POINT OF CARE TEST ENTER/EDIT ORDERABLES Final Result documented in this encounter Visit Diagnoses Diagnosis Injury of right knee, initial encounter- Primary Dysuria documented in this encounter Additional Health Concerns Active Problems Noted Date Diagnosed Date Help patients manage their type 2 diabetes 01/12 Weekly blood pressure task 01/12/2025 Help patients manage their type 2 diabetes 01/12 Patient has chronic kidney disease 01/12/2025 Weekly blood pressure task 01/12/2025 Patient has chronic kidney disease 01/12/2025 Weekly blood pressure task 01/12/2025 Weekly blood pressure task 01/12/2025 Patient has chronic kidney disease 01/12/2025 Patient has chronic kidney disease 01/12/2025 Weekly blood pressure task 01/12/2025 Weekly blood pressure task 01/12/2025 Patient has chronic kidney disease 01/12/2025 Patient has chronic kidney disease 01/12/2025 Weekly blood pressure task 01/13/2025 Weekly blood pressure task 01/13/2025 Patient has chronic kidney disease 01/13/2025 Patient has chronic kidney disease 01/13/2025 Weekly blood pressure task 01/13/2025 Weekly blood pressure task 01/13/2025 Patient has chronic kidney disease 01/13/2025 Patient has chronic kidney disease 01/13/2025 Weekly blood pressure task 01/15/2025 Weekly blood pressure task 01/15/2025 Patient has chronic kidney disease 01/15/2025 Patient has chronic kidney disease 01/15/2025 Weekly blood pressure task 01/18/2025 Weekly blood pressure task 01/18/2025 Patient has chronic kidney disease 01/18/2025 Patient has chronic kidney disease 01/18/2025 Weekly blood pressure task 01/18/2025 Weekly blood pressure task 01/18/2025 Patient has chronic kidney disease 01/18/2025 Patient has chronic kidney disease 01/18/2025 Weekly blood pressure task 01/20/2025 Weekly blood pressure task 01/20/2025 Patient has chronic kidney disease 01/20/2025 Patient has chronic kidney disease 01/20/2025 Weekly blood pressure task 01/23/2025 Weekly blood pressure task 01/23/2025 Patient has chronic kidney disease 01/23/2025 Patient has chronic kidney disease 01/23/2025 Weekly blood pressure task 01/24/2025 Weekly blood pressure task 01/24/2025 Patient has chronic kidney disease 01/24/2025 Patient has chronic kidney disease 01/24/2025 Weekly blood pressure task 01/25/2025 Weekly blood pressure task 01/25/2025 Patient has chronic kidney disease 01/25/2025 Patient has chronic kidney disease 01/25/2025 Weekly blood pressure task 01/25/2025 Weekly blood pressure task 01/25/2025 Patient has chronic kidney disease 01/25/2025 Patient has chronic kidney disease 01/25/2025 Weekly blood pressure task 02/09/2025 Weekly blood pressure task 02/09/2025 Patient has chronic kidney disease 02/09/2025 Patient has chronic kidney disease 02/09/2025 Weekly blood pressure task 02/10/2025 Weekly blood pressure task 02/10/2025 Patient has chronic kidney disease 02/10/2025 Patient has chronic kidney disease 02/10/2025 Weekly blood pressure task 02/16/2025 Weekly blood pressure task 02/16/2025 Patient has chronic kidney disease 02/16/2025 Patient has chronic kidney disease 02/16/2025 Weekly blood pressure task 02/17/2025 Weekly blood pressure task 02/17/2025 Patient has chronic kidney disease 02/17/2025 Patient has chronic kidney disease 02/17/2025 Weekly blood pressure task 02/20/2025 Weekly blood pressure task 02/20/2025 Patient has chronic kidney disease 02/20/2025 Patient has chronic kidney disease 02/20/2025 Weekly blood pressure task 02/21/2025 Weekly blood pressure task 02/21/2025 Patient has chronic kidney disease 02/21/2025 Patient has chronic kidney disease 02/21/2025 Weekly blood pressure task 02/21/2025 Weekly blood pressure task 02/21/2025 Patient has chronic kidney disease 02/21/2025 Patient has chronic kidney disease 02/21/2025 Weekly blood pressure task 02/21/2025 Weekly blood pressure task 02/21/2025 Patient has chronic kidney disease 02/21/2025 Patient has chronic kidney disease 02/21/2025 Weekly blood pressure task 02/21/2025 Weekly blood pressure task 02/21/2025 Patient has chronic kidney disease 02/21/2025 Patient has chronic kidney disease 02/21/2025 Weekly blood pressure task 02/28/2025 Weekly blood pressure task 02/28/2025 Patient has chronic kidney disease 02/28/2025 Patient has chronic kidney disease 02/28/2025 Weekly blood pressure task 02/28/2025 Weekly blood pressure task 02/28/2025 Patient has chronic kidney disease 02/28/2025 Patient has chronic kidney disease 02/28/2025 Weekly blood pressure task 02/28/2025 Weekly blood pressure task 02/28/2025 Patient has chronic kidney disease 02/28/2025 Patient has chronic kidney disease 02/28/2025 Weekly blood pressure task 03/01/2025 Weekly blood pressure task 03/01/2025 Patient has chronic kidney disease 03/01/2025 Patient has chronic kidney disease 03/01/2025 Assessment Noted Time PHQ-9 Depression Total Score: 22 05/ 025 2:33 PM EDT documented as of this encounter Care Teams Service Team Leader Relationship Specialty Start Date End Date Saima Rae MD [address] [place] [address] PCP - General Family Medicine 08/26/18 Pastor Zhou, LeighannD [address] [place] [address] Pharmacist Internal Medicine 08/11/24 documented as of this encounter
--- OUTSIDE RECORDS SUMMARY | 2025-03-01 16:09 | XMS_ITS | Encounter Summary ---
Author Organization [employer] Address [address] [place] [address] 7 [place] [address] Care Team Providers Care Project Development Director Name Role Phone Saima Rae MD Primary Care Provide r Pastor Zhou PharmD Unavailable [phone] Reason for Visit * Reason Onset Date Comments Med Refill 10/22/2023 Encounter Details Date Type Department Care Team (Late st Contact Info) Description 10/22/2023 Telephone [facility] MEDICINE [address] [place], [place] [phone] Saima Rae MD [address] [place], [place] [phone] Med Refill Social History Tobacco Use Types [...] the past 12 months, has t he [employer], gas, oil or water [employer] threatened to shut off services in your [...] MG tablet Please o be sent to: [facility]/pharmacy #[id number] documented in this encounter Plan of Treatment Upcoming Encounters Date Type Department Care Team (Late st Contact Info) Description 04/14/2025 3:30 PM EST Office Visit [facility] MEDICINE [address] [place] [address] Saima Rae MD [address] [place] [address] 04/25/2025 11:00 AM EST Office Visit [facility] MEDICINE [address] [place] [address] 07/28/2025 1:30 PM EDT Office Visit [facility] CHC ADULT DENTAL [address] [place] [address] Jorge Pham documented as of this encounter Visit Diagnoses Not on filedocumented in this encounter Additional Health Concerns Assessment Noted Time PHQ-9 Depression Total Score: 15 023 3:30 PM EST documented as of this encounter Care Teams Project Development Director Relationship Specialty Start Date End Date Saima Rae MD [address] [place] [address] PCP - General Family Medicine 08/26/18 Pastor Zhou, LeighannD [address] [place] [address] Pharmacist Internal Medicine 08/11/24 documented as of this encounter
--- OUTSIDE RECORDS SUMMARY | 2025-03-01 16:09 | XMS_ITS | Encounter Summary ---
Author Organization [facility] [employer] Address [address] [place] [address] 7 [place] [address] Care Team Providers Care Electronic Equipment Installer Name Role Phone Saima Rae MD Primary Care Provide r Pastor Zhou PharmD Unavailable [phone] Reason for Visit * Reason Onset Date Comments Appointment Request 09/16/2024 Encounter Details Date Type Department Care Team ([facility] st Contact Info) Description 09/16/2024 Telephone [facility] MEDICINE [address] [place], [place] [phone] Saima Rae MD [address] [place], [place] [phone] Appointment Request Social History Tobacco Use Types Packs/Day Years Used Date Smoking Tobacco: Every Day Cigarettes 0.5 1 Started: 2024 Passive Smoke Exposure: Past Smokeless [...] Description 04/14/2025 3:30 PM EST Office Visit [facility] MEDICINE [address] [place] [address] Saima Rae MD [address] [place] [address] 04/25/2025 11:00 AM EST Office Visit [facility] MEDICINE [address] [place] [address] 07/28/2025 1:30 PM EDT Office Visit [facility] CHC ADULT DENTAL [address] [place] [address] Jorge Pham documented as of this encounter Visit Diagnoses Not on filedocumented in this encounter Additional Health Concerns Assessment Noted Time PHQ-9 Depression Total Score: 22 025 2:33 PM EDT documented as of this encounter Care Teams Electronic Equipment Installer Relationship Specialty Start Date End Date Saima Rae MD [address] [place] [address] PCP - General Family Medicine 08/26/18 Pastor Zhou, PharmD [address] [place] [address] Pharmacist Internal Medicine 08/11/24 documented as of this encounter
--- OUTSIDE RECORDS SUMMARY | 2025-03-01 16:09 | XMS_ITS | Encounter Summary ---
Author Organization [employer] Address [address] [place] [address] 7 [place] [address] Care Team Providers Care Metal Furrer Name Role Phone Saima Rae MD Primary Care Provide r Pastor Zhou PharmD Unavailable [phone] Reason for Visit * Reason Comments Med Refill Encounter Details Date Type Department Care Team (Late st Contact Info) Description 11/29/2023 Refill [facility] MEDICINE [address] [place], [place] [phone] Saima Rae MD [address] [place], [place] [phone] Muscle spasm Social History Tobacco Use Types [...] Description 04/14/2025 3:30 PM EST Office Visit [address] [address] Saima Rea MD [address] [place] [address] 04/25/2025 11:00 AM EST Office Visit [address] [address] 07/28/2025 1:30 PM EDT Office Visit [facility] CHC ADULT DENTAL [address] [place] [address] Jorge Pham documented as of this encounter Visit Diagnoses Diagnosis Muscle spasm Spasm of muscle documented in this encounter Additional Health Concerns Assessment Noted Time PHQ-9 Depression Total Score: 15 023 3:30 PM EST documented as of this encounter Care Teams Metal Furrer Relationship Specialty Start Date End Date Saima Rae MD [address] [place] [address] PCP - General Family Medicine 08/26/18 Pastor Zhou, PharmD [address] [place] [address] Pharmacist Internal Medicine 08/11/24 documented as of this encounter
--- OUTSIDE RECORDS SUMMARY | 2025-03-01 16:09 | XMS_ITS | Encounter Summary ---
Author Organization [facility] Address [address] [place] [address] 7 [place] [address] Care Team Providers Care Multi Line Claims Adjuster Name Role Phone Saima Rae MD Primary Care Provide r Pastor Zhou PharmD Unavailable [phone] Reason for Visit * Reason Onset Date Comments Med Refill 02/21/2025 Encounter Details Date Type Department Care Team (Late st Contact Info) Description 02/21/2025 Telephone [facility] [address] [place], [place] [phone] Saima Rae MD [address] [place], [place] [phone] Med Refill Social History Tobacco Use Types [...] Telephone Encounter - Patricia Tai LPN - 02/21/2025 12:44 PM EST Medication pended to PCP. * Telephone Encounter - Ele Wang - 02/21/2025 12:41 PM EST TC from pt requesting medication refill. Medications needing refill : Diclofenac Sodium 1 % gel To be sent to: [facility]/pharmacy #[id number] - [place] - [address] [place] [address] documented in this encounter Plan of Treatment Upcoming Encounters Date Type Department Care Team (Late st Contact Info) Description 04/14/2025 3:30 PM EST Office Visit [facility] [address] [place] [address] Saima Rae MD [address] [place] [address] 04/25/2025 11:00 AM EST Office Visit [address] [address] 07/28/2025 1:30 PM EDT Office Visit [facility] [address] [place] [address] Jorge Pham documented as of this encounter Goals Goal [...] Weekly blood pressure task No Jayesh Lewis Patient has chronic kidney disease Care Plan Patient has chronic kidney disease No Lewis Jayesh Patient has chronic kidney disease Care Plan [...] chronic kidney disease No Jacqueline Schumacher RN Patient has chronic kidney disease Care Plan Patient has chronic kidney disease No Jacqueline Schumacher RN Weekly blood pressure task Care Plan Weekly blood pressure task No Pastor Zhou, Yordy Weekly blood pressure task Care Plan Weekly blood pressure task No Pastor Zhou, PharmD Patient has chronic kidney disease Care Plan Patient has chronic kidney disease No Pastor Zhou, PharmEmily Patient has chronic kidney disease Care Plan Patient has chronic kidney disease No Pastor Zhou, PharmD Weekly blood pressure task Care Plan Weekly blood pressure task No Edmond Kimble DMD Weekly blood pressure task Care Plan Weekly blood pressure task No Edmond Kimble DMD Patient has chronic kidney disease Care Plan Patient has chronic kidney disease No Yen, Edmond, DMD Patient has chronic kidney disease Care [...] Care Plan Weekly blood pressure task No Colon Jorgensen Vicki Weekly blood pressure task Care Plan Weekly blood pressure task No Colon Jorgensen Vicki Patient has chronic kidney disease Care [...] Plan Patient has chronic kidney disease No lEe Red Weekly blood pressure task Care Plan Weekly blood pressure task No Patricia Tai LPN Weekly blood pressure task Care Plan Weekly blood pressure task No Patricia Tai LPN Patient has chronic kidney disease Care Plan Patient has chronic kidney disease No Patricia Tai LPN Patient has chronic kidney disease Care Plan Patient has chronic kidney disease Patricia Lou LPN documented as of this encounter Visit Diagnoses Not on filedocumented in this encounter Additional Health Concerns Active [...] 02/21/2025 Patient has chronic kidney disease 02/21/2025 Assessment Noted Time PHQ-9 Depression Total Score: 22 025 2:33 PM EDT documented as of this encounter Care Teams Multi Line Claims Adjuster Relationship Specialty Start Date End Date Saima Rae MD [address] [place] [address] PCP - General Family Medicine 08/26/18 Pastor Zhou, LeighannD [address] [place] [address] Pharmacist Internal Medicine 08/11/24 documented as of this encounter
--- OUTSIDE RECORDS SUMMARY | 2025-03-01 16:09 | XMS_ITS | Encounter Summary ---
Author Organization [employer] Address [address] [place] [address] 7 [place] [address] Care Team Providers Care Etl Tester Name Role Phone Saima Rae MD Primary Care Provide r Pastor Zhou PharmD Unavailable [phone] Reason for Visit * Reason Onset Date Comments Nurse Triage 02/28/2025 Encounter Details Date Type Department Care Team (Late st Contact Info) Description 02/28/2025 Telephone [facility] [address] [place], [place] [phone] Saima Rae MD [address] [place], [place] [phone] Nurse Triage Social History Tobacco Use Types [...] encounter Miscellaneous Notes * Telephone Encounter - Renetta Ho RN - 02/28/2025 3:35 PM EST T/C returned to pt to triage. Pt complaining of: -Urinary Sx x~4 days: burning with urination, fishy odor, vulvar itching. Pt denies vaginal discharge, abdominal pain, fever, increased urinary frequency. -Right knee injury 4 days ago: Tripped and hit her knee on a gas tank. Since then has had swelling and bruising and is limping. WIC full for today, pt requesting an appt tomorrow afternoon. Booked for tomorrow with [facility]. Advised to ice and rest her knee in the meantime. Can take OTC Tylenol or ibuprofen for pain. Pt agrees with plan. Protocols Used (2): Knee Injury (Adult), Urinary Symptoms (Adult) Disposition for Call: See in Office or Video Visit Today or Tomorrow Protocol Used: Knee Injury (Adult) Protocol-Based Disposition: See in Office or Video Visit Today or Tomorrow Video visit offer not recorded Positive Triage Question: * Moderate pain (e.g., interferes with normal activities, limping) and high-risk adult (e.g., age > 60 years, osteoporosis, chronic steroid use) * All higher-acuity triage questions were negative. Protocol Used: Urinary Symptoms (Adult) Protocol-Based Disposition: See in Office or Video Visit Today or Tomorrow Video visit offer not recorded Positive Triage Question: * Patient wants to be seen * All higher-acuity triage questions were negative. * Telephone Encounter - Malcolm Chiang - 02/28/2025 3:08 PM EST Symptoms: Urination Pain, Foot or Ankle Swelling Outcome: Schedule an urgent appointment (within 1 hour) or talk to a nurse or provider soon Reason: Trouble walking Contact pt at [phone] documented in this encounter Plan of Treatment Upcoming Encounters Date Type Department Care Team (Late st Contact Info) Description 04/14/2025 3:30 PM EST Office Visit [address] [address] Saima Rae MD [address] [place] [address] 04/25/2025 11:00 AM EST Office Visit [address] [place] [address] 07/28/2025 1:30 PM EDT Office Visit [facility] [address] [place] [address] Jorge Pham documented as of this encounter [...] has chronic kidney disease No Jayesh Lewis Patient has chronic kidney [...] Weekly blood pressure task No Pastor Zhou, PharmEmily Patient has chronic kidney disease Care Plan Patient has chronic kidney disease No Pastor Zhou, PharmEmily Patient has chronic kidney disease Care Plan Patient has chronic kidney disease No Pastor Zhou, Yordy Weekly blood pressure [...] blood pressure task No Pastor Zhou, PharmD Weekly blood pressure task Care Plan Weekly blood pressure task No Pastor Zhou, PharmD Patient has chronic kidney disease Care Plan Patient has chronic kidney disease No Pastor Zhou, Yordy Patient has chronic kidney disease Care Plan [...] Plan Weekly blood pressure task No Colon Jorgensen, Vicki Weekly blood pressure task Care Plan Weekly blood pressure task No Colon Jorgensen, Vicki Patient has chronic kidney disease Care Plan Patient has chronic kidney disease No Colon Jorgensen, Vicki Patient has chronic kidney disease Care Plan Patient has chronic kidney disease No Colon Jorgensen, Vicki Weekly blood pressure task Care Plan [...] Weekly blood pressure task No Patricia Tai COMMERCIAL ANNOUNCER Weekly blood pressure task Care Plan Weekly blood pressure task No Cele Taifer, COMMERCIAL ANNOUNCER Patient has chronic kidney disease Care Plan Patient has chronic kidney disease No Patricia Tai COMMERCIAL ANNOUNCER Patient has chronic kidney disease Care Plan Patient has chronic kidney disease No Jaymie Tainifer, COMMERCIAL ANNOUNCER Weekly blood pressure task Care Plan Weekly blood pressure task No [facility] Weekly blood pressure task Care Plan Weekly blood pressure task No [facility] Patient has chronic kidney disease Care Plan Patient has chronic kidney disease No [facility] Patient has chronic kidney disease Care Plan Patient has chronic kidney disease No [facility] Weekly blood pressure task Care Plan Weekly [...] Care Plan Weekly blood pressure task No Malcolm Espino Weekly blood pressure task Care Plan Weekly blood pressure task No Malcolm Espino Patient has chronic kidney disease Care Plan Patient has chronic kidney disease No Malcolm Espino Patient has chronic kidney disease Care Plan Patient has chronic kidney disease No Malcolm Espino documented as of this encounter Visit Diagnoses [...] 02/28/2025 Patient has chronic kidney disease 02/28/2025 Assessment Noted Time PHQ-9 Depression Total Score: 22 07/12/ 025 2:33 PM EDT documented as of this encounter Care Teams Etl Tester Relationship Specialty Start Date End Date Saima Rae MD [address] [place] [address] PCP - General Family Medicine 08/26/18 Pastor Zhou, Yordy [address] [place] [address] Pharmacist Internal Medicine 08/11/24 documented as of this encounter
--- OUTSIDE RECORDS SUMMARY | 2025-03-01 16:09 | XMS_ITS | Encounter Summary ---
Author Organization [employer] Address [address] [place] [address] 7 [place] [address] Care Team Providers Care Wood Inspector Name Role Phone Saima Rae MD Primary Care Provide r Pastor Zhou PharmD Unavailable [phone] Reason for Visit * Reason Comments Med Refill Encounter Details Date Type Department Care Team (Late st Contact Info) Description 12/20/2024 Refill [facility] [address] [place] [address] Saima Rae MD [address] [place] [address] Cervical stenosis of spinal canal; Chronic bilateral low back pain with bilateral sciatica Social History Tobacco Use Types Packs/Day Years [...] 3:30 PM EST Office Visit [facility] [address] [place] [address] Saima Rae MD [address] [place] [address] 04/25/2025 11:00 AM EST Office Visit [facility] [address] [place] [address] 07/28/2025 1:30 PM EDT [facility] [address] [place] [address] Jorge Pham documented as of this encounter Visit Diagnoses Diagnosis Cervical stenosis of spinal canal Spinal stenosis in cervical region Chronic bilateral low back pain with bilateral sciatica documented in this encounter Additional Health Concerns Assessment Noted Time PHQ-9 Depression Total Score: 22 025 2:33 PM EDT documented as of this encounter Care Teams Wood Inspector Relationship Specialty Start Date End Date Saima Rae MD [address] [place] [address] PCP - General Family Medicine 08/26/18 Pastor Zhou, LeighannD [address] [place] [address] Pharmacist Internal Medicine 08/11/24 documented as of this encounter
--- OUTSIDE RECORDS SUMMARY | 2025-03-01 16:09 | XMS_ITS | Encounter Summary ---
Author Organization [facility] Address [address] [place] [address] 7 [place] [address] Care Team Providers Care Agricultural Engineer Name Role Phone Saima Rae MD Primary Care Provide r Pastor Zhou PharmD Unavailable [phone] Encounter Details Date Type Department Care Team (Latest Contact Info) Description 03/01/2025 Travel Social History Tobacco Use Types Packs/Day [...] t he electric, gas, oil or water [employer] threatened to shut off services in your [...] Description 04/14/2025 3:30 PM EST Office Visit [address] [address] Saima Rae MD [address] [place] [address] 04/25/2025 11:00 AM EST Office Visit [address] [address] 07/28/2025 1:30 PM EDT Office Visit [facility]ULT [facility] [address] [place] [address] Jorge Pham documented as of this encounter Goals Goal Patient Goal Type Associated Problems Recent Progress Patient-Stated? Author Help patients manage their type 2 diabetes Care Plan Help patients manage their type 2 diabetes Ankit Renteria Weekly blood pressure task Care Plan Weekly blood pressure task Ankit Renteria Help patients manage their type 2 diabetes [...] Care Plan Weekly blood pressure task No Dev Gun, OD Weekly blood pressure task Care Plan Weekly blood pressure task No Riccardo, Tamiko, OD Patient has chronic kidney disease Care Plan Patient has chronic kidney disease No Riccardo, Tamiko, OD Patient has chronic kidney disease Care Plan Patient has chronic kidney disease No Dev Gun, OD Weekly blood pressure task Care Plan [...] Care Plan Weekly blood pressure task No ChelseauiEle schumacher Weekly blood pressure task Care Plan Weekly blood pressure task No SantiagoaguiEle schuamcher Patient has chronic kidney disease Care Plan Patient has chronic kidney disease No Juan CarlosaguiEle schumacher Patient has chronic kidney disease Care Plan Patient has chronic kidney disease No Juan CarlosaguiEle schumacher Weekly blood pressure task Care Plan Weekly blood pressure task No Zaire Patricia, CASING COOKER Weekly blood pressure task Care Plan Weekly blood pressure task No Zaire Patricia, CASING COOKER Patient has chronic kidney disease Care Plan Patient has chronic kidney disease No ZaireJaymie alegrianifer, CASING COOKER Patient has chronic kidney disease Care Plan Patient has chronic kidney disease No Zaire Patricia, CASING COOKER Weekly blood pressure task Care Plan Weekly blood pressure task No Eugene Chiu [facility] Weekly blood pressure task Care Plan Weekly blood pressure task No Eugene Chiu [facility] Patient has chronic kidney disease Care Plan Patient has chronic kidney disease No Eugene Chiu [facility] Patient has chronic kidney disease Care Plan Patient has chronic kidney disease No Eugene Chiu [facility] Weekly blood pressure task Care Plan Weekly blood pressure task No Pastor Zhou, PharmEmily Weekly blood pressure task Care Plan Weekly blood pressure task No Pastor Zhou, PharmD Patient has chronic kidney disease Care Plan Patient has chronic kidney disease No Pastor Zhou, PharmD Patient has chronic kidney disease Care Plan Patient has chronic kidney disease No Pastor Zhou, PharmEmily Weekly blood pressure task Care Plan Weekly [...] Plan Weekly blood pressure task No Enrique Smart FNP Weekly blood pressure task Care Plan Weekly blood pressure task No Enrique Smart FNP Patient has chronic kidney disease Care Plan Patient has chronic kidney disease No Enrique Smart FNP Patient has chronic kidney disease Care Plan Patient has chronic kidney disease No Enrique Smart FNP documented as of this encounter Visit Diagnoses [...] documented as of this encounter Care Teams Agricultural Engineer Relationship Specialty Start Date End Date Saima Rae MD [address] [place] [address] PCP - General Family Medicine 08/26/18 Pastor Zhou, Yordy [address] [place] [address] Pharmacist Internal Medicine 08/11/24 documented as of this encounter
--- OUTSIDE RECORDS SUMMARY | 2025-03-01 16:09 | XMS_ITS | Encounter Summary ---
Author Organization [employer] Address [address] [place] [address] 7 [place] [address] Care Team Providers Care Remote Computer Terminal Operator Name Role Phone Saima Rae MD Primary Care Provide r Pastor Zhou PharmD Unavailable [phone] Reason for Visit * Reason Comments Med Refill Encounter Details Date Type Department Care Team (Late st Contact Info) Description 02/21/2025 Refill [facility] [address] [place] [address] Saima Rae MD [address] [place] [address] Cervical stenosis of spinal canal; Chronic bilateral [...] Description 04/14/2025 3:30 PM EST Office Visit [facility] [address] [place] [address] Saima Rae MD [address] [place] [address] 04/25/2025 11:00 AM EST Office Visit [facility] [address] [place] [address] 07/28/2025 1:30 PM EDT Office Visit [facility] [address] [place] [address] Jorge Pham documented as of this encounter [...] Care Plan Weekly blood pressure task No Tamiko Gu OD Weekly blood pressure task Care Plan Weekly blood pressure task No Dev Gun, OD Patient has chronic kidney disease Care Plan Patient has chronic kidney disease No Dev Gun, OD Patient has chronic kidney disease Care Plan Patient has chronic kidney disease No Dev Gun, OD Weekly blood pressure task Care Plan Weekly blood pressure task No ChelseauiEle schumacher Weekly blood pressure task Care Plan Weekly blood pressure task No Ele Red Patient has chronic kidney disease Care Plan Patient has chronic kidney disease No ChelseauiEle schumacher Patient has chronic kidney disease Care Plan Patient has chronic kidney disease No Ele Red Weekly blood pressure task Care Plan Weekly blood pressure task No ChelseauiEle schumacher Weekly blood pressure task Care Plan Weekly blood pressure task No ChelseauiEle schumacher Patient has chronic kidney disease Care Plan Patient has chronic kidney disease No Ele Red Patient has chronic kidney disease Care Plan Patient has chronic kidney disease No ChelseauiEle schumahcer Weekly blood pressure task Care Plan Weekly [...] Plan Weekly blood pressure task No Svetlana Wood, RN Weekly blood pressure task Care Plan Weekly blood pressure task No Svetlana Wood, RN Patient has chronic kidney disease Care Plan Patient has chronic kidney disease No Svetlana Wood RN Patient has chronic kidney disease Care Plan Patient has chronic kidney disease No Svetlana Wood RN Weekly blood pressure task Care Plan Weekly blood pressure task No Colon JorgensenVicki bearden Weekly blood pressure task Care Plan Weekly blood pressure task No Colon Jorgensen, Vicki Patient has chronic kidney disease Care Plan Patient has chronic kidney disease No Colon Jameel, Vicki Patient has chronic kidney disease Care [...] chronic kidney disease No Patricia Tai LPN documented as of this encounter Visit [...] documented as of this encounter Care Teams Remote Computer Terminal Operator Relationship Specialty Start Date End Date Saima Rae MD [address] [place] [address] PCP - General Family Medicine 08/26/18 Pastor Zhou, PharmD [address] [place] [address] Pharmacist Internal Medicine 08/11/24 documented as of this encounter
--- OUTSIDE RECORDS SUMMARY | 2025-03-01 16:09 | XMS_ITS | Encounter Summary ---
Author Organization [employer] Address [address] [place] [address] 7 [place] [address] Care Team Providers Care Sixth Grade Teacher Name Role Phone Saima Rae MD Primary Care Provide r Pastor Zhou PharmD Unavailable [phone] Reason for Visit * Reason Onset Date Comments Med Refill 09/15/2023 Encounter Details Date Type Department Care Team (Late st Contact Info) Description 09/15/2023 Telephone [facility] [address] [place], [place] [phone] Saima aRe MD [address] [place], [place] [phone] Med Refill Social History Tobacco Use Types [...] 5 % patch To be sent to: [facility]/pharmacy #[id number] documented in this encounter Plan of Treatment Upcoming Encounters Date Type Department Care Team (Late st Contact Info) Description 04/14/2025 3:30 PM EST Office Visit [facility] [address] [place] [address] Saima Rae MD [address] [place] [address] 04/25/2025 11:00 AM EST Office Visit [facility] [address] [place] [phone] 07/28/2025 1:30 PM EDT Office Visit [facility] [address] [place] [address] Jorge Pham documented as of this encounter Visit Diagnoses Not on filedocumented in this encounter Additional Health Concerns Assessment Noted Time PHQ-9 Depression Total Score: 15 023 3:30 PM EST documented as of this encounter Care Teams Sixth Grade Teacher Relationship Specialty Start Date End Date Saima Rae MD [address] [place] [address] PCP - General Family Medicine 08/26/18 Pastor Zhou, LeighannD [address] [place] [address] Pharmacist Internal Medicine 08/11/24 documented as of this encounter
--- OUTSIDE RECORDS SUMMARY | 2025-03-01 16:09 | XMS_ITS | Encounter Summary ---
Author Organization [employer] Address [address] [place] [address] 7 [place] [address] Care Team Providers Care Cellophane Wrapping Examiner Name Role Phone Saima Rae MD Primary Care Provide r Pastor Zhou PharmD Unavailable [phone] Reason for Visit * Reason Onset Date Comments Appointment Request 03/12/2022 Encounter Details Date Type Department Care Team ([facility] st Contact Info) Description 03/12/2022 Telephone [facility] MEDICINE 230 [place], [place] [phone] Saima Rae MD 230 [place], [place] [phone] Appointment Request Social History Tobacco Use Types [...] appt 02/19/22 11:30 Please contact pt at [phone] documented in this encounter Plan of Treatment Upcoming Encounters Date Type Department Care Team (Late st Contact Info) Description 04/14/2025 3:30 PM EST Office Visit [facility] MEDICINE [address] [place] [address] Saima Rae MD [address] [place] [address] 04/25/2025 11:00 AM EST Office Visit [facility] [address] [place] [address] 07/28/2025 1:30 PM EDT Office Visit [facility] D[facility] [address] [place] [address] Jorge Pham documented as of this encounter Visit Diagnoses Not on filedocumented in this encounter Care Teams Cellophane Wrapping Examiner Relationship Specialty Start Date End Date Saima Rae MD [address] [place] [phone] PCP - General Family Medicine 08/26/18 Pastor Zhou, LeighannD [address] [place] [phone] Pharmacist Internal Medicine 08/11/24 documented as of this encounter
--- OUTSIDE RECORDS SUMMARY | 2025-03-01 16:09 | XMS_ITS | Encounter Summary ---
Author Organization [employer] Address [address] [place] [address] 7 [place] [address] Care Team Providers Care Wire Weaver Name Role Phone Saima Rae MD Primary Care Provide r Pastor Zhou PharmD Unavailable [phone] Reason for Visit * Reason Onset Date Comments Med Refill 03/25/2024 Encounter Details Date Type Department Care Team (Late st Contact Info) Description 03/25/2024 Refill [facility] MEDICINE 230 [place], [place] [phone] Saima Rae MD 230 [place], [place] [phone] Fibromyalgia Social History Tobacco Use Types Packs/Day [...] with others, in a hotel, in a alf, living outside on the street, on a [...] MG DR capsule To be sent to: [facility] - [place], [place] - [address] documented in this encounter Plan of Treatment Upcoming Encounters Date Type Department Care Team (Late st Contact Info) Description 04/14/2025 3:30 PM EST Office Visit [address] [address] Saima Rae MD [address] [place] [address] 04/25/2025 11:00 AM EST Office Visit [address] [address] 07/28/2025 1:30 PM EDT Office Visit [facility]ULT D[facility] [address] [place] [address] Jorge Pham documented as of this encounter Visit Diagnoses Diagnosis Fibromyalgia Unspecified myalgia and myositis documented in this encounter Additional Health Concerns Assessment Noted Time PHQ-9 Depression Total Score: 19 024 2:18 PM EST documented as of this encounter Care Teams Wire Weaver Relationship Specialty Start Date End Date Saima Rae MD [address] [place] [address] PCP - General Family Medicine 08/26/18 Pastor Zhou, PharmD [address] [place] [address] Pharmacist Internal Medicine 08/11/24 documented as of this encounter
--- OUTSIDE RECORDS SUMMARY | 2025-03-01 16:09 | XMS_ITS | Encounter Summary ---
Author Organization [employer] Address [address] [place] [address] 7 [place] [address] Care Team Providers Care Manager Services Name Role Phone Saima Rae MD Primary Care Provide r Pastor Zhou PharmD Unavailable [phone] Reason for Visit * Reason Comments Med Refill Encounter Details Date Type Department Care Team (Late st Contact Info) Description 01/14/2025 Refill [facility] 230 [place] [address] Bhavna Martinez MD 230 [place] [address] Social History Tobacco Use Types Packs/Day Years [...] Description 04/14/2025 3:30 PM EST Office Visit [facility] [address] [place] [address] Saima Rae MD [address] [place] [address] 04/25/2025 11:00 AM EST Office Visit [address] [address] 07/28/2025 1:30 PM EDT Office Visit [facility] [address] [place] [address] Jorge Pham documented as of this encounter [...] has chronic kidney disease No Jayesh Lewis documented as of this encounter Visit Diagnoses [...] 01/13/2025 Patient has chronic kidney disease 01/13/2025 Assessment Noted Time PHQ-9 Depression Total Score: 22 025 2:33 PM EDT documented as of this encounter Care Teams Manager Services Relationship Specialty Start Date End Date Saima Rae MD 230 [place] [address] PCP - General Family Medicine 08/26/18 Pastor Zhou, LeighannD 230 [place] [address] Pharmacist Internal Medicine 08/11/24 documented as of this encounter
--- OUTSIDE RECORDS SUMMARY | 2025-03-01 16:09 | XMS_ITS | Encounter Summary ---
Author Organization [employer] Address [address] [place] [address] 7 [place] [address] Care Team Providers Care Microsoft Exchange Architect Name Role Phone Saima Rae MD Primary Care Provide r Pastor Zhou PharmD Unavailable [phone] Reason for Visit * Reason Onset Date Comments returning 03/13/2022 Encounter Details Date Type Department Care Team ([facility] st Contact Info) Description 03/13/2022 Telephone [facility]INE 230 [place], [place] [phone] Saima Rae MD 230 [place], [place] [phone] returning Social History Tobacco Use Types Packs/Day [...] being at work Please contact pt at [phone] documented in this encounter Plan of Treatment Upcoming Encounters Date Type Department Care Team (Late st Contact Info) Description 04/14/2025 3:30 PM EST Office Visit [facility] [address] [place] [address] Saima Rae MD [address] [place] [address] 04/25/2025 11:00 AM EST Office Visit [facility] [address] [place] [address] 07/28/2025 1:30 PM EDT Office Visit [facility] ADULT DENTAL [address] [place] [address] Jorge Pham documented as of this encounter Visit Diagnoses Not on filedocumented in this encounter Care Teams Microsoft Exchange Architect Relationship Specialty Start Date End Date Saima Rae MD [address] [place] [address] [phone] PCP - General Family Medicine 08/26/18 Pastor Zhou, PharmD [address] [place] [address] [phone] Pharmacist Internal Medicine 08/11/24 documented as of this encounter
--- OUTSIDE RECORDS SUMMARY | 2025-03-01 16:09 | XMS_ITS | Encounter Summary ---
Author Organization [employer] Address [address] [place] [address] 7 [place] [address] Care Team Providers Care Supervisor Assembly Department Name Role Phone Saima Rae MD Primary Care Provide r Pastor Zhou PharmD Unavailable [phone] Reason for Visit * Reason Comments Med Refill Encounter Details Date Type Department Care Team (Late st Contact Info) Description 03/25/2024 Refill [facility]INE 230 [place], [place] [phone] Bhavna Martinez MD 230 [place] [address] Fibromyalgia Social History Tobacco Use Types Packs/Day [...] Description 04/14/2025 3:30 PM EST Office Visit [facility] MEDICINE [address] [place] [address] Saima Rae MD [address] [place] [address] 04/25/2025 11:00 AM EST Office Visit [facility] MEDICINE [address] [place] [address] 07/28/2025 1:30 PM EDT Office Visit [facility] ADULT DENTAL [address] [place] [address] Jorge Pham documented as of this encounter Visit Diagnoses Diagnosis Fibromyalgia Unspecified myalgia and myositis documented in this encounter Additional Health Concerns Assessment Noted Time PHQ-9 Depression Total Score: 19 024 2:18 PM EST documented as of this encounter Care Teams Supervisor Assembly Department Relationship Specialty Start Date End Date Saima Rae MD 230 [place] [address] PCP - General Family Medicine 08/26/18 Pastor Zhou, LeighannD 230 [place] [address] Pharmacist Internal Medicine 08/11/24 documented as of this encounter
--- OUTSIDE RECORDS SUMMARY | 2025-03-01 16:09 | XMS_ITS | Encounter Summary ---
Author Organization [employer] Address [address] [place] [address] 7 [place] [address] Care Team Providers Care Belt Dresser Name Role Phone Saima Rae MD Primary Care Provide r Pastor Zhou PharmD Unavailable [phone] Reason for Visit * Reason Onset Date Comments Nurse Triage 10/17/2024 Encounter Details Date Type Department Care Team (Late st Contact Info) Description 10/17/2024 Telephone [facility] 230 [place], [place] [phone] Saima Rae MD 230 [place], [place] [phone] Nurse Triage Social History Tobacco Use Types [...] [facility]. [facility] Pt is given hours open till 8pm this evening. Pt agrees to come to [facility] this evening. Pt agrees with disposition and [...] caller accepted this outcome. Contact pt at [phone] (denied appeals representative) documented in this encounter Plan of Treatment Upcoming Encounters Date Type Department Care Team (Late st Contact Info) Description 04/14/2025 3:30 PM EST Office Visit [facility] 230 [place] [address] Saima Rae MD [address] [place] [address] 04/25/2025 11:00 AM EST Office Visit [facility] 230 [place] [address] 07/28/2025 1:30 PM EDT Office Visit [facility] ADULT DENTAL [address] [place] [address] Jorge Pham documented as of this encounter Visit Diagnoses Not on filedocumented in this encounter Additional Health Concerns Assessment Noted Time PHQ-9 Depression Total Score: 22 025 2:33 PM EDT documented as of this encounter Care Teams Belt Dresser Relationship Specialty Start Date End Date Saima Rae MD 230 [place], [place] [phone] PCP - General Family Medicine 08/26/18 Pastor Zhou, Yordy 230 [place] [address] Pharmacist Internal Medicine 08/11/24 documented as of this encounter
--- OUTSIDE RECORDS SUMMARY | 2025-03-01 16:09 | XMS_ITS | Encounter Summary ---
Author Organization [employer] Address [address] [place] [address] 7 [place] [address] Care Team Providers Care It Architecture Analyst Name Role Phone Saima Rae MD Primary Care Provide r Pastor Zhou PharmD Unavailable Reason for Visit * Reason Comments Med Refill Encounter Details Date Type Department Care Team (Late st Contact Info) Description 06/27/2024 Refill [facility] 230 [place], [place] [phone] Saima Rae MD 230 [place], [place] [phone] Fibromyalgia Social History Tobacco Use Types Packs/Day [...] Description 04/14/2025 3:30 PM EST Office Visit [facility] [address] [place] [address] Saima Rae MD [address] [place] [address] 04/25/2025 11:00 AM EST Office Visit [facility] [address] [place] [address] 07/28/2025 1:30 PM EDT Office Visit [facility] [address] [place] [address] Jorge Pham documented as of this encounter Visit Diagnoses Diagnosis Fibromyalgia Unspecified myalgia and myositis documented in this encounter Additional Health Concerns Assessment Noted Time PHQ-9 Depression Total Score: 17 025 1:24 PM EST documented as of this encounter Care Teams It Architecture Analyst Relationship Specialty Start Date End Date Saima Rae MD 230 [place] [address] PCP - General Family Medicine 08/26/18 Pastor Zhou, LeighannD 230 [place] [address] Pharmacist Internal Medicine 08/11/24 documented as of this encounter
--- OUTSIDE RECORDS SUMMARY | 2025-03-01 16:10 | XMS_ITS | Encounter Summary ---
Author Organization [employer] Address [address] [place] [address] 7 [place] [address] Care Team Providers Care Linseed Oil Temperer Name Role Phone Saima Rae MD Primary Care Provide r Pastor Zhou PharmD Unavailable [phone] Reason for Visit * Reason Comments Med Refill Encounter Details Date Type Department Care Team (Late st Contact Info) Description 11/28/2024 Refill [facility] 230 [place] [address] Bhavna Martinez MD 230 [place] [address] Social History Tobacco Use Types Packs/Day Years [...] with others, in a hotel, in a penitentiary, living outside on the street, on a [...] Description 04/14/2025 3:30 PM EST Office Visit [facility] [address] [place] [address] Saima Rae MD [address] [place] [address] 04/25/2025 11:00 AM EST Office Visit [address] [address] 07/28/2025 1:30 PM EDT Office Visit [facility] [address] [place] [address] Jorge Pham documented as of this encounter Visit Diagnoses Not on filedocumented in this encounter Additional Health Concerns Assessment Noted Time PHQ-9 Depression Total Score: 22 025 2:33 PM EDT documented as of this encounter Care Teams Linseed Oil Temperer Relationship Specialty Start Date End Date Saima Rae MD 230 [place] [address] PCP - General Family Medicine 08/26/18 Pastor Zhou, LeighannD 230 [place] [address] Pharmacist Internal Medicine 08/11/24 documented as of this encounter
--- OUTSIDE RECORDS SUMMARY | 2025-03-01 16:10 | XMS_ITS | Encounter Summary ---
Author Organization [employer] Address [address] [place] [address] 7 [place] [address] Care Team Providers Care Serology Technician Name Role Phone Saima Rae MD Primary Care Provide r Pastor Zhou PharmD Unavailable [phone] Encounter Details Date Type Department Care Team (Late st Contact Info) Description 11/18/2024 Orders Only [facility]INE 230 [place] [address] Saima Rae MD 230 [place], [place] [phone] Social History Tobacco Use Types Packs/Day Years [...] Description 04/14/2025 3:30 PM EST Office Visit [facility] [address] [place] [address] Saima Rae MD [address] [place] [address] 04/25/2025 11:00 AM EST Office Visit [facility] [address] [place] [address] 07/28/2025 1:30 PM EDT Office Visit [facility] ADULT DENTAL [address] [place] [address] Jorge Pham documented as of this encounter Visit Diagnoses Not on filedocumented in this encounter Additional Health Concerns Assessment Noted Time PHQ-9 Depression Total Score: 22 025 2:33 PM EDT documented as of this encounter Care Teams Serology Technician Relationship Specialty Start Date End Date Saima Rae MD 230 [place] [address] PCP - General Family Medicine 08/26/18 Pastor Zhou, LegihannD 230 [place] [address] Pharmacist Internal Medicine 08/11/24 documented as of this encounter
--- OUTSIDE RECORDS SUMMARY | 2025-03-01 16:10 | XMS_ITS | Encounter Summary ---
Author Organization [employer] Address [address] [place] [address] 7 [place] [address] Care Team Providers Care Butter Liquefier Name Role Phone Saima Rae MD Primary Care Provide r Pastor Zhou PharmD Unavailable [phone] Reason for Visit * Reason Comments Med Refill Encounter Details Date Type Department Care Team (Late st Contact Info) Description 08/04/2023 Refill [facility] 230 [place], [place] [phone] Saima Rae MD 230 [place], [place] [phone] Primary insomnia Social History Tobacco Use Types [...] Description 04/14/2025 3:30 PM EST Office Visit [facility] [address] [place] [address] Saima Rae MD [address] [place] [address] 04/25/2025 11:00 AM EST Office Visit [address] [address] 07/28/2025 1:30 PM EDT Office Visit [facility] ADULT DENTAL [address] [place] [address] Jorge Pham documented as of this encounter Visit Diagnoses Diagnosis Primary insomnia Persistent disorder of initiating or maintaining sleep documented in this encounter Additional Health Concerns Assessment Noted Time PHQ-9 Depression Total Score: 15 023 3:30 PM EST documented as of this encounter Care Teams Butter Liquefier Relationship Specialty Start Date End Date Saima Rae MD [address] [place] [address] PCP - General Family Medicine 08/26/18 Pastor Zhou, PharmD [address] [place] [address] Pharmacist Internal Medicine 08/11/24 documented as of this encounter
--- OUTSIDE RECORDS SUMMARY | 2025-03-01 16:10 | XMS_ITS | Encounter Summary ---
Author Organization [employer] Address [address] [place] [address] 7 [place] [address] Care Team Providers Care Market Risk Analyst Name Role Phone Saima Rae MD Primary Care Provide r Pastor Zhou PharmD Unavailable [phone] Reason for Visit * Reason Comments Med Refill Encounter Details Date Type Department Care Team (Late st Contact Info) Description 11/28/2024 Refill [facility] MEDICINE 230 [place], [place] [phone] Saima Rae MD 230 [place], [place] [phone] Social History Tobacco Use Types Packs/Day Years [...] Description 04/14/2025 3:30 PM EST Office Visit [facility] MEDICINE [address] [place] [address] Saima Rae MD [address] [place] [address] 04/25/2025 11:00 AM EST Office Visit [facility] MEDICINE [address] [place] [address] 07/28/2025 1:30 PM EDT Office Visit [facility] ADULT DENTAL [address] [place] [address] Jorge Pham documented as of this encounter Visit Diagnoses Not on filedocumented in this encounter Additional Health Concerns Assessment Noted Time PHQ-9 Depression Total Score: 22 025 2:33 PM EDT documented as of this encounter Care Teams Market Risk Analyst Relationship Specialty Start Date End Date Saima Rae MD 230 [place] [address] PCP - General Family Medicine 08/26/18 Pastor Zhou, LeighannD 230 [place] [address] Pharmacist Internal Medicine 08/11/24 documented as of this encounter
--- OUTSIDE RECORDS SUMMARY | 2025-03-01 16:10 | XMS_ITS | Encounter Summary ---
Author Organization [employer] Address [address] [place] [address] 7 [place] [address] Care Team Providers Care Medical Record Technician Name Role Phone Saima Rae MD Primary Care Provide r Pastor Zhou PharmD Unavailable [phone] Reason for Visit * Reason Comments Med Refill Encounter Details Date Type Department Care Team (Late st Contact Info) Description 10/05/2024 Refill [facility] 230 [place], [place] [phone] Saima Rae MD 230 [place], [place] [phone] Type 2 diabetes mellitus with hyperglycemia, without long-term current use of insulin ([facility]) Social History Tobacco Use Types Packs/Day [...] Description 04/14/2025 3:30 PM EST Office Visit [facility]INE [address] [place] [address] Saima Rae MD [address] [place] [address] 04/25/2025 11:00 AM EST Office Visit [facility]INE [address] [place] [address] 07/28/2025 1:30 PM EDT Office Visit [facility] [address] [place] [address] Jorge Pham documented as of this encounter Visit Diagnoses Diagnosis Type 2 diabetes mellitus with hyperglycemia, without long-term current use of insulin (HCC) documented in this encounter Additional Health Concerns Assessment Noted Time PHQ-9 Depression Total Score: 22 07/12/ 025 2:33 PM EDT documented as of this encounter Care Teams Medical Record Technician Relationship Specialty Start Date End Date Saima Rae MD [address] [place] [address] PCP - General Family Medicine 08/26/18 Pastor Zhou, LeighannD [address] [place] [address] Pharmacist Internal Medicine 08/11/24 documented as of this encounter
--- OUTSIDE RECORDS SUMMARY | 2025-03-01 16:10 | XMS_ITS | Encounter Summary ---
Author Organization [employer] Address [address] [place] [address] 7 [place] [address] Care Team Providers Care Wind Commissioning Technician Name Role Phone Saima Rae MD Primary Care Provide r Pastor Zhou PharmD Unavailable Reason for Visit * Reason Comments Med Refill Encounter Details Date Type Department Care Team (Late st Contact Info) Description 02/14/2023 Refill [facility] [address] [place] [address] Ania Balderas MD [address] [place] [address] [phone] Muscle spasm Social History Tobacco Use Types [...] 04/14/2025 3:30 PM EST Office Visit [facility]INE [address] [place] [address] [phone] Saima Rae MD [address] [place] [address] 04/25/2025 11:00 AM EST Office Visit [facility]INE 230 [place] [address] 07/28/2025 1:30 PM EDT Office Visit [facility] ADULT DENTAL [address] [place] [address] Jorge Pham documented as of this encounter Visit Diagnoses Diagnosis Muscle spasm Spasm of muscle documented in this encounter Care Teams Wind Commissioning Technician Relationship Specialty Start Date End Date Saima Rae MD [address] [place] [address] PCP - General Family Medicine 08/26/18 Pastor Zhou, Yordy [address] [place] [address] Pharmacist Internal Medicine 08/11/24 documented as of this encounter
--- OUTSIDE RECORDS SUMMARY | 2025-03-01 16:10 | XMS_ITS | Encounter Summary ---
Author Organization [employer] Address [address] [place] [address] 7 [place] [address] Care Team Providers Care Cardiovascular Surgical Tech Name Role Phone Saima Rae MD Primary Care Provide r Pastor Zhou PharmD Unavailable Reason for Visit * Reason Comments Med Refill Encounter Details Date Type Department Care Team (Late st Contact Info) Description 12/16/2022 Refill [facility] [address] [place] [address] [phone] Marcia Valdes MD [address] [place] [address] [phone] Fibromyalgia Social History Tobacco Use Types Packs/Day [...] Description 04/14/2025 3:30 PM EST Office Visit [facility]ICINE [address] [place] [address] [phone] Saima Rae MD [address] [place] [address] 04/25/2025 11:00 AM EST Office Visit [facility] 230 [place] [address] 07/28/2025 1:30 PM EDT Office Visit [facility] ADULT DENTAL [address] [place] [address] Jorge Pham documented as of this encounter Visit Diagnoses Diagnosis Fibromyalgia Unspecified myalgia and myositis documented in this encounter Care Teams Cardiovascular Surgical Tech Relationship Specialty Start Date End Date Saima Rae MD [address] [place] [address] PCP - General Family Medicine 08/26/18 Pastor Zhou, LeighannD [address] [place] [address] Pharmacist Internal Medicine 08/11/24 documented as of this encounter
--- OUTSIDE RECORDS SUMMARY | 2025-03-01 16:10 | XMS_ITS | Encounter Summary ---
Author Organization [employer] Address [address] [place] [address] 7 [place] [address] Care Team Providers Care Kids Activities Coach Name Role Phone Saima Rae MD Primary Care Provide r Pastor Zhou PharmD Unavailable [phone] Reason for Visit * Reason Comments Med Change Request Encounter Details Date Type Department Care Team ([facility] st Contact Info) Description 01/20/2024 Refill [facility] 230 [place], [place] [phone] Saima Rae MD 230 [place], [place] [phone] Type 2 diabetes mellitus without complication, unspecified whether snf insulin use ([facility]) Social History Tobacco Use Types [...] the past 12 months, has t he Piggy[employer]r, gas, oil or water company threatened to [...] PM EST Office Visit [facility] [address] [place] [address] Saima Rae MD [address] [place] [address] 04/25/2025 11:00 AM EST Office Visit [facility] [address] [place] [address] 07/28/2025 1:30 PM EDT Office Visit [facility] 505 [place] [address] Jorge Pham documented as of this encounter Visit Diagnoses Diagnosis Type 2 diabetes mellitus without complication, unspecified whether snf insulin use documented in this encounter Additional Health Concerns Assessment Noted Time PHQ-9 Depression Total Score: 15 023 3:30 PM EST documented as of this encounter Care Teams Kids Activities Coach Relationship Specialty Start Date End Date Saima Rae MD [address] [place] [address] PCP - General Family Medicine 08/26/18 Pastor Zhou, LeighannD [address] [place] [address] [place] [address] Pharmacist Internal Medicine 08/11/24 documented as of this encounter
--- OUTSIDE RECORDS SUMMARY | 2025-03-01 16:10 | XMS_ITS | Encounter Summary ---
Author Organization [employer] Address [address] [place] [address] 7 [place] [address] Care Team Providers Care Mail Distributor Name Role Phone Saima Rae MD Primary Care Provide r Pastor Zhou PharmD Unavailable [phone] Reason for Visit * Reason Onset Date Comments Nurse Triage 01/05/2024 Encounter Details Date Type Department Care Team (Late st Contact Info) Description 01/05/2024 Telephone [facility]INE 230 [place], [place] [phone] Saima Rae MD 230 [place], [place] [phone] Nurse Triage Social History Tobacco Use Types [...] 01/25/24. Pt is advised to come to [facility] to be seen byprovider and to request written note for extension of leave from work. Pt agrees with this advice, home care already implemented. Pt agrees with disposition and will come to [facility] which is open till 8pm [...] Description 04/14/2025 3:30 PM EST Office Visit [address] [address] Saima Rae MD [address] [place] [address] 04/25/2025 11:00 AM EST Office Visit [address] [address] 07/28/2025 1:30 PM EDT Office Visit [facility]ULT [facility] 505 [place] [address] Jorge Pham documented as of this encounter Visit Diagnoses Not on filedocumented in this encounter Additional Health Concerns Assessment Noted Time PHQ-9 Depression Total Score: 15 023 3:30 PM EST documented as of this encounter Care Teams Mail Distributor Relationship Specialty Start Date End Date Saima Rae MD [address] [place] [address] PCP - General Family Medicine 08/26/18 Pastor Zhou, PharmD [address] [place] [address] Pharmacist Internal Medicine 08/11/24 documented as of this encounter
--- OUTSIDE RECORDS SUMMARY | 2025-03-01 16:10 | XMS_ITS | Encounter Summary ---
Author Organization [employer] Address [address] [place] [address] 7 [place] [address] Care Team Providers Care Director Of Category Management Name Role Phone Saima Rae MD Primary Care Provide r Pastor Zhou PharmD Unavailable [phone] Reason for Visit * Reason Onset Date Comments BPI scoring, [facility] 04/07/2023 Encounter Details Date Type Department Care Team (Late st Contact Info) Description 04/07/2023 Refill [facility] [address] [place], [place] [phone] Patricia Haas DO [address] [place] [address] Social History Tobacco Use Types Packs/Day Years [...] the past 12 months, has t he [email or web address], gas, oil or water [employer] threatened to shut off services in your [...] - 04/16/2023 1:51 PM EST Pt had [employer] today BPI updated today. Pain severity [...] Description 04/14/2025 3:30 PM EST Office Visit [facility] [address] [place] [phone] Saima Rea MD [address] [place] [phone] 04/25/2025 11:00 AM EST Office Visit [facility] [address] [place] [phone] 07/28/2025 1:30 PM EDT Office Visit [facility] [address] [place] [address] Jorge Pham documented as of this encounter Visit Diagnoses Not on filedocumented in this encounter Additional Health Concerns Assessment Noted Time PHQ-9 Depression Total Score: 15 023 3:30 PM EST documented as of this encounter Care Teams Director Of Category Management Relationship Specialty Start Date End Date Saima Rae MD [address] [place] [phone] PCP - General Family Medicine 08/26/18 Pastor Zhou, LeighannD [address] [place] [phone] Pharmacist Internal Medicine 08/11/24 documented as of this encounter
--- OUTSIDE RECORDS SUMMARY | 2025-03-01 16:10 | XMS_ITS | Encounter Summary ---
Author Organization [email or web address] Address [address] [place] [address] 7 [place] [address] Care Team Providers Care [employer] Efficient Aircraft Designer Name Role Phone Saima Rae MD Primary Care Provide r Pastor Zhou PharmD Unavailable [phone] Encounter Details Date Type Department Care Team ([facility] st Contact Info) Description 02/02/2024 Orders Only [facility] [address] [place], [place] [phone] Saima Rae MD [address] [place], [place] [phone] Social History Tobacco Use Types Packs/Day Years [...] Description 04/14/2025 3:30 PM EST Office Visit [facility] [address] [place] [phone] Saima Rae MD [address] [place] [phone] 04/25/2025 11:00 AM EST Office Visit [address] [address] 07/28/2025 1:30 PM EDT Office Visit [facility] [address] [place] [address] Jorge Pham documented as of this encounter Visit Diagnoses Not on filedocumented in this encounter Additional Health Concerns Assessment Noted Time PHQ-9 Depression Total Score: 15 023 3:30 PM EST documented as of this encounter Care Teams [employer] E[employer]er Relationship Specialty Start Date End Date Saima Rae MD [address] [place] [phone] PCP - General Family Medicine 08/26/18 Pastor Zhou, PharmD [address] [place] [phone] Pharmacist Internal Medicine 08/11/24 documented as of this encounter
--- OUTSIDE RECORDS SUMMARY | 2025-03-01 16:10 | XMS_ITS | Encounter Summary ---
Author Organization [employer] Address [address] [place] [address] 7 [place] [address] Care Team Providers Care Consulting Solution Director Name Role Phone Saima Rae MD Primary Care Provide r Pastor Zhou PharmD Unavailable [phone] Reason for Visit * Reason Onset Date Comments Nurse Triage 02/02/2024 Encounter Details Date Type Department Care Team (Late st Contact Info) Description 02/02/2024 Telephone [facility] [address] [place], [place] [phone] Saima Rae MD [address] [place], [place] [phone] Nurse Triage Social History Tobacco Use Types [...] 12:39 PM EST TC placed to pt [phone] in regards to below message. Pt was in the clinic on the red team for a visit with [facility]TER. RN went to [facility] [facility] room and spoke to patient in person. Patient is requesting an urgent appointment with Dr. Maicol ARZOLA. Patient reports she used to live in [place] and tested positive forlupus >10 years ago. Patient reports she moved here and was tested for lupus and it was negative. Patient does not believe results are accurate. Patient reports she saw [facility] rheumatology and was informed she has fibromyalgia. Patient feels something more is going on. Patient reports all over body pain which she takes pain medication for however she does NOT want to live on pain medication. Patient reports the medication Rx'd by [facility] rheumatology she does not like because if she skips a dose she hears ringing in her ear. Patient reports she informed [facility] rheumatology of concern with medication and believes they will change it at her next appointment. Patient reports she sees [facility] rheumatology once a year. Patient reports she [...] to check for cancellations or go to [facility]. Patient continues to REFUSE any [...] Dr. Milian. Pt declines to go to [facility] to be seen and is [...] caller accepted this outcome. Contact pt at [phone] (Palestinian) documented in this encounter Plan of Treatment Upcoming Encounters Date Type Department Care Team (Late st Contact Info) Description 04/14/2025 3:30 PM EST Office Visit [facility] [address] [place] [phone] Saima Rae MD [address] [place] [phone] 04/25/2025 11:00 AM EST Office Visit [address] [address] 07/28/2025 1:30 PM EDT Office Visit [facility] [address] [place] [address] Jorge Pham documented as of this encounter Visit Diagnoses Not on filedocumented in this encounter Additional Health Concerns Assessment Noted Time PHQ-9 Depression Total Score: 15 023 3:30 PM EST documented as of this encounter Care Teams Consulting Solution Director Relationship Specialty Start Date End Date Saima Rae MD [address] [place] [phone] PCP - General Family Medicine 08/26/18 Pastor Zhou, PharmD [address] [place] [phone] Pharmacist Internal Medicine 08/11/24 documented as of this encounter
--- OUTSIDE RECORDS SUMMARY | 2025-03-01 16:10 | XMS_ITS | Clinical Summary ---
Author Organization [employer] Address [address] [place] [address] 7 [place] [address] Care Team Providers Care Community Assistant Name Role Phone Saima Rae MD Primary Care Provide r Pastor Zhou PharmD Unavailable [phone] Allergies No known active allergies Medications * This document contains information received from the source organization and may not represent a complete record from that organization. naloxone (Narcan) 4 mg/0.1 mL nasal spray Administer 1 spray (4 mg) into affected nostril(s) if needed for opioid reversal. 2 each 2 023 Active Continuous Glucose Collision Repair Technician (FreeStyle Dary 3 [place]) deviceIndicatio ns:Type 2 diabetes mellitus with hyperglycemia, without long-term current use of insulin ([facility]) 1 each Once per day. Use as directed for CGM 1 each 025 Active Continuous Glucose Sensor (FreeStyle Dary 3 Plus Sensor) miscIndications :Type 2 diabetes mellitus with hyperglycemia, without long-term current use of insulin (HCC) 1 each every 15 days. Apply 1 every 15 days as directed for CGM 2 each 02/09/20 25 4:50 PM EST 025 Active empagliflozin (Jardiance) 25 MGIndications:T ype 2 diabetes mellitus with hyperglycemia, without long-term current use of insulin (HCC) Take 1 tablet (25 mg) by mouth Once per day. 30 tablet 02/09/20 25 4:50 PM EST 025 2025 Active Blood Glucose Monitoring Suppl (FreeStyle Lite) w/Device kit 1 each Use as directed. 1 kit Active pen needle 31G x 5 mm miscIndications :Type 2 diabetes mellitus with hyperglycemia, without long-term current use of insulin (HCC) Use as instructed 100 each 12 025 2025 Active sertraline (Zoloft) 25 MG tabletIndicatio ns:Mixed anxiety and depressive disorder Take 1 tablet (25 mg) by mouth in the morning. 90 tablet Active Additional Information Patient not taking.Reported on 02/16/2025 Lancets 33G misc Use to test blood [...] low blood sugar. 30 tablet 2 Active lidocaine (Lidoderm) 5 % patchIndication s:Fibromyalgia APPLY 1 PATCH TOPICALLY IN THE MORNING 30 patch 3 Active traZODone (Desyrel) 150 MG tabletIndicatio ns:Primary insomnia Take 1 tablet (150 mg) by mouth if needed at bedtime for sleep. 30 tablet 1 Active Additional Information Patient not taking.Reported on 02/16/2025 atenolol (Tenormin) 25 MG tabletIndicatio ns:Essential hypertension TAKE 1 TABLET BY MOUTH EVERY DAY 90 tablet 1 025 Active budesonide-form oterol (Symbicort) 160-4.5 MCG/ACT inhalerIndicati ons:Acute cough Inhale 2 puffs in the morning and at bedtime. May use additional 2 puffs q 20 mins for 3 doses as needed shortness of breath and wheezing. Do not use more than 12 inhalations in 24 hrs. Rinse mouth with water and spit after use. 1 each 1 025 2025 Active glucose blood (FreeStyle Precision Moi Test) test stripIndication s:Type 2 diabetes mellitus with hyperglycemia, without long-term current use of insulin (HCC) Use to test blood sugar 3 times daily in case of CGM failure or extremes of BG 100 each 11 025 2025 Active Acetaminophen Extra Strength 500 MG tablet TAKE 1 TABLET BY MOUTH EVERY 6 HOURS IF NEEDED FOR MILD PAIN. 120 tablet Active Alcohol Swabs (Alcohol Pads) 70 % padsIndications :Type 2 diabetes mellitus with hyperglycemia, with long-term current use of insulin (HCC) Use 4 times daily as directed 100 each 11 02/09/20 25 4:50 PM EST Active pantoprazole (ProtoNix) 40 MG EC tablet TOME JEANCARLOS TABLETA POR V A ORAL TODOS LOS D Active sucralfate (Carafate) 1 GM/10ML suspension TAKE 2 TEASPOONSFUL (10 ML) BY MOUTH 2 TIMES A DAY Active gabapentin (Neurontin) 800 MG tabletIndicatio ns:Fibromyalgia TAKE 1 TABLET BY MOUTH AT BEDTIME 30 tablet 3 Active Tirzepatide (Mounjaro) 7.5 MG/0.5ML solution auto-injectorIn dications:Type 2 diabetes mellitus with hyperglycemia, without long-term current use of insulin (HCC) Inject 7.5 mg under the skin 1 (one) time per week. 2 mL 3 01/14/20 25 5:46 PM EST Active fluticasone (Flonase) 50 MCG/ACT nasal spray ROCIAR 1 VEZ EN CADA FOSA NASAL A DIARIO 48 mL Active polyethylene glycol, PEG, 3350 (MiraLax) 17 GM/SCOOP powderIndicatio ns:Slow transit constipation Take 17 g by mouth Once per day. 527 g 2 025 2025 Active Tirzepatide (Mounjaro) 10 MG/0.5ML solution auto-injectorIn dications:Type 2 diabetes mellitus with hyperglycemia, with long-term current use of insulin (HCC) INJECT 0.5 ML (10 MG) UNDER THE SKIN ONCE A WEEK 2 mL 2 Active Multiple Vitamin (multivitamin) tabletIndicatio ns:Routine health maintenance Take 1 tablet by mouth Once per day. 90 tablet 2 025 2025 Active cyclobenzaprine (Flexeril) 10 MG tabletIndicatio ns:Muscle spasm TAKE 1 TABLET BY MOUTH THREE TIMES DAILY IN THE MORNING, AT NOON, AND AT BEDTIME NEEDED 90 tablet 1 Active insulin lispro (HumaLOG) 100 UNIT/ML injectionIndica tions:Type 2 diabetes mellitus with hyperglycemia, without long-term current use of insulin ([facility]) INJECT 4 UNITS SUBCUTANEOUSLY THREE TIMES DAILY, WITH BREAKFAST, WITH LUNCH AND WITH DINNER 15 mL 1 Active Ventolin HFA 108 (90 Base) MCG/ACT inhalerIndicati ons:Mild intermittent asthma, unspecified whether complicated INHALE 2 PUFFS BY MOUTH EVERY 4 HOURS NEEDED FOR WHEEZING OR SHORTNESS OF BREATH 18 g 1 Active D3 Super Strength 50 MCG (1999 UT) capsule TAKE 1 CAPSULE BY MOUTH EVERY MORNING 90 capsule 1 Active docusate sodium (Colace) 100 MG capsuleIndicati ons:Constipatio n, unspecified TAKE 1 CAPSULE BY MOUTH TWICE DAILY 180 capsule 1 Active Lantus SoloStar 100 UNIT/ML penIndications: Type 2 diabetes mellitus with hyperglycemia, without long-term current use of insulin ([facility]) INJECT 10 UNITS SUBCUTANEOUSLY ONCE DAILY AT BEDTIME 15 mL 1 Active oxyCODONE-aceta minophen (Percocet) 5-325 MG tabletIndicatio ns:Cervical stenosis of spinal canal,Chronic bilateral low back pain with bilateral sciatica Take 2 tablets by mouth every 12 (twelve) hours if needed for severe pain for up to 28 days. 112 tablet 025 2025 Active Diclofenac Sodium 1 % gelIndications: Fibromyalgia APPLY 2 GRAMS TOPICALLY TO THE AFFECTED AREA(S) TWICE A DAY 100 g 1 Active celecoxib (CeleBREX) 200 MG capsuleIndicati ons:Injury of right knee, initial encounter Take 1 capsule (200 mg) by mouth 2 times daily for 14 days. 28 capsule 025 2025 Active celecoxib (CeleBREX) 200 MG capsule TOME 1 C PSULA POR V A ORAL DOS VECES AL D A 024 2024 Discontinued(R eorder (will not trigger notification to Pharmacy)) docusate sodium (Colace) 100 MG capsuleIndicati ons:Constipatio n, unspecified TAKE 1 CAPSULE BY MOUTH TWICE A DAY 180 capsule 1 025 2024 Discontinued cholecalciferol VITAMIN D (Vitamin D-3) 50 MCG (2000 UT) capsule TAKE 1 CAPSULE BY MOUTH EVERY MORNING 90 capsule 1 025 2024 Discontinued Diclofenac Sodium 1 % gelIndications: Fibromyalgia APPLY 2 GRAMS TOPICALLY TO THE AFFECTED AREA(S) TWICE A DAY 100 g 1 025 2024 Discontinued Ventolin HFA 108 (90 Base) MCG/ACT inhalerIndicati ons:Mild intermittent asthma, unspecified whether complicated INHALE 2 PUFFS BY MOUTH EVERY 4 HOURS NEEDED FOR WHEEZING OR SHORTNESS OF BREATH 18 g 1 025 2024 Discontinued insulin glargine (Lantus SoloStar) 100 UNIT/ML penIndications: Type 2 diabetes mellitus with hyperglycemia, without long-term current use of insulin ([facility]) Inject 10 Units under the skin at bedtime. 3 mL 1 025 2024 Discontinued insulin lispro (HumaLOG KWIKPEN) 100 UNIT/ML injectionIndica tions:Type 2 diabetes mellitus with hyperglycemia, without long-term current use of insulin ([facility]) Inject 4 units subcutaneously once daily with largest meal of the day 15 each 1 025 2024 Discontinued oxyCODONE-aceta minophen (Percocet) 5-325 MG tabletIndicatio ns:Cervical stenosis of spinal canal,Chronic bilateral low back pain with bilateral sciatica Take 2 tablets by mouth every 12 (twelve) hours if needed for severe pain for up to 28 days. 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 Provider regarding decision of restarting the medication or not and to continue with trazodone 150 mg daily Continue to follow-up with therapist Lumbar facet arthropathy 05/11/2024 Assessment & Plan (05/11/2024 4:35 PM [...] current use of opiate analgesic 2023 Overview (12/13/2024): Medication: Percocet 10-325mg Q12H PRN Indication: fibromyalgia, cervical stenosis of spinal cord Controlled Substance Agreement 12/13/2024 Tier II (SHOPFITTER visits Q3 months - as of Jan 2024) Assessment & Plan (02/26/2025 5:55 PM EST): Timeline: - 05/24/24: Group - utox/pill count as expected - 07/26/24: Group - utox/pill count as expected - 12/13/24: Group - utox as expected, pill count off by 1 - 02/21/25: Group - utox/pill count as expected Assessment & Plan (12/13/2024 2:32 PM EDT): Timeline: - 05/24/24: Group - utox/pill count as expected - 07/26/24: Group - utox/pill count as expected - 12/13/24: Group - utox as expected, pill count off by 1 Assessment & Plan (07/26/2024 7:13 PM EDT): [...] of spinal canal 09/08/2023 Assessment & Plan (02/26/2025 5:55 PM EST): - Following with specialists, s/p July 2024 ACDF C4-C5 - Good engagement and participation with Group Medical Visit model - Encouraged multifactorial approach to pain control including pharm and non- pharm modalities - Utox/pill count as expected Assessment & Plan (12/13/2024 2:30 PM EDT): - Following with specialists, s/p July 2024 ACDF C4-C5 - Good engagement and participation with Group Medical Visit model - Encouraged multifactorial approach to pain control including pharm and non- pharm modalities - See flap lining binder regarding utox/pill count Assessment & Plan (07/26/2024 7:12 PM EDT): [...] due to additional use s/p fall. See flap lining binder Assessment & Plan (09/08/2023 5:25 PM EDT): [...] has small dog who is her emotional manager report, she is today requesting a better for [...] 25 mg I advised to follow-up with [facility] pharmacy, continue glucose monitor is also in [...] organization. Date Type Department Care Team Description 03/01/2025 2:45 PM EST Office Visit [facility] [address] [place] [address] Enrique Smart, WORKFORCE PLANNING ANALYST Injury of right knee, initial encounter (Primary Dx); Dysuria 03/01/2025 Travel 02/28/2025 Telephone [facility] [address] [place] [id number] Saima Rae MD Nurse Triage 02/21/2025 11:00 AM EST Office Visit [facility] [address] [place] [address] Palmira Alejandro FNP Cervical stenosis of spinal canal (Primary Dx); Long-term current use of opiate analgesic 02/21/2025 Refill [facility] [address] [place] [address] Saima Rae MD Cervical stenosis of spinal canal; Chronic bilateral low back pain with bilateral sciatica 02/21/2025 Telephone [facility] [address] [place] [address] Saima Rae MD Med Refill 02/21/2025 Refill [facility] [address] [place] [address] Saima Rae MD Fibromyalgia 02/21/2025 Telephone [facility] [address] [place] [address] Saima Rae MD Med Refill 02/21/2025 Refill [facility] [address] [place] [address] Svetlana Wood, JESUS Cervical stenosis of spinal canal; Chronic bilateral low back pain with bilateral sciatica 02/21/2025 Travel 02/16/2025 11:00 AM EST Office Visit [facility] ADULT DENTAL [address] [place] [address] Edmond Kimble, DMD 02/14/2025 1:30 PM EST Office Visit [facility]OMET[facility] [address] [place] [address] Riccardo, Tamiko, OD Presbyopia (Primary Dx) 02/14/2025 Travel 02/09/2025 Refill [facility] [address] [place] [address] Saima Rae MD Constipation, unspecified; Type 2 diabetes mellitus with hyperglycemia, without long-term current use of insulin ([facility]) 02/04/2025 Refill [facility] [address] [place] [address] Saima Rae MD Mild intermittent asthma, unspecified whether complicated 02/03/2025 Refill [facility] [address] [place] [address] Saima Rae MD Type 2 diabetes mellitus with hyperglycemia, without long-term current use of insulin ([facility]) 01/25/2025 1:30 PM EST Office Visit [facility] [address] [place] [address] Jorge Pham Dental calculus (Primary Dx) 01/25/2025 11:00 AM EST Office Visit [facility] [address] [place] [address] Edmond Kimble, DMD 01/24/2025 11:40 AM EST Clinical Support [facility] [address] [place] [address] Svetlana Wood, JESUS Cervical stenosis of spinal canal (Primary Dx); Long-term current use of opiate analgesic 01/24/2025 Refill [facility] [address] [place] [address] Svetlana Wood, JESUS Cervical stenosis of spinal canal; Chronic bilateral low back pain with bilateral sciatica 01/24/2025 Travel 01/20/2025 Telephone [facility] [address] [place] [address] Saima Rae MD Prior Authorization ( PA: Ashley) 01/18/2025 Refill [facility] [address] [place] [address] Saima Rae MD Muscle spasm 01/18/2025 Refill [facility] [address] [place] [address] Saima Rae MD Cervical stenosis of spinal canal; Chronic bilateral low back pain with bilateral sciatica 01/14/2025 Refill [facility] [address] [place] [address] Bhavna Martinez MD 01/13/2025 3:30 PM EST Office Visit [facility] [address] [place] [address] Saima Rae MD Essential hypertension (Primary Dx); Uncomplicated opioid dependence (CMS/HCC) (HCC); Dietary counseling; Exercise counseling; Class 2 severe obesity due to excess calories with serious comorbidity and body mass index (BMI) of 35.0 to 35.9 in adult; Type 2 diabetes mellitus with hyperglycemia, with long-term current use of insulin (HCC); Slow transit constipation; Screening examination for STI 01/13/2025 Refill [facility] [address] [place] [address] Saima Rae MD Class 2 obesity; Routine health maintenance 01/13/2025 Orders Only [facility] [address] [place] [address] Saima Rae MD 01/13/2025 Refill [facility] [address] [place] [address] Saima Rae MD Type 2 diabetes mellitus with hyperglycemia, with long-term current use of insulin (HCC) 01/13/2025 Travel 01/12/2025 1:30 PM EST Office Visit [facility] AD[facility] D[facility] [address] [place] [address] Edmond Kimble, EVERT 01/12/2025 Telephone [facility] [address] [place] [address] Saima Rae MD chart prep 01/06/2025 Patient Outreach [facility] [address] [place], [place] [id number] Saima Rae MD Pre-visit Planning (SDOH unable to reach M ) 01/04/2025 Refill [facility] [address] [place] [address] Bhavna Martinez MD 12/30/2024 8:30 AM EDT Office Visit [facility] AD[facility] DENT[facility] [address] [place] [address] Edmond Kimble, DMD 12/27/2024 2:30 PM EDT Office Visit [facility] [address] [place] [address] Riccardo, Tamiko, OD Diabetes type 2, no ocular involvement (HCC) (Primary Dx); Presbyopia 12/27/2024 Travel 12/26/2024 3:00 PM EDT Office Visit [facility] [address] [place] [address] Edmond Kimble, DMD 12/21/2024 1:30 PM EDT Office Visit [facility] [address] [place] [address] Edmond Kimble, DMD 12/20/2024 Refill [facility] [address] [place] [address] Saima Rae MD Cervical stenosis of spinal canal; Chronic bilateral low back pain with bilateral sciatica 12/19/2024 Refill [facility] [address] [place] [address] Saima Rae MD Cervical stenosis of spinal canal; Chronic bilateral low back pain with bilateral sciatica 12/15/2024 Travel 12/13/2024 11:00 AM EDT Office Visit [facility] [address] [place] [address] Palmira Alejandro, WORKFORCE PLANNING ANALYST Cervical stenosis of spinal canal (Primary Dx); Long-term current use of opiate analgesic 12/13/2024 Telephone [facility] [address] [place] [address] Jacqueline Schumacher RN [employer]FITTER Agreement renewed today 12/13/2024 Travel 12/11/2024 Refill [facility] [address] [place] [address] Saima Rae MD Muscle spasm; Fibromyalgia 12/05/2024 9:30 AM EDT Office Visit [facility] [address] [place] [address] Tae Ball DDS Dental caries (Primary Dx) from Last 3 Months Immunizations Immunization Administration Dates Next Due Hep B, adult 11/25/2017,12/16/2016,11/05/2016 Influenza injectable quadriv alent IIV4 with preservative 11/25/2017,02/16/2017 Influenza injectable quadriv alent preservative free 01/03/2022 Influenza, seasonal, injecta ble, preservative free 11/25/2024,01/12/2024 Moderna Covid-19 Vaccine 12+ 04/01/2020,03/04/19 21 Pfizer Covid-19 Vaccine 12+ 01/03/2022 Pfizer Covid-19 Vaccine 12+ Bivalent 01/03/2022 Pneumococcal Conjugate PCV 20 12/15/2024 Pneumococcal Polysaccharide PPSV23 02/16/2017 Tdap 12/17/2017 Social [...] with others, in a hotel, in a mcfp, living outside on the street, on a [...] Mass Index 30.63 03/01/2025 2:55 PM EST Plan of Treatment Upcoming Encounters Date Type Department Care Team (Late st Contact Info) Description 04/14/2025 3:30 PM EST Office Visit [facility] [address] [place] [address] Saima Rae MD [address] [place] [address] 04/25/2025 11:00 AM EST Office Visit [facility] [address] [place] [address] 07/28/2025 1:30 PM EDT Office Visit [facility] [address] [place] [address] Jorge Pham Health Maintenance Due Date Last Done Comments CT Colonography 1976 Colonoscopy 1976 Colorectal Cancer Screening 1976 FIT DNA/Cologuard 1976 FIT 1976 FOBT 1976 HIV Screening 1976 Sigmoidoscopy 1976 Diabetes: Foot Exam 1986 Family Planning (PISQ) 11/17/1991 Hepatitis C Screening 1994 Hepatitis A Vaccines (1 of 2 - Risk 2-dose series) 11/17/1995 Dental X-Ray: Bitewings 04/23/2020 04/22/2019, 03/09 Dental Oral Exam 01/14/2021 07/13/2020, , 03/09/2017 Dental X-Ray: Full Mouth 07/15/2023 021, 07/13/2020, 03/09/2017 COVID-19 Vaccine ( season) 2024 03/05/2023, 01/03/2022, 01/03/2022, Additional history exists Depression Monitoring 01/12/2025 07/12/2024, 025 Alcohol/Substance Use Screening 07/07/2025 07/07/2024 SDOH Screening 07/07/2025 07/07/2024 Diabetes: Hemoglobin A1C 07/13/2025 025, 10/21/2024, 10/13/2024, Additional history exists Diabetes: Urine Protein Screening 07/19/2025 07/19/2024, 02/29/2024, 12/05/2020, Additional history exists Dental Prophylaxis 07/26/2025 01/25/2025, 10/16/2017 Disability Screening 10/13/2025 10/13/2024 Lipid Panel 10/21/2025 10/21/2024, 12, 12/05/2020 Mammogram 11/14/2025 11/14/2024, 03/0 08/2023, 04/13/2023, Additional history exists Tobacco Screening 02/16/2026 02/16/2025 Zoster Vaccines (1 of 2) 2026 Eye Exam 12/27/2026 12/27/2024, 12/01, 12/27/2024, Additional history exists DTaP/Tdap/Td Vaccines (2 - Td or Tdap) 12/18/2027 12/17/2017 Cervical Cancer Screening 07/14/2028 HPV/Cotest 07/14/2028 01/16/2017 Pap Smear 07/14/2028 07/15/2023 RSV Patients and Patients Aged 60 years or older (1 - 1-dose 75+ series) 11/17/2051 Hepatitis B Vaccines Completed 11/25/2017, 12/16/2016, 11/05/2016 Influenza Vaccine Completed 11/25/2024, , 01/03/2022, Additional history exists Pneumococcal Vaccine: Pediatrics (0 to 5 Years) and At-Risk Patients (6 to 49) Years Completed 12/15/2024, 02/16/2017 HIB Vaccines Aged Out No longer eligi [...] on patient's age to complete this topic Goals Goal Patient Goal Type Associated Problems Recent Progress Patient-Stated? Author Help patients manage their type 2 diabetes Care Plan Help patients manage their type 2 diabetes No Ankit Ho Weekly blood pressure task Care Plan Weekly blood pressure task No Ankit Ho Help patients manage their type 2 diabetes Care Plan Help patients manage their type 2 diabetes Ankit Renteria Patient has chronic kidney disease Care Plan Patient has chronic kidney disease Ankit Renteria Weekly blood pressure task Care [...] Plan Weekly blood pressure task No Tamiko Gu, OD Weekly blood pressure task Care Plan [...] Plan Weekly blood pressure task No Jacqueline Schumacher, RN Patient has chronic kidney disease Care Plan Patient has chronic kidney disease No Jacqueline Schumacehr, RN Patient has chronic kidney disease Care Plan Patient has chronic kidney disease No Jacqueline Schumacher, RN Weekly blood pressure task Care Plan Weekly blood pressure task No Pastor Zhou PharmD Weekly blood pressure task Care Plan Weekly blood pressure task No Pastor Zhou PharmEmily Patient has chronic kidney disease Care Plan Patient has chronic kidney disease No Pastor Zhou PharmEmily Patient has chronic kidney disease Care Plan Patient has chronic kidney disease No Pastor Zhou PharmEmily Weekly blood pressure task Care Plan Weekly blood pressure task No Edmond Kimble DMD Weekly blood pressure task Care Plan Weekly blood pressure task No Edmond Kimble, DMD Patient has chronic kidney disease Care Plan Patient has chronic kidney disease No Edmond Kimble, DMD Patient has chronic kidney disease Care [...] chronic kidney disease No Pastor Zhou PharmEmily Weekly blood pressure task Care Plan Weekly blood pressure task No Svetlana Wood RN Weekly blood pressure task Care Plan Weekly blood pressure task No Svetlana Wood, JESUS Patient has chronic kidney disease Care Plan [...] Care Plan Weekly blood pressure task No [place] Ele bernal Weekly blood pressure task Care Plan Weekly blood pressure task No [place] Ele bernal Patient has chronic kidney disease Care Plan Patient has chronic kidney disease No ChelseauiEle schumacher Patient has chronic kidney disease Care Plan Patient has chronic kidney disease No [place] Ele bernal Weekly blood pressure task Care Plan Weekly blood pressure task No Zaire Patricia, BRASS BUFFER Weekly blood pressure task Care Plan Weekly blood pressure task No Zaire Patricia, BRASS BUFFER Patient has chronic kidney disease Care Plan Patient has chronic kidney disease No Zaire, Patricia, BRASS BUFFER Patient has chronic kidney disease Care Plan Patient has chronic kidney disease No Zaire Patricia, BRASS BUFFER Weekly blood pressure task Care Plan Weekly blood pressure task No [facility] blood pressure task Care Plan Weekly blood pressure task No [facility] Patient has chronic kidney disease Care Plan Patient has chronic kidney disease No [facility] Patient has chronic kidney disease Care Plan Patient has chronic kidney disease No [facility] Weekly blood pressure task Care Plan Weekly [...] chronic kidney disease No Enrique Smart FNP Procedures Procedure Name Priority Date/Time Associated Diagnosis Comments POCT URINALYSIS DIPSTICK Routine 03/01/2025 3:16 PM EST Dysuria POCT [id number] URINE DRUG SCREEN Routine 02/21/2025 11:55 AM EST Cervical stenosis of spinal canal Long-term current use of opiate analgesic CASE PRESENTATION, DETAILED AND EXTENSIVE TREATMENT PLANNING Routine 02/16/2025 11:00 AM EST 18,19 MANDIBULAR PARTIAL DENTURE - RESIN BASE (INCLUDING, RETENTIVE/CLASPING MATERIALS, RESTS, AND TEETH) Routine 02/16/2025 11:00 AM EST 4,5,13 MAXILLARY PARTIAL DENTURE - RESIN BASE (INCLUDING, RETENTIVE/CLASPING MATERIALS, RESTS, AND TEETH) Routine 02/16/2025 11:00 AM EST ORAL HYGIENE INSTRUCTIONS Routine 01/25/2025 1:30 PM EST Full PROPHYLAXIS - ADULT Routine 01/25/2025 1:30 PM EST CASE PRESENTATION, DETAILED AND EXTENSIVE TREATMENT PLANNING Routine 01/25/2025 1:30 PM EST WAX TRY IN Routine 01/25/2025 11:00 AM EST POCT RIKKI-14 URINE DRUG SCREEN Routine 01/24/2025 11:43 AM EST Long-term current use of opiate analgesic POCT GLYCATED HEMOGLOBIN, TOTAL Routine 01/13/2025 3:50 PM EST Type 2 diabetes mellitus with hyperglycemia, with long-term current use of insulin (HCC) POCT GLUCOSE (CPT-87375) Routine 01/13/2025 3:31 PM EST Type 2 diabetes mellitus with hyperglycemia, with long-term current use of insulin (HCC) DENTURE IMPRESSION Routine 01/12/2025 1: 30 PM EST CASE PRESENTATION, DETAILED AND EXTENSIVE TREATMENT PLANNING Routine 12/30/2024 8:30 AM EDT 30 CROWN - PORCELAIN/CERAMIC Routine 12/30/2024 8:30 AM EDT CASE PRESENTATION, DETAILED AND EXTENSIVE TREATMENT PLANNING Routine 12/26/2024 3:00 PM EDT 31 O RESIN-BASED COMPOSITE - 1 SURF, POSTERIOR Routine 12/26/2024 3:00 PM EDT 14 MOL RESIN-BASED COMPOSITE - 3 SURF, POSTERIOR Routine 12/26/2024 3:00 PM EDT 30 CROWN PREP Routine 12/21/2024 1:30 PM EDT POCT RIKKI-14 URINE DRUG SCREEN Routine 12/13/2024 11:12 AM EDT Long-term current use of opiate analgesic Cervical stenosis of spinal canal 14 LIMITED ORAL EVALUATION - PROBLEM FOCUSED Routine 12/05/2024 9:30 AM EDT BI MAMMOGRAM SCREENING TOMOSYNTHESIS BILATERAL Routine 11/14/2024 2:30 PM EDT Encounter for screening mammogram for malignant neoplasm of breast LIPID PANEL, STANDARD Routine 10/21/2024 10:37 AM EDT ALBUMIN, RANDOM URINE W/CREATININE Routine 07/19/2024 9:13 AM EDT Type 2 diabetes mellitus with hyperglycemia, without long-term current use of insulin ([facility]) PAP SMEAR Routine 07/15/2023 12:11 PM EDT PANORAMIC RADIOGRAPHIC IMAGE Routine 07/13/2020 12:00 AM EDT PERIODIC ORAL EVALUATION - ESTABLISHED PATIENT Routine 07/13/2020 12:00 AM EDT BITEWINGS - 4 RADIOGRAPHIC IMAGES Routine 04/22/2019 12:00 AM EST ZZZ HISTORICAL HPV E6/E7 RFLX TRACIE 16 18/45 Routine 01/16/2017 12:20 PM EST from Last 3 Months or Most Recently Relevant to Health Maintenance Results * POCT Urinalysis (03/01/2025 3:16 PM [...] Media Lot # [id number] Lot# Expiration Date 6,026 Urine (Urine, Random) 03/01/2025 3:16 PM EST Enrique Smart WORKFORCE PLANNING ANALYST POINT OF CARE TEST ENTER/EDIT ORDERABLES Final Result * (ABNORMAL) POCT RIKKI-14 Urine Drug Screen (02/21/2025 11:55 AM EST) Only the most recent of3 resultswithin the time period is included. Amphetamine Screen, Urine Negative Negative Barbiturate Screen, Urine Negative Negative Buprenophine Screen, Urine Negative Negative Benzodiazepines Screen, Urine Negative Negative Cocaine Screen, Urine Negative Negative Fentanyl, Urine Negative Negative MDMA Urine Negative Negative ng/mL Methamphetamine Screen Urine Negative Negative Opiate Screen, Urine Negative Negative Methadone Screen, Urine Negative Negative Oxycodone Screen, Urine Positive(A) Negative Comment:Rx Phencyclidine (PCP), Urine Negative Negative TCA, Urine Positive(A) Negative THC Negative Negative Propoxyphene, Urine Negative Negative Urine Urine specimen obtained by clean catch procedure / Unknown 02/21/2025 11:55 AM EST Narrative Svetlana Wood RN - 02/21/2025 11:55 AM EST .UTOX cup Lot#[id number] Exp. 12/30/25 Internal Pass Control Palmira Alejandro WORKFORCE PLANNING ANALYST POINT OF CARE TEST ENTER/EDIT ORDERABLES Final Result * (ABNORMAL) POCT Hgb A1c (01/13/2025 3:50 PM EST) Hemoglobin A1C 6.5(A) 4.0 - 5.7 % QC Media Lot # [id number] Lot# Expiration Date 51 Blood 01/13/2025 3:50 PM EST Saima Colbert MD POINT OF CARE TEST EN TER/EDIT ORDERABLES Final Result * POCT Glucose (01/13/2025 3:31 PM EST) Glucose Blood, POC 199 60 - 200 mg/dL QC Media Lot # [id number] Lot# Expiration Date Blood Capillary blood specimen / Unknown 01/13/2025 3:31 PM EST Saima Colbert MD POINT OF CARE TEST EN TER/EDIT ORDERABLES Final Result * BI Mammogram Screening Tomosynthesis Bilateral (11/14/2024 2:30 PM EDT) Anatomical Region Laterality Modality Breast Bilateral Mammography 11/14/2024 2:30 PM EDT Narrative 11/15/2024 6:27 PM EDT [facility] [address] [place] [address] Mammography Report Signed Patient: Vazquez Anderson MR #: [id number] : 1975 Acct:[id number] Age/Sex: 48 / F ADM Date: 11/14/24 Loc: HO.MAMMLuis Armando Attending Dr: Saima Colbert MD Ordering Physician: Saima Rae MD Results: 1Negative Date of Service: 11/14/24 Follow Up: 1 Year From Orig ina Mammogram Procedure(s): MM tomosynthesis screening BI Accession Number(s): [id number] cc: Saima Rae MD Reason For Exam: [...] Barnes MD 11/15/2024 06:23 PM EDT RP Workstation: Travolver Dictated By: Adelina Barnes MD Signed By: <Electronically signed by Adelina Barnes MD in OV> 11/15/24 1823 DD/ 1430 TD/TT: 11/14/24 1448 Community Health Director: Procedure Note Donotuseinterpreter, Image - 11/15/2024 [facility] [address] [place] [address] Mammography Report Signed Patient: Malina Anderson #: [id number] : 1975Acct:[id number] Age/Sex: 48 / FADM Date: 11/14/24 Loc: MAMMO Attending Dr: Saima Colbert MD Ordering Physician: Saima Rae MDResults: 1Negative Date of Service: 11/14/24Follow Up: 1 Year From Orig inal Mammogram Procedure(s): MM tomosynthesis screening BI Accession Number(s): [id number] cc: Saima Rae MD Reason For Exam: [...] Barnes MD 11/15/2024 06:23 PM EDT RP Workstation: Travolver Dictated By: Adelina Barnes MD Signed By: <Electronically signed by Adelina Barnes MD in OV> 11/15/24 1823 DD/ 1430 TD/TT: 11/14/24 1448 Community Health Director: us Saima Colbert MD IMG BI PROCEDURES Davon kaylie Result - Final * Lipid Panel, Standard (10/21/2024 10:37 AM EDT) Triglycerides 128 <150 mg/dL [facility] Comment:Desirable Triglyceri de: less than 150 mg/dLBorderline High Triglyceride 150-199 mg/dLHigh Triglyceride: 200-499 mg/dLVery High Triglyceride: greater than or equal to 5OO mg/dL Cholesterol 165 <200 mg/dL [facility] Comment:Desirable Cholestero l: less than 200 mg/dLBorderline High Cholesterol: 200-239 mg/dLHigh Cholesterol: greater than 239 mg/dL LDL Cholesterol Calculated 94 <100 mg/dL [facility] Comment:Desirable LDL: less than 100 mg/dLNear Optimal/Above Optimal LDL: 110- 129 mg/dLBorderline High LDL: 130-159 mg/dLHigh LDL: 160-189 mg/dLVery High LDL: greater than or equal to 190 mg/dL HDL Cholesterol 46 >40 mg/dL [facility] Comment:Desirable HDL: great er than 40 mg/dL Note: This HDL assay may give artificially low results in patients with liver disease. 10/21/2024 10:3 7 AM EDT 10/21/2024 10:37 AM EDT us Generic External Data Provider LAB BLOOD ORDERAB LES Final Result Performing Organization Address [facility] Co de Phone Number [facility] [address] [place] [phone] * Albumin, Random Urine W/Creatinine (07/19/2024 9:13 AM EDT) Creatinine, Urine 34.74 mg/dL [facility] Microalbumin Urine <5.0 mg/L [facility] Microalbum Creatinine Ratio Ur TNP <30 ug/mg cr [facility] Comment:Unable to calculate albumin/creatinine ratio due to lowmicroalbumin or creatinine result. Urine (Urine, Random) 07/19/2024 9:13 AM EDT 07/19/2024 9:46 AM EDT us Saima Colbert MD LAB URINE ORDERABLES Final Result Performing Organization Address [facility] Co de Phone Number [facility] [address] [place] [phone] * Pap Smear (07/15/2023 12:11 PM EDT) 07/15/2023 12:1 1 PM EDT 07/16/2023 10:15 AM EDT Narrative [facility] - 08/03/2023 11:58 AM EDT ----- ------- Name: Vazquez Anderson Age/Sex: 47/F : 1975 Unit#: [id number] Attend Dr: Rebecca Bales [facility] Re07/15/23 Status: [facility] REF Location: [facility] Disch: ----- ------- SPEC : [id number] RECD: 07/16/23-1015 STATUS: ROHIT FIGUEROAChristiana NUM: [id number] ELINA: 07/15/23-1211 [facility] DR: Rebecca Bales [facility] ENTERED: 07/16/23-1317 SP TYPE: Pap Smr OTHR DR: Saima Rae MD ORDERED: Pap Smear Interpretation Satisfactory for evaluation. Negative for intraepithelial lesion or malignancy. HPV mRNA E6/E7: NOT DETECTED This assay detects E6/E7 viral messenger RNA (mRNA) from 14 high-risk HPV types (16, 18, 31, 33, 35, 39, 45, 51, 52, 56, 58, 59, 66, 68) HPV testing performed by [facility], [place]. See reference laboratory portion of the EMR for entire report. Clinical Information LMP:06/24/23 Previous PAP test:2019 WN Material Received ThinPrep-Vaginal/Cervical Copies To: Saima Rae MD [address] [place] [address] [phone] Rebecca Bales [address] Fiore [address] [place] [phone] ----- ------- Signed (signature on file) Griselda Ho 08/03/23 1158 ----- ------- END OF REPORT us Generic External Data Provider LAB CYTOLOGY SHARMILA ZAMBRANO Final Result [address] [address] [phone] * HPV E6/E7 RFLX TRACIE 16 18/45 (01/16/2017 12:20 PM EST) HPV mRNA E6/E7 Not Detected NOT DETECTED [facility] [employer] Comment: This test was performed using the APTIMA(R) HPV Assay ([employer] This assay detects E6/E7 viral messenger RNA (mRNA) from 14 high-risk HPV types (16,18,31,33,35,39,45,51, 52,56,58,59,66,68). For additional information please refer to: http://education.[employer].CallAround/faq/DTB557a9 (This link is being provided for informational/ educational purposes only.) Please note: Effective 11/12/2015, HPV testing will be performed using [employer]'s APTIMA test which targets mRNA. Detecting mRNA instead of DNA, as in older methods, offers significant improvements in specificity. ADDITIONAL TESTING Not indicated () [employer] Comment: Test Performed by Prakash Mina, [facility], [address] [place] [phone] J Carlos Macedo M.D., Ph.D., Director of Laboratories , [place] [id number] HPV 16 RNA Test not performed [facility] HPV 18/45 RNA Test not performed [facility] 01/16/2017 12:2 0 PM EST us Nicola White MD HISTORICAL/NON ORDERA BLE LABS Final Result Performing Organization Address City/State/[facility] Co de Phone Number [facility] [address] from Last 3 Months or Most Recently Relevant to Health Maintenance Additional Health Concerns Active Problems Noted Date [...] 03/01/2025 Patient has chronic kidney disease 03/01/2025 Insurance [facility] MEDICAID STAND ADULT Care Teams Community Assistant Relationship Specialty Start Date End Date Saima Rae MD [address] [place] [phone] PCP - General Family Medicine 08/26/18 Pastor Zhou, PharmD [address] [place], [place] [phone] Pharmacist Internal Medicine 08/11/24
--- OUTSIDE RECORDS SUMMARY | 2025-03-01 16:10 | XMS_ITS | Encounter Summary ---
Author Organization [employer] Address [address] [place] [address] 7 [place] [address] Care Team Providers Care Bakelite Molder Name Role Phone Saima Rae MD Primary Care Provide r Pastor Zhuo PharmD Unavailable [phone] Reason for Visit * Reason Onset Date Comments Nurse Triage 12/24/2023 Encounter Details Date Type Department Care Team ([facility] st Contact Info) Description 12/24/2023 Telephone [facility] MEDICINE [address] [place], [place] [phone] Saima Rae MD [address] [place], [place] [phone] Nurse Triage Social History Tobacco Use Types [...] Did go to the work connection at [facility] on 12/23/23. Pt has scrape and swelling [...] Description 04/14/2025 3:30 PM EST Office Visit [facility] MEDICINE [address] [place] [phone] Saima Rae MD [address] [place] [phone] 04/25/2025 11:00 AM EST Office Visit [address] [address] 07/28/2025 1:30 PM EDT Office Visit [facility] CHC ADULT DENTAL [address] [place] [address] Jorge Pham documented as of this encounter Visit Diagnoses Not on filedocumented in this encounter Additional Health Concerns Assessment Noted Time PHQ-9 Depression Total Score: 15 023 3:30 PM EST documented as of this encounter Care Teams Bakelite Molder Relationship Specialty Start Date End Date Saima Rae MD [address] [place] [phone] PCP - General Family Medicine 08/26/18 Pastor Zhou, LeighannD [address] [place] [phone] Pharmacist Internal Medicine 08/11/24 documented as of this encounter
--- OUTSIDE RECORDS SUMMARY | 2025-03-01 16:10 | XMS_ITS | Encounter Summary ---
Author Organization [employer] Address [address] [place] [address] 7 [place] [address] Care Team Providers Care Drywall Taper Helper Name Role Phone Saima Rae MD Primary Care Provide r Pastor Zhou PharmD Unavailable [phone] Reason for Visit * Reason Onset Date Comments Results 01/12/2024 Encounter Details Date Type Department Care Team ([facility] st Contact Info) Description 01/12/2024 Telephone [facility] MEDICINE [address] [place], [place] [phone] Saima Rae MD [address] [place], [place] [phone] Results Social History Tobacco Use Types Packs/Day [...] results: Xray Date when done: 01/07/24 Facility: [facility] documented in this encounter Plan of Treatment Upcoming Encounters Date Type Department Care Team (Late st Contact Info) Description 04/14/2025 3:30 PM EST Office Visit [facility] MEDICINE [address] [place] [phone] Saima Rae MD [address] [place] [phone] 04/25/2025 11:00 AM EST Office Visit [facility] MEDICINE [address] [place] [phone] 07/28/2025 1:30 PM EDT Office Visit [facility] CHC ADULT DENTAL [address] [place] [address] Jorge Pham documented as of this encounter Visit Diagnoses Not on filedocumented in this encounter Additional Health Concerns Assessment Noted Time PHQ-9 Depression Total Score: 15 023 3:30 PM EST documented as of this encounter Care Teams Drywall Taper Helper Relationship Specialty Start Date End Date Saima Rae MD [address] [place] [address] PCP - General Family Medicine 08/26/18 Pastor Zhou, Yordy [address] [place] [address] Pharmacist Internal Medicine 08/11/24 documented as of this encounter
--- OUTSIDE RECORDS SUMMARY | 2025-03-01 16:10 | XMS_ITS | Encounter Summary ---
Author Organization [employer] Address [address] [place] [address] 7 [place] [address] Care Team Providers Care Service Crew Leader Name Role Phone Saima Rae MD Primary Care Provide r Pastor Zhou PharmD Unavailable [phone] Encounter Details Date Type Department Care Team (Late st Contact Info) Description 01/13/2025 Orders Only [facility] MEDICINE [address] [place] [address] Saima Rae MD [address] [place], [place] [phone] Social History Tobacco Use Types Packs/Day Years [...] Description 04/14/2025 3:30 PM EST Office Visit [facility] MEDICINE [address] [place] [phone] Saima Rae MD [address] [place] [phone] 04/25/2025 11:00 AM EST Office Visit [facility] MEDICINE [address] [place] [address] 07/28/2025 1:30 PM EDT Office Visit [facility] CHC ADULT DENTAL [address] [place] [address] Jorge Pham documented as of this encounter [...] as of this encounter Care Teams Service Crew Leader Relationship Specialty Start Date End Date Saima Rae MD [address] [place] [address] PCP - General Family Medicine 08/26/18 Pastor Zhou, LeighannD [address] [place] [phone] Pharmacist Internal Medicine 08/11/24 documented as of this encounter
== END 2025-03-01 16:07 | disposition home or self-care (01) ==
LOC: HO.HHCX 16:06
PROVIDERS: PCP Internal Medicine
DX: R30.0 Dysuria (principal); S89.91XA Unspecified injury of right lower leg, initial encounter; R60.0 Localized edema
CPT/HCPCS: 73564; 87086

== ENCOUNTER → 2025-03-01 16:10 | Outpatient (BNV) | payer MEDICAID, SELFPAY | PROVIDERS: PCP Internal Medicine; Visit Provider Radiology Diagnostic Radiology | DX: M17.11 Unilateral primary osteoarthritis, right knee (principal); M25.461 Effusion, right knee | CPT/HCPCS: 73564 ==